=== PATIENT | female | born 1940 | race Hispanic/Latino ===

== ENCOUNTER → 2018-03-20 13:47 | Outpatient (CLI) | payer MEDICARE, OTHER, SELFPAY ==
--- NOTE | 2018-03-20 | DI.ECHO.S_ITS ---
[place] [facility]---------+ [facility] +---------+ : : [address] : : : [place], [place] : : : : [id number] : : : : Phone: [phone] Echocardiogram Report + + :Name: JAMIL HERRERA Study Date: 03/20/2018 Height: 62 in : :[facility] Exam Location: [facility] Weight: 170 lb : : Gender: Female BSA: 1.8 m2 : :: 1940 Age: 77 yrs BP: 140/60 mmHg: :Reason For Study: DYSPNEA : : Performed By: Avinash Murphy : :Referring: MARQUITA GOMEZ : + + Interpretation Summary 1. Normal left ventricular size, wall thickness and systolic function with an estimated EF of 60-65% 2. Normal right ventricular size and systolic function. The estimated right atrial pressure is low. 3. No evidence for significant valvular pathology There is no old study available for comparison Procedure: A two-dimensional transthoracic echocardiogram with color flow and Doppler was performed. The study quality was technically adequate. There is no prior echocardiogram noted for this patient. The patient was in normal sinus rhythm during the exam. Left Ventricle: The left ventricle is normal in size. There is normal left ventricular wall thickness. The ejection fraction is estimated to be 60-65%. No obvious focal wall motion abnormalities. Right Ventricle: The right ventricle is normal in size and function. Atria: The left atrium is mildly dilated. Right atrial size is normal. No color doppler evidence for an ASD. Mitral Valve: The mitral valve is normal in structure and function. There is mild mitral annular calcification. There is trace mitral regurgitation. Aortic Valve: The aortic valve is trileaflet. The aortic valve opens well. No aortic regurgitation is present. Tricuspid Valve: The tricuspid valve leaflets are thin and pliable. No tricuspid regurgitation. Pulmonary artery pressures cannot be estimated because of the lack of a measurable TR jet velocity. Pulmonic Valve: The pulmonic valve is not well seen, but is grossly normal. There is trace pulmonic regurgitation. Great Vessels: The aortic root is normal size. The dimensions of the ascending aorta are normal. The IVC is of normal diameter and collapses greater than 50% with a sniff. This suggests a low right atrial pressure of 3 mm Hg. Pericardium/ Pleura There is no pericardial effusion. There is no pleural effusion. MMode/2D Measurements & Calculations LVIDd: 5.0 cm Ao root diam: 2.9 cm LVIDs: 3.0 cm Aortic Jxn: 2.3 cm FS: 39.4 % asc Aorta Diam: 3.0 cm EPSS: 0.43 cm IVSd: 0.77 cm LVPWd: 0.69 cm LV cantu. diameter/BSA (cm/m^2): 2.8 LV sys. diameter/BSA (cm/m^2): 1.7 LA dimension: 3.5 cm RA long axis: 4.0 cm LA A2 area: 22.2 cm2 RA area: 11.8 cm2 LA A4 area: 16.8 cm2 RA vol: 29.4 ml LA length (vol): 5.0 cm RA : 16.5 ml/m2 LA vol: 63.9 ml IVC diam: 1.8 cm LA vol index: 35.8 ml/m2 Doppler Measurements & Calculations Ao V2 max: 153.3 cm/sec MV E max ty: 72.8 cm/sec Ao V2 mean: 112.4 cm/sec MV A max ty: 89.7 cm/sec Ao max P.4 mmHg MV E/A: 0.81 Ao mean P.5 mmHg Med Peak E' Ty: 5.8 cm/sec Ao V2 VTI: 31.8 cm E/E' med: 12.6 Lat Peak E' Ty: 5.8 cm/sec E/E' lat: 12.6 E/e' average: 12.6 MV dec time: 0.35 sec PA V2 max: 106.4 cm/sec Pulm A Revs Ty: 40.6 cm/sec PA V2 mean: 78.7 cm/sec PA mean P.7 mmHg PA pr(Accel): 51.6 mmHg PA Accel Time: 0.06 sec Reading Physician:PM
== END ==
PROVIDERS: Family Provider Family Medicine; PCP Family Medicine; Visit Provider Internal Medicine
DX: R06.00 Dyspnea, unspecified (principal)
CPT/HCPCS: 93306

== ENCOUNTER → 2018-04-17 09:07 | Outpatient (CLI) | payer MEDICARE, OTHER, SELFPAY ==
--- NOTE | 2018-04-17 10:18 | DI.CT.S_ITS ---
PROCEDURE: CT CHEST ABD PEL WO CON INDICATIONS: General hyperhidrosis TECHNIQUE: After the administration of oral contrast, 5 mm thick sections acquired from the lung apices to the symphysis pubis. 5 mm thick coronal and sagittal reformats acquired, with additional 7 mm coronal MIP reformats through the lungs. For radiation dose reduction, the following was used: automated exposure control, adjustment of mA and/or kV according to patient size. COMPARISON: None. FINDINGS: Image quality: Excellent. CHEST: Lungs and pleura: No acute pulmonary opacities. No pleural effusions or pneumothorax. Central and peripheral airways are patent are normal in caliber. Mediastinum: Heart size is normal. No pericardial effusion. No mediastinal adenopathy by CT size criteria. Thoracic aorta and central pulmonary arteries are normal in size. Esophagus is normal in caliber. No hiatal hernia. Chest wall: No axillary or supraclavicular adenopathy by size criteria. Thyroid gland appears normal where well visualized. ABDOMEN: Solid organs: Liver is normal in size. Gallbladder has been previously resected. Pancreas is normal in contours. Spleen is normal in size. No adrenal nodules. Both kidneys are normal in size, without hydronephrosis or nephrolithiasis. Peritoneum and bowel: Small and large bowel loops are normal in caliber and wall thickness. No free fluid or air. Nodes and vessels: No retroperitoneal or mesenteric adenopathy by size criteria. Aorta and inferior vena cava are normal in size. Miscellaneous: No ventral hernias. PELVIS: Genitourinary: Bladder wall thickness is normal. Miscellaneous: No inguinal hernias or adenopathy. Bones: No suspicious bony lesions. No vertebral body compression fractures. IMPRESSION: No inflammation or adenopathy is seen. Prior cholecystectomy. No underlying infection or neoplasm is found. Dictated by: Hung Mccormick M.D. on 04/17/2018 at 11:10 Approved by: Hung Mccormick M.D. on 04/17/2018 at 11:12
== END ==
PROVIDERS: Family Provider Family Medicine; PCP Family Medicine; Visit Provider Internal Medicine
DX: R61 Generalized hyperhidrosis (principal)
CPT/HCPCS: 71250; 74176

== ENCOUNTER → 2018-05-22 11:24 | Outpatient (CLI) | payer MEDICARE, BC, SELFPAY ==
[2018-05-22 14:13] LABS: Hemoglobin A1C% w Est Avg Glu 8.5 % (4.0-6.0)
== END ==
PROVIDERS: Family Provider Family Medicine; PCP Family Medicine; Visit Provider Internal Medicine
DX: E11.9 Type 2 diabetes mellitus without complications (principal)
CPT/HCPCS: 36415; 83036

== ENCOUNTER 2018-05-23 08:10 | Day surgery (SDC) | payer MEDICARE, BC, SELFPAY ==
--- NOTE | 2018-05-17 17:15 | P.PCN_ITS ---
Procedures Date/Time Date of procedure: 05/23/18 Time of procedure: 08:46 General Procedure description: Date of service: May 23, 2018 Preoperative diagnoses: 1. Cortical nuclear sclerotic cataract complex type with need for capsular dye status post cataract surgery with posterior chamber intraocular lens implant. 2. Diabetes without retinopathy. 3. Fibromyalgia. 4. Tachycardia Postoperative diagnoses: 1. Cataract removal complex. Procedure: Complex Phacoemulsification with posterior chamber intraocular lens implant Surgeon: Neha Smith MD Complications: None Specimen: None Implant:ZCBOO+22.5 Blood loss: None Anesthesia: Retrobulbar with monitored standby Anesthesiologist: Red Sanchez M.D. Description of procedure: Patient is a 77 year old female with decreased vision due to cataract which is affecting activities of daily living. She wants surgery to improve vision. She has taken to the operating room and given IV sedation. A retrobulbar block insert consisting of 6 cc of 2% xylocaine without epinephrine mixed half and half with 0.5% Marcaine with 1 cc of hyaluronidase added is placed between the medial and lateral 1/3 of the inferior orbital rim. Lid akinesia is obtain with 1% xylocaine with epinephrine infiltrated along the lid margin. The eye is manually massaged for 30 sec, prepped using Betadine solution, and draped in the usual sterile fashion. Temporal approach was made, a 1 mm side-port incision was made at the 12 o' clock meridian. Phenylephrine 1.5% mixed with 1% xylocaine 0.2 cc was placed into the anterior chamber. An air bubble was placed followed by vision Elsy dye for better visibility. This was due to cortical cataract through the visual axis. Viscoat followed by Healigor was then placed. A 2.6 mm clear incision with a 2.6 mm blade was placed at the 3 oclock meridian. A 360 degree capsulorrhexis style capsulotomy was then performed with a cystitome needle on a Healon. Hydrodelineation and hydrodissection were performed. The phacoemulsification unit is introduced, and sculpting notice used to groove the central lens. It is then removed in chopping mode. Epi nucleus is removed with epinuclear mode and irrigation aspiration was used to remove the peripheral cortex. The posterior capsule is polished. The intraocular lens is selected, inspected, power confirmed, and placed in the posterior chamber. The pupil was constricted. The wound was stromally hydrated and tested for leaks, there was none and was left sutureless. Vigamox 0.1 cc was placed into the anterior chamber. Kenalog 0.2 cc was placed in the superior subconjunctival space. A drop of antibiotic and was placed and the eye was patched and shielded. The patient was stable and returned to the recovery room in excellent condition. Dictated by: Neha Smith MD Copy to: [facility]
--- NOTE | 2018-05-17 17:15 | PM.PREOP ---
Pre-operative Note Interval Note Pre-op Check: History & Physical Reviewed by Physician
--- NOTE | 2018-05-17 17:21 | PM.PREOP ---
Pre-operative Note Interval Note H&P completed within 30 days and has changed as indicated here:: Patch tested for topical Betadine in the office. no reaction. Okay to use as prep.
[2018-05-23] MEDS: CATARACT EYE COMPOUND (10 DROPS/SYRINGE) 3 DROPS EYE-OP (08:29)
[2018-05-23] MEDS: PROPARACAINE 0.5% OPHTH SOL 2 DROPS EYE-OP (08:29)
[2018-05-23 08:36] VITALS: BP 134/65; PULSE 81; RESP 16; TEMP 36.1; O2SAT 95; BMI 33.1
[2018-05-23] MEDS: PHENYLEPHRINE/LIDOCAINE 3ML VIAL (OR) EYE-OP (09:23)
[2018-05-23] MEDS: TRIAMCINOLONE 50 MG/5 ML VIAL INJ (09:24)
[2018-05-23] MEDS: MOXIFLOXACIN OPHTH DROPS 3 ML BOTTLE 2 DROPS INJ (09:24)
[2018-05-23] MEDS: CHONDROIDTIN/SOD HYALURONATE 1.05 ML SYRINGE INTRAOCULA (09:25)
[2018-05-23] MEDS: BALANCED SALT IRRIG SOLN NO.2 15 ML IRRIG.SOLN IRR (09:26)
[2018-05-23] MEDS: HYALURONATE SODIUM 10 MG/ML SYRINGE INJ (09:26)
[2018-05-23] MEDS: LIDOCAINE 1% W/EPI INJ 20 ML INJ (09:27)
[2018-05-23] MEDS: LIDOCAINE 2% 4 ML, BUPIVACAINE 0.5% (PF) 4 ML, HYALURONIDASE 150 UNIT INJ (09:29)
[2018-05-23] MEDS: TRYPAN BLUE 0.5 ML SYRINGE INJ (09:30)
[2018-05-23] MEDS: CARBACHOL 1.5 ML VIAL INJ (09:40)
[2018-05-23 09:43] VITALS: BP 113/62; PULSE 72; RESP 17; TEMP 36.1; O2SAT 96
--- NOTE | 2018-05-23 10:44 | SUR.PREOP ---
pt. medicated with the preop eye drops as ordered, first set of drops @ 0829, then second set @ 0835, and last set @ 0840
== END 2018-05-23 10:00 | disposition home or self-care (01) ==
LOC: OR 08:12
PROVIDERS: PCP Family Medicine; Visit Provider Ophthalmology
DX: H25.12 Age-related nuclear cataract, left eye (principal); E11.9 Type 2 diabetes mellitus without complications; Z79.4 Long term (current) use of insulin; M79.7 Fibromyalgia; R00.0 Tachycardia, unspecified; J45.909 Unspecified asthma, uncomplicated
CPT/HCPCS: J2250; J2704; J3010; J3301; J3470

== ENCOUNTER 2018-06-06 08:11 | Day surgery (SDC) | payer MEDICARE, OTHER, SELFPAY ==
--- NOTE | 2018-06-02 14:50 | P.OP_ITS ---
Operative Date/Time/Diagnoses Date of procedure: 06/06/18 Time of procedure: 09:44 Procedure & Clinicians Procedure: Date of service: June 06, 2018 Preoperative diagnoses: 1. Right advanced nuclear sclerotic cataract with need for capsular dye. Complex. 2. Diabetes without retinopathy 3. Fibromyalgia 4. Tachycardia. 5. Hypothyroidism. Postoperative diagnoses: 1. Cataract status post complex removal with use of capsular dye and posterior chamber intraocular lens. Procedure: Phacoemulsification with posterior chamber intraocular lens implant. Surgeon: Neha Smith MD Complications: None Specimen: None Implant: +22.5 ZCBOO Blood loss: None Anesthesia: Retrobulbar with monitored standby Anesthesiologist: Javier Dennis M.D. Description of procedure: Patient is a female year old with decreased vision due to cataract which is affecting activities of daily living. She wants surgery to improve vision. Glucose a stable prior to surgery. She was taken to the operating room and given IV sedation. A retrobulbar block insert consisting of 6 cc of 2% xylocaine without epinephrine mixed half and half with 0.5% Marcaine with 1 cc of hyaluronidase added is placed between the medial and lateral 1/3 of the inferior orbital rim. Lid akinesia is obtain with 1% xylocaine with epinephrine infiltrated along the lid margin. The eye is manually massaged for 30 sec, prepped using Betadine solution, and draped in the usual sterile fashion. Temporal approach was made, a 1 mm side-port incision was made at the 7:30 position. Phenylephrine 1.5% mixed with 1% xylocaine 0.2 cc was placed into the anterior chamber. An air bubble was placed followed by the Visudyne dye for better visibility. Viscoat followed by Healon was then placed. A 2.6 mm clear incision with a 2.6 mm blade was placed at the 170 degree meridian. A 360 degree capsulorrhexis style capsulotomy was then performed with a cystitome needle on a Healon. Hydrodelineation and hydrodissection were performed. The phacoemulsification unit is introduced, and sculpting notice used to groove the central lens. It is then removed in chopping mode. Epi nucleus is removed with epinuclear mode and irrigation aspiration was used to remove the peripheral cortex. The posterior capsule is polished. The intraocular lens is selected, inspected, power confirmed, and placed in the posterior chamber. The pupil was constricted. The wound was stromally hydrated and tested for leaks, there was none and was left sutureless. Vigamox 0.1 cc was placed into the anterior chamber. Kenalog 0.2 cc was placed in the superior subconjunctival space. A drop of antibiotic and was placed and the eye was patched and shielded. The patient was stable and returned to the recovery room in excellent condition. Dictated by: Neha Smith MD Copy to: [facility] Same procedure as scheduled: Yes
--- NOTE | 2018-06-02 14:50 | PM.PREOP ---
Pre-operative Note Interval Note Pre-op Check: Yes History & Physical Reviewed by Physician Changes: No
--- NOTE | 2018-06-06 08:44 | PM.PREOP ---
Pre-operative Note Interval Note Pre-op Check: Yes History & Physical Reviewed by Physician Changes: No
[2018-06-06 08:59] VITALS: BP 129/61; PULSE 84; RESP 15; TEMP 36.3; O2SAT 92; BMI 31.0
[2018-06-06] MEDS: PROPARACAINE 0.5% OPHTH SOL 2 DROPS EYE-OP (09:05)
[2018-06-06] MEDS: CATARACT EYE COMPOUND (10 DROPS/SYRINGE) 3 DROPS EYE-OP (09:06)
--- NOTE | 2018-06-06 10:08 | SUR.OPER ---
Supine on eye stretcher, head on extension cradle secured with tape. Arms tucked at sides with blanket. Pillow under knees.
[2018-06-06] MEDS: BALANCED SALT IRRIG SOLN NO.2 15 ML IRRIG.SOLN IRR (10:20)
[2018-06-06] MEDS: CARBACHOL 1.5 ML VIAL INJ (10:20)
[2018-06-06] MEDS: MOXIFLOXACIN OPHTH DROPS 3 ML BOTTLE 2 DROPS INJ (10:21)
[2018-06-06] MEDS: CHONDROIDTIN/SOD HYALURONATE 1.05 ML SYRINGE INTRAOCULA (10:21)
[2018-06-06] MEDS: HYALURONATE SODIUM 10 MG/ML SYRINGE INJ (10:21)
[2018-06-06] MEDS: LIDOCAINE 1% W/EPI INJ 20 ML INJ (10:21)
[2018-06-06] MEDS: TRIAMCINOLONE 50 MG/5 ML VIAL INJ (10:22)
[2018-06-06] MEDS: OFLOXACIN 0.3% OPHTH 5 ML 2 DROPS EYE-RIGHT (10:22)
[2018-06-06] MEDS: PHENYLEPHRINE/LIDOCAINE 3ML VIAL (OR) EYE-OP (10:22)
[2018-06-06] MEDS: TRYPAN BLUE 0.5 ML SYRINGE INJ (10:23)
[2018-06-06] MEDS: BALANCED SALT IRRIG SOLN NO.2 500 ML, EPINEPHrine 1 MG IRR (10:23)
[2018-06-06] MEDS: NEOMYCIN/POLY/DEX OPHTH OINT 1 APPLIC EYE-RIGHT (10:24)
[2018-06-06] MEDS: LIDOCAINE 2% 4 ML, BUPIVACAINE 0.5% (PF) 4 ML, HYALURONIDASE 150 UNIT INJ (10:24)
[2018-06-06 10:47] VITALS: BP 129/62; PULSE 72; RESP 17; TEMP 36.2; O2SAT 95
== END 2018-06-06 11:01 | disposition home or self-care (01) ==
PROVIDERS: PCP Family Medicine; Visit Provider Ophthalmology
DX: H25.12 Age-related nuclear cataract, left eye (principal); E11.9 Type 2 diabetes mellitus without complications; M79.7 Fibromyalgia; R00.0 Tachycardia, unspecified; E03.9 Hypothyroidism, unspecified
CPT/HCPCS: J0171; J2704; J3301; J3470

== ENCOUNTER → 2018-07-17 11:38 | Outpatient (CLI) | payer MEDICARE, OTHER, SELFPAY ==
--- NOTE | 2018-07-17 11:41 | DI.RAD.S_ITS ---
PROCEDURE: XR LUMBAR SPINE MIN 4V INDICATIONS: osteoarthritis TECHNIQUE: 5 views of the lumbar spine were acquired. COMPARISON: [facility], CR, SPINE LUMB MIN 4VW, 01/20/2015, 14:24. [facility], MR, L-SPINE WITHOUT CONTRAST, 01/27/2015, 13:41. FINDINGS: Bones: 5 ibj-gel-swkkssz vertebrae are present. There is grade one anterolisthesis of L3 over L4. No vertebral body compression fractures. No suspicious bony lesions. There is degenerative disease, severe at T12-L1, moderate at L3-L4 and mild at L1-L2, L2-L3 and L4-L5 and L5. Severe facet arthropathy at L3-L4, L4-L5 and L5-S1. Soft tissues: Overlying bowel gas pattern is normal. No suspicious soft tissue calcifications. Oblique images: No pars defects. IMPRESSION: Moderate degenerative disc and facet disease as described. Dictated by: Ari Thomas M.D. on 07/17/2018 at 16:58 Approved by: Ari Thomas M.D. on 07/17/2018 at 17:01
== END ==
PROVIDERS: PCP Family Medicine; Visit Provider Physical Medicine & Rehabilitation
DX: M51.36 Other intervertebral disc degeneration, lumbar region (principal); M51.35 Other intervertebral disc degeneration, thoracolumbar region; M47.27 Other spondylosis with radiculopathy, lumbosacral region; M47.26 Other spondylosis with radiculopathy, lumbar region; M48.061 Spinal stenosis, lumbar region without neurogenic claudication
CPT/HCPCS: 72110

== ENCOUNTER → 2018-07-19 16:25 | Outpatient (CLI) | payer MEDICARE, OTHER, SELFPAY ==
--- NOTE | 2018-07-19 16:26 | DI.MRI.S_ITS ---
PROCEDURE: MR LUMBAR SPINE WO CON INDICATIONS: LOW BACK PAIN. NUMBNESS AND TINGLING IN BOTH LEGS TECHNIQUE: Noncontrast sagittal T1 spin echo and T2 fast echo, sagittal STIR, axial T1 and T2 fast spin echo through the lumbar spine. In cases with scoliosis, additional coronal T2 fast spin echo may be performed. COMPARISON: [facility], MR, L-SPINE WITHOUT CONTRAST, 01/27/2015, 13:41. FINDINGS: Image quality: Excellent. Alignment and Curvature: There is trace retrolisthesis of T12 on L1, L1 on L2, trace anterolisthesis of L3 on L4. Bone Marrow: Marrow is of normal overall signal. Increased T1 and T2 signals present at L5 consistent with hemangioma and unchanged. No acute vertebral body compression fractures. Spinal Cord: Conus medullaris terminates at the L1 level. Visualized cord demonstrates normal signal. 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 Paraspinous Soft Tissues: No paravertebral masses. Discs: Moderate desiccation is present throughout the lumbar spine less severe at L5-S1. T12-L1: Mild disc bulge with mild spinal stenosis. Minimal left foraminal narrowing with facet and ligamentum flavum hypertrophy. L1-L2: Mild disc bulge with moderate spinal stenosis, slightly progressive. Minimal bilateral foraminal narrowing is present. Mild bilateral foraminal narrowing, slightly progressive on the right compared to prior exam. Facet and ligamentum flavum hypertrophy are present. L2-L3: Mild disc bulge with severe spinal stenosis, progressive compared to prior exam. Mild epidural lipomatosis is present. Moderate to severe bilateral foraminal narrowing, slowly progressive on the right is present. Facet and ligamentum flavum hypertrophy are present. L3-L4: Mild disc bulge with severe spinal stenosis, minimally progressive. There is moderate bilateral foraminal narrowing, left greater than right, stable. Prominent facet and ligamentum flavum hypertrophy are present. L4-L5: Mild disc bulge including a right lateral/foraminal component. There is moderate spinal stenosis with minimal epidural lipomatosis. Severe right and [id number]-ecfrdh left foraminal narrowing appearing stable. Facet and ligamentum flavum hypertrophy. L5-S1: Mild disc bulge without spinal stenosis. There is mild bilateral foraminal narrowing, slightly progressive on the left compared to prior exam. Facet hypertrophy is present. IMPRESSION: 1. Multilevel degenerative changes demonstrate areas of interval progression as noted above. 2. Multilevel spinal stenosis with severe narrowing identified at L2-3, L3-4 secondary to disc bulges and facet/ligamentum flavum arthropathy. There is also contributing effect of mild congenital underlying stenosis. 3. Multilevel foraminal narrowing severe at L4-5 secondary to facet arthropathy. Dictated by: Parul Rodriguez M.D. on 07/19/2018 at 17:37 Approved by: Parul Rodriguez M.D. on 07/19/2018 at 17:44
== END ==
PROVIDERS: PCP Family Medicine; Visit Provider Physical Medicine & Rehabilitation
DX: M48.061 Spinal stenosis, lumbar region without neurogenic claudication (principal); M47.26 Other spondylosis with radiculopathy, lumbar region; M51.36 Other intervertebral disc degeneration, lumbar region; M47.27 Other spondylosis with radiculopathy, lumbosacral region; M54.5 Low back pain; R20.2 Paresthesia of skin
CPT/HCPCS: 72148

== ENCOUNTER 2018-08-08 10:19 | Outpatient (CLI) | payer MEDICARE, OTHER, SELFPAY ==
[2018-08-08] VITALS (11 sets, daily range): BP systolic 117–150; BP diastolic 51–86; PULSE 74–82; RESP 16–20; TEMP 36.4; O2SAT 95–98
--- NOTE | 2018-08-08 10:21 | DI.RAD.S_ITS ---
PROCEDURE: PAIN L INTERLAMINAR/CAUDAL INJ INDICATIONS: SPINAL STENOSIS FINDINGS: Fluoroscopic spot filming was performed to verify placement of spinal needles at the left paramedian L3-4 interlaminar space , as labeled on the films. Appropriate location(s) of the needle tip(s) was confirmed by injection of iodinated contrast. IMPRESSION: Successful needle tip localization of the left paramedian interlaminar space for dorsal epidural steroid injection. Dictated by: Hung Mccormick M.D. on 08/08/2018 at 15:40 Approved by: Hung Mccormick M.D. on 08/08/2018 at 15:40
[2018-08-08] MEDS: MIDAZOLAM 5 MG/5 ML VIAL IV (11:11)
[2018-08-08] MEDS: IOPAMIDOL 15 ML VIAL 3 ML INJ (11:21)
[2018-08-08] MEDS: BUPIVACAINE 0.25% (PF) VIAL 2 ML INJ (11:22)
[2018-08-08] MEDS: methylPREDNISolone acetate 80 MG/ML VIAL INJ (11:22)
[2018-08-08] MEDS: DEXAMETHASONE 10 MG/ML VIAL 20 MG INJ (11:22)
--- NOTE | 2018-08-08 11:30 | P.PCN_ITS ---
Procedures Date/Time Date of procedure: 08/08/18 Time of procedure: 11:28 General Procedure description: POST OP DIAGNOSIS 1. HNP WITH RADICULAR FEATURES, 2. MULTILEVEL CENTRAL STENOSIS, PROCEDURES 1. FLUORSCOPICALLY GUIDED CONTRAST CONTROLLED INTERLAMINAR EPIDURAL STEROID INJECTION - L3/4 PHYSICIAN: Cosmo Harris DO INDICATIONS Berenice is referred by Dr. Haas for treatment of Bilateral Foraminal Stenosis L> R LE symptoms. FINDINGS Multilevel Central Spinal Stenosis with Nerve Root Compression DESCRIPTION OF PROCEDURE Fluoroscopically guided, contrast-controlled L3/4 translaminar epidural steroid injection. Following denial of allergy and review of potential side effects and complications, including, but not necessarily limited to, infection, allergic reaction, local tissue breakdown, temporary as well as permanent nerve injury, paralysis, stroke and possible , the patient indicated that the patient understood and agreed to proceed. An informed consent document was signed by the patient, witnessed by a nurse, and placed in the patient's chart. Additionally, other treatment options including modalities, medications, and physical therapy were reviewed with the patient. After review of previous anaesthesic history and IV conscious sedation the patient was deemed safe to proceed with todays procedure with IV conscious sedation as ASA class II designation. Safety time-out was performed to confirm patient ID, procedure to be performed and site of procedure. IV sedation was accomplished with a combination of 3mg was administered by the RN after DO order , titrated to patient comfort during the course of the procedure while the patient remained responsive to all verbal commands. In the prone position, following sterile prep and drape of the lumbar region, the L3/4 translaminar space was identified fluoroscopically. The skin was anesthetized via a 25-gauge, 1.5-inch needle with 1% lidocaine solution. At this point, a 22-gauge short bevel spinal needle was atraumatically introduced and advanced under fluoroscopic guidance into the region of the L3/4 translaminar space. Depth was confirmed on lateral view. Radiological data, including multiple fluoroscopic views of the lumbar spine, reveal a spinal needle at the L3/4 translaminar space. Lateral views then show placement of the needle in the epidural space. Subsequent views show contrast material flowing superiorly and inferiorly in the epidural space. No vascular or intrathecal uptake is observed. At this point, using loss of resistance technique with saline and air, the epidural space was entered. This was confirmed following negative aspiration with injection of approximately 1.5 cc of Isovue 200, showing excellent epidural flow without vascular or intrathecal uptake. At this point, 1 cc of 1 % lidocaine solution combined with 3 cc or 20 mg of dexamethasone and 80mg Depo medrol was injected without incident. The patient tolerated the procedure well without signs or symptoms of complications prior to transfer to the recovery area continued monitoring without incident. The patient was then transferred to the recovery area where they were observed for an appropriate period of time after the injection. The patient reported a VAS score of 6 prior to the procedure and a post- procedure VAS of 0. Total Fluoroscopy Time: 11.8 seconds Total Conscious Sedation Time: 24min POST OP INSTRUCTIONS The patient was provided a Pain Log to continue to record their response to the target-specific procedure prior to follow-up visit with their referring physician. Additionally, specific post-injection care instructions and a contact number to our office were provided if concerns arise regarding possible complications associated with the procedure are suspected. Cosmo Harris, Complications: none
== END 2018-08-08 12:15 ==
LOC: RAD 10:20
PROVIDERS: PCP Family Medicine; Visit Provider Physical Medicine & Rehabilitation
DX: M51.16 Intervertebral disc disorders with radiculopathy, lumbar region (principal); M48.061 Spinal stenosis, lumbar region without neurogenic claudication
CPT/HCPCS: 62323; 99152; J1040; J1100; J2250

== ENCOUNTER 2018-08-31 10:40 | Emergency (ER) | payer MEDICARE, OTHER, SELFPAY ==
[2018-08-31 10:40] VITALS: BP 144/80; PULSE 180; RESP 30; TEMP 36.7; O2SAT 96
--- NOTE | 2018-08-31 10:49 | DI.RAD.S_ITS ---
PROCEDURE: XR CHEST 1V INDICATIONS: chest pain TECHNIQUE: One view of the chest was acquired. COMPARISON: [facility], , CHEST 2 VIEW, 02/16/2018, 10:36. FINDINGS: Surgical changes and devices: None. Lungs and pleura: No pleural effusions or pneumothorax. Mildly increased bronchovascular markings and bilateral hilar region are seen with mild bronchial wall thickening suggestive of reactive airway disease. No definite focal infiltrate. Mediastinum: Mediastinal contours appear normal. Heart size is enlarged. Bones and chest wall: No suspicious bony lesions. Overlying soft tissues appear unremarkable. IMPRESSION: Suggestion of mild reactive airway disease such as bronchitis or asthma. No definite focal infiltrate. Dictated by: Jose Brenner M.D. on 08/31/2018 at 11:29 Approved by: Jose Brenner M.D. on 08/31/2018 at 11:35
[2018-08-31 10:54] LABS: Add Manual Diff / Slide Review NO; Basophils Percent Auto 0.4 % (0-2); Eosinophils Percent Auto 1.5 % (2-4); Hematocrit 40.6 % (36-46); Hemoglobin 13.3 g/dL (12.0-16.0); Lymphocytes Percent Auto 17.2 % (25-40); Mean Corpuscular HGB Conc 32.7 % (30-36); Mean Corpuscular Hemoglobin 29.8 PG (26-34); Mean Corpuscular Volume 91.1 fL (80-100); Monocytes Percent Auto 5.9 % (3-14); Neutrophils Absolute Auto 9100 /uL (3000-5900); Platelet Count 313 X10^3/uL (150-400); Red Blood Cell Count 4.46 X10^6/uL (4.0-5.2); Red Cell Distribution Width 14.1 % (11.6-14.8); White Blood Cell Count 12.1 X10^3/uL (4.5-11.0)
--- NOTE | 2018-08-31 10:58 | ED_ITS ---
HPI - Arrhythmia/Palpitations General Chief Complaint: Arrhythmia/Palpitations Stated Complaint: tachycardia issues Time Seen by Provider: 08/31/18 10:48 Source: patient Mode of arrival: ambulatory Limitations: no limitations History of Present Illness HPI narrative: This a 78-year-old female comes in with complaint of fast heartbeat. Patient states that she has had this before. She has a history of a arrhythmia when asked of the supraventricular tachycardia she does not recall. She states she normally gets the medicine through the IV and they have to give a 2nd dose and then it resolved. She has had this happen several times. 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 She does not take any medications for her heart rate or rhythm. She denies any syncope, any lightheadedness. She can feel that her heart rate is fast. She denies any shortness of breath, no nausea or vomiting or GI or urinary symptoms she denies any swelling in her lower extremities. Related Data Home Medications Medication Instructions Recorded Confirmed estradiol 1 mg tablet 1 mg PO DAILY 06/22/18 08/31/18 [CMP KETOPROFEN] 20 % TOPICAL BID PRN 08/31/18 08/31/18 cyclosporine [Restasis] 1 drp OPHTHALMIC (EYE) BID 08/31/18 08/31/18 fluticasone-salmeterol [Advair 1 puff INHALATION BID 08/31/18 08/31/18 Diskus] furosemide 40 mg PO QDAY PRN 08/31/18 08/31/18 insulin glargine [Lantus Solostar 40 units SUBCUT DAILY 08/31/18 08/31/18 U-100 Insulin] loteprednol etabonate [Lotemax] 1 drp OPHTHALMIC (EYE) BID 08/31/18 08/31/18 verapamil 2 tab PO DAILY 08/31/18 08/31/18 Previous Rx's Medication Instructions Recorded albuterol sulfate [Proventil HFA] 2 puff INH QIDP #1 inh 12/14/17 citalopram 20 mg tablet 20 mg PO DAILY #90 tab 06/18/18 levothyroxine 75 mcg tablet 75 mcg PO QAM #90 tab 07/06/18 glipizide ER 10 mg tablet, 10 mg PO DAILY #90 tab 08/13/18 extended release 24 hr hydrocodone 7.5 mg-acetaminophen 1 tab PO Q8H PRN #90 tab 08/24/18 325 mg tablet Allergies Allergy/AdvReac Type Severity Reaction Status Date / Time amoxicillin [AMOXICILLIN] Allergy Unknown Verified 08/08/18 10:33 clavulanic acid Allergy Unknown Verified 08/08/18 10:33 [CLAVULANIC ACID] latex [LATEX] Allergy Unknown Rash Verified 08/08/18 10:33 metformin [METFORMIN] Allergy Unknown Diarrhea Verified 08/08/18 10:33 Penicillins [PENICILLINS] Allergy Unknown Flushing Verified 08/08/18 10:33 zolpidem [ZOLPIDEM] Allergy Unknown Verified 08/08/18 10:33 Bccmnhx-Lpu-Wze Reductase Allergy Verified 08/08/18 10:33 Inhibitor TOPICAL IODINE Allergy Unknown Rash Uncoded 07/30/18 10:35 Review of Systems Review of Systems All systems reviewed & are unremarkable except as noted in HPI and below Constitutional Denies fever(s) and Denies headache(s) ENT Ears, Nose, Mouth, and Throat: Denies dizziness and Denies headache(s) Cardiovascular Denies chest pain, Denies diaphoresis, Denies syncope, Reports rapid heart rate , Denies pedal edema, Denies irregular heart rhythm, Denies lightheadedness, Denies palpitations, Denies dyspnea and Denies orthopnea Respiratory Denies chest congestion, Denies cough and Denies dyspnea Gastrointestinal Gastrointestinal: Denies abdominal pain, Denies melena, Denies hematochezia, Denies change in bowel habits, Denies diarrhea, Denies nausea and Denies vomiting Genitourinary Denies urinary frequency and Denies urinary urgency Neurologic Denies dizziness, Denies syncope and Denies headache(s) Endocrine Denies palpitations [facility]LY [facility] Medical History 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) Diabetes mellitus (Chronic) Diverticular disease (Chronic) Fibromyalgia (Chronic) Hernia, diaphragmatic (Chronic) Hyperlipidemia (Chronic) Hypothyroidism (Chronic) CTS (carpal tunnel syndrome) (Resolved) Surgical History History of carpal tunnel repair (Resolved) History of cystoscopy (Resolved) Status post appendectomy (Resolved) Status post breast reduction (Resolved) Status post cholecystectomy (Resolved) Status post hysterectomy with oophorectomy (Resolved) Social History household members: none Smoking Status: Never smoker Exam Narrative Exam Narrative: GENERAL: Alert and oriented x three, obese, well-appearing female in mild distress. HEENT: Head normocephalic, atraumatic, EOMI, pupils reactive, face symmetric, moist mucous membranes NECK: Supple, full range of motion CARDIOVASCULAR: Tachycardic and quite rapid Regular rate and rhythm without murmurs, rubs or gallops. No JVD noted. 2+ pulses bilateral lower extremities. RESPIRATORY: Breath sounds equal bilaterally, no wheezes rales or rhonchi. ABDOMEN: Soft, nontender. Normoactive bowel sounds all 4 quadrants. No guarding or rebound, rigidity, no mass EXTREMITIES: Normal range of motion, no clubbing or edema. Neurovascularly intact NEUROLOGICAL: Cranial nerves II through XII grossly intact. Moving all extremities SKIN: Warm, dry, no petechiae, no rashes or lesions. Initial Vital Signs Initial Vital Signs: Vital Signs Temperature 98.1 F 08/31/18 10:40 Pulse Rate 180 H 08/31/18 10:40 Respiratory Rate 30 H 08/31/18 10:40 Blood Pressure 144/80 H 08/31/18 10:40 Pulse Oximetry 96 08/31/18 10:40 Course Orders Ordered: ED Orders 08/31/18 10:49 XR chest 1V Stat Complete Blood Count AUTO DIFF Stat Comprehensive Metabolic Panel Stat Lipase Stat Magnesium Stat Partial Thromboplastin Time Stat Prothrombin Time INR Stat Thyroid Stimulating Hormone Stat Troponin & CK Cardiac Panel Stat 08/31/18 10:52 EKG-12 Lead Stat 08/31/18 10:56 EKG-12 Lead Stat Discontinued Medications Adenosine (Adenocard) 6 mg IV NOW ONE Stop: 08/31/18 10:57 Last Admin: 08/31/18 11:06 Dose: 6 mg Sodium Chloride (Normal Saline 0.9%) 1,000 mls @ 1,000 mls/hr IV BOLUS ONE Stop: 08/31/18 11:55 Last Infusion: 08/31/18 12:26 Dose: 0 mls/hr Admin: 08/31/18 11:06 Dose: 1,000 mls/hr Vital Signs - 8 hr 08/31/18 11:33 08/31/18 12:17 Pulse Rate 108 H 107 H Respiratory Rate 17 21 Blood Pressure [Right Arm] 163/80 H 145/73 H Pulse Oximetry 96 96 MDM - Arrhythmia/Palpitations Lab Data Result diagrams: 08/31/18 10:49 08/31/18 10:49 Lab Results 08/31/18 08/31/18 08/31/18 Range/Units 10:49 10:49 10:49 WBC 12.1 H (4.5-11.0) X10^3/uL RBC 4.46 (4.0-5.2) X10^6/uL Hgb 13.3 (12.0-16.0) g/dL Hct 40.6 (36-46) % MCV 91.1 (80-100) fL MCH 29.8 (26-34) PG MCHC 32.7 (30-36) % RDW 14.1 (11.6-14.8) % Plt Count 313 (150-400) X10^3/uL Neut % (Auto) 75.0 (50-75) % Lymph % (Auto) 17.2 L (25-40) % [place] % (Auto) 5.9 (3-14) % Eos % (Auto) 1.5 L (2-4) % Baso % (Auto) 0.4 (0-2) % Neut # (Auto) 9100 H (8723-8011) /uL PT 11.0 (10.1-12.7) SECONDS INR 1.0 (0.9-1.3) APTT 28 (26.4-36.2) SECONDS Sodium 140 (137-145) mmol/L Potassium 4.3 (3.4-5.1) mmol/L Chloride 101 (98-107) mmol/L Carbon Dioxide 25 (22-32) mmol/L BUN 18 H (7-17) mg/dL Creatinine 0.60 (0.52-1.04) mg/dL Estimated GFR > 60.0 (>60) mL/min BUN/Creatinine Ratio 30.0 H (6-22) Glucose 319 H (80-110) mg/dL Calcium 9.1 (8.4-10.2) mg/dL Magnesium 1.6 (1.6-2.3) mg/dL Total Bilirubin 0.6 (0.2-1.3) mg/dL AST 18 (14-36) IU/L ALT 21 (9-52) IU/L Alkaline Phosphatase 75 (38-126) U/L Total Creatine Kinase 53 (30-135) U/L CK-MB (CK-2) TNP CK-MB (CK-2) Rel Index TNP Troponin I < 0.012 (0.01-0.034) ng/mL Total Protein 7.1 (6.3-8.2) g/dL Albumin 4.4 (3.5-5.0) g/dL Globulin 2.7 (1.7-4.1) g/dL Albumin/Globulin Ratio 1.6 (1.0-2.8) Lipase 92 (23-300) U/L TSH (0.47-4.68) uIU/mL 08/31/18 Range/Units 10:49 WBC (4.5-11.0) X10^3/uL RBC (4.0-5.2) X10^6/uL Hgb (12.0-16.0) g/dL Hct (36-46) % MCV (80-100) fL MCH (26-34) PG MCHC (30-36) % RDW (11.6-14.8) % Plt Count (150-400) X10^3/uL Neut % (Auto) (50-75) % Lymph % (Auto) (25-40) % [place] % (Auto) (3-14) % Eos % (Auto) (2-4) % Baso % (Auto) (0-2) % Neut # (Auto) (6100-9228) /uL PT (10.1-12.7) SECONDS INR (0.9-1.3) APTT (26.4-36.2) SECONDS Sodium (137-145) mmol/L Potassium (3.4-5.1) mmol/L Chloride (98-107) mmol/L Carbon Dioxide (22-32) mmol/L BUN (7-17) mg/dL Creatinine (0.52-1.04) mg/dL Estimated GFR (>60) mL/min BUN/Creatinine Ratio (6-22) Glucose (80-110) mg/dL Calcium (8.4-10.2) mg/dL Magnesium (1.6-2.3) mg/dL Total Bilirubin (0.2-1.3) mg/dL AST (14-36) IU/L ALT (9-52) IU/L Alkaline Phosphatase (38-126) U/L Total Creatine Kinase (30-135) U/L CK-MB (CK-2) CK-MB (CK-2) Rel Index Troponin I (0.01-0.034) ng/mL Total Protein (6.3-8.2) g/dL Albumin (3.5-5.0) g/dL Globulin (1.7-4.1) g/dL Albumin/Globulin Ratio (1.0-2.8) Lipase (23-300) U/L TSH 1.02 (0.47-4.68) uIU/mL Imaging Data Chest x-ray: Radiologist's impression: [address] [address] XRay Report Signed Patient: Berenice Goodwin R#: [id number] : 2Acct:[id number] Age/Sex: 78 / FDate of Service: 08/31/18 Loc: ED Accession Number: [id number] Procedure: XR chest 1V Ordering Provider: Mile Randolph D.O. PROCEDURE: XR CHEST 1V INDICATIONS: chest pain TECHNIQUE: One view of the chest was acquired. COMPARISON: [facility], CHEST 2 VIEW, 02/16/2018, 10:36. FINDINGS: Surgical changes and devices: None. Lungs and pleura: No pleural effusions or pneumothorax. Mildly increased bronchovascular markings and bilateral hilar region are seen with mild bronchial wall thickening suggestive of reactive airway disease. No definite focal infiltrate. Mediastinum: Mediastinal contours appear normal. Heart size is enlarged. Bones and chest wall: No suspicious bony lesions. Overlying soft tissues appear unremarkable. IMPRESSION: Suggestion of mild reactive airway disease such as bronchitis or asthma. No definite focal infiltrate. Dictated by: Jose Brenner M.D. on 08/31/2018 at 11:29 Approved by: Jose Brenner M.D. on 08/31/2018 at 11:35 ECG Data Attestation: I personally reviewed and interpreted this ECG as follows: Interpretation: Supraventricular tachycardia with a rate of 182, QRS of 100 and QTC of 360. Patient has nonspecific ST changes. EKG 2. Shows a sinus tachycardia with a rate of 100, P are of 196, QRS of 114 and QTC of 428. No ST elevation or depression is appreciated. Patient has nonspecific ST changes MDM Narrative Medical decision making narrative: Patient had a 6 and then followed by 12 mg adenosine which then stopped her symptoms. Her legs were also elevated while this was occurring. She came down quickly to about 115 beats per minute and then continued to slow to more normal rate. Patient lab work, chest x-ray and repeat EKG were all reviewed. She is asymptomatic on re-evaluation and would like to return home. She has had symptoms on off for decades so medications are not changed today although we discussed if she has more frequent occurrences she probably does need to be on medication she has not been eating or drinking and has not been sleeping much which may have contributed to her symptoms. We did also discuss possible vagal maneuvers that she may try at home and the 1st few minutes of symptoms. Discharge Plan Departure Patient Disposition: Home Clinical Impression: Supraventricular arrhythmia Discharge Date/Time: 08/31/18 13:03 Interventions: ED Discharge Assessment Last Done: 08/31/18 13:03 Instructions: Paroxysmal Supraventricular Tachycardia Activity Restrictions/Additional Instructions: The follow up with your physician in the next 2-3 days for recheck. Call this afternoon for an appointment. Continue your home medications as prescribed General Return Instructions : Return to the Emergency Department for any new or worsening symptoms. Return to the Emergency Department for fevers greater than 100.4, fast heart beat, severe abdominal pain, chest pain, shortness of breath, passing out, chest pain , persistent vomiting, worrisome rash, or any other new or worsening symptoms. Prescriptions: No Action albuterol sulfate [Proventil HFA] 90 MCG/PUFF HFA aerosol inhaler 2 puff INH QIDP Qty: 1 RF: 3 citalopram 20 mg tablet 20 mg PO DAILY Qty: 90 RF: 0 levothyroxine [Synthroid] 75 mcg tablet 75 mcg PO QAM Qty: 90 RF: 1 glipizide 10 mg tablet extended release 24hr 10 mg PO DAILY Qty: 90 RF: 3 hydrocodone-acetaminophen [[place]] 7.5-325 mg tablet 1 tab PO Q8H PRN (Reason: pain) Qty: 90 RF: 0 estradiol [Estrace] 1 mg tablet 1 mg PO DAILY RF: 0 fluticasone-salmeterol [Advair Diskus] 250-50 mcg/dose blister with device 1 puff Inhalation BID RF: 0 verapamil 180 mg tablet extended release 2 tab PO DAILY RF: 0 loteprednol etabonate [Lotemax] 0.5 % drops,suspension 1 drp ophthalmic (eye) BID RF: 0 cyclosporine [Restasis] 0.05 % dropperette 1 drp ophthalmic (eye) BID RF: 0 insulin glargine [Lantus Solostar U-100 Insulin] 100 unit/mL (3 mL) insulin pen 40 units subcut DAILY RF: 0 [CMP KETOPROFEN] 20 % Topical BID PRN (Reason: unknown) RF: 0 furosemide 40 MG tablet 40 mg PO QDAY PRN (Reason: Edema) RF: 0 Referrals: Mulugeta Haas MD [Primary Care Provider] -
[2018-08-31 11:03] LABS: PTT Partial Thromboplastin Tim 28 SECONDS (26.4-36.2)
[2018-08-31 11:06] LABS: Alanine Aminotransferase 21 IU/L (9-52); Albumin 4.4 g/dL (3.5-5.0); Albumin Globulin Ratio 1.6 (1.0-2.8); Alkaline Phosphatase 75 U/L (38-126); Aspartate Aminotransferase 18 IU/L (14-36); Bilirubin Total 0.6 mg/dL (0.2-1.3); Blood Urea Nitrogen 18 mg/dL (7-17); Calcium 9.1 mg/dL (8.4-10.2); Carbon Dioxide 25 mmol/L (22-32); Chloride 101 mmol/L (98-107); Creatine Kinase 53 U/L (30-135); Estimated Glomerular Filt Rate > 60.0 mL/min (>60); Globulin 2.7 g/dL (1.7-4.1); Glucose 319 mg/dL (80-110); HEMOLYSIS 22 (0-50); Lipase 92 U/L (23-300); Potassium 4.3 mmol/L (3.4-5.1); Sodium 140 mmol/L (137-145); Total Protein 7.1 g/dL (6.3-8.2)
[2018-08-31] MEDS: ADENOSINE 6 MG/2 ML VIAL IV (11:06)
[2018-08-31] MEDS: SODIUM CHLORIDE 0.9% 1,000 ML 1000 ML IV (11:06)
[2018-08-31 11:12] LABS: Magnesium 1.6 mg/dL (1.6-2.3)
[2018-08-31 11:18] LABS: Troponin I < 0.012 ng/mL (0.01-0.034)
[2018-08-31 11:33] VITALS: BP 163/80; PULSE 108; RESP 17; O2SAT 96
[2018-08-31 11:53] LABS: Thyroid Stimulating Hormone 1.02 uIU/mL (0.47-4.68)
[2018-08-31 12:17] VITALS: BP 145/73; PULSE 107; RESP 21; O2SAT 96
== END 2018-08-31 13:03 | disposition home or self-care (01) ==
PROVIDERS: Emergency Provider Emergency Medicine; PCP Family Medicine
DX: I49.9 Cardiac arrhythmia, unspecified (principal)
CPT/HCPCS: 36591; 71045; 80053; 82550; 83690; 83735; 84443; 84484; 85025; 85610; 85730; 93005; 93010; 96361; 96374; 99283; 99285; J0153

== ENCOUNTER 2018-10-02 10:18 | Outpatient (CLI) | payer MEDICARE, OTHER, SELFPAY ==
--- NOTE | 2018-10-02 10:19 | DI.RAD.S_ITS ---
PROCEDURE: PAIN L/SI FACET INJ/BLK 1STL INDICATIONS: SPONDYLOSIS FINDINGS: Fluoroscopic spot filming was performed to verify placement of spinal needles at the L4-L5 and L5-S1 level(s), as labeled on the films. Appropriate location(s) of the needle tip(s) was confirmed by injection of iodinated contrast. Dictated by: Matthew Griffin M.D. on 10/02/2018 at 15:50 Approved by: Matthew Griffin M.D. on 10/02/2018 at 15:52
[2018-10-02 10:43] VITALS: BP 139/76; PULSE 82; RESP 18; TEMP 36.6; O2SAT 97
[2018-10-02] MEDS: MIDAZOLAM 5 MG/5 ML VIAL IV (11:00)
[2018-10-02 11:02] VITALS: BP 116/59; PULSE 76; RESP 18; O2SAT 98
[2018-10-02 11:08] VITALS: BP 132/50; PULSE 74; RESP 16; O2SAT 97
[2018-10-02] MEDS: IOPAMIDOL 15 ML VIAL 3 ML INJ (11:10)
[2018-10-02] MEDS: BETAMETHASONE 30 MG/5 ML MDV 12 MG INJ (11:11)
--- NOTE | 2018-10-02 11:12 | PM.PROC.1 ---
Procedures Date/Time Date of procedure: 10/02/18 Time of procedure: 11:12 General Procedure description: PREOP DIAGNOSIS 1. FACET ARTHROPATHY, 2. AXIAL LBP, 3. MULTILEVEL DDD, POST OP DIAGNOSIS 1. FACET ARTHROPATHY, 2. AXIAL LBP, 3. MULTILEVEL DDD, PROCEDURES 1. FLUORSCOPICALLY GUIDED CONTRAST CONTROLLED FACET JOINT INJECTIONS RIGHT L4/5, L5/S1 SURGEON: Cosmo Harris, INDICATIONS [place] is referred by Dr. Haas for treatment of Axial LBP FINDINGS Multilevel Facet Arthropathy with Clinically significant axial LBP DESCRIPTION OF PROCEDURE Fluoroscopically guided, contrast-controlled right L4/5, L5/S1 facet joint injections. Following denial of allergy and review of potential side effects and complications, including, but not necessarily limited to, infection, allergic reaction, local tissue breakdown, stroke, temporary or permanent nerve injury, paralysis, and possible , the patient indicated that the patient understood and agreed to proceed. An informed consent document was signed by the patient, witnessed by a nurse, and placed in the patient's chart. Additionally, other treatment options including medications, modalities, and physical therapy were reviewed with the patient. After review of previous anaesthesic history and IV conscious sedation the patient was deemed safe to proceed with todays procedure with IV conscious sedation as ASA class II designation. Safety time-out was performed to confirm patient ID, procedure to be performed and site of procedure. IV sedation was accomplished with a combination of 2mg was administered by the RN after DO order, titrated to patient comfort during the course of the procedure while the patient remained responsive to all verbal commands. In the prone position, following sterile prep and drape of the lumbar region, the posterior aspect of the right L4/5, L5/S1 facet joints were identified fluoroscopically. The skin was anesthetized via a 25-gauge 1.5-inch needle with 1% lidocaine solution into the corresponding facet joints. At this point, a 22-gauge 3.5-inch spinal needle was atraumatically introduced and advanced under fluoroscopic guidance into the corresponding facet joints. Following negative aspiration, injections of approximately 0.2-cc of Isovue 200 confirmed interarticular placement without vascular uptake. Radiological data, including multiple fluoroscopic views of the lumbosacral spine, reveal a spinal needle at the right L4/5, L5/S1 facet joints. Subsequent views show flow of contrast material both superiorly and inferiorly within the joint space without vascular or intrathecal uptake. At this point, a total of 0.5 cc including a mixture of 0.25cc Marcaine and 0.25cc betamethasone was injected without complication into each of the corresponding facet joints. The procedure tolerated the procedure well without signs or symptoms of complications prior to transfer to the recovery area continued monitoring without incident. The patient was then transferred to the recovery area where they were observed for an appropriate period of time after the injection. The patient reported a VAS score of 7 prior to the procedure and a post-procedure VAS of 0. Total Fluoroscopy Time: 12.7 seconds Total Conscious Sedation Time: 24min POST OP INSTRUCTIONS The patient was provided a Pain Log to continue to record their response to the target-specific procedure prior to follow-up visit with their referring physician. Additionally, specific post-injection care instructions and a contact number to our office were provided if concerns arise regarding possible complications associated with the procedure are suspected. Cosmo Harris, Complications: none
[2018-10-02 11:22] VITALS: BP 130/58; PULSE 74; RESP 18; O2SAT 95
[2018-10-02 11:28] VITALS: BP 135/55; PULSE 76; RESP 73; O2SAT 96
--- NOTE | 2018-10-02 11:30 | PC.NURSE ---
finished procedure 11:11, pt tolerated well. pt able to get off table and onto gurney with minimal assist, w/c to pre procedure room and handed off to Jenny GOMEZ for continued monitoring.
[2018-10-02] MEDS: BUPIVACAINE 0.5% (PF) VIAL 30 ML INJ (11:31)
--- NOTE | 2018-10-03 12:03 | PC.NURSE ---
FOLLOW UP CALL MADE, MESSAGE LEFT WITH CLINIC NUMBER FOR ANY QUESTIONS/CONCERNS.
== END 2018-10-02 12:23 | disposition home or self-care (01) ==
LOC: RAD 10:19
PROVIDERS: PCP Family Medicine; Visit Provider Physical Medicine & Rehabilitation
DX: M47.27 Other spondylosis with radiculopathy, lumbosacral region (principal); M54.5 Low back pain; M51.36 Other intervertebral disc degeneration, lumbar region; M51.37 Other intervertebral disc degeneration, lumbosacral region; M48.062 Spinal stenosis, lumbar region with neurogenic claudication
CPT/HCPCS: 64493; 64494; 99152; J0702; J2250

== ENCOUNTER 2018-11-20 12:33 | Outpatient (CLI) | payer MEDICARE, OTHER, SELFPAY ==
[2018-11-20] VITALS (8 sets, daily range): BP systolic 129–188; BP diastolic 67–102; PULSE 81–100; RESP 16–20; TEMP 36.7; O2SAT 94–96
--- NOTE | 2018-11-20 12:34 | DI.RAD.S_ITS ---
PROCEDURE: PAIN L INTERLAMINAR/CAUDAL INJ INDICATIONS: SPINAL STENOSIS FINDINGS: Fluoroscopic spot filming was performed to verify placement of spinal needles at the L4-L5 level(s), as labeled on the films. Appropriate location(s) of the needle tip(s) was confirmed by injection of iodinated contrast. IMPRESSION: Successful interlaminar notch localization of the posterior epidural space at L4-5-4 spinal steroid epidural injection. Dictated by: Hung Mccormick M.D. on 11/20/2018 at 15:11 Approved by: Hung Mccormick M.D. on 11/20/2018 at 15:12
--- NOTE | 2018-11-20 12:57 | PM.PROC.1 ---
Procedures Date/Time Date of procedure: 11/20/18 Time of procedure: 13:35 General Procedure description: PROVIDER: Cosmo Harris DO Operative Note PREOP DIAGNOSIS 1. HNP WITH RADICULAR FEATURES, 2. MULTILEVEL CENTRAL STENOSIS, POST OP DIAGNOSIS 1. HNP WITH RADICULAR FEATURES, 2. MULTILEVEL CENTRAL STENOSIS PROCEDURES 1. FLUORSCOPICALLY GUIDED CONTRAST CONTROLLED INTERLAMINAR EPIDURAL STEROID INJECTION -L4/5 PHYSICIAN: Cosmo Harris DO INDICATIONs: Berenice is referred by Dr. Haas for treatment of Bilateral Foraminal Stenosis R>L LE symptoms. FINDINGS Multilevel Central Spinal Stenosis with Nerve Root Compression DESCRIPTION OF PROCEDURE Fluoroscopically guided, contrast-controlled L4/5 translaminar epidural steroid injection. Following denial of allergy and review of potential side effects and complications, including, but not necessarily limited to, infection, allergic reaction, local tissue breakdown, temporary as well as permanent nerve injury, paralysis, stroke and possible , the patient indicated that the patient understood and agreed to proceed. An informed consent document was signed by the patient, witnessed by a nurse, and placed in the patient's chart. Additionally, other treatment options including modalities, medications, and physical therapy were reviewed with the patient. After review of previous anaesthesic history and IV conscious sedation the patient was deemed safe to proceed with todays procedure with IV conscious sedation as ASA class II designation. Safety time-out was performed to confirm patient ID, procedure to be performed and site of procedure. IV sedation was accomplished with a combination of 3mg was administered by the RN after DO order, titrated to patient comfort during the course of the procedure while the patient remained responsive to all verbal commands In the prone position, following sterile prep and drape of the lumbar region, the L4/5 translaminar space was identified fluoroscopically. The skin was anesthetized via a 25-gauge, 1.5-inch needle with 1% lidocaine solution. At this point, a 22-gauge short bevel spinal needle was atraumatically introduced and advanced under fluoroscopic guidance into the region of the L4/5 translaminar space. Depth was confirmed on lateral view. Radiological data, including multiple fluoroscopic views of the lumbar spine, reveal a spinal needle at the L4/5 translaminar space. Lateral views then show placement of the needle in the epidural space. Subsequent views show contrast material flowing superiorly and inferiorly in the epidural space. No vascular or intrathecal uptake is observed. At this point, using loss of resistance technique with saline and air, the epidural space was entered. This was confirmed following negative aspiration with injection of approximately 1.5 cc of Isovue 200, showing excellent epidural flow without vascular or intrathecal uptake. At this point, 1 cc of 1% lidocaine solution combined with 3 cc or 20 mg of dexamethasone and 80mg Depo medrol was injected without incident. The patient tolerated the procedure well without signs or symptoms of complications prior to transfer to the recovery area continued monitoring without incident. The patient was then transferred to the recovery area where they were observed for an appropriate period of time after the injection. The patient reported a VAS score of 6 prior to the procedure and a post-procedure VAS of 0. Total Fluoroscopy Time: 11.8 seconds, 8.99 mGy Total Conscious Sedation Time: 24min POST OP INSTRUCTIONS The patient was provided a Pain Log to continue to record their response to the target-specific procedure prior to follow-up visit with their referring physician. Additionally, specific post-injection care instructions and a contact number to our office were provided if concerns arise regarding possible complications associated with the procedure are suspected. Cosmo Harris, Complications: none
[2018-11-20] MEDS: MIDAZOLAM 5 MG/5 ML VIAL IV (13:22)
[2018-11-20] MEDS: IOPAMIDOL 15 ML VIAL 3 ML INJ (13:27)
[2018-11-20] MEDS: BUPIVACAINE 0.25% (PF) VIAL 2 ML INJ (13:27)
[2018-11-20] MEDS: methylPREDNISolone acetate 80 MG/ML VIAL INJ (13:27)
[2018-11-20] MEDS: DEXAMETHASONE 10 MG/ML VIAL 20 MG INJ (13:27)
--- NOTE | 2018-11-20 13:36 | P.PCN_ITS ---
Procedures Date/Time Date of procedure: 11/20/18 Time of procedure: 13:35 General Procedure description: PROVIDER: Cosmo Harris DO Operative Note PREOP DIAGNOSIS 1. HNP WITH RADICULAR FEATURES, 2. MULTILEVEL CENTRAL STENOSIS, POST OP DIAGNOSIS 1. HNP WITH RADICULAR FEATURES, 2. MULTILEVEL CENTRAL STENOSIS PROCEDURES 1. FLUORSCOPICALLY GUIDED CONTRAST CONTROLLED INTERLAMINAR EPIDURAL STEROID INJECTION -L4/5 PHYSICIAN: Cosmo Harris DO INDICATIONs: Berenice is referred by Dr. Haas for treatment of Bilateral Foraminal Stenosis R> L LE symptoms. FINDINGS Multilevel Central Spinal Stenosis with Nerve Root Compression DESCRIPTION OF PROCEDURE Fluoroscopically guided, contrast-controlled L4/5 translaminar epidural steroid injection. Following denial of allergy and review of potential side effects and complications, including, but not necessarily limited to, infection, allergic reaction, local tissue breakdown, temporary as well as permanent nerve injury, paralysis, stroke and possible , the patient indicated that the patient understood and agreed to proceed. An informed consent document was signed by the patient, witnessed by a nurse, and placed in the patient's chart. Additionally, other treatment options including modalities, medications, and physical therapy were reviewed with the patient. After review of previous anaesthesic history and IV conscious sedation the patient was deemed safe to proceed with todays procedure with IV conscious sedation as ASA class II designation. Safety time-out was performed to confirm patient ID, procedure to be performed and site of procedure. IV sedation was accomplished with a combination of 3mg was administered by the RN after DO order , titrated to patient comfort during the course of the procedure while the patient remained responsive to all verbal commands In the prone position, following sterile prep and drape of the lumbar region, the L4/5 translaminar space was identified fluoroscopically. The skin was anesthetized via a 25-gauge, 1.5-inch needle with 1% lidocaine solution. At this point, a 22-gauge short bevel spinal needle was atraumatically introduced and advanced under fluoroscopic guidance into the region of the L4/5 translaminar space. Depth was confirmed on lateral view. Radiological data, including multiple fluoroscopic views of the lumbar spine, reveal a spinal needle at the L4/5 translaminar space. Lateral views then show placement of the needle in the epidural space. Subsequent views show contrast material flowing superiorly and inferiorly in the epidural space. No vascular or intrathecal uptake is observed. At this point, using loss of resistance technique with saline and air, the epidural space was entered. This was confirmed following negative aspiration with injection of approximately 1.5 cc of Isovue 200, showing excellent epidural flow without vascular or intrathecal uptake. At this point, 1 cc of 1 % lidocaine solution combined with 3 cc or 20 mg of dexamethasone and 80mg Depo medrol was injected without incident. The patient tolerated the procedure well without signs or symptoms of complications prior to transfer to the recovery area continued monitoring without incident. The patient was then transferred to the recovery area where they were observed for an appropriate period of time after the injection. The patient reported a VAS score of 6 prior to the procedure and a post- procedure VAS of 0. Total Fluoroscopy Time: 11.8 seconds, 8.99 mGy Total Conscious Sedation Time: 24min POST OP INSTRUCTIONS The patient was provided a Pain Log to continue to record their response to the target-specific procedure prior to follow-up visit with their referring physician. Additionally, specific post-injection care instructions and a contact number to our office were provided if concerns arise regarding possible complications associated with the procedure are suspected. Cosmo Harris, Complications: none
--- NOTE | 2018-11-21 12:58 | PC.NURSE ---
Called for follow up yesterday's injection and left message as no one answered the phone.
== END 2018-11-20 14:22 | disposition home or self-care (01) ==
LOC: RAD 12:34
PROVIDERS: PCP Family Medicine; Visit Provider Physical Medicine & Rehabilitation
DX: M48.061 Spinal stenosis, lumbar region without neurogenic claudication (principal); M51.16 Intervertebral disc disorders with radiculopathy, lumbar region; M47.27 Other spondylosis with radiculopathy, lumbosacral region
CPT/HCPCS: 62323; 99152; J1040; J1100; J2250

== ENCOUNTER 2018-12-13 14:29 | Emergency (ER) | payer MEDICARE, OTHER, SELFPAY ==
[2018-12-13 14:35] VITALS: BP 128/68; PULSE 197; RESP 20
[2018-12-13] MEDS: ADENOSINE 6 MG/2 ML VIAL IV (14:41)
[2018-12-13] MEDS: ADENOSINE 12 MG/4 ML SYRINGE IV (14:44)
--- NOTE | 2018-12-13 14:46 | PC.NURSE ---
Dr. Yang at bedside. PATRICIA Grijalva administered medications.
--- NOTE | 2018-12-13 14:50 | ED.CHESTPAIN ---
HPI - Chest Pain General Chief Complaint: Chest Pain Stated Complaint: BREATHING ISSUES Time Seen by Provider: 12/13/18 14:32 Source: patient Mode of arrival: ambulatory Limitations: no limitations History of Present Illness HPI narrative: Patient is a 78-year-old insulin-dependent diabetic female here for evaluation what she thought was an asthma attack. She states that approximately an hour prior to arrival she noticed that her heart was beating fast and she was having problems breathing. She was recently started on Lasix to lower extremity edema. She has multiple other medical problems. She has had SVT in the past treated here in the emergency department and converted with adenosine. Patient states that prior to approximately 1 hr ago she was symptom free. Related Data Home Medications Medication Instructions Recorded Confirmed cyclosporine [Restasis] 1 drp OPHTHALMIC (EYE) BID 08/31/18 12/13/18 insulin glargine [Lantus Solostar 44 units SUBCUT QPM 08/31/18 12/13/18 U-100 Insulin] verapamil 2 tab PO DAILY 08/31/18 12/13/18 albuterol sulfate [ProAir HFA] 2 - 3 puff INHALATION DAILY 12/13/18 12/13/18 fluticasone-salmeterol 1 inhalation INHALATION TID 12/13/18 12/13/18 Previous Rx's Medication Instructions Recorded levothyroxine 75 mcg tablet 75 mcg PO QAM #90 tab 07/06/18 glipizide ER 10 mg tablet, 10 mg PO DAILY #90 tab 08/13/18 extended release 24 hr citalopram 20 mg tablet 20 mg PO DAILY #90 tab 09/13/18 [CMP KETOPROFEN] 20% See Rx Instructions TOP BID #120 11/09/18 gram hydrocodone 7.5 mg-acetaminophen 1 tab PO Q8H PRN #90 tab 11/22/18 325 mg tablet furosemide 40 mg tablet 40 mg PO DAILY PRN #30 tab 12/10/18 potassium chloride ER 20 mEq 20 meq PO DAILY #30 tab 12/10/18 tablet,extended release(part/cryst) metoprolol tartrate 25 mg PO BID #60 tab 12/13/18 Allergies Allergy/AdvReac Type Severity Reaction Status Date / Time amoxicillin [AMOXICILLIN] Allergy Unknown Verified 12/10/18 08:35 clavulanic acid Allergy Unknown Verified 12/10/18 08:35 [CLAVULANIC ACID] latex [LATEX] Allergy Unknown Rash Verified 12/10/18 08:35 metformin [METFORMIN] Allergy Unknown Diarrhea Verified 12/10/18 08:35 Penicillins [PENICILLINS] Allergy Unknown Flushing Verified 12/10/18 08:35 zolpidem [ZOLPIDEM] Allergy Unknown Verified 12/10/18 08:35 [id number]-Vtv Reductase Allergy Verified 12/10/18 08:35 Inhibitor TOPICAL IODINE Allergy Unknown Rash Uncoded 12/10/18 08:35 Review of Systems Constitutional Denies fever(s) and Denies headache(s) ENT Ears, Nose, Mouth, and Throat: Denies headache(s) Cardiovascular Reports dyspnea Comments: Some chest discomfort with palpitations Respiratory Reports dyspnea Gastrointestinal Gastrointestinal: Denies abdominal pain, Denies nausea and Denies vomiting Genitourinary Denies dysuria Musculoskeletal Denies myalgias and Denies arthralgias Integumentary/Breasts Denies lesions and Denies rash Neurologic Denies behavioral changes and Denies headache(s) Psychiatric Denies behavioral changes Hematologic/Lymphatic Comments: Not on anticoagulation Allergic/Immunologic Denies urticaria PFSH Social History marital status: household members: none Smoking Status: Never smoker alcohol intake: current (1-2 A DAY ) substance use type: does not use Exam Initial Vital Signs Initial Vital Signs: Vital Signs Pulse Rate 197 H 12/13/18 14:35 Respiratory Rate 20 12/13/18 14:35 Blood Pressure 128/68 12/13/18 14:35 Const General: cooperative, comfortable, well developed, well groomed and No acute distress Orientation: alert, awake and oriented x3 HENMT Head: normal to inspection and normocephalic Nose: external nose normal Chest Chest: normal inspection of the chest Resp Effort & Inspection: normal respiratory effort Auscultation: clear to auscultation bilaterally Cardio Rate: tachycardic Rhythm: regular rhythm Pulses: radial pulses present GI Inspection: non-distended Palpation: soft and No firm Skin Lesions: no lesions Rashes: no rashes Neuro General: alert, awake and oriented x3 Cognition: normal cognition Speech: speech normal Gait: normal gait Motor: muscle tone normal throughout Sensory Exam: no sensory deficits noted Extrem General: normal to inspection and capillary refill normal Psych Appearance: grossly normal and well kempt Course Orders Ordered: ED Orders 12/13/18 14:40 Thyroid Stimulating Hormone Stat 12/13/18 14:45 B Type Natriuretic Peptide Stat Complete Blood Count AUTO DIFF Stat Comprehensive Metabolic Panel Stat Partial Thromboplastin Time Stat Prothrombin Time INR Stat Troponin I Stat 12/13/18 14:49 EKG-12 Lead Stat EKG-12 Lead Stat EKG-12 Lead Stat Discontinued Medications Adenosine (Adenocard) 6 mg IV NOW ONE Stop: 12/13/18 14:48 Last Admin: 12/13/18 14:41 Dose: 6 mg Adenosine (Adenocard) 12 mg IV NOW ONE Stop: 12/13/18 14:48 Last Admin: 12/13/18 14:44 Dose: 12 mg Sodium Chloride (Normal Saline 0.9%) 1,000 mls @ 1,000 mls/hr IV BOLUS ONE Stop: 12/13/18 15:47 Last Infusion: 12/13/18 16:13 Dose: 0 mls/hr Admin: 12/13/18 14:56 Dose: 1,000 mls/hr Metoprolol Tartrate (Lopressor) 25 mg PO NOW ONE Stop: 12/13/18 15:48 Last Admin: 12/13/18 15:53 Dose: 25 mg Vital Signs - 8 hr 12/13/18 14:35 12/13/18 14:56 12/13/18 15:10 Temperature 97.8 F Pulse Rate 197 H 104 H 107 H Respiratory Rate 20 23 15 Blood Pressure 128/68 Blood Pressure [Right Arm] 128/68 140/78 Pulse Oximetry 95 93 MDM - Chest Pain Lab Data Attestation: I reviewed the patient's lab results. Result diagrams: 12/13/18 14:45 12/13/18 14:45 Lab Results 12/13/18 12/13/18 12/13/18 Range/Units 14:40 14:45 14:45 WBC 11.3 H (4.5-11.0) X10^3/uL RBC 4.46 (4.0-5.2) X10^6/uL Hgb 13.3 (12.0-16.0) g/dL Hct 39.8 (36-46) % MCV 89.2 (80-100) fL MCH 29.7 (26-34) PG MCHC 33.3 (30-36) % RDW 14.1 (11.6-14.8) % Plt Count 311 (150-400) X10^3/uL Neut % (Auto) 69.4 (50-75) % Lymph % (Auto) 22.2 L (25-40) % [place] % (Auto) 5.8 (3-14) % Eos % (Auto) 1.7 L (2-4) % Baso % (Auto) 0.9 (0-2) % Neut # (Auto) 7800 H (2884-9690) /uL Lymph # (Auto) 2500 (5339-5046) /uL [place] # (Auto) 700 (0-900) /uL Eos # (Auto) 200 (0-450) /uL Baso # (Auto) 100 (0-100) /uL PT (10.1-12.7) SECONDS INR (0.9-1.3) APTT (26.4-36.2) SECONDS Sodium Cancelled Potassium Cancelled Chloride Cancelled Carbon Dioxide Cancelled BUN Cancelled Creatinine Cancelled Estimated GFR Cancelled BUN/Creatinine Ratio Cancelled Glucose Cancelled Calcium Cancelled Total Bilirubin Cancelled AST Cancelled ALT Cancelled Alkaline Phosphatase Cancelled Troponin I (0.01-0.034) ng/mL B-Natriuretic Peptide < 100 (<100) Total Protein Cancelled Albumin Cancelled Globulin Cancelled Albumin/Globulin Ratio Cancelled TSH 2.39 (0.47-4.68) uIU/mL 12/13/18 12/13/18 Range/Units 14:45 14:45 WBC (4.5-11.0) X10^3/uL RBC (4.0-5.2) X10^6/uL Hgb (12.0-16.0) g/dL Hct (36-46) % MCV (80-100) fL MCH (26-34) PG MCHC (30-36) % RDW (11.6-14.8) % Plt Count (150-400) X10^3/uL Neut % (Auto) (50-75) % Lymph % (Auto) (25-40) % [place] % (Auto) (3-14) % Eos % (Auto) (2-4) % Baso % (Auto) (0-2) % Neut # (Auto) (2073-8980) /uL Lymph # (Auto) (9935-6927) /uL [place] # (Auto) (0-900) /uL Eos # (Auto) (0-450) /uL Baso # (Auto) (0-100) /uL PT 10.6 (10.1-12.7) SECONDS INR 0.9 (0.9-1.3) APTT 29 (26.4-36.2) SECONDS Sodium 133 L Potassium 4.5 Chloride 99 Carbon Dioxide 22 BUN 16 Creatinine 0.50 L Estimated GFR > 60.0 BUN/Creatinine Ratio 32.0 H Glucose 297 H Calcium 8.9 Total Bilirubin 0.3 AST 26 ALT 32 Alkaline Phosphatase 80 Troponin I < 0.012 (0.01-0.034) ng/mL B-Natriuretic Peptide (<100) Total Protein 6.9 Albumin 4.1 Globulin 2.8 Albumin/Globulin Ratio 1.5 TSH (0.47-4.68) uIU/mL ECG Data Attestation: I personally reviewed and interpreted this ECG as follows: Prior ECG tracings: not available for review Interpretation: EKG time 1436 hr Supraventricular tachycardia Ventricular rate of 196 Left axis deviation Normal QRS Regular Nonspecific ST T wave changes EKG timed 243 p.m. Transitional EKG from sinus tachycardia to sinus rhythm EKG time 1445 hr Sinus tachycardia next ventricular rate 105 Left anterior fascicular block Left axis deviation next normal QRS Normal QTC LVH MDM Narrative Medical decision making narrative: Patient converted to sinus rhythm with 12 mg of adenosine. Heart rate improved into the 110s and then gradually improved from there. She reported an improvement of her presenting symptoms when her heart rate decreased. I discussed the case with with Cardiology who stated that she should be started on metoprolol 25 mg b.i.d. with instructions to take an extra dose for breakthrough tachycardia if needed. She will also be given follow-up instructions with Cardiology so that she could have an EP study for further evaluation. She did have a echocardiogram at the middle of last year which was unremarkable. Upon discharge patient had heart rate in the 80s and a normal blood pressure. She was given metoprolol here in the emergency department prior to discharge. She is given return precautions. She expressed understanding and agreement with plan. Discharge Plan Departure Patient Disposition: Home Clinical Impression: Supraventricular tachycardia Instructions: Paroxysmal Supraventricular Tachycardia, DI for Pulmonary Embolism, DI for Angina, DI for Atypical Chest Pain, DI for Chest Pain, DI for Palpitations, DI for Chest Pain -- Child Activity Restrictions/Additional Instructions: I recommend that tomorrow you contact your primary care doctor and also the [facility]iology group at [phone]. I recommend you continue all of your medications as directed. The medication you were given todayis to be taken 2 times a day. You can take it 1 extra time during the day if your heart rate accelerates. Return to the emergency department for any new or worsening symptoms Prescriptions: New metoprolol tartrate 25 mg tablet 25 mg PO BID Qty: 60 RF: 0 No Action levothyroxine [Synthroid] 75 mcg tablet 75 mcg PO QAM Qty: 90 RF: 1 glipizide 10 mg tablet extended release 24hr 10 mg PO DAILY Qty: 90 RF: 3 citalopram 20 mg tablet 20 mg PO DAILY Qty: 90 RF: 3 [CMP KETOPROFEN] 20% cream See Rx Instructions TOP BID Qty: 120 RF: 5 hydrocodone-acetaminophen [[place]] 7.5-325 mg tablet 1 tab PO Q8H PRN (Reason: pain) Qty: 90 RF: 0 furosemide [Lasix] 40 mg tablet 40 mg PO DAILY PRN (Reason: edema) Qty: 30 RF: 0 potassium chloride [Klor-Con M20] 20 mEq tablet,ER particles/crystals 20 meq PO DAILY Qty: 30 RF: 0 verapamil 180 mg tablet extended release 2 tab PO DAILY RF: 0 Restasis 0.05 % dropperette 1 drp ophthalmic (eye) BID RF: 0 Lantus Solostar U-100 Insulin 100 unit/mL (3 mL) insulin pen 44 units subcut QPM RF: 0 ProAir HFA 90 mcg/actuation HFA aerosol inhaler 2 - 3 puff Inhalation DAILY RF: 0 fluticasone-salmeterol 250-50 mcg/dose blister with device 1 inhalation INHALATION TID RF: 0 Referrals: Mulugeta Haas MD [Primary Care Provider] -
--- NOTE | 2018-12-13 14:51 | CM.MNRNOTE ---
1441- After first dose of Adenosine no change to EKG or monitoring coordinator. 1444- Second dose of Adenosine (12 mg) HR decrease to 70 BPM. 1450 HR steady at 105.
[2018-12-13 14:55] LABS: Add Manual Diff / Slide Review NO; Basophils Absolute Auto 100 /uL (0-100); Basophils Percent Auto 0.9 % (0-2); Eosinophils Absolute Auto 200 /uL (0-450); Eosinophils Percent Auto 1.7 % (2-4); Hematocrit 39.8 % (36-46); Hemoglobin 13.3 g/dL (12.0-16.0); Lymphocytes Absolute Auto 2500 /uL (1100-4500); Lymphocytes Percent Auto 22.2 % (25-40); Mean Corpuscular HGB Conc 33.3 % (30-36); Mean Corpuscular Hemoglobin 29.7 PG (26-34); Mean Corpuscular Volume 89.2 fL (80-100); Monocytes Absolute Auto 700 /uL (0-900); Monocytes Percent Auto 5.8 % (3-14); Neutrophils Absolute Auto 7800 /uL (1500-7000); Neutrophils Percent Auto 69.4 % (50-75); Platelet Count 311 X10^3/uL (150-400); Red Blood Cell Count 4.46 X10^6/uL (4.0-5.2); Red Cell Distribution Width 14.1 % (11.6-14.8); White Blood Cell Count 11.3 X10^3/uL (4.5-11.0)
[2018-12-13 14:56] VITALS: BP 128/68; PULSE 104; RESP 23; TEMP 36.6; O2SAT 95
[2018-12-13] MEDS: SODIUM CHLORIDE 0.9% 1,000 ML 1000 ML IV (14:56)
[2018-12-13 15:00] LABS: INR 0.9 (0.9-1.3); Prothrombin Time 10.6 SECONDS (10.1-12.7)
[2018-12-13 15:02] LABS: PTT Partial Thromboplastin Tim 29 SECONDS (26.4-36.2)
[2018-12-13 15:08] LABS: Alanine Aminotransferase 32 IU/L (9-52); Albumin 4.1 g/dL (3.5-5.0); Albumin Globulin Ratio 1.5 (1.0-2.8); Alkaline Phosphatase 80 U/L (38-126); Aspartate Aminotransferase 26 IU/L (14-36); Bilirubin Total 0.3 mg/dL (0.2-1.3); Blood Urea Nitrogen 16 mg/dL (7-17); Calcium 8.9 mg/dL (8.4-10.2); Carbon Dioxide 22 mmol/L (22-32); Chloride 99 mmol/L (98-107); Estimated Glomerular Filt Rate > 60.0 mL/min (>60); Globulin 2.8 g/dL (1.7-4.1); Glucose 297 mg/dL (80-110); HEMOLYSIS < 15 (0-50); Potassium 4.5 mmol/L (3.4-5.1); Sodium 133 mmol/L (137-145); Total Protein 6.9 g/dL (6.3-8.2)
[2018-12-13 15:10] VITALS: BP 140/78; PULSE 107; RESP 15; O2SAT 93
[2018-12-13 15:10] LABS: B Type Natriuretic Peptide < 100 (<100)
[2018-12-13 15:24] LABS: Troponin I < 0.012 ng/mL (0.01-0.034)
[2018-12-13 15:39] LABS: Thyroid Stimulating Hormone 2.39 uIU/mL (0.47-4.68)
[2018-12-13] MEDS: METOPROLOL 12.5 MG TABLET 25 MG PO (15:53)
--- NOTE | 2018-12-13 16:20 | PC.NURSE ---
Patient walked back from rest room and is feeling wheezy Pt asks to use inhaler. Dr. Trey dunlap.
[2018-12-13 16:47] VITALS: BP 140/73; PULSE 84; RESP 22; O2SAT 93
[2018-12-13 16:55] VITALS: BP 140/73; PULSE 103; RESP 21; TEMP 36.6; O2SAT 93
== END 2018-12-13 16:57 | disposition home or self-care (01) ==
PROVIDERS: Emergency Provider Emergency Medicine; Family Provider Family Medicine; PCP Family Medicine
DX: I47.1 Supraventricular tachycardia (principal)
CPT/HCPCS: 36415; 36591; 80053; 83880; 84443; 84484; 85025; 85610; 85730; 93005; 96361; 96374; 99283; 99284; J0153

== ENCOUNTER 2019-01-07 11:17 | Emergency (ER) | payer MEDICARE, OTHER, SELFPAY ==
--- NOTE | 2019-01-07 11:38 | ED_ITS ---
HPI - Chest Pain General Chief Complaint: Arrhythmia/Palpitations Stated Complaint: TACHYCARDIA Time Seen by Provider: 01/07/19 11:31 Source: patient Mode of arrival: ambulatory Limitations: no limitations History of Present Illness HPI narrative: The patient has a prior event of PSVT. She has no history of CAD, or prior history of arrhythmia. She was previously compared with Adenocard. She was discharged on Lopressor. Her PCM is increase Lopressor dose. She is scheduled to see a executive recruiter later this week. About 90 minutes prior to arrival, she developed palpitations and tachycardia at home. She has slight discomfort in the left shoulder. She has mild dyspnea. She has not been sick prior to the event today. The event today started while she is at home at rest. She feels the same sensation as her 1st case of PSVT. Related Data Home Medications Medication Instructions Recorded Confirmed cyclosporine [Restasis] 1 drp OPHTHALMIC (EYE) BID 08/31/18 01/07/19 insulin glargine [Lantus Solostar 44 units SUBCUT QPM 08/31/18 01/07/19 U-100 Insulin] albuterol sulfate [ProAir HFA] 2 - 3 puff INHALATION DAILY 12/13/18 01/07/19 fluticasone-salmeterol 1 inhalation INHALATION BID 12/13/18 01/07/19 [CMP KETOPROFEN] 20% See Rx Instructions TOP BID PRN 01/07/19 01/07/19 citalopram 20 mg PO DAILY 01/07/19 01/07/19 metoprolol tartrate 50 mg PO BID 01/07/19 01/07/19 trazodone 50 mg PO DAILY 01/07/19 01/07/19 Previous Rx's Medication Instructions Recorded glipizide ER 10 mg tablet, 10 mg PO DAILY #90 tab 08/13/18 extended release 24 hr furosemide 40 mg tablet 40 mg PO DAILY PRN #30 tab 12/10/18 potassium chloride ER 20 mEq 20 meq PO DAILY #30 tab 12/10/18 tablet,extended release(part/cryst) hydrocodone 7.5 mg-acetaminophen 1 tab PO Q8H PRN #90 tab 12/24/18 325 mg tablet sertraline 50 mg tablet 50 mg PO DAILY #30 tab 12/27/18 levothyroxine 75 mcg tablet 75 mcg PO QAM #90 tab 12/31/18 Allergies Allergy/AdvReac Type Severity Reaction Status Date / Time amoxicillin [AMOXICILLIN] Allergy Unknown Verified 01/07/19 12:03 clavulanic acid Allergy Unknown Verified 01/07/19 12:03 [CLAVULANIC ACID] latex [LATEX] Allergy Unknown Rash Verified 01/07/19 12:03 metformin [METFORMIN] Allergy Unknown Diarrhea Verified 01/07/19 12:03 Penicillins [PENICILLINS] Allergy Unknown Flushing Verified 01/07/19 12:03 zolpidem [ZOLPIDEM] Allergy Unknown Verified 01/07/19 12:03 Iblyzgr-Zik-Fwr Reductase Allergy Verified 01/07/19 12:03 Inhibitor TOPICAL IODINE Allergy Unknown Rash Uncoded 01/02/19 15:48 Review of Systems Review of Systems ROS Unobtainable: All systems reviewed & are unremarkable except as noted in HPI and below Constitutional Denies chills, Denies fever(s), Denies lethargy and Denies weakness ENT Ears, Nose, Mouth, and Throat: Denies change in voice, Denies vertigo, Denies dizziness, Denies neck pain and Denies sore throat Cardiovascular Denies chest pain, Denies irregular heart rhythm, Reports lightheadedness, Reports palpitations, Reports dyspnea and Denies orthopnea Respiratory Denies cough, Reports dyspnea and Denies wheezing Gastrointestinal Gastrointestinal: Denies abdominal pain, Denies change in bowel habits, Denies diarrhea, Denies nausea and Denies vomiting Musculoskeletal Denies back pain and Denies neck pain Integumentary/Breasts Denies pruritus, Denies erythema, Denies rash and Denies wounds Neurologic Denies confusion, Denies vertigo, Denies dizziness and Denies weakness Psychiatric Denies confusion Endocrine Reports palpitations Allergic/Immunologic Denies wheezing PFSH Medical History PSVT (paroxysmal supraventricular tachycardia) (Acute) 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) Diabetes mellitus (Chronic) Diverticular disease (Chronic) Fibromyalgia (Chronic) Hernia, diaphragmatic (Chronic) Hyperlipidemia (Chronic) Hypothyroidism (Chronic) CTS (carpal tunnel syndrome) (Resolved) Surgical History History of carpal tunnel repair (Resolved) History of cystoscopy (Resolved) Status post appendectomy (Resolved) Status post breast reduction (Resolved) Status post cholecystectomy (Resolved) Status post hysterectomy with oophorectomy (Resolved) Family History Father Dementia MVA (motor vehicle accident) Mother Dementia Colon cancer Social History marital status: household members: none Smoking Status: Never smoker alcohol intake: current (1-2 A DAY ) substance use type: does not use Family History Father Dementia MVA (motor vehicle accident) Mother Dementia Colon cancer Social History marital status: household members: none Smoking Status: Never smoker alcohol intake: current (1-2 A DAY ) substance use type: does not use Exam Initial Vital Signs Initial Vital Signs: Vital Signs Temperature 97.9 F 01/07/19 11:53 Pulse Rate 170 H 01/07/19 11:53 Respiratory Rate 28 H 01/07/19 11:53 Blood Pressure 122/88 01/07/19 11:53 Pulse Oximetry 94 01/07/19 11:53 Const General: cooperative, well developed, acute distress and diaphoretic Nutritional Appearance: well nourished Orientation: alert, awake, oriented x3 and not confused [facility] Head: normocephalic and atraumatic Face and sinus: face symmetric Mouth: oral mucosae normal and moist mucous membranes Throat: tonsils normal and uvula midline Neck Neck: supple and No JVD Chest Chest: normal inspection of the chest Resp Effort & Inspection: normal respiratory effort, able to speak in complete sentences, no respiratory distress and no use of accessory muscles Auscultation: clear to auscultation bilaterally, no rales, no rhonchi and no wheezes Cardio Rate: tachycardic Rhythm: regular rhythm Heart Sounds: no click, no gallops, no murmurs and no rubs Pulses: normal peripheral pulses GI Inspection: non-distended Palpation: soft, no hepatosplenomegaly, No guarding, No pulsatile mass and No tender Auscultation: normal bowel sounds Skin General: no rashes or lesions noted Neuro General: alert, oriented x3, gait normal and no focal motor deficits Speech: speech normal Extrem General: No calf tenderness and No edema Course Course Narrative: The patient was recognized to be in PSVT. EKG and monitor both confirmed. An IV was established by her nurse, Adenocard 6 milligrams with pushed without change. The Adenocard was repeated at 12 milligram dose, she converted to normal sinus rhythm. Symptoms of shoulder pain and dyspnea resolved. A repeat EKG shows normal sinus rhythm without ectopy or ST changes. She will be discharged on current medications, she has cardiology follow-up in 3 days. Orders Ordered: ED Orders 01/07/19 11:22 EKG-12 Lead Stat 01/07/19 11:50 Complete Blood Count AUTO DIFF Stat Comprehensive Metabolic Panel Stat Troponin & CK Cardiac Panel Stat 01/07/19 12:32 Urine Culture Stat Urine Microscopic Stat Sodium Chloride (Normal Saline 0.9%) 1,000 mls @ 250 mls/hr IV CONT CHRISTOPHER Last Infusion: 01/07/19 13:30 Dose: 0 mls/hr Infusion: 01/07/19 12:00 Dose: 1,000 mls/hr Admin: 01/07/19 11:58 Dose: 250 mls/hr Discontinued Medications Adenosine (Adenocard) 6 mg IV NOW ONE Stop: 01/07/19 11:39 Last Admin: 01/07/19 11:45 Dose: 6 mg Adenosine (Adenocard) 12 mg IV NOW ONE Stop: 01/07/19 12:00 Last Admin: 01/07/19 11:50 Dose: 12 mg Aspirin (Aspirin Chew) 324 mg PO NOW ONE Stop: 01/07/19 11:39 Last Admin: 01/07/19 11:59 Dose: 324 mg Vital Signs - 8 hr 01/07/19 11:53 01/07/19 12:01 01/07/19 12:33 Temperature 97.9 F Pulse Rate 170 H 89 93 H Respiratory Rate 28 H 24 19 Blood Pressure 122/88 Blood Pressure [Right Arm] 137/60 134/87 Pulse Oximetry 94 98 96 MDM - Chest Pain Lab Data Result diagrams: 01/07/19 11:50 01/07/19 11:50 Lab Results 01/07/19 01/07/19 01/07/19 Range/Units 11:50 11:50 12:32 WBC 11.6 H (4.5-11.0) X10^3/uL RBC 4.69 (4.0-5.2) X10^6/uL Hgb 13.7 (12.0-16.0) g/dL Hct 42.5 (36-46) % MCV 90.5 (80-100) fL MCH 29.2 (26-34) PG MCHC 32.3 (30-36) % RDW 14.3 (11.6-14.8) % Plt Count 285 (150-400) X10^3/uL Neut % (Auto) 71.5 (50-75) % Lymph % (Auto) 19.6 L (25-40) % [place] % (Auto) 6.4 (3-14) % Eos % (Auto) 1.8 L (2-4) % Baso % (Auto) 0.7 (0-2) % Neut # (Auto) 8300 H (0991-1865) /uL Lymph # (Auto) 2300 (3482-2621) /uL [place] # (Auto) 700 (0-900) /uL Eos # (Auto) 200 (0-450) /uL Baso # (Auto) 100 (0-100) /uL Sodium 137 (137-145) mmol/L Potassium 4.5 (3.4-5.1) mmol/L Chloride 103 (98-107) mmol/L Carbon Dioxide 23 (22-32) mmol/L BUN 14 (7-17) mg/dL Creatinine 0.70 (0.52-1.04) mg/dL Estimated GFR > 60.0 (>60) mL/min BUN/Creatinine Ratio 20.0 (6-22) Glucose 348 H (80-110) mg/dL Calcium 9.3 (8.4-10.2) mg/dL Total Bilirubin 0.3 (0.2-1.3) mg/dL AST 46 H (14-36) IU/L ALT 42 (9-52) IU/L Alkaline Phosphatase 77 (38-126) U/L Total Creatine Kinase 87 (30-135) U/L CK-MB (CK-2) TNP CK-MB (CK-2) Rel Index TNP Troponin I < 0.012 (0.01-0.034) ng/mL Total Protein 7.0 (6.3-8.2) g/dL Albumin 4.2 (3.5-5.0) g/dL Globulin 2.8 (1.7-4.1) g/dL Albumin/Globulin Ratio 1.5 (1.0-2.8) Urine RBC 0-1/hpf (0-5/HPF) Urine WBC 0-1/hpf (0-5/HPF) Ur Squamous Epith Cells 1-5 /hpf Ur Transition Epith Cell 0-1/hpf (0-5/HPF) Ur Renal Epithelial Cell 0-1/hpf Calcium Oxalate Crystal (None) Urine Bacteria Few (2-10) H (None) Ur Culture Indicated? Cult not indicated Urine Dip Bedside Urine Glucose 250 mg/dl Bedside Urine Bilirubin - Negative Bedside Urine Ketone - Negative Urine Specific [place] 1.015 Bedside Urine Occult Blood - Negative Bedside Urine pH 8.5 Bedside Urine Protein +++ 300 Bedside Urine Urobilinogen - Negative Bedside Urine Nitrite - Negative Bedside Urine Leukocytes - Negative Esterase ECG Data Attestation: I personally reviewed and interpreted this ECG as follows: (EKG #1; SVT rate 170. L[address] depression. EKG #2: Normal sinus rhythm rate 88 bpm. LAFB. Voltage criteria for LVH. No acute ST or T-wave changes. No ectopy.) Discharge Plan Departure Patient Disposition: Home Clinical Impression: Paroxysmal supraventricular tachycardia Instructions: DI for Paroxysmal Supraventricular Tachycardia Activity Restrictions/Additional Instructions: Continue with her current medications. You have no activity or dietary restrictions. Follow-up with cardiology as scheduled. Return to the ER as needed. Prescriptions: No Action glipizide 10 mg tablet extended release 24hr 10 mg PO DAILY Qty: 90 RF: 3 hydrocodone-acetaminophen [[place]] 7.5-325 mg tablet 1 tab PO Q8H PRN (Reason: pain) Qty: 90 RF: 0 levothyroxine [Synthroid] 75 mcg tablet 75 mcg PO QAM Qty: 90 RF: 3 furosemide [Lasix] 40 mg tablet 40 mg PO DAILY PRN (Reason: edema) Qty: 30 RF: 0 potassium chloride [Klor-Con M20] 20 mEq tablet,ER particles/crystals 20 meq PO DAILY Qty: 30 RF: 0 Restasis 0.05 % dropperette 1 drp ophthalmic (eye) BID RF: 0 Lantus Solostar U-100 Insulin 100 unit/mL (3 mL) insulin pen 44 units subcut QPM RF: 0 ProAir HFA 90 mcg/actuation HFA aerosol inhaler 2 - 3 puff Inhalation DAILY RF: 0 fluticasone-salmeterol 250-50 mcg/dose blister with device 1 inhalation INHALATION BID RF: 0 trazodone 50 mg tablet 50 mg PO DAILY RF: 0 citalopram 20 mg tablet 20 mg PO DAILY RF: 0 metoprolol tartrate 50 mg tablet 50 mg PO BID RF: 0 [CMP KETOPROFEN] 20% cream See Rx Instructions TOP BID PRN (Reason: fibromyalgia) RF: 0 sertraline 50 mg tablet 50 mg PO DAILY Qty: 30 RF: 2 Referrals: Mulugeta Haas MD [Primary Care Provider] -
[2019-01-07] MEDS: ADENOSINE 6 MG/2 ML VIAL IV (11:45)
[2019-01-07] MEDS: ADENOSINE 12 MG/4 ML SYRINGE IV (11:50)
[2019-01-07 11:53] VITALS: BP 122/88; PULSE 170; RESP 28; TEMP 36.6; O2SAT 94; BMI 32.9
[2019-01-07 11:57] LABS: Add Manual Diff / Slide Review NO; Basophils Absolute Auto 100 /uL (0-100); Basophils Percent Auto 0.7 % (0-2); Eosinophils Absolute Auto 200 /uL (0-450); Eosinophils Percent Auto 1.8 % (2-4); Hematocrit 42.5 % (36-46); Hemoglobin 13.7 g/dL (12.0-16.0); Lymphocytes Absolute Auto 2300 /uL (1100-4500); Lymphocytes Percent Auto 19.6 % (25-40); Mean Corpuscular HGB Conc 32.3 % (30-36); Mean Corpuscular Hemoglobin 29.2 PG (26-34); Mean Corpuscular Volume 90.5 fL (80-100); Monocytes Absolute Auto 700 /uL (0-900); Monocytes Percent Auto 6.4 % (3-14); Neutrophils Absolute Auto 8300 /uL (1500-7000); Neutrophils Percent Auto 71.5 % (50-75); Platelet Count 285 X10^3/uL (150-400); Red Blood Cell Count 4.69 X10^6/uL (4.0-5.2); Red Cell Distribution Width 14.3 % (11.6-14.8); White Blood Cell Count 11.6 X10^3/uL (4.5-11.0)
[2019-01-07] MEDS: SODIUM CHLORIDE 0.9% 1,000 ML 250 ML IV (11:58)
[2019-01-07] MEDS: ASPIRIN 81 MG TAB 324 MG PO (11:59)
[2019-01-07 12:01] VITALS: BP 137/60; PULSE 89; RESP 24; O2SAT 98
[2019-01-07 12:21] LABS: Alanine Aminotransferase 42 IU/L (9-52); Albumin 4.2 g/dL (3.5-5.0); Albumin Globulin Ratio 1.5 (1.0-2.8); Alkaline Phosphatase 77 U/L (38-126); Aspartate Aminotransferase 46 IU/L (14-36); Bilirubin Total 0.3 mg/dL (0.2-1.3); Blood Urea Nitrogen 14 mg/dL (7-17); Calcium 9.3 mg/dL (8.4-10.2); Carbon Dioxide 23 mmol/L (22-32); Chloride 103 mmol/L (98-107); Creatine Kinase 87 U/L (30-135); Estimated Glomerular Filt Rate > 60.0 mL/min (>60); Globulin 2.8 g/dL (1.7-4.1); Glucose 348 mg/dL (80-110); HEMOLYSIS < 15 (0-50); Potassium 4.5 mmol/L (3.4-5.1); Sodium 137 mmol/L (137-145)
[2019-01-07 12:32] LABS: Troponin I < 0.012 ng/mL (0.01-0.034)
[2019-01-07 12:33] VITALS: BP 134/87; PULSE 93; RESP 19; O2SAT 96
[2019-01-07 12:45] LABS: RBC Urine 0-1/HPF (0-5/HPF)
[2019-01-07 12:46] LABS: Renal Epithelial Cells Urine 0-1/HPF; Transitional Epi Cells Urine 0-1/HPF (0-5/HPF)
[2019-01-07 12:51] LABS: Culture Indicated Urine Cult Not Indicated
[2019-01-07 12:52] LABS: Bacteria Urine Few (2-10)
[2019-01-07 12:54] LABS: Squamous Epithelial Cell Urine 1-5 /HPF; WBC Urine 0-1/HPF (0-5/HPF)
[2019-01-07 13:30] VITALS: BP 131/74; PULSE 91; RESP 21; O2SAT 96
== END 2019-01-07 13:47 | disposition home or self-care (01) ==
PROVIDERS: Emergency Provider Emergency Medicine; Family Provider Family Medicine; PCP Family Medicine
DX: I47.1 Supraventricular tachycardia (principal)
CPT/HCPCS: 36415; 36591; 80053; 81003; 81015; 82550; 84484; 85025; 93005; 93010; 96361; 96374; 99283; 99291; J0153

== ENCOUNTER 2019-01-11 17:53 | Emergency (ER) | payer MEDICARE, OTHER, SELFPAY ==
[2019-01-11 18:00] VITALS: BP 102/63; PULSE 174; PULSE 176; RESP 22; RESP 28; TEMP 36.9; O2SAT 96; O2SAT 97; BMI 32.9
--- NOTE | 2019-01-11 18:15 | ED.ARRPALP ---
HPI - Arrhythmia/Palpitations General Chief Complaint: Arrhythmia/Palpitations Stated Complaint: AFIB Time Seen by Provider: 01/11/19 18:15 Source: patient Mode of arrival: ambulatory Limitations: no limitations History of Present Illness HPI narrative: Patient is a 78-year-old female who has been seen in this emergency department in the past for SVT. Every time she has been seen here she has been converted with adenosine. She states that she felt like her symptoms started 2 hr prior to arrival. She is not having any chest pain. Some shortness of breath. Is feeling palpitations. She states she is taking her medications. Related Data Home Medications Medication Instructions Recorded Confirmed cyclosporine [Restasis] 1 drp OPHTHALMIC (EYE) BID 08/31/18 01/07/19 insulin glargine [Lantus Solostar 44 units SUBCUT QPM 08/31/18 01/07/19 U-100 Insulin] albuterol sulfate [ProAir HFA] 2 - 3 puff INHALATION DAILY 12/13/18 01/07/19 fluticasone-salmeterol 1 inhalation INHALATION BID 12/13/18 01/07/19 [CMP KETOPROFEN] 20% See Rx Instructions TOP BID PRN 01/07/19 01/07/19 citalopram 20 mg PO DAILY 01/07/19 01/07/19 metoprolol tartrate 50 mg PO BID 01/07/19 01/07/19 trazodone 50 mg PO DAILY 01/07/19 01/07/19 Previous Rx's Medication Instructions Recorded glipizide ER 10 mg tablet, 10 mg PO DAILY #90 tab 08/13/18 extended release 24 hr furosemide 40 mg tablet 40 mg PO DAILY PRN #30 tab 12/10/18 potassium chloride ER 20 mEq 20 meq PO DAILY #30 tab 12/10/18 tablet,extended release(part/cryst) hydrocodone 7.5 mg-acetaminophen 1 tab PO Q8H PRN #90 tab 12/24/18 325 mg tablet sertraline 50 mg tablet 50 mg PO DAILY #30 tab 12/27/18 levothyroxine 75 mcg tablet 75 mcg PO QAM #90 tab 12/31/18 metoprolol tartrate 100 mg PO DAILY #60 tab 01/11/19 Allergies Allergy/AdvReac Type Severity Reaction Status Date / Time amoxicillin [AMOXICILLIN] Allergy Unknown Verified 01/07/19 12:03 clavulanic acid Allergy Unknown Verified 01/07/19 12:03 [CLAVULANIC ACID] latex [LATEX] Allergy Unknown Rash Verified 01/07/19 12:03 metformin [METFORMIN] Allergy Unknown Diarrhea Verified 01/07/19 12:03 Penicillins [PENICILLINS] Allergy Unknown Flushing Verified 01/07/19 12:03 zolpidem [ZOLPIDEM] Allergy Unknown Verified 01/07/19 12:03 Xsyzguz-Foy-Esk Reductase Allergy Verified 01/07/19 12:03 Inhibitor TOPICAL IODINE Allergy Unknown Rash Uncoded 01/02/19 15:48 Review of Systems Constitutional Denies fever(s) and Denies headache(s) ENT Ears, Nose, Mouth, and Throat: Denies vertigo and Denies headache(s) Cardiovascular Denies chest pain, Reports rapid heart rate, Reports palpitations and Reports dyspnea Respiratory Reports dyspnea Gastrointestinal Gastrointestinal: Denies abdominal pain, Denies nausea and Denies vomiting Musculoskeletal Denies myalgias and Denies arthralgias Integumentary/Breasts Denies rash Neurologic Denies vertigo and Denies headache(s) Endocrine Reports palpitations Hematologic/Lymphatic Denies easy bleeding and Denies easy bruising PFSH Medical History PSVT (paroxysmal supraventricular tachycardia) (Acute) 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) Diabetes mellitus (Chronic) Diverticular disease (Chronic) Fibromyalgia (Chronic) Hernia, diaphragmatic (Chronic) Hyperlipidemia (Chronic) Hypothyroidism (Chronic) CTS (carpal tunnel syndrome) (Resolved) Social History marital status: household members: none Smoking Status: Never smoker alcohol intake: current (1-2 A DAY ) substance use type: does not use Exam Initial Vital Signs Initial Vital Signs: Vital Signs Temperature 98.5 F 01/11/19 18:00 Pulse Rate 176 H 01/11/19 18:00 Respiratory Rate 22 01/11/19 18:00 Blood Pressure 102/63 01/11/19 18:00 Pulse Oximetry 97 01/11/19 18:00 Const General: cooperative, healthy appearing, comfortable, well developed, well groomed and No acute distress Orientation: alert, awake and oriented x3 HENMT Head: normal to inspection and normocephalic Resp Effort & Inspection: normal respiratory effort Auscultation: clear to auscultation bilaterally Cardio Rate: tachycardic Rhythm: regular rhythm Pulses: radial pulses present Skin Lesions: no lesions Rashes: no rashes Neuro General: alert, awake and oriented x3 Speech: speech normal Extrem General: normal to inspection and capillary refill normal Psych Appearance: grossly normal and well kempt Procedures Cardioversion Indication: SVT Cardiac rhythm prior to cardioversion: SVT Stability: Stable Preparation: cardiac specialist applied and pulse oximeter Patient tolerated procedure sedation: Well and No complications Complications sedation: none Additional Comments: Patient was not sedated. Cardioversion performed with 6 mg adenosine. Course Orders Ordered: Discontinued Medications Adenosine (Adenocard) 6 mg IV NOW ONE Stop: 01/11/19 18:31 Last Admin: 01/11/19 18:30 Dose: 6 mg Sodium Chloride (Normal Saline 0.9%) 1,000 mls @ 1,000 mls/hr IV BOLUS ONE Stop: 01/11/19 19:29 Last Infusion: 01/11/19 19:37 Dose: 0 mls/hr Admin: 01/11/19 18:30 Dose: 1,000 mls/hr MDM - Arrhythmia/Palpitations ECG Data Attestation: I personally reviewed and interpreted this ECG as follows: Prior ECG tracings: not available for review Interpretation: Time 1802 hr Supraventricular tachycardia Ventricular rate is 71 Left axis deviation Normal QRS Normal QTC Moderate ST depression EKG time 1834 hr Sinus rhythm Ventricular rate 83 Left axis deviation Left anterior fascicular block Normal QRS Normal QTC No ST depressions MDM Narrative Medical decision making narrative: Patient was stable upon arrival however tachycardic. She converted with 6 mg of adenosine. Patient was observed in the emergency department for period of time afterwards. No return of the SVT. Discussed the case with with Cardiology who stated that if the patient has been converted with adenosine she would be a strong candidate for ablation. Patient states she has talked with her director of learning about inflation. Will increase her metoprolol to 100 mg in the morning and 50 mg at night. She was given return precautions. She expressed understanding and agreement with plan. Discharge Plan Departure Patient Disposition: Home Clinical Impression: Supraventricular tachycardia Discharge Date/Time: 01/11/19 19:45 Interventions: ED Discharge Assessment Last Done: 01/11/19 19:53 Instructions: DI for Paroxysmal Supraventricular Tachycardia Activity Restrictions/Additional Instructions: Start taking 100 mg of metoprolol in the morning and 50 mg at night. I recommend on Monday you contact the [facility] cardiology group at [phone] return to the emergency department for any new or worsening symptoms Prescriptions: New metoprolol tartrate 100 mg tablet 100 mg PO DAILY Qty: 60 RF: 0 No Action glipizide 10 mg tablet extended release 24hr 10 mg PO DAILY Qty: 90 RF: 3 hydrocodone-acetaminophen [[place]] 7.5-325 mg tablet 1 tab PO Q8H PRN (Reason: pain) Qty: 90 RF: 0 levothyroxine [Synthroid] 75 mcg tablet 75 mcg PO QAM Qty: 90 RF: 3 furosemide [Lasix] 40 mg tablet 40 mg PO DAILY PRN (Reason: edema) Qty: 30 RF: 0 potassium chloride [Klor-Con M20] 20 mEq tablet,ER particles/crystals 20 meq PO DAILY Qty: 30 RF: 0 Restasis 0.05 % dropperette 1 drp ophthalmic (eye) BID RF: 0 Lantus Solostar U-100 Insulin 100 unit/mL (3 mL) insulin pen 44 units subcut QPM RF: 0 ProAir HFA 90 mcg/actuation HFA aerosol inhaler 2 - 3 puff Inhalation DAILY RF: 0 fluticasone-salmeterol 250-50 mcg/dose blister with device 1 inhalation INHALATION BID RF: 0 trazodone 50 mg tablet 50 mg PO DAILY RF: 0 citalopram 20 mg tablet 20 mg PO DAILY RF: 0 metoprolol tartrate 50 mg tablet 50 mg PO BID RF: 0 [CMP KETOPROFEN] 20% cream See Rx Instructions TOP BID PRN (Reason: fibromyalgia) RF: 0 sertraline 50 mg tablet 50 mg PO DAILY Qty: 30 RF: 2 Referrals: Mulugeta Haas MD [Primary Care Provider] -
[2019-01-11] MEDS: SODIUM CHLORIDE 0.9% 1,000 ML 1000 ML IV (18:30)
[2019-01-11] MEDS: ADENOSINE 6 MG/2 ML VIAL IV (18:30)
[2019-01-11 18:38] VITALS: BP 149/72; PULSE 84; RESP 26; O2SAT 92
[2019-01-11 18:56] VITALS: BP 121/59; PULSE 87; RESP 20; O2SAT 95
[2019-01-11 19:00] VITALS: BP 124/57; PULSE 87; RESP 17; O2SAT 96
[2019-01-11 19:06] VITALS: BP 124/57; PULSE 85; RESP 22; O2SAT 95
[2019-01-11 19:53] VITALS: BP 133/77; PULSE 81; RESP 18; O2SAT 97
== END 2019-01-11 19:45 | disposition home or self-care (01) ==
PROVIDERS: Emergency Provider Emergency Medicine; Family Provider Family Medicine; PCP Family Medicine
DX: I47.1 Supraventricular tachycardia (principal)
CPT/HCPCS: 36591; 93005; 93010; 96361; 96374; 99283; 99284; J0153

== ENCOUNTER 2019-01-16 16:52 | Emergency (ER) | payer MEDICARE, OTHER, SELFPAY ==
[2019-01-16] VITALS (11 sets, daily range): BP systolic 110–163; BP diastolic 59–112; PULSE 63–172; RESP 13–96; TEMP 36.5; O2SAT 94–97
--- NOTE | 2019-01-16 17:03 | DI.RAD.S_ITS ---
PROCEDURE: XR CHEST 1V INDICATIONS: chest pain TECHNIQUE: One view of the chest was acquired. COMPARISON: [facility], CR, XR CHEST 1V, 08/31/2018, 11:04. FINDINGS: Surgical changes and devices: None. Lungs and pleura: Hazy perihilar bilateral ground glass and ill-defined opacities. No definite focal consolidation. Central airway thickening is present.. No pleural effusions or pneumothorax. Mediastinum: Mediastinal contours appear normal. Heart size is normal. Bones and chest wall: No suspicious bony lesions. Overlying soft tissues appear unremarkable. IMPRESSION: Increased bilateral perihilar hazy and ill-defined opacities, with airway thickening. Findings raise possibility of pulmonary edema although atypical/viral pneumonia in the differential. If there is persistent clinical diagnostic uncertainty, continued surveillance with short interval chest radiographs after treatment is recommended. Dictated by: Matthew Griffin M.D. on 01/16/2019 at 17:27 Approved by: Matthew Griffin M.D. on 01/16/2019 at 17:30
--- NOTE | 2019-01-16 17:13 | ED.CHESTPAIN ---
HPI - Chest Pain General Chief Complaint: Chest Pain Stated Complaint: RAPID HEARTRATE Time Seen by Provider: 01/16/19 17:12 Source: patient and old records reviewed History of Present Illness HPI narrative: This is a pleasant 78-year-old female comes to the emergency department with complaint of elevated heart rate and shortness of breath. Patient states she has known SVT. She has been cardioverted twice before this week and 5 times total in the last couple months. Patient states that she did have her metoprolol adjusted on Monday and increased but has continued to have issues. Patient states that she started having symptoms about 3 hr prior to arrival. The patient states no chest pain or pressure but does feel little short of breath. She does not really feel lightheaded. No nausea no vomiting no other GI or urinary symptoms. She has not had any other medication changes. No swelling in her lower extremities. She sees Dr. Benitez there has been discussion about an ablation but she has not seen him yet. She states that she has always responded to adenosine, she usually requires 12 mg but last time only required 6 mg. Related Data Home Medications Medication Instructions Recorded Confirmed cyclosporine [Restasis] 1 drp OPHTHALMIC (EYE) BID 08/31/18 01/16/19 insulin glargine [Lantus Solostar 44 units SUBCUT QPM 08/31/18 01/16/19 U-100 Insulin] albuterol sulfate [ProAir HFA] 2 - 3 puff INHALATION DAILY 12/13/18 01/16/19 fluticasone-salmeterol 1 inhalation INHALATION BID 12/13/18 01/16/19 [CMP KETOPROFEN] 20% See Rx Instructions TOP BID PRN 01/07/19 01/16/19 citalopram 20 mg PO DAILY 01/07/19 01/16/19 trazodone 50 mg PO DAILY 01/07/19 01/16/19 Previous Rx's Medication Instructions Recorded glipizide ER 10 mg tablet, 10 mg PO DAILY #90 tab 08/13/18 extended release 24 hr furosemide 40 mg tablet 40 mg PO DAILY PRN #30 tab 12/10/18 potassium chloride ER 20 mEq 20 meq PO DAILY #30 tab 12/10/18 tablet,extended release(part/cryst) hydrocodone 7.5 mg-acetaminophen 1 tab PO Q8H PRN #90 tab 12/24/18 325 mg tablet sertraline 50 mg tablet 50 mg PO DAILY #30 tab 12/27/18 levothyroxine 75 mcg tablet 75 mcg PO QAM #90 tab 12/31/18 metoprolol tartrate 100 mg tablet 100 mg PO BID #60 tab 01/15/19 Allergies Allergy/AdvReac Type Severity Reaction Status Date / Time amoxicillin [AMOXICILLIN] Allergy Unknown Verified 01/15/19 10:25 clavulanic acid Allergy Unknown Verified 01/15/19 10:25 [CLAVULANIC ACID] latex [LATEX] Allergy Unknown Rash Verified 01/15/19 10:25 metformin [METFORMIN] Allergy Unknown Diarrhea Verified 01/15/19 10:25 Penicillins [PENICILLINS] Allergy Unknown Flushing Verified 01/15/19 10:25 zolpidem [ZOLPIDEM] Allergy Unknown Verified 01/15/19 10:25 Cyyyvij-Swj-Ltf Reductase Allergy Verified 01/15/19 10:25 Inhibitor TOPICAL IODINE Allergy Unknown Rash Uncoded 01/15/19 10:25 Review of Systems Review of Systems ROS Unobtainable: All systems reviewed & are unremarkable except as noted in HPI and below Cardiovascular Denies chest pain, Denies chest pain at rest, Denies chest pain with activity, Denies diaphoresis, Denies syncope, Reports rapid heart rate, Denies pedal edema, Denies irregular heart rhythm, Denies lightheadedness, Denies radiating jaw, neck or arm pain, Denies palpitations, Reports dyspnea and Denies orthopnea Respiratory Denies change in phlegm color, Denies chest congestion, Denies cough, Denies hemoptysis, Denies excessive phlegm production, Denies pain on inspiration, Reports dyspnea, Denies stridor and Denies wheezing Gastrointestinal Gastrointestinal: Denies abdominal pain, Denies change in bowel habits, Denies diarrhea, Denies nausea and Denies vomiting Genitourinary Denies hematuria, Denies dysuria, Denies flank pain and Denies urinary urgency Musculoskeletal Denies muscle cramps and Denies other ( swelling in extremities) Integumentary/Breasts Denies erythema and Denies rash Neurologic Denies syncope Endocrine Denies palpitations Allergic/Immunologic Denies wheezing PFSH Medical History PSVT (paroxysmal supraventricular tachycardia) (Acute) 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) Diabetes mellitus (Chronic) Diverticular disease (Chronic) Fibromyalgia (Chronic) Hernia, diaphragmatic (Chronic) Hyperlipidemia (Chronic) Hypothyroidism (Chronic) CTS (carpal tunnel syndrome) (Resolved) Surgical History History of carpal tunnel repair (Resolved) History of cystoscopy (Resolved) Status post appendectomy (Resolved) Status post breast reduction (Resolved) Status post cholecystectomy (Resolved) Status post hysterectomy with oophorectomy (Resolved) Family History Father Dementia MVA (motor vehicle accident) Mother Dementia Colon cancer Social History marital status: household members: none Smoking Status: Never smoker alcohol intake: current (1-2 A DAY ) substance use type: does not use Social History marital status: household members: none Smoking Status: Never smoker alcohol intake: current (1-2 A DAY ) substance use type: does not use Exam Narrative Exam Narrative: GENERAL: Alert and oriented x three, well-nourished, well-appearing female in mild distress. HEENT: Head normocephalic, atraumatic, EOMI, pupils reactive, face symmetric, moist mucous membranes NECK: Supple, full range of motion CARDIOVASCULAR: Tachycardic but begular rate and rhythm without murmurs, rubs or gallops. RESPIRATORY: Breath sounds equal bilaterally, no wheezes rales or rhonchi. no tachypnea, no accessory muscle use. ABDOMEN: Soft, nontender. Normoactive bowel sounds all 4 quadrants. No guarding or rebound, rigidity, no mass : No CVA tenderness EXTREMITIES: Normal range of motion, no clubbing or edema. Neurovascularly intact NEUROLOGICAL: Cranial nerves II through XII grossly intact. Moving all extremities SKIN: Warm, dry, no petechiae, no rashes or lesions. Initial Vital Signs Initial Vital Signs: Vital Signs Temperature 97.7 F 01/16/19 16:56 Pulse Rate 172 H 01/16/19 16:56 Respiratory Rate 96 H 01/16/19 16:56 Blood Pressure 121/78 01/16/19 16:56 Pulse Oximetry 96 01/16/19 16:56 Course Orders Ordered: ED Orders 01/16/19 17:03 XR chest 1V Stat EKG-12 Lead Stat 01/16/19 17:30 Complete Blood Count AUTO DIFF Stat Comprehensive Metabolic Panel Stat Lipase Stat Magnesium Stat Troponin & CK Cardiac Panel Stat 01/16/19 17:33 EKG-12 Lead Routine 01/16/19 20:00 B Type Natriuretic Peptide Stat Thyroid Stimulating Hormone Stat 01/16/19 20:30 Troponin & CK Cardiac Panel Stat Sodium Chloride (Normal Saline 0.9%) 1,000 mls @ 150 mls/hr IV CONT CHRISTOPHER Last Admin: 01/16/19 18:10 Dose: Not Given Magnesium Sulfate (Magnesium Sulfate) 2 gm in 50 mls @ 25 mls/hr IV NOW ONE Stop: 01/16/19 20:17 Last Admin: 01/16/19 18:23 Dose: 25 mls/hr Discontinued Medications Adenosine (Adenocard) 6 mg IV NOW ONE Stop: 01/16/19 17:14 Last Admin: 01/16/19 17:15 Dose: 6 mg Adenosine (Adenocard) 12 mg IV NOW ONE Stop: 01/16/19 17:35 Last Admin: 01/16/19 17:36 Dose: Not Given Adenosine (Adenocard) 12 mg IV NOW ONE Stop: 01/16/19 17:36 Last Admin: 01/16/19 17:30 Dose: 12 mg Aspirin (Aspirin Chew) 324 mg PO NOW ONE Stop: 01/16/19 17:04 Last Admin: 01/16/19 18:10 Dose: 324 mg Sodium Chloride (Normal Saline 0.9%) 1,000 mls @ 1,000 mls/hr IV BOLUS ONE Stop: 01/16/19 18:21 Last Admin: 01/16/19 18:10 Dose: 1,000 mls/hr Vital Signs - 8 hr 01/16/19 16:56 01/16/19 17:02 01/16/19 18:30 Temperature 97.7 F Pulse Rate 172 H 170 H 80 Respiratory Rate 96 H 37 H 16 Blood Pressure 121/78 Blood Pressure [Left Arm] 110/72 137/59 L Pulse Oximetry 96 97 96 01/16/19 19:00 01/16/19 19:56 Temperature Pulse Rate 76 69 Respiratory Rate 17 14 Blood Pressure Blood Pressure [Left Arm] 151/59 H 155/67 H Pulse Oximetry 96 96 MDM - Chest Pain Lab Data Attestation: I reviewed the patient's lab results. Result diagrams: 01/16/19 17:30 01/16/19 17:30 Lab Results 01/16/19 01/16/19 01/16/19 Range/Units 17:30 17:30 17:30 WBC 12.8 H (4.5-11.0) X10^3/uL RBC 4.68 (4.0-5.2) X10^6/uL Hgb 13.6 (12.0-16.0) g/dL Hct 41.9 (36-46) % MCV 89.7 (80-100) fL MCH 29.1 (26-34) PG MCHC 32.4 (30-36) % RDW 14.1 (11.6-14.8) % Plt Count 328 (150-400) X10^3/uL Neut % (Auto) 68.0 (50-75) % Lymph % (Auto) 23.9 L (25-40) % [place] % (Auto) 6.0 (3-14) % Eos % (Auto) 1.3 L (2-4) % Baso % (Auto) 0.8 (0-2) % Neut # (Auto) 8700 H (8704-0979) /uL Lymph # (Auto) 3100 (1442-4946) /uL [place] # (Auto) 800 (0-900) /uL Eos # (Auto) 200 (0-450) /uL Baso # (Auto) 100 (0-100) /uL Sodium 136 L (137-145) mmol/L Potassium 4.5 (3.4-5.1) mmol/L Chloride 97 L (98-107) mmol/L Carbon Dioxide 24 (22-32) mmol/L BUN 19 H (7-17) mg/dL Creatinine 0.60 (0.52-1.04) mg/dL Estimated GFR > 60.0 (>60) mL/min BUN/Creatinine Ratio 31.7 H (6-22) Glucose 318 H (80-110) mg/dL Calcium 9.4 (8.4-10.2) mg/dL Magnesium 1.5 L (1.6-2.3) mg/dL Total Bilirubin 0.3 (0.2-1.3) mg/dL AST 35 (14-36) IU/L ALT 44 (9-52) IU/L Alkaline Phosphatase 102 (38-126) U/L Total Creatine Kinase 80 (30-135) U/L CK-MB (CK-2) TNP CK-MB (CK-2) Rel Index TNP Troponin I 0.060 H (0.01-0.034) ng/mL Total Protein 7.2 (6.3-8.2) g/dL Albumin 4.4 (3.5-5.0) g/dL Globulin 2.8 (1.7-4.1) g/dL Albumin/Globulin Ratio 1.6 (1.0-2.8) Lipase 111 (23-300) U/L Imaging Data Chest x-ray: Radiologist's impression: [address] [address] XRay Report Signed Patient: Berenice Goodwin R#: [id number] : 2Acct:[id number] Age/Sex: 78 / FDate of Service: 01/16/19 Loc: ED Accession Number: [id number] Procedure: XR chest 1V Ordering Provider: Mile Randolph D.O. PROCEDURE: XR CHEST 1V INDICATIONS: chest pain TECHNIQUE: One view of the chest was acquired. COMPARISON: [facility], , XR CHEST 1V, 08/31/2018, 11:04. FINDINGS: Surgical changes and devices: None. Lungs and pleura: Hazy perihilar bilateral ground glass and ill-defined opacities. No definite focal consolidation. Central airway thickening is present.. No pleural effusions or pneumothorax. Mediastinum: Mediastinal contours appear normal. Heart size is normal. Bones and chest wall: No suspicious bony lesions. Overlying soft tissues appear unremarkable. IMPRESSION: Increased bilateral perihilar hazy and ill-defined opacities, with airway thickening. Findings raise possibility of pulmonary edema although atypical/viral pneumonia in the differential. If there is persistent clinical diagnostic uncertainty, continued surveillance with short interval chest radiographs after treatment is recommended. Dictated by: Matthew Griffin M.D. on 01/16/2019 at 17:27 Approved by: Matthew Griffin M.D. on 01/16/2019 at 17:30 ECG Data Attestation: I personally reviewed and interpreted this ECG as follows: Prior ECG tracings: available for review Interpretation: EKG 1. Shows a supraventricular tachycardia with a rate of 169, QRS of 94 and QTC of 376. No ST elevation appreciated. EKG 2. Shows sinus pattern with rate of 86, MO interval 181, QRS of 97 and QTC of 443. No ST elevation or depression appreciated left anterior fascicular block noted. EKG from 01/11 19 appears similar MDM Narrative Medical decision making narrative: patient's lab work does show hypomagnesemia. Patient was given 2 g IV here in the department. Troponin is elevated at 0.060 which is not her normal baseline she is normally 0.012 even after cardioversion. Rest of patient's lab work does not show acute changes. Chest x-ray shows possible viral pattern versus CHF. BNP was added on to lab work. I spoke with Dr. ankit vargas and Dr. jeffries for RA who both recommend repeat troponin at the 3-4 hour pinky if trending down words or same patient could be DC to home with follow-up with Dr. Benitez if elevating needs recontact with Cardiology. Suspect that some of patient's recurrences are related to her low magnesium state. Her medications were recently changed so would not reach just at this time unless further directed by Cardiology. Patient was signed out to Dr. Villanueva while awaiting repeat troponin and BNP. Patient has been asymptomatic here in the department after her cardioversion she no longer feels short of breath and is no longer having any cough for similar symptoms. Discharge Plan Departure Clinical Impression: Paroxysmal supraventricular tachycardia Instructions: Paroxysmal Supraventricular Tachycardia Prescriptions: No Action glipizide 10 mg tablet extended release 24hr 10 mg PO DAILY Qty: 90 RF: 3 hydrocodone-acetaminophen [Dorena] 7.5-325 mg tablet 1 tab PO Q8H PRN (Reason: pain) Qty: 90 RF: 0 levothyroxine [Synthroid] 75 mcg tablet 75 mcg PO QAM Qty: 90 RF: 3 furosemide [Lasix] 40 mg tablet 40 mg PO DAILY PRN (Reason: edema) Qty: 30 RF: 0 potassium chloride [Klor-Con M20] 20 mEq tablet,ER particles/crystals 20 meq PO DAILY Qty: 30 RF: 0 metoprolol tartrate 100 mg tablet 100 mg PO BID Qty: 60 RF: 3 Restasis 0.05 % dropperette 1 drp ophthalmic (eye) BID RF: 0 Lantus Solostar U-100 Insulin 100 unit/mL (3 mL) insulin pen 44 units subcut QPM RF: 0 albuterol sulfate [ProAir HFA] 90 mcg/actuation HFA aerosol inhaler 2 - 3 puff Inhalation DAILY RF: 0 fluticasone-salmeterol 250-50 mcg/dose blister with device 1 inhalation INHALATION BID RF: 0 trazodone 50 mg tablet 50 mg PO DAILY RF: 0 citalopram 20 mg tablet 20 mg PO DAILY RF: 0 [CMP KETOPROFEN] 20% cream See Rx Instructions TOP BID PRN (Reason: fibromyalgia) RF: 0 sertraline 50 mg tablet 50 mg PO DAILY Qty: 30 RF: 2 Referrals: Mulugeta Haas MD [Primary Care Provider] -
[2019-01-16] MEDS: ADENOSINE 6 MG/2 ML VIAL IV (17:15)
[2019-01-16] MEDS: ADENOSINE 6 MG/2 ML VIAL 12 MG IV (17:30)
[2019-01-16 17:38] LABS: Add Manual Diff / Slide Review NO; Basophils Absolute Auto 100 /uL (0-100); Basophils Percent Auto 0.8 % (0-2); Eosinophils Absolute Auto 200 /uL (0-450); Eosinophils Percent Auto 1.3 % (2-4); Hematocrit 41.9 % (36-46); Hemoglobin 13.6 g/dL (12.0-16.0); Lymphocytes Absolute Auto 3100 /uL (1100-4500); Lymphocytes Percent Auto 23.9 % (25-40); Mean Corpuscular HGB Conc 32.4 % (30-36); Mean Corpuscular Hemoglobin 29.1 PG (26-34); Mean Corpuscular Volume 89.7 fL (80-100); Monocytes Absolute Auto 800 /uL (0-900); Neutrophils Absolute Auto 8700 /uL (1500-7000); Platelet Count 328 X10^3/uL (150-400); Red Blood Cell Count 4.68 X10^6/uL (4.0-5.2); Red Cell Distribution Width 14.1 % (11.6-14.8); White Blood Cell Count 12.8 X10^3/uL (4.5-11.0)
[2019-01-16 17:55] LABS: Alanine Aminotransferase 44 IU/L (9-52); Albumin 4.4 g/dL (3.5-5.0); Albumin Globulin Ratio 1.6 (1.0-2.8); Alkaline Phosphatase 102 U/L (38-126); Aspartate Aminotransferase 35 IU/L (14-36); BUN Creatinine Ratio 31.7 (6-22); Bilirubin Total 0.3 mg/dL (0.2-1.3); Blood Urea Nitrogen 19 mg/dL (7-17); Calcium 9.4 mg/dL (8.4-10.2); Carbon Dioxide 24 mmol/L (22-32); Chloride 97 mmol/L (98-107); Creatine Kinase 80 U/L (30-135); Estimated Glomerular Filt Rate > 60.0 mL/min (>60); Globulin 2.8 g/dL (1.7-4.1); Glucose 318 mg/dL (80-110); HEMOLYSIS 24 (0-50); Lipase 111 U/L (23-300); Potassium 4.5 mmol/L (3.4-5.1); Sodium 136 mmol/L (137-145); Total Protein 7.2 g/dL (6.3-8.2)
[2019-01-16 17:56] LABS: Magnesium 1.5 mg/dL (1.6-2.3)
[2019-01-16] MEDS: SODIUM CHLORIDE 0.9% 1,000 ML 1000 ML IV (18:10)
[2019-01-16] MEDS: ASPIRIN 81 MG TAB 324 MG PO (18:10)
[2019-01-16] MEDS: MAGNESIUM SULFATE 2 GM/50 ML PIGGYBACK IV (18:23)
--- NOTE | 2019-01-16 19:01 | ED_ITS ---
HPI - Chest Pain General Chief Complaint: Chest Pain Stated Complaint: RAPID HEARTRATE Time Seen by Provider: 01/16/19 17:12 Source: patient and old records reviewed History of Present Illness HPI narrative: This is a pleasant 78-year-old female comes to the emergency department with complaint of elevated heart rate and shortness of breath. Patient states she has known SVT. She has been cardioverted twice before this week and 5 times total in the last couple months. Patient states that she did have her metoprolol adjusted on Monday and increased but has continued to have issues. Patient states that she started having symptoms about 3 hr prior to arrival. The patient states no chest pain or pressure but does feel little short of breath. She does not really feel lightheaded. No nausea no vomiting no other GI or urinary symptoms. She has not had any other medication changes. No swelling in her lower extremities. She sees Dr. Benitez there has been discussion about an ablation but she has not seen him yet. She states that she has always responded to adenosine, she usually requires 12 mg but last time only required 6 mg. Related Data Home Medications Medication Instructions Recorded Confirmed cyclosporine [Restasis] 1 drp OPHTHALMIC (EYE) BID 08/31/18 01/16/19 insulin glargine [Lantus Solostar 44 units SUBCUT QPM 08/31/18 01/16/19 U-100 Insulin] albuterol sulfate [ProAir HFA] 2 - 3 puff INHALATION DAILY 12/13/18 01/16/19 fluticasone-salmeterol 1 inhalation INHALATION BID 12/13/18 01/16/19 [CMP KETOPROFEN] 20% See Rx Instructions TOP BID PRN 01/07/19 01/16/19 citalopram 20 mg PO DAILY 01/07/19 01/16/19 trazodone 50 mg PO DAILY 01/07/19 01/16/19 Previous Rx's Medication Instructions Recorded glipizide ER 10 mg tablet, 10 mg PO DAILY #90 tab 08/13/18 extended release 24 hr furosemide 40 mg tablet 40 mg PO DAILY PRN #30 tab 12/10/18 potassium chloride ER 20 mEq 20 meq PO DAILY #30 tab 12/10/18 tablet,extended release(part/cryst) hydrocodone 7.5 mg-acetaminophen 1 tab PO Q8H PRN #90 tab 12/24/18 325 mg tablet sertraline 50 mg tablet 50 mg PO DAILY #30 tab 12/27/18 levothyroxine 75 mcg tablet 75 mcg PO QAM #90 tab 12/31/18 metoprolol tartrate 100 mg tablet 100 mg PO BID #60 tab 01/15/19 Allergies Allergy/AdvReac Type Severity Reaction Status Date / Time amoxicillin [AMOXICILLIN] Allergy Unknown Verified 01/15/19 10:25 clavulanic acid Allergy Unknown Verified 01/15/19 10:25 [CLAVULANIC ACID] latex [LATEX] Allergy Unknown Rash Verified 01/15/19 10:25 metformin [METFORMIN] Allergy Unknown Diarrhea Verified 01/15/19 10:25 Penicillins [PENICILLINS] Allergy Unknown Flushing Verified 01/15/19 10:25 zolpidem [ZOLPIDEM] Allergy Unknown Verified 01/15/19 10:25 Kgysoqp-Kzj-Rro Reductase Allergy Verified 01/15/19 10:25 Inhibitor TOPICAL IODINE Allergy Unknown Rash Uncoded 01/15/19 10:25 Review of Systems Review of Systems ROS Unobtainable: All systems reviewed & are unremarkable except as noted in HPI and below Cardiovascular Denies chest pain, Denies chest pain at rest, Denies chest pain with activity, Denies diaphoresis, Denies syncope, Reports rapid heart rate, Denies pedal edema, Denies irregular heart rhythm, Denies lightheadedness, Denies radiating jaw, neck or arm pain, Denies palpitations, Reports dyspnea and Denies orthopnea Respiratory Denies change in phlegm color, Denies chest congestion, Denies cough, Denies hemoptysis, Denies excessive phlegm production, Denies pain on inspiration, Reports dyspnea, Denies stridor and Denies wheezing Gastrointestinal Gastrointestinal: Denies abdominal pain, Denies change in bowel habits, Denies diarrhea, Denies nausea and Denies vomiting Genitourinary Denies hematuria, Denies dysuria, Denies flank pain and Denies urinary urgency Musculoskeletal Denies muscle cramps and Denies other ( swelling in extremities) Integumentary/Breasts Denies erythema and Denies rash Neurologic Denies syncope Endocrine Denies palpitations Allergic/Immunologic Denies wheezing PFSH Medical History PSVT (paroxysmal supraventricular tachycardia) (Acute) 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) Diabetes mellitus (Chronic) Diverticular disease (Chronic) Fibromyalgia (Chronic) Hernia, diaphragmatic (Chronic) Hyperlipidemia (Chronic) Hypothyroidism (Chronic) CTS (carpal tunnel syndrome) (Resolved) Surgical History History of carpal tunnel repair (Resolved) History of cystoscopy (Resolved) Status post appendectomy (Resolved) Status post breast reduction (Resolved) Status post cholecystectomy (Resolved) Status post hysterectomy with oophorectomy (Resolved) Family History Father Dementia MVA (motor vehicle accident) Mother Dementia Colon cancer Social History marital status: household members: none Smoking Status: Never smoker alcohol intake: current (1-2 A DAY ) substance use type: does not use Social History marital status: household members: none Smoking Status: Never smoker alcohol intake: current (1-2 A DAY ) substance use type: does not use Exam Narrative Exam Narrative: GENERAL: Alert and oriented x three, well-nourished, well- appearing female in mild distress. HEENT: Head normocephalic, atraumatic, EOMI, pupils reactive, face symmetric, moist mucous membranes NECK: Supple, full range of motion CARDIOVASCULAR: Tachycardic but begular rate and rhythm without murmurs, rubs or gallops. RESPIRATORY: Breath sounds equal bilaterally, no wheezes rales or rhonchi. no tachypnea, no accessory muscle use. ABDOMEN: Soft, nontender. Normoactive bowel sounds all 4 quadrants. No guarding or rebound, rigidity, no mass : No CVA tenderness EXTREMITIES: Normal range of motion, no clubbing or edema. Neurovascularly intact NEUROLOGICAL: Cranial nerves II through XII grossly intact. Moving all extremities SKIN: Warm, dry, no petechiae, no rashes or lesions. Initial Vital Signs Initial Vital Signs: Vital Signs Temperature 97.7 F 01/16/19 16:56 Pulse Rate 172 H 01/16/19 16:56 Respiratory Rate 96 H 01/16/19 16:56 Blood Pressure 121/78 01/16/19 16:56 Pulse Oximetry 96 01/16/19 16:56 Course Orders Ordered: ED Orders 01/16/19 17:03 XR chest 1V Stat EKG-12 Lead Stat 01/16/19 17:30 Complete Blood Count AUTO DIFF Stat Comprehensive Metabolic Panel Stat Lipase Stat Magnesium Stat Troponin & CK Cardiac Panel Stat 01/16/19 17:33 EKG-12 Lead Routine 01/16/19 20:00 B Type Natriuretic Peptide Stat Thyroid Stimulating Hormone Stat 01/16/19 20:30 Troponin & CK Cardiac Panel Stat Sodium Chloride (Normal Saline 0.9%) 1,000 mls @ 150 mls/hr IV CONT CHRISTOPHER Last Admin: 01/16/19 18:10 Dose: Not Given Magnesium Sulfate (Magnesium Sulfate) 2 gm in 50 mls @ 25 mls/hr IV NOW ONE Stop: 01/16/19 20:17 Last Admin: 01/16/19 18:23 Dose: 25 mls/hr Discontinued Medications Adenosine (Adenocard) 6 mg IV NOW ONE Stop: 01/16/19 17:14 Last Admin: 01/16/19 17:15 Dose: 6 mg Adenosine (Adenocard) 12 mg IV NOW ONE Stop: 01/16/19 17:35 Last Admin: 01/16/19 17:36 Dose: Not Given Adenosine (Adenocard) 12 mg IV NOW ONE Stop: 01/16/19 17:36 Last Admin: 01/16/19 17:30 Dose: 12 mg Aspirin (Aspirin Chew) 324 mg PO NOW ONE Stop: 01/16/19 17:04 Last Admin: 01/16/19 18:10 Dose: 324 mg Sodium Chloride (Normal Saline 0.9%) 1,000 mls @ 1,000 mls/hr IV BOLUS ONE Stop: 01/16/19 18:21 Last Admin: 01/16/19 18:10 Dose: 1,000 mls/hr Vital Signs - 8 hr 01/16/19 16:56 01/16/19 17:02 01/16/19 18:30 Temperature 97.7 F Pulse Rate 172 H 170 H 80 Respiratory Rate 96 H 37 H 16 Blood Pressure 121/78 Blood Pressure [Left Arm] 110/72 137/59 L Pulse Oximetry 96 97 96 01/16/19 19:00 01/16/19 19:56 Temperature Pulse Rate 76 69 Respiratory Rate 17 14 Blood Pressure Blood Pressure [Left Arm] 151/59 H 155/67 H Pulse Oximetry 96 96 MDM - Chest Pain Lab Data Attestation: I reviewed the patient's lab results. Result diagrams: 01/16/19 17:30 01/16/19 17:30 Lab Results 01/16/19 01/16/19 01/16/19 Range/Units 17:30 17:30 17:30 WBC 12.8 H (4.5-11.0) X10^3/uL RBC 4.68 (4.0-5.2) X10^6/uL Hgb 13.6 (12.0-16.0) g/dL Hct 41.9 (36-46) % MCV 89.7 (80-100) fL MCH 29.1 (26-34) PG MCHC 32.4 (30-36) % RDW 14.1 (11.6-14.8) % Plt Count 328 (150-400) X10^3/uL Neut % (Auto) 68.0 (50-75) % Lymph % (Auto) 23.9 L (25-40) % [place] % (Auto) 6.0 (3-14) % Eos % (Auto) 1.3 L (2-4) % Baso % (Auto) 0.8 (0-2) % Neut # (Auto) 8700 H (7010-6083) /uL Lymph # (Auto) 3100 (5514-5170) /uL [place] # (Auto) 800 (0-900) /uL Eos # (Auto) 200 (0-450) /uL Baso # (Auto) 100 (0-100) /uL Sodium 136 L (137-145) mmol/L Potassium 4.5 (3.4-5.1) mmol/L Chloride 97 L (98-107) mmol/L Carbon Dioxide 24 (22-32) mmol/L BUN 19 H (7-17) mg/dL Creatinine 0.60 (0.52-1.04) mg/dL Estimated GFR > 60.0 (>60) mL/min BUN/Creatinine Ratio 31.7 H (6-22) Glucose 318 H (80-110) mg/dL Calcium 9.4 (8.4-10.2) mg/dL Magnesium 1.5 L (1.6-2.3) mg/dL Total Bilirubin 0.3 (0.2-1.3) mg/dL AST 35 (14-36) IU/L ALT 44 (9-52) IU/L Alkaline Phosphatase 102 (38-126) U/L Total Creatine Kinase 80 (30-135) U/L CK-MB (CK-2) TNP CK-MB (CK-2) Rel Index TNP Troponin I 0.060 H (0.01-0.034) ng/mL Total Protein 7.2 (6.3-8.2) g/dL Albumin 4.4 (3.5-5.0) g/dL Globulin 2.8 (1.7-4.1) g/dL Albumin/Globulin Ratio 1.6 (1.0-2.8) Lipase 111 (23-300) U/L Imaging Data Chest x-ray: Radiologist's impression: [address] [id number] XRay Report Signed Patient: Berenice Goodwin R#: [id number] : 2Acct:[id number] Age/Sex: 78 / FDate of Service: 01/16/19 Loc: ED Accession Number: [id number] Procedure: XR chest 1V Ordering Provider: Mile Randolph D.O. PROCEDURE: XR CHEST 1V INDICATIONS: chest pain TECHNIQUE: One view of the chest was acquired. COMPARISON: [facility], , XR CHEST 1V, 08/31/2018, 11:04. FINDINGS: Surgical changes and devices: None. Lungs and pleura: Hazy perihilar bilateral ground glass and ill-defined opacities. No definite focal consolidation. Central airway thickening is present.. No pleural effusions or pneumothorax. Mediastinum: Mediastinal contours appear normal. Heart size is normal. Bones and chest wall: No suspicious bony lesions. Overlying soft tissues appear unremarkable. IMPRESSION: Increased bilateral perihilar hazy and ill-defined opacities, with airway thickening. Findings raise possibility of pulmonary edema although atypical/viral pneumonia in the differential. If there is persistent clinical diagnostic uncertainty, continued surveillance with short interval chest radiographs after treatment is recommended. Dictated by: Matthew Griffin M.D. on 01/16/2019 at 17:27 Approved by: Matthew Griffin M.D. on 01/16/2019 at 17:30 ECG Data Attestation: I personally reviewed and interpreted this ECG as follows: Prior ECG tracings: available for review Interpretation: EKG 1. Shows a supraventricular tachycardia with a rate of 169, QRS of 94 and QTC of 376. No ST elevation appreciated. EKG 2. Shows sinus pattern with rate of 86, [place] interval 181, QRS of 97 and QTC of 443. No ST elevation or depression appreciated left anterior fascicular block noted. EKG from 01/11 19 appears similar MDM Narrative Medical decision making narrative: patient's lab work does show hypomagnesemia. Patient was given 2 g IV here in the department. Troponin is elevated at 0.060 which is not her normal baseline she is normally 0.012 even after cardioversion. Rest of patient's lab work does not show acute changes. Chest x-ray shows possible viral pattern versus CHF. BNP was added on to lab work. I spoke with Dr. ankit vargas and Dr. jeffries for RA who both recommend repeat troponin at the 3- 4 hour pinky if trending down words or same patient could be DC to home with follow-up with Dr. Benitez if elevating needs recontact with Cardiology. Suspect that some of patient's recurrences are related to her low magnesium state. Her medications were recently changed so would not reach just at this time unless further directed by Cardiology. Patient was signed out to Dr. Villanueva while awaiting repeat troponin and BNP. Patient has been asymptomatic here in the department after her cardioversion she no longer feels short of breath and is no longer having any cough for similar symptoms. Discharge Plan Departure Clinical Impression: Paroxysmal supraventricular tachycardia Instructions: Paroxysmal Supraventricular Tachycardia Prescriptions: No Action glipizide 10 mg tablet extended release 24hr 10 mg PO DAILY Qty: 90 RF: 3 hydrocodone-acetaminophen [Sturdivant] 7.5-325 mg tablet 1 tab PO Q8H PRN (Reason: pain) Qty: 90 RF: 0 levothyroxine [Synthroid] 75 mcg tablet 75 mcg PO QAM Qty: 90 RF: 3 furosemide [Lasix] 40 mg tablet 40 mg PO DAILY PRN (Reason: edema) Qty: 30 RF: 0 potassium chloride [Klor-Con M20] 20 mEq tablet,ER particles/crystals 20 meq PO DAILY Qty: 30 RF: 0 metoprolol tartrate 100 mg tablet 100 mg PO BID Qty: 60 RF: 3 Restasis 0.05 % dropperette 1 drp ophthalmic (eye) BID RF: 0 Lantus Solostar U-100 Insulin 100 unit/mL (3 mL) insulin pen 44 units subcut QPM RF: 0 albuterol sulfate [ProAir HFA] 90 mcg/actuation HFA aerosol inhaler 2 - 3 puff Inhalation DAILY RF: 0 fluticasone-salmeterol 250-50 mcg/dose blister with device 1 inhalation INHALATION BID RF: 0 trazodone 50 mg tablet 50 mg PO DAILY RF: 0 citalopram 20 mg tablet 20 mg PO DAILY RF: 0 [CMP KETOPROFEN] 20% cream See Rx Instructions TOP BID PRN (Reason: fibromyalgia) RF: 0 sertraline 50 mg tablet 50 mg PO DAILY Qty: 30 RF: 2 Referrals: Mulugeta Haas MD [Primary Care Provider] -
[2019-01-16 20:29] LABS: B Type Natriuretic Peptide < 100 (<100)
[2019-01-16 20:36] LABS: Creatine Kinase 74 U/L (30-135)
[2019-01-16 20:48] LABS: Thyroid Stimulating Hormone 2.38 uIU/mL (0.47-4.68)
[2019-01-16 20:49] LABS: Troponin I 0.102 ng/mL (0.01-0.034)
== END 2019-01-16 23:11 | disposition home or self-care (01) ==
PROVIDERS: Emergency Medicine; Emergency Provider Emergency Medicine; Family Provider Family Medicine; PCP Family Medicine
DX: I47.1 Supraventricular tachycardia (principal)
CPT/HCPCS: 36591; 71045; 80053; 82550; 83690; 83735; 83880; 84443; 84484; 85025; 93005; 96361; 96374; 96376; 99285; J0153

== ENCOUNTER 2019-01-27 12:01 | Emergency (ER) | payer MEDICARE, OTHER, SELFPAY ==
[2019-01-27 12:10] VITALS: BP 119/68; PULSE 160; RESP 18; TEMP 37.1; O2SAT 99; BMI 32.9
[2019-01-27] MEDS: ADENOSINE 6 MG/2 ML VIAL IV (12:23)
[2019-01-27] MEDS: SODIUM CHLORIDE 0.9% 1,000 ML 1000 ML IV (12:28)
[2019-01-27 12:30] VITALS: BP 139/54; PULSE 86; RESP 15; O2SAT 95
[2019-01-27 12:39] LABS: Add Manual Diff / Slide Review NO; Basophils Absolute Auto 100 /uL (0-100); Basophils Percent Auto 0.6 % (0-2); Eosinophils Absolute Auto 200 /uL (0-450); Eosinophils Percent Auto 1.4 % (2-4); Hematocrit 41.5 % (36-46); Hemoglobin 13.4 g/dL (12.0-16.0); Lymphocytes Absolute Auto 2800 /uL (1100-4500); Lymphocytes Percent Auto 25.1 % (25-40); Mean Corpuscular HGB Conc 32.2 % (30-36); Mean Corpuscular Hemoglobin 29.1 PG (26-34); Mean Corpuscular Volume 90.3 fL (80-100); Monocytes Absolute Auto 700 /uL (0-900); Monocytes Percent Auto 6.5 % (3-14); Neutrophils Absolute Auto 7400 /uL (1500-7000); Neutrophils Percent Auto 66.4 % (50-75); Platelet Count 312 X10^3/uL (150-400); Red Blood Cell Count 4.59 X10^6/uL (4.0-5.2); Red Cell Distribution Width 14.1 % (11.6-14.8); White Blood Cell Count 11.2 X10^3/uL (4.5-11.0)
[2019-01-27 12:44] LABS: BUN Creatinine Ratio 26.7 (6-22); Blood Urea Nitrogen 16 mg/dL (7-17); Carbon Dioxide 21 mmol/L (22-32); Chloride 101 mmol/L (98-107); Estimated Glomerular Filt Rate > 60.0 mL/min (>60); Glucose 371 mg/dL (80-110); HEMOLYSIS 27 (0-50); Potassium 4.6 mmol/L (3.4-5.1); Sodium 135 mmol/L (137-145)
[2019-01-27 13:26] VITALS: BP 153/82; PULSE 89; RESP 16; O2SAT 95
--- NOTE | 2019-01-27 18:39 | ED_ITS ---
HPI - Arrhythmia/Palpitations General Chief Complaint: Arrhythmia/Palpitations Stated Complaint: TACHYCARDIA Time Seen by Provider: 01/27/19 12:11 Source: patient Mode of arrival: ambulatory Limitations: no limitations History of Present Illness HPI narrative: Patient is a 78-year-old female who presents with heart palpitations history of SVT in SVT. This is her 6th time in 6 weeks she is actually scheduled for an ablation in 5 days she just has to make it. She said this started suddenly. She typically gets adenosine to help she has tried all valsalva maneuvers at home without any relief. MD complaint: rapid heart beat and heart racing Related Data Home Medications Medication Instructions Recorded Confirmed cyclosporine [Restasis] 1 drp OPHTHALMIC (EYE) BID 08/31/18 01/16/19 insulin glargine [Lantus Solostar 44 units SUBCUT QPM 08/31/18 01/16/19 U-100 Insulin] albuterol sulfate [ProAir HFA] 2 - 3 puff INHALATION DAILY 12/13/18 01/16/19 fluticasone propion-salmeterol 1 inhalation INHALATION BID 12/13/18 01/16/19 [CMP KETOPROFEN] 20% See Rx Instructions TOP BID PRN 01/07/19 01/16/19 citalopram 20 mg PO DAILY 01/07/19 01/16/19 trazodone 50 mg PO DAILY 01/07/19 01/16/19 Previous Rx's Medication Instructions Recorded glipizide ER 10 mg tablet, 10 mg PO DAILY #90 tab 08/13/18 extended release 24 hr furosemide 40 mg tablet 40 mg PO DAILY PRN #30 tab 12/10/18 potassium chloride ER 20 mEq 20 meq PO DAILY #30 tab 12/10/18 tablet,extended release(part/cryst) sertraline 50 mg tablet 50 mg PO DAILY #30 tab 12/27/18 levothyroxine 75 mcg tablet 75 mcg PO QAM #90 tab 12/31/18 metoprolol tartrate 100 mg tablet 100 mg PO BID #60 tab 01/15/19 hydrocodone 7.5 mg-acetaminophen 1 tab PO Q8H PRN #90 tab 01/21/19 325 mg tablet Allergies Allergy/AdvReac Type Severity Reaction Status Date / Time amoxicillin [AMOXICILLIN] Allergy Unknown Verified 01/15/19 10:25 clavulanic acid Allergy Unknown Verified 01/15/19 10:25 [CLAVULANIC ACID] latex [LATEX] Allergy Unknown Rash Verified 01/15/19 10:25 metformin [METFORMIN] Allergy Unknown Diarrhea Verified 01/15/19 10:25 Penicillins [PENICILLINS] Allergy Unknown Flushing Verified 01/15/19 10:25 zolpidem [ZOLPIDEM] Allergy Unknown Verified 01/15/19 10:25 Nkdgzdo-Yki-Lmg Reductase Allergy Verified 01/15/19 10:25 Inhibitor TOPICAL IODINE Allergy Unknown Rash Uncoded 01/15/19 10:25 Review of Systems Review of Systems ROS Unobtainable: All systems reviewed & are unremarkable except as noted in HPI and below Constitutional Denies chills, Denies fever(s), Denies lethargy and Denies weakness Cardiovascular Reports chest pain, Reports rapid heart rate, Reports irregular heart rhythm, Denies dyspnea and Denies dyspnea on exertion Respiratory Denies cough, Denies dyspnea, Denies dyspnea on exertion and Denies wheezing Gastrointestinal Gastrointestinal: Denies abdominal pain, Denies change in bowel habits, Denies diarrhea, Denies nausea and Denies vomiting Genitourinary Denies hematuria, Denies flank pain, Denies urinary incontinence and Denies urinary urgency Musculoskeletal Denies back pain, Denies muscle weakness, Denies numbness and Denies tingling Integumentary/Breasts Denies pruritus, Denies erythema, Denies rash and Denies wounds Neurologic Denies confusion, Denies numbness, Denies tingling and Denies weakness Psychiatric Denies anxiety, Denies confusion, Denies depression, Denies homicidal ideation and Denies suicidal ideation Allergic/Immunologic Denies wheezing FOR[facility]LY [facility], [facility] Medical History PSVT (paroxysmal supraventricular tachycardia) (Acute) 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) Diabetes mellitus (Chronic) Diverticular disease (Chronic) Fibromyalgia (Chronic) Hernia, diaphragmatic (Chronic) Hyperlipidemia (Chronic) Hypothyroidism (Chronic) CTS (carpal tunnel syndrome) (Resolved) Surgical History History of carpal tunnel repair (Resolved) History of cystoscopy (Resolved) Status post appendectomy (Resolved) Status post breast reduction (Resolved) Status post cholecystectomy (Resolved) Status post hysterectomy with oophorectomy (Resolved) Family History Father Dementia MVA (motor vehicle accident) Mother Dementia Colon cancer Social History marital status: household members: none Smoking Status: Never smoker alcohol intake: current (1-2 A DAY ) substance use type: does not use Family History Father Dementia MVA (motor vehicle accident) Mother Dementia Colon cancer Social History marital status: household members: none Smoking Status: Never smoker alcohol intake: current (1-2 A DAY ) substance use type: does not use Exam Initial Vital Signs Initial Vital Signs: Vital Signs Temperature 98.7 F 01/27/19 12:10 Pulse Rate 160 H 01/27/19 12:10 Respiratory Rate 18 01/27/19 12:10 Blood Pressure 119/68 01/27/19 12:10 Pulse Oximetry 99 01/27/19 12:10 GENERAL: Well-appearing alert female no acute distress HEENT: Head atraumatic,EOMI, pupils reactive, CARDIOVASCULAR: Regular tachycardic no murmurs RESPIRATORY: Breath sounds equal bilaterally, no wheezes rales or rhonchi. ABDOMEN: Soft, nontender. Normoactive bowel sounds all 4 quadrants. No guarding or rebound. EXTREMITIES: Normal range of motion, no clubbing or edema. Neurovascularly intact NEUROLOGICAL: Alert and oriented x4.Normal gait and speech. Cranial nerves II through XII grossly intact. SKIN: Warm, dry, no laceration, no petechiae, no rashes or lesions. Course Orders Ordered: ED Orders 01/27/19 12:20 Basic Metabolic Panel Stat Complete Blood Count AUTO DIFF Stat Discontinued Medications Adenosine (Adenocard) 6 mg IV NOW ONE Stop: 01/27/19 12:26 Last Admin: 01/27/19 12:23 Dose: 6 mg Sodium Chloride (Normal Saline 0.9%) 1,000 mls @ 1,000 mls/hr IV BOLUS ONE Stop: 01/27/19 13:24 Last Infusion: 01/27/19 13:25 Dose: 0 mls/hr Admin: 01/27/19 12:28 Dose: 1,000 mls/hr Vital Signs - 8 hr 01/27/19 12:10 01/27/19 12:30 01/27/19 13:26 Temperature 98.7 F Pulse Rate 160 H 86 89 Respiratory Rate 18 15 16 Blood Pressure 119/68 153/82 H Blood Pressure [Right Arm] 139/54 L Pulse Oximetry 99 95 95 MDM - Arrhythmia/Palpitations Lab Data Attestation: I reviewed the patient's lab results. Result diagrams: 01/27/19 12:20 01/27/19 12:20 Lab Results 01/27/19 01/27/19 Range/Units 12:20 12:20 WBC 11.2 H (4.5-11.0) X10^3/uL RBC 4.59 (4.0-5.2) X10^6/uL Hgb 13.4 (12.0-16.0) g/dL Hct 41.5 (36-46) % MCV 90.3 (80-100) fL MCH 29.1 (26-34) PG MCHC 32.2 (30-36) % RDW 14.1 (11.6-14.8) % Plt Count 312 (150-400) X10^3/uL Neut % (Auto) 66.4 (50-75) % Lymph % (Auto) 25.1 (25-40) % [place] % (Auto) 6.5 (3-14) % Eos % (Auto) 1.4 L (2-4) % Baso % (Auto) 0.6 (0-2) % Neut # (Auto) 7400 H (0016-8305) /uL Lymph # (Auto) 2800 (9031-0763) /uL [place] # (Auto) 700 (0-900) /uL Eos # (Auto) 200 (0-450) /uL Baso # (Auto) 100 (0-100) /uL Sodium 135 L (137-145) mmol/L Potassium 4.6 (3.4-5.1) mmol/L Chloride 101 (98-107) mmol/L Carbon Dioxide 21 L (22-32) mmol/L BUN 16 (7-17) mg/dL Creatinine 0.60 (0.52-1.04) mg/dL Estimated GFR > 60.0 (>60) mL/min BUN/Creatinine Ratio 26.7 H (6-22) Glucose 371 H (80-110) mg/dL Calcium 9.0 (8.4-10.2) mg/dL ECG Data Attestation: I personally reviewed and interpreted this ECG as follows: Prior ECG tracings: available for review Interpretation: SVT rate 157 similar to previous EKGs MDM Narrative Medical decision making narrative: Patient has had chest x-ray troponins all done in the past however at this time I do not feel it is necessary. She has history of SVT this is the same she converted with 6 mg of adenosine. She has appointment for an ablation in about 5 days. She is already on metoprolol maxed out. Discharge Plan Departure Patient Disposition: Home Clinical Impression: SVT (supraventricular tachycardia) Discharge Date/Time: 01/27/19 13:28 Interventions: ED Discharge Assessment Last Done: 01/27/19 13:26 Instructions: DI for Paroxysmal Supraventricular Tachycardia Activity Restrictions/Additional Instructions: *You have been diagnosed with SVT *What to do: You need an ablation. *Continue to take medications as directed *Follow up with your primary care provider in 2-3 days follow-up with Cardiology on Monday as previously scheduled for your ablation *Return to ER if you should have her palpitations shortness of breath any new, worsening or concerning symptoms Prescriptions: No Action glipizide 10 mg tablet extended release 24hr 10 mg PO DAILY Qty: 90 RF: 3 levothyroxine [Synthroid] 75 mcg tablet 75 mcg PO QAM Qty: 90 RF: 3 hydrocodone-acetaminophen [[place]] 7.5-325 mg tablet 1 tab PO Q8H PRN (Reason: pain) Qty: 90 RF: 0 furosemide [Lasix] 40 mg tablet 40 mg PO DAILY PRN (Reason: edema) Qty: 30 RF: 0 potassium chloride [Klor-Con M20] 20 mEq tablet,ER particles/crystals 20 meq PO DAILY Qty: 30 RF: 0 metoprolol tartrate 100 mg tablet 100 mg PO BID Qty: 60 RF: 3 Restasis 0.05 % dropperette 1 drp ophthalmic (eye) BID RF: 0 Lantus Solostar U-100 Insulin 100 unit/mL (3 mL) insulin pen 44 units subcut QPM RF: 0 albuterol sulfate [ProAir HFA] 90 mcg/actuation HFA aerosol inhaler 2 - 3 puff Inhalation DAILY RF: 0 fluticasone propion-salmeterol 250-50 mcg/dose blister with device 1 inhalation INHALATION BID RF: 0 trazodone 50 mg tablet 50 mg PO DAILY RF: 0 citalopram 20 mg tablet 20 mg PO DAILY RF: 0 [CMP KETOPROFEN] 20% cream See Rx Instructions TOP BID PRN (Reason: fibromyalgia) RF: 0 sertraline 50 mg tablet 50 mg PO DAILY Qty: 30 RF: 2 Referrals: Mulugeta Haas MD [Primary Care Provider] -
== END 2019-01-27 13:28 | disposition home or self-care (01) ==
PROVIDERS: Emergency Provider Emergency Medicine; Family Provider Family Medicine; PCP Family Medicine
DX: I47.1 Supraventricular tachycardia (principal)
CPT/HCPCS: 36591; 80048; 85025; 93005; 96361; 96374; 99283; 99284; J0153

== ENCOUNTER → 2019-03-20 12:28 | Outpatient (CLI) | payer MEDICARE, OTHER, SELFPAY ==
--- NOTE | 2019-03-20 | DI.MG.S_ITS ---
BILATERAL DIGITAL SCREENING MAMMOGRAM 3D/2D WITH CAD: 03/20/2019 CLINICAL: Routine screening. Comparison is made to exams dated: 02/13/2018 mammogram, 12/31/2015 mammogram, and 10/01/2013 mammogram - [facility]. There are scattered fibroglandular elements in both breasts. Current study was also evaluated with a Computer Aided Detection (CAD) system. There is a benign biopsy clip in the left breast. No significant masses, calcifications, or other findings are seen in either breast. There has been no significant interval change. IMPRESSION: NEGATIVE There is no mammographic evidence of malignancy. A 1 year screening mammogram is recommended. This exam was interpreted at Station ID: [id number]. NOTE: For mammograms, a report in lay terms will be sent to the patient. Approximately 15% of breast malignancies will not be visualized mammographically. In the management of a palpable breast mass, a negative mammogram must not discourage biopsy of a clinically suspicious lesion. Electronically Signed By: Dena rosario/estee:03/20/2019 18:10:21 letter sent: Normal Exam ACR BI-RADS Category 1: Negative [id number]
== END ==
PROVIDERS: Family Provider Family Medicine; PCP Family Medicine; Visit Provider Family Medicine
DX: Z12.31 Encounter for screening mammogram for malignant neoplasm of breast (principal)
CPT/HCPCS: 77063; 77067

== ENCOUNTER → 2019-04-03 10:47 | Outpatient (CLI) | payer MEDICARE, OTHER, SELFPAY ==
[2019-04-03 12:09] LABS: Hemoglobin A1C% w Est Avg Glu 9.2 % (4.0-6.0)
[2019-04-03 12:22] LABS: Hematocrit 38.6 % (36-46); Hemoglobin 12.7 g/dL (12.0-16.0); Mean Corpuscular HGB Conc 32.9 % (30-36); Mean Corpuscular Hemoglobin 29.5 PG (26-34); Mean Corpuscular Volume 89.6 fL (80-100); Platelet Count 283 X10^3/uL (150-400); White Blood Cell Count 8.9 X10^3/uL (4.5-11.0)
[2019-04-03 12:25] LABS: Blood Urea Nitrogen 17 mg/dL (7-17); Calcium 9.1 mg/dL (8.4-10.2); Carbon Dioxide 30 mmol/L (22-32); Chloride 98 mmol/L (98-107); Estimated Glomerular Filt Rate > 60.0 mL/min (>60); Glucose 329 mg/dL (80-110); HEMOLYSIS < 15 (0-50); Potassium 4.2 mmol/L (3.4-5.1); Sodium 137 mmol/L (137-145)
[2019-04-03 12:27] LABS: Creatinine Urine Random 39.9 mg/dL
[2019-04-03 12:30] LABS: Microalbumi Creatinin Ratio Ur 67.6 ug/mg CR (<30); Microalbumin Urine Random 2.7 mg/dL (0-1.6)
[2019-04-03 12:46] LABS: Neutrophils Absolute Manual 6497 /uL (3000-5900); Total Cells Counted 100
[2019-04-03 12:48] LABS: RBC Morphology Normal Morphology
[2019-04-03 12:54] LABS: TSH w/ Reflex to FT4 1.03 uIU/mL (0.47-4.68)
== END ==
PROVIDERS: Family Provider Family Medicine; PCP Family Medicine; Visit Provider Family Medicine
DX: R61 Generalized hyperhidrosis (principal)
CPT/HCPCS: 36415; 80048; 82043; 82570; 83036; 84443; 85025

== ENCOUNTER 2019-04-04 09:45 | Outpatient (CLI) | payer MEDICARE, OTHER, SELFPAY ==
--- NOTE | 2019-04-04 09:46 | DI.RAD.S_ITS ---
PROCEDURE: PAIN L INTERLAMINAR/CAUDAL INJ INDICATIONS: SPINAL STENOSIS FINDINGS: Fluoroscopic spot filming was performed to verify placement of spinal needles at the L3-4 paramedian level(s), as labeled on the films. Appropriate location(s) of the needle tip(s) was confirmed by injection of iodinated contrast. IMPRESSION: Successful needle tip localization at the paramedian L3-4 level for epidural steroid injection. Dictated by: Hung Mccormick M.D. on 04/04/2019 at 12:02 Approved by: Hung Mccormick M.D. on 04/04/2019 at 12:02
[2019-04-04 09:59] VITALS: BP 175/84; PULSE 88; RESP 16; TEMP 36.2; O2SAT 96
[2019-04-04] MEDS: BETAMETHASONE 30 MG/5 ML MDV 6 MG INJ (10:30)
[2019-04-04] MEDS: IOPAMIDOL 15 ML VIAL 3 ML INJ (10:30)
[2019-04-04] MEDS: DEXAMETHASONE 10 MG/ML VIAL 20 MG INJ (10:30)
[2019-04-04] MEDS: BUPIVACAINE 0.25% (PF) VIAL 2 ML INJ (10:30)
[2019-04-04 10:34] VITALS: BP 151/61; PULSE 88; RESP 16; O2SAT 97
[2019-04-04] MEDS: MIDAZOLAM 5 MG/5 ML VIAL IV (10:35)
[2019-04-04] MEDS: fentaNYL 100 MCG/2 ML INJ 50 MCG IV (10:35)
[2019-04-04 10:40] VITALS: BP 126/72; PULSE 86; RESP 16; O2SAT 97
[2019-04-04 10:45] VITALS: BP 118/36; PULSE 87; RESP 16; O2SAT 96
--- NOTE | 2019-04-04 10:57 | P.PCN_ITS ---
Procedures Date/Time Date of procedure: 04/04/19 Time of procedure: 10:56 General Procedure description: POST OP DIAGNOSIS 1. HNP WITH RADICULAR FEATURES, 2. MULTILEVEL CENTRAL STENOSIS, PROCEDURES 1. FLUORSCOPICALLY GUIDED CONTRAST CONTROLLED INTERLAMINAR EPIDURAL STEROID INJECTION - L3/4 PHYSICIAN: Cosmo Harris, INDICATIONS Berenice is referred by for treatment of Bilateral Foraminal Stenosis L>R LE symptoms. FINDINGS Multilevel Central Spinal Stenosis with Nerve Root Compression DESCRIPTION OF PROCEDURE Fluoroscopically guided, contrast-controlled L3/4 translaminar epidural steroid injection. Following denial of allergy and review of potential side effects and complications, including, but not necessarily limited to, infection, allergic reaction, local tissue breakdown, temporary as well as permanent nerve injury, paralysis, stroke and possible , the patient indicated that the patient understood and agreed to proceed. An informed consent document was signed by the patient, witnessed by a nurse, and placed in the patient's chart. Additionally, other treatment options including modalities, medications, and physical therapy were reviewed with the patient. After review of previous anaesthesic history and IV conscious sedation the patient was deemed safe to proceed with todays procedure with IV conscious sedation as ASA class II designation. Safety time-out was performed to confirm patient ID, procedure to be performed and site of procedure. IV sedation was accomplished with a combination of 4mg of Versed and 50mcg of Fentanyl was administered by the RN after DO order, titrated to patient comfort during the course of the procedure while the patient remained responsive to all verbal commands. In the prone position, following sterile prep and drape of the lumbar region, the L3/4 translaminar space was identified fluoroscopically. The skin was anesthetized via a 25-gauge, 1.5-inch needle with 1% lidocaine solution. At this point, a 22-gauge short bevel spinal needle was atraumatically introduced and advanced under fluoroscopic guidance into the region of the L3/4 translaminar space. Depth was confirmed on lateral view. Radiological data, including multiple fluoroscopic views of the lumbar spine, reveal a spinal needle at the L3/4 translaminar space. Lateral views then show placement of the needle in the epidural space. Subsequent views show contrast material flowing superiorly and inferiorly in the epidural space. No vascular or intrathecal uptake is observed. At this point, using loss of resistance technique with saline and air, the epidural space was entered. This was confirmed following negative aspiration with injection of approximately 1.5 cc of Isovue 200, showing excellent epidural flow without vascular or intrathecal uptake. At this point, 1 cc of 1% lidocaine solution combined with 3cc or 20mg of dexamethasone and 6mg betamethasone was injected without incident. The patient tolerated the procedure well without signs or symptoms of com plications prior to transfer to the recovery area continued monitoring without incident. The patient was then transferred to the recovery area where they were observed for an appropriate period of time after the injection. The patient reported a VAS score of 6 prior to the procedure and a post- procedure VAS of 0. Total Fluoroscopy Time: 11.8 seconds Total Conscious Sedation Time: 24min POST OP INSTRUCTIONS The patient was provided a Pain Log to continue to record their response to the target-specific procedure prior to follow-up visit with their referring physician. Additionally, specific post-injection care instructions and a contact number to our office were provided if concerns arise regarding possible complications associated with the procedure are suspected. Cosmo Harris DO Complications: none
[2019-04-04 11:05] VITALS: BP 143/82; PULSE 82; RESP 16; O2SAT 94
--- NOTE | 2019-04-04 11:06 | PC.NURSE ---
ACCEPTED CARE OF PT IN POST PROC AREA IN STABLE CONDITION
[2019-04-04 11:10] VITALS: BP 145/89; PULSE 82; RESP 16; O2SAT 95
--- NOTE | 2019-04-04 11:40 | PC.NURSE ---
Finished procedure at 1047. Pt tolerated procedure but needed more sedation related to discomfort from injection, as a result pt felt too dizzy and lightheaded to get off table safely. we had her move onto the stretcher and transported her to pre procedure room via the stretcher. Pt is awake and alert. Continued monitoring with Jenny GOMEZ.
== END 2019-04-04 12:02 | disposition home or self-care (01) ==
PROVIDERS: Family Provider Family Medicine; PCP Family Medicine; Visit Provider Physical Medicine & Rehabilitation
DX: M51.16 Intervertebral disc disorders with radiculopathy, lumbar region (principal); M48.061 Spinal stenosis, lumbar region without neurogenic claudication
CPT/HCPCS: 62323; 99152; J0702; J1100; J2250; J3010

== ENCOUNTER → 2019-09-09 09:44 | Outpatient (CLI) | payer MEDICARE, OTHER, SELFPAY | PROVIDERS: Family Provider Family Medicine; PCP Family Medicine; Visit Provider Podiatrist Primary Podiatric Medicine | DX: E11.621 Type 2 diabetes mellitus with foot ulcer (principal); L97.421 Non-pressure chronic ulcer of left heel and midfoot limited to breakdown of skin; Z79.4 Long term (current) use of insulin | CPT/HCPCS: 87070; 87205; 97597; 99203; 99214 ==

== ENCOUNTER → 2019-09-17 10:28 | Outpatient (CLI) | payer MEDICARE, OTHER, SELFPAY | PROVIDERS: Family Provider Family Medicine; PCP Family Medicine; Visit Provider Family Medicine | DX: E11.628 Type 2 diabetes mellitus with other skin complications (principal); S91.302A Unspecified open wound, left foot, initial encounter | CPT/HCPCS: 97597; 99213 ==

== ENCOUNTER → 2019-09-23 14:33 | Outpatient (CLI) | payer MEDICARE, OTHER, SELFPAY | PROVIDERS: Family Provider Family Medicine; PCP Family Medicine; Visit Provider Family Medicine | DX: E11.628 Type 2 diabetes mellitus with other skin complications (principal); S91.302A Unspecified open wound, left foot, initial encounter | CPT/HCPCS: 11042 ==

== ENCOUNTER → 2019-09-30 09:17 | Outpatient (CLI) | payer MEDICARE, OTHER, SELFPAY | PROVIDERS: Family Provider Family Medicine; PCP Family Medicine; Visit Provider Family Medicine | DX: E11.621 Type 2 diabetes mellitus with foot ulcer (principal); S91.302A Unspecified open wound, left foot, initial encounter; R60.0 Localized edema | CPT/HCPCS: 97597 ==

== ENCOUNTER → 2019-10-07 10:38 | Outpatient (CLI) | payer MEDICARE, OTHER, SELFPAY | PROVIDERS: Family Provider Family Medicine; PCP Family Medicine; Visit Provider Family Medicine | DX: E11.628 Type 2 diabetes mellitus with other skin complications (principal); S91.302A Unspecified open wound, left foot, initial encounter | CPT/HCPCS: 11042 ==

== ENCOUNTER → 2019-10-14 08:50 | Outpatient (CLI) | payer MEDICARE, OTHER, SELFPAY | PROVIDERS: Family Provider Family Medicine; PCP Family Medicine; Visit Provider Family Medicine | DX: E11.628 Type 2 diabetes mellitus with other skin complications (principal); S91.302A Unspecified open wound, left foot, initial encounter; R60.0 Localized edema | CPT/HCPCS: 97597 ==

== ENCOUNTER → 2019-10-21 13:09 | Outpatient (CLI) | payer MEDICARE, OTHER, SELFPAY | PROVIDERS: Family Provider Family Medicine; PCP Family Medicine; Visit Provider Family Medicine | DX: S91.302D Unspecified open wound, left foot, subsequent encounter (principal) | CPT/HCPCS: 99212 ==

== ENCOUNTER → 2019-11-04 09:21 | Outpatient (CLI) | payer MEDICARE, OTHER, SELFPAY | PROVIDERS: Family Provider Family Medicine; PCP Family Medicine; Visit Provider Family Medicine | DX: E11.628 Type 2 diabetes mellitus with other skin complications (principal); S91.302A Unspecified open wound, left foot, initial encounter; R60.0 Localized edema | CPT/HCPCS: 97597; 99213 ==

== ENCOUNTER → 2019-11-11 13:29 | Outpatient (CLI) | payer MEDICARE, OTHER, SELFPAY | PROVIDERS: Family Provider Family Medicine; PCP Family Medicine; Visit Provider Family Medicine | DX: E11.628 Type 2 diabetes mellitus with other skin complications (principal); S91.302D Unspecified open wound, left foot, subsequent encounter | CPT/HCPCS: 99212; 99213 ==

== ENCOUNTER → 2020-05-30 12:22 | Outpatient (CLI) | payer MEDICARE, OTHER, SELFPAY ==
--- NOTE | 2020-05-30 | DI.MRI.S_ITS ---
PROCEDURE: MR LUMBAR SPINE WO CON INDICATIONS: Radiculopathy, lumbar region TECHNIQUE: Noncontrast sagittal T1 spin echo and T2 fast echo, sagittal STIR, axial T1 and T2 fast spin echo through the lumbar spine. In cases with scoliosis, additional coronal T2 fast spin echo may be performed. COMPARISON: [facility], MR, L-SPINE WITHOUT CONTRAST, 01/27/2015, 13:41. [facility], MR, MR LUMBAR SPINE WO CON, 07/19/2018, 16:59. [facility], CR, XR LUMBAR SPINE 2 OR 3 VIEWS, 06/26/2019, 13:17. FINDINGS: Image quality: Excellent. Alignment and Curvature: There is mild L3-L4 anterolisthesis. There is trace L4-L5 anterolisthesis. There is trace L1-L2 and L2-L3 retrolisthesis. Bone Marrow: Marrow is of normal overall signal. No acute vertebral body compression fractures. Spinal Cord: Conus medullaris terminates at the L1 level. Visualized cord demonstrates normal signal and size. Paraspinous Soft Tissues: No paravertebral masses. L1-L2: Loss of disc signal and height. Severe, diffuse disc bulge. Moderate facet and mild ligamentum flavum hypertrophy. Moderate to severe narrowing of the central canal with crowding of the nerve roots of the cauda equina. Severe bilateral neural foraminal narrowing with compression of the exiting L1 nerve roots. L2-L3: Loss of disc signal and height. Moderate, diffuse disc bulge. Moderate bilateral facet hypertrophy and moderate ligamentum flavum hypertrophy. Severe narrowing of the central canal with compression of the nerve roots of the cauda equina. Moderate bilateral neural foraminal narrowing. L3-L4: Loss of disc signal and height. Moderate, diffuse disc bulge. Severe bilateral facet hypertrophy. Severe ligamentum flavum hypertrophy. Severe narrowing of the central canal with compression of the nerve roots of the cauda equina. Moderate bilateral neural foraminal narrowing. L4-L5: Loss of disc signal and height. Mild to moderate diffuse disc bulge. Moderate to severe bilateral facet hypertrophy. Severe narrowing of the central canal with compression of the nerve roots of the cauda equina. Severe bilateral neural foraminal narrowing with compression of the exiting L4 nerve roots. L5-S1: Loss of disc signal. Mild, diffuse disc bulge. Severe bilateral facet hypertrophy. Mild narrowing of the central canal. Mild bilateral neural foraminal narrowing. No neural compression. IMPRESSION: 1. Multilevel degenerate disc disease. 2. Multilevel facet arthropathy. 3. Severe L2-L3, L3-L4 and L4-L5 central canal narrowing. Moderate to severe L1-L2 central canal narrowing. 4. Severe bilateral L1-L2 and L4-L5 neural foraminal narrowing. Dictated by: Rita Delgado MD, PhD on 06/01/2020 at 11:08 Approved by: Rita Delgado MD, PhD on 06/01/2020 at 12:08
== END ==
PROVIDERS: Family Provider Family Medicine; PCP Family Medicine; Referring Provider Anesthesiology Pain Medicine; Visit Provider Anesthesiology Pain Medicine
DX: M51.16 Intervertebral disc disorders with radiculopathy, lumbar region (principal); M51.17 Intervertebral disc disorders with radiculopathy, lumbosacral region; M47.26 Other spondylosis with radiculopathy, lumbar region; M47.27 Other spondylosis with radiculopathy, lumbosacral region; M48.061 Spinal stenosis, lumbar region without neurogenic claudication; M48.07 Spinal stenosis, lumbosacral region
CPT/HCPCS: 72148

== ENCOUNTER → 2020-06-01 09:11 | Outpatient (CLI) | payer MEDICARE, OTHER, SELFPAY ==
[2020-06-01 09:35] LABS: Bacteria Urine None Seen; RBC Urine None Seen (0-5/HPF)
[2020-06-01 09:45] LABS: Add Manual Diff / Slide Review NO; Basophils Absolute Auto 100 /uL (0-100); Basophils Percent Auto 0.9 % (0-2); Eosinophils Absolute Auto 200 /uL (0-450); Eosinophils Percent Auto 2.7 % (2-4); Hematocrit 38.7 % (36-46); Lymphocytes Absolute Auto 2700 /uL (1100-4500); Lymphocytes Percent Auto 37.1 % (25-40); Mean Corpuscular HGB Conc 33.7 % (30-36); Mean Corpuscular Hemoglobin 30.6 PG (26-34); Mean Corpuscular Volume 90.7 fL (80-100); Monocytes Absolute Auto 600 /uL (0-900); Monocytes Percent Auto 8.6 % (3-14); Neutrophils Absolute Auto 3700 /uL (1500-7000); Neutrophils Percent Auto 50.7 % (50-75); Platelet Count 252 X10^3/uL (150-400); Red Blood Cell Count 4.26 X10^6/uL (4.0-5.2); Red Cell Distribution Width 13.6 % (11.6-14.8); White Blood Cell Count 7.2 X10^3/uL (4.5-11.0)
[2020-06-01 09:52] LABS: Appearance Urine UA CLEAR; Bilirubin Urine UA NEGATIVE (NEGATIVE); Color Urine UA YELLOW; Glucose Urine UA TRACE g/dL (Negative); Ketones Urine UA NEGATIVE (NEGATIVE); Leukocyte Esterase Urine UA 1+ (NEGATIVE); Nitrite Urine UA NEGATIVE (Negative); Occult Blood Urine UA NEGATIVE (Negative); Protein Urine UA NEGATIVE (Negative); Urobilinogen Urine UA 0.2 E.U./dL (0.2)
[2020-06-01 09:54] LABS: pH Urine UA 6.5 (4.5-8.0)
[2020-06-01 10:04] LABS: Alanine Aminotransferase 24 IU/L (<35); Albumin 4.2 g/dL (3.5-5.0); Albumin Globulin Ratio 1.6 (1.0-2.8); Alkaline Phosphatase 78 U/L (38-126); Aspartate Aminotransferase 25 IU/L (14-36); BUN Creatinine Ratio 38.6 (6-22); Bilirubin Total 0.4 mg/dL (0.2-1.3); Blood Urea Nitrogen 22 mg/dL (7-17); Calcium 9.4 mg/dL (8.4-10.2); Carbon Dioxide 29 mmol/L (22-32); Chloride 104 mmol/L (98-107); Cholesterol 188 mg/dL (140-199); Estimated Glomerular Filt Rate > 60.0 mL/min (>60); Globulin 2.7 g/dL (1.7-4.1); Glucose 111 mg/dL (80-110); HDL Cholesterol 53 mg/dL (40-60); HEMOLYSIS < 15 (0-50); LDL Cholesterol Calculated 103 mg/dL (<100); Potassium 4.3 mmol/L (3.4-5.1); Sodium 138 mmol/L (137-145); Total Protein 6.9 g/dL (6.3-8.2); Triglycerides 158 mg/dL (35-150)
[2020-06-01 10:05] LABS: Culture Indicated Urine Cult Not Indicated; Squamous Epithelial Cell Urine 5-10 /HPF (0-5/HPF); WBC Urine 5-10/HPF (0-5/HPF)
[2020-06-01 11:12] LABS: TSH w/ Reflex to FT4 1.84 uIU/mL (0.47-4.68)
== END ==
PROVIDERS: Family Provider Family Medicine; PCP Family Medicine; Referring Provider Family Medicine; Visit Provider Family Medicine
DX: E11.9 Type 2 diabetes mellitus without complications (principal); I10 Essential (primary) hypertension; R61 Generalized hyperhidrosis
CPT/HCPCS: 36415; 80053; 80061; 81001; 83036; 84443; 85025

== ENCOUNTER → 2020-06-26 15:43 | Outpatient (CLI) | payer MEDICARE, OTHER, SELFPAY ==
--- NOTE | 2020-06-26 15:46 | DI.RAD.S_ITS ---
PROCEDURE: XR SHOULDER LT MIN 2V INDICATIONS: limited ROM, injury TECHNIQUE: 3 views of the shoulder were acquired. COMPARISON: [facility] with [facility], SHOULDER MINIMUM 2VIEW RIGHT, 07/02/2007, 11:01. Merged with [facility], SHOULDER MINIMUM 2 VIEW LEFT, 07/02/2007, 10:59. FINDINGS: Bones: No fractures or dislocations. No suspicious bony lesions. Visualized ribs appear intact. Soft tissues: No suspicious soft tissue calcifications. IMPRESSION: No trauma found. Mild osteoarthritis at the AC joint. Dictated by: Hung Mccormick M.D. on 06/26/2020 at 16:30 Approved by: Hung Mccormick M.D. on 06/26/2020 at 16:30
== END ==
PROVIDERS: Family Provider Family Medicine; PCP Family Medicine; Referring Provider Nurse Practitioner Family; Visit Provider Nurse Practitioner Family
DX: M25.512 Pain in left shoulder (principal); M19.012 Primary osteoarthritis, left shoulder; S49.92XA Unspecified injury of left shoulder and upper arm, initial encounter; X58.XXXA Exposure to other specified factors, initial encounter
CPT/HCPCS: 73030

== ENCOUNTER 2020-07-23 00:07 | Emergency (ER) | payer MEDICARE, OTHER, SELFPAY ==
[2020-07-23 00:15] VITALS: BP 137/70; PULSE 93; RESP 24; TEMP 36.8; O2SAT 96
--- NOTE | 2020-07-23 00:29 | DI.RAD.S_ITS ---
PROCEDURE: XR SHOULDER LT MIN 2V INDICATIONS: ground level fall, left shoulder pain/tenderness TECHNIQUE: 3 views of the shoulder were acquired. COMPARISON: [facility], MARTHA, XR SHOULDER LT MIN 2V, 06/26/2020, 15:41. [facility], MARTHA, SHOULDER MINIMUM 2VIEW RIGHT, 07/02/2007, 11:01. FINDINGS: Bones: No fractures or dislocations. No suspicious bony lesions. Visualized ribs appear intact. Soft tissues: No suspicious soft tissue calcifications except for evidence of calcific tendonitis at the lateral border of the acromion, previously present in June without change manager time. 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 There is focal calcific tendonitis at the lateral border the a chromium. Dictated by: Hung Mccormick M.D. on 07/23/2020 at 8:17 Approved by: Hung Mccormick M.D. on 07/23/2020 at 8:19
--- NOTE | 2020-07-23 00:44 | ED.FALL ---
HPI - Fall General Chief Complaint: Fall Stated Complaint: hit forehead - swollen - hands tingling Time Seen by Provider: 07/23/20 00:43 Source: patient Mode of arrival: Ambulatory Limitations: no limitations History of Present Illness HPI Narrative: 79-year-old female not on anticoagulation here for evaluation of injuries that she sustained when she stated that she tripped over this and was that she was wearing and fell forward hitting her face on a handrail and then falling on her left side. Initially was complaining that her hands were tingling. She denies any weakness in her upper extremities. Denies any lower extremity tenderness. Does have left shoulder tenderness. Initially stated that her neck was hurting but felt that was more on the right side. She stated that she does have chronic neck pain secondary to fibromyalgia during my initial evaluation she thought that her neck pain was related to her fibromyalgia. No change in vision although she is having some problems seeing out of her left eye secondary swelling above the eye. No loose teeth or missing teeth. No ear pain. Related Data Home Medications Medication Instructions Recorded Confirmed aspirin 325 mg tablet 325 mg PO DAILY 07/19/19 05/13/20 cyclosporine 0.05 % eye drops in a 1 drop EYE-BOTH BID each 07/19/19 05/13/20 dropperette carvedilol 6.25 mg tablet 12.5 mg PO BID tab 01/10/20 05/13/20 Previous Rx's Medication Instructions Recorded insulin glargine 100 unit/mL (3 55 unit SUBCUT QPM #15 ml 05/01/19 mL) subcutaneous pen gabapentin 300 mg capsule 300 mg PO TID #90 cap 05/29/19 cyclobenzaprine 10 mg tablet 10 mg PO TID #30 tab 07/19/19 canagliflozin 100 mg tablet 100 mg PO DAILY #30 tab 11/11/19 CMP KETOPROFEN 20% See Rx Instructions TOP BID PRN 11/18/19 #120 gram albuterol sulfate 90 mcg/actuation 2 puff INHALATION Q8H PRN #6.7 gram 11/18/19 aerosol inhaler lisinopril 10 mg tablet 10 mg PO DAILY #90 tab 01/10/20 venlafaxine 150 mg 150 mg PO DAILY #90 cap 03/02/20 capsule,extended release 24 hr levothyroxine 75 mcg tablet 75 mcg PO QAM #90 tab 07/06/20 hydrocodone 7.5 mg-acetaminophen 1 tab PO Q8H PRN #90 tab 07/08/20 325 mg tablet Allergies Allergy/AdvReac Type Severity Reaction Status Date / Time amoxicillin [AMOXICILLIN] Allergy Unknown Verified 06/26/20 15:17 clavulanic acid Allergy Unknown Verified 06/26/20 15:17 [CLAVULANIC ACID] latex [LATEX] Allergy Unknown Rash Verified 06/26/20 15:17 metformin [METFORMIN] Allergy Unknown Diarrhea Verified 06/26/20 15:17 Penicillins [PENICILLINS] Allergy Unknown Flushing Verified 06/26/20 15:17 zolpidem [ZOLPIDEM] Allergy Unknown Verified 06/26/20 15:17 Rewtkcl-Mqd-Sop Reductase Allergy Verified 06/26/20 15:17 Inhibitor TOPICAL IODINE Allergy Unknown Rash Uncoded 06/26/20 15:17 Review of Systems Constitutional Constitutional: Denies chills, Denies fever(s) and Reports headache(s) Eyes Eyes: Denies blurry vision and Denies change in vision Comments: Swelling above the left eye ENT Ears, Nose, Mouth, and Throat: Denies vertigo, Denies dizziness, Denies otalgia and Reports headache(s) Cardiovascular Cardiovascular: Denies chest pain and Denies dyspnea Respiratory Respiratory: Denies dyspnea Gastrointestinal Gastrointestinal: Denies abdominal pain, Denies nausea and Denies vomiting Musculoskeletal Musculoskeletal: Reports tingling (Bilateral hands) Comments: Left shoulder pain Integumentary/Breasts Comments: Bruising of left eye Neurologic Neurologic: Denies vertigo, Denies dizziness, Reports headache(s) and Reports tingling (Bilateral hands) Hematologic/Lymphatic Hematologic/Lymphatic: Denies easy bleeding and Denies easy bruising Allergic/Immunologic Allergic/Immunologic: Denies urticaria Patient History Medical History 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) CTS (carpal tunnel syndrome) (Resolved) Diabetes mellitus (Chronic) Diverticular disease (Chronic) Essential hypertension (Acute) Fibromyalgia (Chronic) Hernia, diaphragmatic (Chronic) Hyperlipidemia (Chronic) Hypothyroidism (Chronic) Left shoulder pain (Acute) PSVT (paroxysmal supraventricular tachycardia) (Acute) Surgical History History of carpal tunnel repair (Resolved) History of cystoscopy (Resolved) Status post appendectomy (Resolved) Status post breast reduction (Resolved) Status post cholecystectomy (Resolved) Status post hysterectomy with oophorectomy (Resolved) Family History Father Dementia MVA (motor vehicle accident) Mother Dementia Colon cancer Social History marital status: household members: none Smoking Status: Never smoker alcohol intake: current (1-2 A DAY ) substance use type: does not use Smoking Status: Never smoker alcohol intake frequency: 0-2 drinks per day Substance Use Type: does not use Exam Initial Vital Signs Initial Vital Signs: Vital Signs Temperature 98.2 F 07/23/20 00:15 Pulse Rate 93 H 07/23/20 00:15 Respiratory Rate 24 07/23/20 00:15 Blood Pressure 137/70 07/23/20 00:15 Pulse Oximetry 96 07/23/20 00:15 Const General: cooperative and comfortable Limitations: mental status not altered HENIL Head: contusion Nose: external nose normal Face and sinus: other (Contusion above left eye) Mouth: oral mucosae normal Teeth and gingiva: dentition normal Eyes Sclera: sclerae normal Pupils: PERRL EOM: EOM intact bilaterally Resp Effort & Inspection: normal respiratory effort Auscultation: clear to auscultation bilaterally Cardio Rate: regular rate Rhythm: regular rhythm GI Inspection: non-distended Palpation: soft and No firm Neuro General: patient alert, patient awake and patient oriented x3 Cognition: normal cognition Speech: speech normal Gait: normal gait Motor: muscle tone normal throughout Sensory Exam: upper extremity (Tingling bilateral hands) Extrem General: normal to inspection and capillary refill normal Other: Tenderness to palpation throughout the left shoulder however does have range of motion. Psych Appearance: grossly normal and well kempt Scores GCS [place] coma scale eye opening: Spontaneous Francesca coma scale verbal response: Orientated Francesca coma scale motor response: Obey commands Francesca coma scale total score: 15 Course Orders Ordered: ED Orders 07/23/20 00:29 XR shoulder LT min 2V Stat 07/23/20 00:45 CT facial bones wo con Stat 07/23/20 00:46 CT head/brain wo con Stat 07/23/20 01:39 CT cervical spine wo con Stat Discontinued Medications Acetaminophen (Tylenol) 650 mg PO NOW ONE Stop: 07/23/20 01:40 Last Admin: 07/23/20 02:02 Dose: 650 mg Documented by: MACIE Vital Signs Vital signs: Vital Signs - 8 hr 07/23/20 00:15 07/23/20 01:30 Temperature 98.2 F Pulse Rate 93 H 88 Respiratory Rate 24 20 Blood Pressure 137/70 160/70 H Pulse Oximetry 96 97 MDM - Fall Imaging Data Extremity x-ray #1: Attestation: I personally reviewed and interpreted this imaging study as follows: My Impression: No fracture, no dislocation CT scan - head: Radiologist's Impression: No acute changes CT - cervical spine: Radiologist's Impression: No acute changes CT face: Radiologist's Impression: No fractures MDM Narrative Medical decision making narrative: Initially my exam patient was not complaining of any midline neck tenderness and was complaining of paraspinal with right greater than left cervical spine tenderness. Upon reexamination after she had the CT head and face patient was complaining of midline neck tenderness. She was placed in a cervical collar in the CT of the neck was obtained which showed no acute pathology. Does have a fairly significant contusion above the left eye. There is minor skin abrasions over the area however no intervention required here in the emergency department. Her left eye globe itself appears to be intact without any injury. Her left shoulder x-ray showed no acute pathology. She has no other orthopedic complaints from the exam. She does have bilateral hand tingling. There appears to be no motor issues involved with this. She describes the tingling in just her fingers bilaterally. This is subjective findings. Considered other etiologies such as spinal cord injury to include cord syndromes given the fact that she fell however seeing as this is strictly a tingling sensation and no motor sensations and no other neurologic complaints and is located just her finger tips the feel we can hold on further neurologic studies to include MRI. Patient was given strict return precautions with regard to this informed to return if she had further symptoms. She expressed understanding and agreement. We did discuss care instructions with regard to the contusion lower left eye. Discharge Plan Departure Patient Disposition: Home Clinical Impression: Contusion of face Qualifiers: Encounter type: initial encounter Qualified Code(s): S00.83XA - Contusion of other part of head, initial encounter Fall Qualifiers: Encounter type: initial encounter Qualified Code(s): W19.XXXA - Unspecified fall, initial encounter Discharge Date/Time: 07/23/20 02:45 Instructions: DI for Eye Contusion, How to Prevent Falls Activity Restrictions/Additional Instructions: Recommend that you put ice over the contusion above your left eye. I do expect that he will have some difficulty opening your eye for the next couple days secondary to the swelling. This should get better with time. Contact your primary provider for follow-up. Return to the emergency department for any new or worsening symptoms Prescriptions: No Action carvedilol 6.25 mg tablet 12.5 mg PO BID RF: 0 cyclobenzaprine 10 mg tablet 10 mg PO TID Qty: 30 RF: 1 aspirin 325 mg tablet 325 mg PO DAILY RF: 0 Restasis 0.05 % dropperette 1 drop EYE-BOTH BID RF: 0 CMP KETOPROFEN 20% cream See Rx Instructions TOP BID PRN (Reason: fibromyalgia) Qty: 120 RF: 3 albuterol sulfate 90 mcg/actuation HFA aerosol inhaler 2 puff Inhalation Q8H PRN (Reason: shortness of breath) Qty: 6.7 RF: 0 lisinopril 10 mg tablet 10 mg PO DAILY Qty: 90 RF: 3 insulin glargine 100 unit/mL (3 mL) insulin pen 55 unit subcut QPM Qty: 15 RF: 1 canagliflozin 100 mg tablet 100 mg PO DAILY Qty: 30 RF: 11 Hold Instructions: could not afford venlafaxine 150 mg capsule,extended release 24hr 150 mg PO DAILY Qty: 90 RF: 3 levothyroxine [Synthroid] 75 mcg tablet 75 mcg PO QAM Qty: 90 RF: 3 hydrocodone-acetaminophen [[place]] 7.5-325 mg tablet 1 tab PO Q8H PRN (Reason: pain) Qty: 90 RF: 0 gabapentin 300 mg capsule 300 mg PO TID Qty: 90 RF: 2 Referrals: Mulugeta Haas MD [Primary Care Provider] -
--- NOTE | 2020-07-23 00:45 | DI.CT.S_ITS ---
PROCEDURE: CT FACIAL BONES WO CON INDICATIONS: fall , Left side face injury TECHNIQUE: Noncontrast 2.5 mm thick axial images acquired from the mandible through the frontal sinuses, with coronal and sagittal reformatting. For radiation dose reduction, the following was used: automated exposure control, adjustment of mA and/or kV according to patient size. COMPARISON: None. FINDINGS: Image quality: Excellent. Bones and teeth: Orbital keene are intact. Sinus keene show no fracture or deformity. Nasal bones and septum are intact. Visualized portions of the mandible demonstrate no fractures or subluxation. Zygomatic arches are intact. Pterygoid plates are intact. Visualized portions of the skull base and auditory canals are intact. Sinuses: Paranasal sinuses are aerated, without fluid levels, mucosal thickening, or mucoceles. Mastoid air cells are aerated. Soft tissues: No edema, masses, or fluid collections on the right but there is a scalp and superior orbital rim left-sided hematoma without underlying fracture. No enlarged lymph nodes. No soft tissue lacerations or debris. Vascular: Visualized vascular structures appear normal in the absence of contrast. Bony vascular foramina and canals are intact. IMPRESSION: Scalp hematoma/superior orbital rim contiguous hematoma without fracture. Dictated by: Hung Mccormick M.D. on 07/23/2020 at 8:10 Approved by: Hung Mccormick M.D. on 07/23/2020 at 8:11
--- NOTE | 2020-07-23 00:46 | DI.CT.S_ITS ---
PROCEDURE: CT HEAD/BRAIN WO CON INDICATIONS: fall, Left side face injury TECHNIQUE: Noncontrast 4.5 mm thick angled axial sections acquired from the foramen magnum to the vertex, with coronal and sagittal reformats. For radiation dose reduction, the following was used: automated exposure control, adjustment of mA and/or kV according to patient size. COMPARISON: None. FINDINGS: Image quality: Excellent. CSF spaces: Basal cisterns are patent. No extra-axial fluid collections. The ventricles are symmetric in size and shape. Brain: No intracranial bleeds or masses. There is cerebral volume loss for age, with resultant ventricular and sulcal prominence. There are periventricular and deep white matter chronic small vessel ischemic changes. There is intracranial internal carotid artery atherosclerosis. Skull and face: Calvarium and visualized facial bones appear intact, without suspicious lesions. Left frontal scalp hematoma. Sinuses: Visualized sinuses and mastoids are clear. IMPRESSION: Left frontal scalp hematoma, no intracranial injury found. No skull fracture associated. Dictated by: Hung Mccormick M.D. on 07/23/2020 at 8:09 Approved by: Hung Mccormick M.D. on 07/23/2020 at 8:10
[2020-07-23 01:30] VITALS: BP 160/70; PULSE 88; RESP 20; O2SAT 97
--- NOTE | 2020-07-23 01:39 | DI.CT.S_ITS ---
PROCEDURE: CT CERVICAL SPINE WO CON INDICATIONS: fall midline pain and tingling fingers TECHNIQUE: Noncontrast 3 mm thick sections acquired from the skull base to the T4 level. Sagittal and coronal reformats were then constructed. For radiation dose reduction, the following was used: automated exposure control, adjustment of mA and/or kV according to patient size. COMPARISON: [facility], CT, C-SPINE WITHOUT CONTRAST, 10/13/2015, 19:55. FINDINGS: Image quality: Excellent. Bones: No fractures or dislocations. Visualized superior ribs are intact. There is moderately severe degenerative disc disease from C4-5 through C6-7 but no traumatic subluxation is found. Soft tissues: Prevertebral soft tissues are normal in thickness. No paravertebral hematomas. No apical pneumothoraces. IMPRESSION: Degenerative changes as discussed but no trauma found. Note: These findings are concordant with the preliminary interpretation. Dictated by: Hung Mccormick M.D. on 07/23/2020 at 8:11 Approved by: Hung Mccormick M.D. on 07/23/2020 at 8:17
[2020-07-23] MEDS: ACETAMINOPHEN 325 MG TABLET 650 MG PO (02:02)
== END 2020-07-23 02:45 | disposition home or self-care (01) ==
PROVIDERS: Emergency Provider Emergency Medicine; Family Provider Family Medicine; PCP Family Medicine
DX: S00.83XA Contusion of other part of head, initial encounter (principal); R20.2 Paresthesia of skin; M25.512 Pain in left shoulder; R51 Headache; W19.XXXA Unspecified fall, initial encounter
CPT/HCPCS: 70450; 70486; 72125; 73030; 99284

== ENCOUNTER → 2020-10-09 12:42 | Outpatient (CLI) | payer MEDICARE, OTHER, SELFPAY ==
--- NOTE | 2020-10-09 | DI.MRI.S_ITS ---
PROCEDURE: MR SHOULDER LT WO CON INDICATIONS: Unspecified disorder of synovium and tendon, left TECHNIQUE: Noncontrast oblique coronal T2 fast spin echo with fat saturation, oblique sagittal T1 spin echo and T2 fast spin echo with fat saturation, axial T1 spin echo and T2 fast spin echo with fat saturation through the shoulder. COMPARISON: [facility], CR, XR SHOULDER LT MIN 2V, 07/23/2020, 0:32. FINDINGS: Image quality: Excellent. Rotator cuff: There is full-thickness tearing of the supraspinatus tendon and the anterior half of the infraspinatus tendon with proximal tendon retraction measuring up to 4.3 cm. There is moderate atrophy and grade 2 fatty infiltration of the supraspinatus and infraspinatus muscles. Mild superimposed edema in the supraspinatus and infraspinatus muscles may indicate superimposed muscle strains. The teres minor tendon demonstrates mild tendinosis. The subscapularis tendon also demonstrates mild tendinosis. Bones and bursae: No acute bone marrow contusions or fractures. Chronic traction cystic changes are seen in the posterosuperior humeral head and at the greater tuberosity near the rotator cuff tendon insertions. Partial-thickness cartilage thinning is seen in the central glenoid. There is mild acromioclavicular joint osteoarthrosis. A small glenohumeral joint effusion communicates with the subacromial/subdeltoid bursa. Capsule and soft tissues: In the absence of intra-articular contrast, the labrum and glenohumeral ligaments appear intact. The long head of the biceps tendon demonstrates mild tendinosis of the intra-articular portion. There is partial effacement of the fat in the rotator interval. The inferior glenohumeral ligament is normal in thickness. IMPRESSION: 1. Full-thickness tearing of the supraspinatus tendon and the anterior half of the infraspinatus tendon with proximal tendon retraction measuring up to 4.3 cm. Moderate atrophy and grade 2 fatty infiltration of the supraspinatus and infraspinatus muscles is seen with superimposed low-grade strains. 2. Mild subscapularis and teres minor tendinosis. 3. Mild tendinosis of the biceps long head tendon. 4. Mild glenohumeral and acromioclavicular osteoarthrosis. 5. Small glenohumeral effusion communicates with the subacromial/subdeltoid bursa. Dictated by: Arun Ovalle M.D. on 10/09/2020 at 12:47 Approved by: Arun Ovalle M.D. on 10/09/2020 at 12:55
== END ==
PROVIDERS: Family Provider Family Medicine; PCP Family Medicine; Referring Provider Orthopaedic Surgery; Visit Provider Orthopaedic Surgery
DX: M67.912 Unspecified disorder of synovium and tendon, left shoulder (principal); M75.122 Complete rotator cuff tear or rupture of left shoulder, not specified as traumatic; M19.012 Primary osteoarthritis, left shoulder; M25.412 Effusion, left shoulder
CPT/HCPCS: 73221

== ENCOUNTER → 2021-01-14 16:50 | Outpatient (CLI) | payer MEDICARE, OTHER, SELFPAY ==
[2021-01-14] MEDS: COVID-19 VACC, Ad26(JANSSEN)/PF 0.5 ML IM (16:57)
== END ==
PROVIDERS: Family Provider Family Medicine; PCP Family Medicine; Visit Provider Internal Medicine
DX: Z23 Encounter for immunization (principal)
CPT/HCPCS: 0031A; 91303

== ENCOUNTER → 2021-04-13 13:50 | Outpatient (CLI) | payer MEDICARE, OTHER, SELFPAY ==
--- NOTE | 2021-04-13 13:51 | DI.RAD.S_ITS ---
PROCEDURE: XR CHEST 2V INDICATIONS: cough x 6 weeks TECHNIQUE: 2 views of the chest were acquired. COMPARISON: [facility], CR, XR CHEST 1V, 01/16/2019, 17:14. [facility], CR, XR CHEST 1V, 08/31/2018, 11:04. FINDINGS: Surgical changes and devices: None. Lungs and pleura: Lungs are abnormal, with what appears to be a chronic mild alveolar edema pattern versus interstitial prominence perhaps related to prior smoking history. No mass or definite pneumonia is seen.. No pleural effusions or pneumothorax. Mediastinum: Mediastinal contours are normal. Heart size is normal. Bones and chest wall: No suspicious bony abnormalities. Soft tissues appear unremarkable. IMPRESSION: Chronic interstitial prominence, versus chronic mild pulmonary edema. The heart size however is not enlarged and therefore chronic prior smoking history should be considered Dictated by: Hung Mccormick M.D. on 04/13/2021 at 15:07 Approved by: Hung Mccormick M.D. on 04/13/2021 at 15:08
== END ==
PROVIDERS: Family Provider Family Medicine; PCP Family Medicine; Referring Provider Family Medicine; Visit Provider Family Medicine
DX: R05 Cough (principal)
CPT/HCPCS: 71046

== ENCOUNTER → 2021-04-17 09:17 | Outpatient (CLI) | payer MEDICARE, OTHER, SELFPAY ==
[2021-04-17 11:53] LABS: COVID19 -Nasal RAPID Negative (Negative)
== END ==
PROVIDERS: Family Provider Family Medicine; PCP Family Medicine; Visit Provider Physician Assistant
DX: R05 Cough (principal); Z20.822 Contact with and (suspected) exposure to COVID-19
CPT/HCPCS: 87635

== ENCOUNTER → 2021-06-08 14:05 | Outpatient (CLI) | payer MEDICARE, OTHER, SELFPAY | PROVIDERS: Family Provider Family Medicine; PCP Family Medicine; Referring Provider Urology; Visit Provider Urology | DX: N39.0 Urinary tract infection, site not specified (principal); N36.41 Hypermobility of urethra; R31.29 Other microscopic hematuria; B35.4 Tinea corporis | CPT/HCPCS: 81002; 87086; 99213 ==

== ENCOUNTER → 2021-06-24 08:50 | Outpatient (CLI) | payer MEDICARE, OTHER, SELFPAY ==
[2021-06-24 09:13] LABS: Appearance Urine UA SL CLOUDY; Bilirubin Urine UA NEGATIVE (NEGATIVE); Color Urine UA YELLOW; Glucose Urine UA NEGATIVE (Negative); Ketones Urine UA NEGATIVE (NEGATIVE); Leukocyte Esterase Urine UA 3+ (NEGATIVE); Nitrite Urine UA NEGATIVE (Negative); Occult Blood Urine UA TRACE-LYSED (Negative); Protein Urine UA NEGATIVE (Negative); Urobilinogen Urine UA 0.2 E.U./dL (0.2)
[2021-06-24 09:25] LABS: Amorphous Sediment Urine 2+; Bacteria Urine Moderate (10-30); Culture Indicated Urine Specimen Cultured; RBC Urine 1-5/HPF (0-5/HPF); Squamous Epithelial Cell Urine 1-5 /HPF (0-5/HPF); WBC Urine 30-100/HPF (0-5/HPF)
== END ==
PROVIDERS: Family Provider Family Medicine; PCP Family Medicine; Referring Provider Urology; Visit Provider Urology
DX: R30.0 Dysuria (principal)
CPT/HCPCS: 81001; 87086

== ENCOUNTER → 2021-06-30 10:41 | Outpatient (CLI) | payer MEDICARE, OTHER, SELFPAY | PROVIDERS: Family Provider Family Medicine; PCP Family Medicine; Visit Provider Urology | DX: R31.29 Other microscopic hematuria (principal); N95.2 Postmenopausal atrophic vaginitis; N39.41 Urge incontinence; R82.81 Pyuria; M54.5 Low back pain; G89.29 Other chronic pain; Q62.5 Duplication of ureter; Z87.440 Personal history of urinary (tract) infections | CPT/HCPCS: 52000; 81002; 87086 ==

== ENCOUNTER → 2021-07-19 11:30 | Outpatient (CLI) | payer MEDICARE, OTHER, SELFPAY ==
--- NOTE | 2021-07-19 11:32 | DI.RAD.S_ITS ---
PROCEDURE: XR LUMBAR SPINE 2-3V INDICATIONS: face bruising, low back pain, wrist pain after fall TECHNIQUE: 3 views of the lumbar spine were acquired. COMPARISON: [facility], , XR LUMBAR SPINE MIN 4V, 07/17/2018, 11:23. FINDINGS: Bones: No acute fracture identified. Multilevel degenerative endplate sclerosis and spurring. Diffuse facet arthropathy. Grade 1 retrolisthesis of L1 on L2 and L2 on L3. Grade 1 anterolisthesis of L3 on L4 and L4 on L5. Lumbar dextroscoliosis. Soft tissues: Overlying bowel gas pattern is normal. No suspicious soft tissue calcifications. IMPRESSION: No fracture identified. Lumbar spondylosis and facet arthropathy. Lumbar dextroscoliosis. Multilevel spondylolisthesis as above. Dictated by: Matthew Griffin M.D. on 07/19/2021 at 14:14 Approved by: Matthew Griffin M.D. on 07/19/2021 at 14:16
--- NOTE | 2021-07-19 11:32 | DI.RAD.S_ITS ---
PROCEDURE: XR ORBIT RT INDICATIONS: face bruising, low back pain, wrist pain after fall TECHNIQUE: 3 views of the orbits acquired. COMPARISON: None. FINDINGS: Bones: No fractures; orbital rims appear intact throughout. No suspicious bony lesions. Visualized sinuses appear clear. Soft tissues: No suspicious soft tissue calcifications or densities. IMPRESSION: No fracture identified. Dictated by: Mulugeta rPice M.D. on 07/19/2021 at 14:03 Approved by: Mulugeta Price M.D. on 07/19/2021 at 14:05
--- NOTE | 2021-07-19 11:32 | DI.RAD.S_ITS ---
PROCEDURE: XR HAND RT MIN 3V INDICATIONS: face bruising, low back pain, wrist pain after fall TECHNIQUE: Three views of the hand(s) acquired. COMPARISON: None. FINDINGS: Bones: Decreased mineralization. There is a questionable nondisplaced transverse fracture plane across distal scaphoid waist. No other fractures are identified. There is severe osteoarthritic change at the 1st carpometacarpal joint and moderately severe change at the triscaphe articulation, 1st IP joint, and 1st MCP joint. Mild degenerative change at the distal interphalangeal joints two and three. Soft tissues: No suspicious soft tissue calcifications. Atherosclerotic calcification. IMPRESSION: 1. Questionable nondisplaced transverse distal scaphoid fracture. Consider immobilization and reimaging in 7-10 days, or MRI for confirmation. 2. Moderate to severe degenerative changes along the radial side of the wrist and 1st digit. 3. Atherosclerotic calcification. Dictated by: Dena Smart M.D. on 07/19/2021 at 15:01 Approved by: Dena Smart M.D. on 07/19/2021 at 15:06
--- NOTE | 2021-07-19 11:32 | DI.RAD.S_ITS ---
PROCEDURE: XR WRIST RT MIN 3V INDICATIONS: face bruising, low back pain, wrist pain after fall TECHNIQUE: 4 views of the wrist were acquired. COMPARISON: None. FINDINGS: Bones: No fractures or dislocations. No suspicious bony lesions. Severe osteoarthritis of the triscaphe joint and 1st carpometacarpal joint. Scaphoid view: Scaphoid intact Soft tissues: No suspicious soft tissue calcifications. Dystrophic calcifications ventral to the proximal carpal row on the lateral view. 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 No evidence acute bony abnormality of the right wrist. If clinical suspicion and/or symptoms persist, further assessment with repeat plain films, or advanced imaging (e.g., CT, MRI, or bone scan) may be helpful for further assessment. Dictated by: Severiano Senior M.D. on 07/19/2021 at 15:43 Approved by: Severiano Senior M.D. on 07/19/2021 at 15:48
== END ==
PROVIDERS: Family Provider Family Medicine; PCP Family Medicine; Referring Provider Family Medicine; Visit Provider Family Medicine
DX: S00.83XA Contusion of other part of head, initial encounter (principal); M51.36 Other intervertebral disc degeneration, lumbar region; M47.816 Spondylosis without myelopathy or radiculopathy, lumbar region; M43.16 Spondylolisthesis, lumbar region; M41.86 Other forms of scoliosis, lumbar region; M54.9 Dorsalgia, unspecified; M25.531 Pain in right wrist; M19.031 Primary osteoarthritis, right wrist; M18.11 Unilateral primary osteoarthritis of first carpometacarpal joint, right hand; W19.XXXA Unspecified fall, initial encounter
CPT/HCPCS: 70200; 72100; 73110; 73130

== ENCOUNTER → 2021-08-02 11:58 | Outpatient (CLI) | payer MEDICARE, OTHER, SELFPAY ==
--- NOTE | 2021-08-02 12:02 | DI.RAD.S_ITS ---
PROCEDURE: XR WRIST RT MIN 3V INDICATIONS: unspecified wrist fracture TECHNIQUE: 4 views of the wrist were acquired. COMPARISON: [facility], CR, XR WRIST RT MIN 3V, 07/19/2021, 11:38. FINDINGS: Bones: No acute fracture although exam sensitivity limited by severe arthritic changes. There is severe triscaphe and 1st CMC joint degeneration. Scaphoid view: Chronic appearing dystrophic calcifications the lateral view projecting in the volar and dorsal soft tissues, at least 1 of which appears unchanged Soft tissues: No suspicious soft tissue calcifications. IMPRESSION: No fracture. No evidence of occult fracture. If the patient's pain or other symptoms persist, consider further evaluation with MRI Dictated by: Matthew Griffin M.D. on 08/02/2021 at 13:41 Approved by: Matthew Griffin M.D. on 08/02/2021 at 13:43
== END ==
PROVIDERS: Family Provider Family Medicine; PCP Family Medicine; Referring Provider Family Medicine; Visit Provider Family Medicine
DX: S62.101A Fracture of unspecified carpal bone, right wrist, initial encounter for closed fracture (principal); M18.11 Unilateral primary osteoarthritis of first carpometacarpal joint, right hand; M19.031 Primary osteoarthritis, right wrist
CPT/HCPCS: 73110

== ENCOUNTER → 2021-08-31 08:49 | Outpatient (CLI) | payer MEDICARE, OTHER, SELFPAY ==
--- NOTE | 2021-08-31 08:52 | DI.MRI.S_ITS ---
PROCEDURE: MR LUMBAR SPINE WO CON INDICATIONS: LBP with radiculopathy TECHNIQUE: Noncontrast sagittal T1 spin echo and T2 fast echo, sagittal STIR, axial T1 and T2 fast spin echo through the lumbar spine. In cases with scoliosis, additional coronal T2 fast spin echo may be performed. COMPARISON: [facility], , MR LUMBAR SPINE WO CON, 05/30/2020, 12:46. FINDINGS: Image quality: This examination is limited by involuntary motion artifact. Alignment and Curvature: Mild dextroconvex scoliotic curvature is seen. There is mild retrolisthesis seen at T12-L1 and L1-L2. Minimal retrolisthesis is seen at L2-L3. Mild grade 1 anterolisthesis is seen at L3-L4 and L4-L5. Bone Marrow: Marrow is of normal overall signal. No acute vertebral body compression fractures. Spinal Cord: Conus medullaris terminates at the L1 level. Visualized cord demonstrates normal signal and size. Paraspinous Soft Tissues: No paravertebral masses. Age-appropriate lower thoracic spine degenerative changes are seen. T12-L1: There is moderate to severe loss of disc height and disc signal. Bridging endplate osteophytes are seen. Reactive marrow endplate changes are seen, which are hyperintense on T1-weighted and T2-weighted imaging and most consistent with fatty metaplasia (Modic type II changes). At least moderate disc bulge is seen. Moderate facet joint hypertrophy is seen. Moderate bilateral neural foraminal narrowing can be seen, left worse than right. Moderate central canal narrowing is seen. No significant change from the prior. L1-L2: At least moderate loss of disc height and disc signal can be seen. Bridging endplate osteophytes are seen. There is a superimposed central disc extrusion, with inferior migration of the disc material. Moderate to prominent facet hypertrophy is seen. There is moderate to severe bilateral neural foraminal narrowing seen. There is a degree of compression seen upon the exiting nerve roots. Severe central canal narrowing seen, as on series 5, image 9, which is exacerbated by prominent epidural fat posteriorly. When comparison is made with the prior images, these findings are similar. L2-L3: Moderate loss of disc height is seen. Loss of disc signal is seen. Moderate generalized disc bulge is seen. There is a superimposed central disc protrusion. Moderate to prominent facet hypertrophy can be seen. There is moderate to severe left-sided and at least moderate right-sided neural foraminal narrowing seen. There is a degree of compression seen upon the exiting nerve roots. There is severe central canal narrowing, as series 5, image 13. When comparison is made with the prior images, these findings are similar. L3-L4: Moderate loss of disc height is seen. Loss of disc signal is seen. Moderate disc bulge is seen, which is eccentric to the left. There is a superimposed central disc protrusion. Prominent facet hypertrophy is seen. Associated hypertrophy of the ligamentum flavum can be seen. There is moderate to severe bilateral neural foraminal narrowing seen, which is more prominent on the right than on the left. There is a degree of compression seen upon the exiting nerve roots. There is severe central canal narrowing seen. No significant change from the prior. L4-L5: Moderate loss of disc height is seen. Loss of disc signal is seen. At least moderate disc bulge is seen. There is a superimposed central disc protrusion. Prominent facet hypertrophy is seen. There is moderate to severe bilateral neural narrowing seen, right worse than left. There is a degree of compression seen upon the exiting nerve roots. Moderate to severe central canal narrowing is seen. When compared to the prior MRI, these imaging findings are similar. L5-S1: Mild loss of disc height is seen. Loss of disc signal is seen. Mild to moderate disc bulge is seen, which is eccentric to the right. There is prominent right-sided and moderate to prominent left-sided facet hypertrophy seen. There is at least moderate bilateral neural foraminal narrowing seen. There is a degree of compression seen upon the exiting nerve roots. Moderate central canal narrowing is seen. When comparison is made with the prior images, these findings are similar. IMPRESSION: Multiple levels of lumbar spine degenerative change are seen, which are similar to the prior examination. There is severe central canal narrowing seen at L1-L2, L2-L3, and L3-L4, with moderate to severe central canal narrowing seen at L4-L5. Several sites of significant neural foraminal narrowing can be seen, with associated exiting nerve root compression. Dictated by: Preston Silvestre M.D. on 08/31/2021 at 10:55 Approved by: Preston Silvestre M.D. on 08/31/2021 at 11:02
[2021-08-31 10:04] LABS: Add Manual Diff / Slide Review NO; Basophils Absolute Auto 100 /uL (0-100); Basophils Percent Auto 0.9 % (0-2); Eosinophils Absolute Auto 300 /uL (0-450); Eosinophils Percent Auto 3.2 % (2-4); Hematocrit 35.4 % (36-46); Hemoglobin 11.7 g/dL (12.0-16.0); Lymphocytes Absolute Auto 2200 /uL (1100-4500); Lymphocytes Percent Auto 25.5 % (25-40); Mean Corpuscular HGB Conc 33.1 % (30-36); Mean Corpuscular Hemoglobin 29.8 PG (26-34); Mean Corpuscular Volume 90.2 fL (80-100); Monocytes Absolute Auto 700 /uL (0-900); Monocytes Percent Auto 7.5 % (3-14); Neutrophils Absolute Auto 5500 /uL (1500-7000); Neutrophils Percent Auto 62.9 % (50-75); Platelet Count 290 X10^3/uL (150-400); Red Blood Cell Count 3.93 X10^6/uL (4.0-5.2); Red Cell Distribution Width 13.6 % (11.6-14.8); White Blood Cell Count 8.7 X10^3/uL (4.5-11.0)
[2021-08-31 10:12] LABS: Alanine Aminotransferase 18 IU/L (<35); Albumin 4.2 g/dL (3.5-5.0); Albumin Globulin Ratio 1.7 (1.0-2.8); Alkaline Phosphatase 76 U/L (38-126); Aspartate Aminotransferase 22 IU/L (14-36); BUN Creatinine Ratio 35.3 (6-22); Bilirubin Total 0.2 mg/dL (0.2-1.3); Blood Urea Nitrogen 18 mg/dL (7-17); Calcium 9.2 mg/dL (8.4-10.2); Carbon Dioxide 31 mmol/L (22-32); Chloride 100 mmol/L (98-107); Cholesterol 171 mg/dL (140-199); Estimated Glomerular Filt Rate > 60.0 mL/min (>60); Globulin 2.5 g/dL (1.7-4.1); Glucose 100 mg/dL (80-110); HDL Cholesterol 46 mg/dL (40-60); HEMOLYSIS < 15 (0-50); LDL Cholesterol Calculated 91 mg/dL (<100); Potassium 4.9 mmol/L (3.4-5.1); Sodium 139 mmol/L (137-145); Total Protein 6.7 g/dL (6.3-8.2); Triglycerides 172 mg/dL (35-150)
[2021-08-31 10:24] LABS: Free T3, Triiodothyronine Free 4.33 pg/mL (2.77-5.27)
[2021-08-31 10:38] LABS: Thyroid Stimulating Hormone 2.93 uIU/mL (0.47-4.68)
== END ==
PROVIDERS: Family Provider Family Medicine; PCP Family Medicine; Referring Provider Family Medicine; Visit Provider Family Medicine
DX: M54.50 Low back pain, unspecified (principal); M79.604 Pain in right leg; M79.605 Pain in left leg; M47.26 Other spondylosis with radiculopathy, lumbar region; M47.27 Other spondylosis with radiculopathy, lumbosacral region; M48.061 Spinal stenosis, lumbar region without neurogenic claudication; M48.07 Spinal stenosis, lumbosacral region; M99.03 Segmental and somatic dysfunction of lumbar region; M99.04 Segmental and somatic dysfunction of sacral region; E03.9 Hypothyroidism, unspecified; E11.9 Type 2 diabetes mellitus without complications; I10 Essential (primary) hypertension
CPT/HCPCS: 36415; 72148; 80053; 80061; 83036; 84439; 84443; 84481; 85025

== ENCOUNTER → 2021-09-18 15:09 | Outpatient (CLI) | payer MEDICARE, OTHER, SELFPAY ==
--- NOTE | 2021-09-18 15:12 | DI.MG.S_ITS ---
BILATERAL DIGITAL SCREENING MAMMOGRAM 3D/2D WITH CAD: 09/18/2021 CLINICAL: Routine screening. Comparison is made to exams dated: 03/20/2019 mammogram, 02/13/2018 mammogram, and 12/31/2015 mammogram - [facility]. There are scattered fibroglandular elements in both breasts. Current study was also evaluated with a Computer Aided Detection (CAD) system. There are new grouped fine heterogeneous calcifications in the left breast at 4 o'clock middle depth. No other significant masses, calcifications, or other findings are seen in either breast. IMPRESSION: INCOMPLETE: NEEDS ADDITIONAL IMAGING EVALUATION The new grouped fine heterogeneous calcifications in the left breast are indeterminate. Additional views with possible ultrasound are recommended. This exam was interpreted at Station ID: [id number]. NOTE: For mammograms, a report in lay terms will be sent to the patient. Approximately 15% of breast malignancies will not be visualized mammographically. In the management of a palpable breast mass, a negative mammogram must not discourage biopsy of a clinically suspicious lesion. Electronically Signed By: Dena rosario/estee:09/20/2021 11:15:26 letter sent: Additional Imaging Needed ACR BI-RADS Category 0: Incomplete [id number]
== END ==
PROVIDERS: Family Provider Family Medicine; PCP Family Medicine; Referring Provider Family Medicine; Visit Provider Family Medicine
DX: Z12.31 Encounter for screening mammogram for malignant neoplasm of breast (principal)
CPT/HCPCS: 77063; 77067

== ENCOUNTER → 2021-11-08 13:26 | Outpatient (CLI) | payer MEDICARE, OTHER, SELFPAY ==
[2021-11-08 17:47] LABS: COVID-19 CEPHEID PCR (VTM/NP) Negative (Negative)
== END ==
PROVIDERS: Family Provider Family Medicine; PCP Family Medicine; Referring Provider Physician Assistant; Visit Provider Physician Assistant
DX: Z20.822 Contact with and (suspected) exposure to COVID-19 (principal)
CPT/HCPCS: C9803; U0003

== ENCOUNTER → 2021-11-25 09:08 | Outpatient (CLI) | payer MEDICARE, OTHER, SELFPAY ==
[2021-11-25 10:14] LABS: Rheumatoid Factor < 8.6 IU/mL (<12.0)
[2021-11-27 22:38] LABS: CCP Antibodies IgG/IgA 7 units (0-19)
== END ==
PROVIDERS: Family Provider Family Medicine; PCP Family Medicine; Referring Provider Family Medicine; Visit Provider Family Medicine
DX: M25.541 Pain in joints of right hand (principal); M25.542 Pain in joints of left hand
CPT/HCPCS: 36415; 86200; 86430

== ENCOUNTER → 2021-12-24 12:07 | Outpatient (CLI) | payer MEDICARE, OTHER, SELFPAY ==
--- NOTE | 2021-12-24 | DI.MG.S_ITS ---
UNILATERAL LEFT DIGITAL DIAGNOSTIC MAMMOGRAM 3D/2D WITH ADDITIONAL VIEWS: 12/24/2021 CLINICAL: Additional evaluation requested from prior study. Comparison is made to exams dated: 09/18/2021 mammogram, 03/20/2019 mammogram, and 02/13/2018 mammogram - [facility]. There are scattered fibroglandular elements in left breast. There are new grouped fine heterogeneous calcifications in the left breast at 4 o'clock middle depth. No other significant masses or calcifications are seen in the breast. IMPRESSION: PROBABLY BENIGN The new grouped fine heterogeneous calcifications in the left breast are probably benign. A follow-up mammogram in 6 months is recommended. A follow-up mammogram in 6 months is recommended to demonstrate stability. This exam was interpreted at Station ID: [id number]. NOTE: For mammograms, a report in lay terms will be sent to the patient. Approximately 15% of breast malignancies will not be visualized mammographically. In the management of a palpable breast mass, a negative mammogram must not discourage biopsy of a clinically suspicious lesion. Electronically Signed By: Mulugeta Price M.D., jr/estee:12/24/2021 14:10:29 letter sent: Followup Recommended ACR BI-RADS Category 3: Probably benign [id number]
== END ==
PROVIDERS: Family Provider Family Medicine; PCP Family Medicine; Referring Provider Family Medicine; Visit Provider Family Medicine
DX: R92.8 Other abnormal and inconclusive findings on diagnostic imaging of breast (principal); R92.1 Mammographic calcification found on diagnostic imaging of breast
CPT/HCPCS: 77065; G0279

== ENCOUNTER → 2022-02-01 16:07 | Outpatient (ROUT) | payer SELFPAY ==
[2022-02-01 16:16] LABS: Appearance Urine UA CLEAR; Bilirubin Urine UA NEGATIVE (NEGATIVE); Color Urine UA YELLOW; Glucose Urine UA NEGATIVE (Negative); Ketones Urine UA NEGATIVE (NEGATIVE); Leukocyte Esterase Urine UA TRACE (NEGATIVE); Nitrite Urine UA NEGATIVE (Negative); Occult Blood Urine UA NEGATIVE (Negative); Protein Urine UA NEGATIVE (Negative); Urobilinogen Urine UA 0.2 E.U./dL (0.2)
[2022-02-01 16:43] LABS: Bacteria Urine None Seen; Culture Indicated Urine Cult Not Indicated; RBC Urine None Seen (0-5/HPF); WBC Urine None Seen (0-5/HPF); pH Urine UA 5.5 (4.5-8.0)
== END ==
PROVIDERS: Family Provider Family Medicine; PCP Family Medicine; Visit Provider Physician Assistant
DX: Z13.9 Encounter for screening, unspecified (principal)
CPT/HCPCS: 81001

== ENCOUNTER → 2022-02-26 13:09 | Outpatient (CLI) | payer MEDICARE, OTHER, SELFPAY ==
--- NOTE | 2022-02-26 13:10 | DI.MRI.S_ITS ---
PROCEDURE: MR LUMBAR SPINE WO CON INDICATIONS: Radiculopathy, lumbar region TECHNIQUE: Noncontrast sagittal T1 spin echo and T2 fast echo, sagittal STIR, and T2 fast spin echo through the lumbar spine. In cases with scoliosis, additional coronal T2 fast spin echo may be performed. COMPARISON: [facility], MR, MR LUMBAR SPINE WO CON, 08/31/2021, 9:32. FINDINGS: Image quality: Excellent. Alignment and Curvature: Minimal grade 1 retrolisthesis at L1-2 with anterior listhesis at L3-4 and L4-5. Bone Marrow: Edematous Modic type 1 degenerative endplate changes noted L1-2. Degenerative chronic endplate changes at T12-L1. Large decompressive central laminotomies noted at L2-3, L3-4 and L4-5 without instrumentation, new from the prior Spinal Cord: Conus medullaris terminates at the L1 level. Visualized cord demonstrates normal signal and size. Paraspinous Soft Tissues: No paravertebral masses. T12-L1: Disc space narrowing with degenerative left lateral fusion did and degenerative endplate changes present. Mild posterior disc bulge results in mild central stenosis. There is moderate left and right foraminal stenosis present. L1-L2: Disc space narrowing, circumferential disc bulge flavum hypertrophy combines with dorsal epidural fat to result in severe central stenosis. There is severe bilateral foraminal stenosis present as well. L2-L3: Disc space narrowing with circumferential disc bulge and hypertrophic facet joints present. There has been a central laminotomy in the interval. Residual moderate severe central stenosis present, slightly improved in from the prior. Severe bilateral foraminal stenosis present. L3-L4: Disc space narrowing with circumferential disc bulge present. There has been a decompressive central laminotomy. Mild residual central stenosis present, improved from prior. Hypertrophic facet joints result in moderate bilateral foraminal stenosis. L4-L5: Disc space narrowing with circumferential disc bulge and hypertrophic facet joints present. There is a focal paracentral left disc protrusion with extrusion and superior migration to the mid L4 level, filling the left lateral recess. Mild central stenosis is present, improved from the prior. Severe right and moderate left foraminal stenosis. L5-S1: Disc height is preserved. Hypertrophic facet joints noted. No central stenosis. Mild bilateral foraminal stenosis IMPRESSION: 1. Interval central L2-3, L3-4 and L4-5 laminotomies without instrumentation associated with improved central stenosis. 2. Multilevel degenerative disc disease and arthropathy results in varying degrees of central and foraminal stenosis including severe central stenosis at L1-2, moderate to severe central stenosis at L2-3, and multilevel severe foraminal stenosis as above. 3. Left paracentral protrusion/extrusion with superior migration of disc fragment in the left lateral recess at L4-5 Approved by: Glenn Grider M.D. on 02/27/2022 at 6:54
== END ==
PROVIDERS: Family Provider Family Medicine; PCP Family Medicine; Referring Provider Neurological Surgery; Visit Provider Neurological Surgery
DX: M51.16 Intervertebral disc disorders with radiculopathy, lumbar region (principal); M47.26 Other spondylosis with radiculopathy, lumbar region; M48.061 Spinal stenosis, lumbar region without neurogenic claudication
CPT/HCPCS: 72148

== ENCOUNTER 2022-04-30 13:54 | Emergency (ER) | payer MEDICARE, OTHER, SELFPAY ==
[2022-04-30] VITALS (11 sets, daily range): BP systolic 142–171; BP diastolic 64–73; PULSE 74–86; RESP 14–23; TEMP 36.1; O2SAT 93–97; BMI 30.3
--- NOTE | 2022-04-30 14:06 | DI.CT.S_ITS ---
PROCEDURE: CT FACIAL BONES WO CON INDICATIONS: Trauma, fall TECHNIQUE: Noncontrast 2.5 mm thick axial images acquired from the mandible through the frontal sinuses, with coronal and sagittal reformatting. For radiation dose reduction, the following was used: automated exposure control, adjustment of mA and/or kV according to patient size. COMPARISON: None. FINDINGS: Image quality: Excellent. Bones and teeth: Orbital keene are intact. Sinus keene show no fracture or deformity. Nasal bones and septum are intact. Visualized portions of the mandible demonstrate no fractures or subluxation. Zygomatic arches are intact. Pterygoid plates are intact. Visualized portions of the skull base and auditory canals are intact. Sinuses: Paranasal sinuses are aerated, without fluid levels, mucosal thickening, or mucoceles. Mastoid air cells are aerated. Soft tissues: No edema, masses, or fluid collections. No enlarged lymph nodes. No soft tissue lacerations or debris. Vascular: Visualized vascular structures appear normal in the absence of contrast. Bony vascular foramina and canals are intact. IMPRESSION: No acute facial fracture. Dictated by: Mulugeta Price M.D. on 04/30/2022 at 15:07 Approved by: Mulugeta Price M.D. on 04/30/2022 at 15:10
--- NOTE | 2022-04-30 14:06 | DI.CT.S_ITS ---
PROCEDURE: CT CERVICAL SPINE WO CON INDICATIONS: fall TECHNIQUE: Noncontrast 3 mm thick sections acquired from the skull base to the T4 level. Sagittal and coronal reformats were then constructed. For radiation dose reduction, the following was used: automated exposure control, adjustment of mA and/or kV according to patient size. COMPARISON: None. FINDINGS: Image quality: Excellent. Bones: No fractures or dislocations. Visualized superior ribs are intact. Soft tissues: Prevertebral soft tissues are normal in thickness. No paravertebral hematomas. No apical pneumothoraces. IMPRESSION: No CT evidence of acute traumatic cervical spine injury. Dictated by: Mulugeta Price M.D. on 04/30/2022 at 15:10 Approved by: Mulugeta Price M.D. on 04/30/2022 at 15:15
--- NOTE | 2022-04-30 14:06 | DI.CT.S_ITS ---
PROCEDURE: CT HEAD/BRAIN WO CON INDICATIONS: fall with head injury TECHNIQUE: Noncontrast 4.5 mm thick angled axial sections acquired from the foramen magnum to the vertex, with coronal and sagittal reformats. For radiation dose reduction, the following was used: automated exposure control, adjustment of mA and/or kV according to patient size. COMPARISON: [facility], CT, CT HEAD/BRAIN WO CON, 07/23/2020, 0:49. FINDINGS: Image quality: Excellent. CSF spaces: Basal cisterns are patent. No extra-axial fluid collections. The ventricles are symmetric in size and shape. Brain: No intracranial bleeds or masses. There is cerebral volume loss for age, with resultant ventricular and sulcal prominence. There are periventricular and deep white matter chronic small vessel ischemic changes. There is intracranial internal carotid artery atherosclerosis. Skull and face: Right frontal scalp contusion and hematoma. Sinuses: Visualized sinuses and mastoids are clear. IMPRESSION: No acute intracranial finding. Right frontal scalp contusion and hematoma. Dictated by: Mulugeta Price M.D. on 04/30/2022 at 15:06 Approved by: Mulugeta Price M.D. on 04/30/2022 at 15:07
--- NOTE | 2022-04-30 14:36 | ED.FALL ---
HPI - Fall General Chief Complaint: Fall Stated Complaint: GLF w/LOC Time Seen by Provider: 04/30/22 14:06 Source: patient Mode of arrival: EMS Limitations: no limitations History of Present Illness HPI Narrative: Patient is a 81-year-old female. Not on anticoagulation. Is here for evaluation of injuries that she sustained when she was pulled over by her dog while she was out walking him. Did fall forward and hit her head on the ground. She has an abrasion to her right forehead and some swelling in this area. Also complaining of some paraspinal neck discomfort. The same thing happened yesterday when her dog pulled her over and she landed on her right arm. She did not hit her head at that point. She has been having some balance issues recently. She does have chronic low back pain. Is on hydrocodone at home. Her primary doctor started her on gabapentin yesterday. She took 1 dose yesterday and 2 doses today. The lightheadedness seemed to start when this medication was started. She does use a walker at home but a cane when she is out walking. She reports no other injuries from the event today. Related Data Home Medications Medication Instructions Recorded Confirmed aspirin 325 mg tablet 325 mg PO DAILY 07/19/19 11/25/21 cyclosporine 0.05 % eye drops in a 1 drop EYE-BOTH BID 07/19/19 11/25/21 dropperette (Restasis) carvedilol 6.25 mg tablet 12.5 mg PO BID 01/10/20 11/25/21 cyclosporine 0.05 % eye drops in a drp ophthalmic (eye) BID 05/18/21 11/25/21 dropperette (Restasis) Previous Rx's Medication Instructions Recorded Disabled parking permit #1 ea 02/19/21 CMP KETOPROFEN 20% See Rx Instructions topical BID 06/24/21 PRN fibromyalgia #120 grams conjugated estrogens 0.625 mg/gram 0.625 mg vaginal 2XW Atrophic 06/30/21 vaginal cream vaginitis #30 grams levothyroxine 75 mcg tablet 75 mcg PO QAM #90 tabs 08/12/21 (Synthroid) trospium 20 mg tablet See Rx Instructions .Route 09/21/21 .COMPLEX #180 tabs albuterol sulfate 90 mcg/actuation 2 puff inhalation Q8H PRN 09/23/21 aerosol inhaler shortness of breath #6.7 grams fluticasone 55 mcg-salmeterol 14 See Rx Instructions .Route 09/23/21 mcg/actuation breath activated .COMPLEX #3 ea powder nystatin 100,000 unit/gram topical 1 applic topical TID Tinea 11/08/21 powder corporis #30 grams insulin glargine 100 unit/mL (3 See Rx Instructions .Route 12/21/21 mL) subcutaneous pen (Lantus .COMPLEX #15 mL Solostar U-100 Insulin) venlafaxine 150 mg See Rx Instructions .Route 02/14/22 capsule,extended release 24 hr .COMPLEX #90 caps cyclobenzaprine 5 mg tablet See Rx Instructions .Route 03/28/22 .COMPLEX #60 tabs lisinopril 20 mg tablet 20 mg PO DAILY #90 tabs 04/18/22 hydrocodone 10 mg-acetaminophen 1 tab PO Q4-6H PRN pain #180 tabs 04/22/22 325 mg tablet gabapentin 300 mg capsule 900 mg PO TID #240 caps 04/27/22 Allergies Allergy/AdvReac Type Severity Reaction Status Date / Time amoxicillin [AMOXICILLIN] Allergy Unknown Verified 11/25/21 08:34 clavulanic acid Allergy Unknown Verified 11/25/21 08:34 [CLAVULANIC ACID] latex [LATEX] Allergy Unknown Rash Verified 11/25/21 08:34 metformin [METFORMIN] Allergy Unknown Diarrhea Verified 11/25/21 08:34 Penicillins [PENICILLINS] Allergy Unknown Flushing Verified 11/25/21 08:34 zolpidem [ZOLPIDEM] Allergy Unknown Verified 11/25/21 08:34 Thsgjhr-IRB-RkG Reductase Allergy Verified 11/25/21 08:34 Inhibitor [Lvsdurm-Hec-Gwz Reductase Inhibitor] TOPICAL IODINE Allergy Unknown Rash Uncoded 11/25/21 08:34 Review of Systems Constitutional Constitutional: Denies fever(s), Denies frequent falls and Reports headache(s) Eyes Eyes: Denies blurry vision and Denies change in vision ENT Ears, Nose, Mouth, and Throat: Reports headache(s) Cardiovascular Cardiovascular: Denies chest pain, Denies rapid heart rate, Denies lightheadedness and Denies dyspnea Respiratory Respiratory: Denies cough and Denies dyspnea Gastrointestinal Gastrointestinal: Denies abdominal pain, Denies nausea and Denies vomiting Genitourinary Genitourinary: Reports system reviewed and no additional complaints, except as documented Musculoskeletal Comments: Right elbow discomfort Integumentary/Breasts Comments: Abrasion to the right forehead Neurologic Neurologic: Denies frequent falls and Reports headache(s) Hematologic/Lymphatic On Anticoagulants: No Patient History Medical History Acute low back pain Asthma Cervical somatic dysfunction Chronic low back pain Chronic thoracic back pain Congenital duplication of renal collecting system Cough in adult patient CTS (carpal tunnel syndrome) Diabetes mellitus Diverticular disease Essential hypertension Fall from ground level Fibromyalgia Greater trochanteric bursitis of both hips Greater trochanteric bursitis of left hip Hematuria Hernia, diaphragmatic Hyperlipidemia Hypothyroidism Iliotibial band syndrome of both sides Iliotibial band syndrome, left leg Iliotibial band syndrome, right leg Joint pain in both hands Left shoulder pain Leg pain, bilateral Lumbar back pain with radiculopathy affecting lower extremity Lumbar region somatic dysfunction Nocturia more than twice per night Nondisplaced fracture of right scaphoid bone Pelvic somatic dysfunction Postmenopausal atrophic vaginitis Postoperative pain after spinal surgery PSVT (paroxysmal supraventricular tachycardia) Pyuria Sacral region somatic dysfunction Segmental and somatic dysfunction of abdomen and other regions Somatic dysfunction of lower extremity Thoracic region somatic dysfunction Tinea corporis Urge incontinence Surgical History History of carpal tunnel repair History of cystoscopy Status post appendectomy Status post breast reduction Status post cholecystectomy Status post hysterectomy with oophorectomy Family History Father Dementia MVA (motor vehicle accident) Mother Dementia Colon cancer Social History marital status: household members: none Smoking Status: Never smoker alcohol intake: current substance use type: does not use Smoking Status: Never smoker alcohol intake frequency: 0-2 drinks per day Substance Use Type: does not use Exam Initial Vital Signs Initial Vital Signs: Vital Signs Pulse Rate 86 04/30/22 13:57 Blood Pressure 149/67 H 04/30/22 13:57 Pulse Oximetry 96 04/30/22 13:57 Const General: cooperative and comfortable HENMT Head: abrasion (Right forehead), No contusion, hematoma (Right forehead), No palpable skull fracture and No raccoon eyes Nose: external nose normal Mouth: oral mucosae normal Teeth and gingiva: dentition normal Eyes Pupils: PERRL EOM: EOM intact bilaterally Chest Chest: No tenderness Resp Effort & Inspection: normal respiratory effort Auscultation: clear to auscultation bilaterally Cardio Rate: regular rate Rhythm: regular rhythm GI Palpation: No tender Skin Other: Abrasion to right forehead Neuro General: patient alert, patient awake, patient oriented x3 and moves all extremities Extrem Other: Bilateral lower extremities are unremarkable. She does have full range of motion of the right elbow on the right shoulder. Psych Appearance: grossly normal and well kempt Course Orders Ordered: ED Orders 04/30/22 14:06 CT cervical spine wo con Stat CT facial bones wo con Stat CT head/brain wo con Stat Discontinued Medications Acetaminophen (Acetaminophen 325 Mg Tablet) 650 mg PO NOW ONE Stop: 04/30/22 16:27 Last Admin: 04/30/22 16:32 Dose: 650 mg Documented By: CHLOE Vital Signs Vital signs: Vital Signs - 8 hr 04/30/22 14:04 04/30/22 13:57 04/30/22 13:57 Temperature 96.9 F L Pulse Rate 84 86 Respiratory Rate 20 Blood Pressure 142/65 H 149/67 H Pulse Oximetry 95 96 Oxygen Delivery Method Room Air 04/30/22 14:00 04/30/22 14:00 04/30/22 14:30 Temperature Pulse Rate 84 Respiratory Rate 22 Blood Pressure 142/65 H 143/64 H Pulse Oximetry 95 Oxygen Delivery Method 04/30/22 14:30 04/30/22 15:00 04/30/22 15:30 Temperature Pulse Rate 81 83 79 Respiratory Rate 15 23 14 Blood Pressure Pulse Oximetry 93 97 93 Oxygen Delivery Method 04/30/22 15:52 04/30/22 15:52 04/30/22 16:00 Temperature Pulse Rate 80 79 Respiratory Rate 23 22 Blood Pressure 171/73 H Pulse Oximetry 95 95 Oxygen Delivery Method MDM - Fall Lab Data Attestation: I reviewed the patient's lab results. Labs: Urine Dip Bedside Urine Glucose Negative Bedside Urine Bilirubin - Negative Bedside Urine Ketone - Negative Urine Specific [place] 1.015 Bedside Urine Occult Blood - Negative Bedside Urine pH 6 Bedside Urine Protein - Negative Bedside Urine Urobilinogen - Negative Bedside Urine Nitrite - Negative Bedside Urine Leukocytes - Negative Esterase Imaging Data Extremity x-ray #1: Radiologist's Impression: [address] [address] [address] Scan Report Signed Patient: Berenice Goodwin MR#: [id number] : 1940 Acct:[id number] Age/Sex: 81 / F Date of Service: 04/30/22 Loc: ED Accession Number: [id number] ?? Procedure: CT head/brain wo con Ordering Provider: Alfonso Yang D.O. PROCEDURE:? CT HEAD/BRAIN WO CON ? INDICATIONS:? fall with head injury ? TECHNIQUE:? Noncontrast 4.5 mm thick angled axial sections acquired from the foramen magnum to the vertex, with coronal and sagittal reformats.? For radiation dose reduction, the following was used:? automated exposure control, adjustment of mA and/or kV according to patient size.? ? COMPARISON:? [facility], CT, CT HEAD/BRAIN WO CON, 07/23/2020, 0:49. ? FINDINGS:? Image quality:? Excellent.? ? CSF spaces:? Basal cisterns are patent.? No extra-axial fluid collections.? The ventricles are symmetric in size and shape.? ? Brain:? No intracranial bleeds or masses.? There is cerebral volume loss for age, with resultant ventricular and sulcal prominence.? There are periventricular and deep white matter chronic small vessel ischemic changes.? There is intracranial internal carotid artery atherosclerosis.? ? Skull and face:? Right frontal scalp contusion and hematoma. ? Sinuses:? Visualized sinuses and mastoids are clear.? ? IMPRESSION:? No acute intracranial finding.? Right frontal scalp contusion and hematoma. ? ? Dictated by: Mulugeta Price M.D. on 04/30/2022 at 15:06 ? ? Approved by: Mulugeta Price M.D. on 04/30/2022 at 15:07?? CT - cervical spine: Radiologist's Impression: [address] [address] [address] Scan Report Signed Patient: Berenice Goodwin MR#: [id number] : 1940 Acct:[id number] Age/Sex: 81 / F Date of Service: 04/30/22 Loc: ED Accession Number: [id number] ?? Procedure: CT cervical spine wo con Ordering Provider: Alfonso Yang D.O. PROCEDURE:? CT CERVICAL SPINE WO CON ? INDICATIONS:? fall ? TECHNIQUE:? Noncontrast 3 mm thick sections acquired from the skull base to the T4 level.? Sagittal and coronal reformats were then constructed.? For radiation dose reduction, the following was used:? automated exposure control, adjustment of mA and/or kV according to patient size.? ? COMPARISON:? None. ? FINDINGS:? Image quality:? Excellent.? ? Bones:? No fractures or dislocations.? Visualized superior ribs are intact.? ? Soft tissues:? Prevertebral soft tissues are normal in thickness.? No paravertebral hematomas.? No apical pneumothoraces.? ? ? IMPRESSION:? No CT evidence of acute traumatic cervical spine injury. ? ? ? Dictated by: Mulugeta Price M.D. on 04/30/2022 at 15:10 ? ? Approved by: Mulugeta Price M.D. on 04/30/2022 at 15:15?? ct face: Radiologist's Impression: [place] [address] CT Scan Report Signed Patient: Berenice Goodwin MR#: [id number] : 1940 Acct:[id number] Age/Sex: 81 / F Date of Service: 04/30/22 Loc: ED Accession Number: [id number] ?? Procedure: CT facial bones wo con Ordering Provider: Alfonso Yang D.O. PROCEDURE:? CT FACIAL BONES WO CON ? INDICATIONS:? Trauma, fall ? TECHNIQUE:? Noncontrast 2.5 mm thick axial images acquired from the mandible through the frontal sinuses, with coronal and sagittal reformatting.? For radiation dose reduction, the following was used:? automated exposure control, adjustment of mA and/or kV according to patient size.? ? COMPARISON:? None. ? FINDINGS:? Image quality:? Excellent.? ? Bones and teeth:? Orbital keene are intact.? Sinus keene show no fracture or deformity.? Nasal bones and septum are intact.? Visualized portions of the mandible demonstrate no fractures or subluxation.? Zygomatic arches are intact.? Pterygoid plates are intact.? Visualized portions of the skull base and auditory canals are intact.? ? Sinuses:? Paranasal sinuses are aerated, without fluid levels, mucosal thickening, or mucoceles.? Mastoid air cells are aerated.? ? Soft tissues:? No edema, masses, or fluid collections.? No enlarged lymph nodes.? No soft tissue lacerations or debris.? ? Vascular:? Visualized vascular structures appear normal in the absence of contrast.? Bony vascular foramina and canals are intact.? ? IMPRESSION:? No acute facial fracture.? ? ? Dictated by: Mulugeta Price M.D. on 04/30/2022 at 15:07 ? ? Approved by: Mulugeta Price M.D. on 04/30/2022 at 15:10? MDM Narrative Medical decision making narrative: She does have a contusion to her right forehead however the CT scans of her head face and cervical spine are unremarkable. She does have full range of motion of her right elbow so I feel can hold off for a now. With her cane she was very unsteady on her feet however she was able to ambulate very well with a walker. She has had some lightheadedness with a past couple days. Does seem to correspond when she started the gabapentin. She has no other focal neurologic deficits. Low suspicion for CVA. She has not had any arrhythmias here in the ER. Patient is not hypoxic. Plan to be is to have her stop the gabapentin as it does seem to correspond to her lightheadedness. She will contact her primary doctor for follow-up. She expressed understanding and agreement. Discharge Plan Departure Patient Disposition: Home Clinical Impression: Forehead contusion, Fall, General unsteadiness Instructions: How to Prevent Falls Activity Restrictions/Additional Instructions: I do recommend that you stop taking the gabapentin as it seems to be associated with the increasing your unsteadiness. Contact your primary doctor for a follow-up. Return to the emergency department for any new or worsening symptoms. Prescriptions: No Action carvedilol 6.25 mg tablet 12.5 mg PO BID aspirin 325 mg tablet 325 mg PO DAILY Restasis 0.05 % dropperette 1 drop EYE-BOTH BID (DME) Disabled parking permit See Rx Instructions .Route .MEDSUPPLY Qty: 1 0RF Rx Instructions: As directed CMP KETOPROFEN 20% cream See Rx Instructions TOP BID PRN (Reason: fibromyalgia) Qty: 120 3RF Rx Instructions: APPLY TO SWELLING JOINTS TWO TIMES A DAY NEEDED FOR PAIN (WASH HANDS AFTER APPLYING) trospium 20 mg tablet See Rx Instructions .ROUTE .COMPLEX Qty: 180 3RF Dose Instruction: TAKE 1 TABLET BY MOUTH TWICE DAILY ON AN EMPTY STOMACH Rx Instructions: TAKE 1 TABLET BY MOUTH TWICE DAILY ON AN EMPTY STOMACH fluticasone propion-salmeterol 55-14 mcg/actuation aerosol powdr breath activated See Rx Instructions .ROUTE .COMPLEX Qty: 3 0RF Dose Instruction: INHALE 1 PUFF BY MOUTH TWICE DAILY Rx Instructions: INHALE 1 PUFF BY MOUTH TWICE DAILY nystatin 100,000 unit/gram powder 1 applic topical TID Qty: 30 3RF Lantus Solostar U-100 Insulin 100 unit/mL (3 mL) insulin pen See Rx Instructions .ROUTE .COMPLEX Qty: 15 11RF Dose Instruction: INJECT 45 UNITS SUBCUTANEOUSLY EVERY EVENING Rx Instructions: INJECT 45 UNITS SUBCUTANEOUSLY EVERY EVENING venlafaxine 150 mg capsule,extended release 24hr See Rx Instructions .ROUTE .COMPLEX Qty: 90 0RF Dose Instruction: TAKE 1 CAPSULE BY MOUTH DAILY Rx Instructions: TAKE 1 CAPSULE BY MOUTH DAILY cyclobenzaprine 5 mg tablet See Rx Instructions .ROUTE .COMPLEX Qty: 60 0RF Dose Instruction: TAKE 1 TABLET BY MOUTH THREE TIMES DAILY NEEDED FOR MUSCLE SPASM Rx Instructions: TAKE 1 TABLET BY MOUTH THREE TIMES DAILY NEEDED FOR MUSCLE SPASM lisinopril 20 mg tablet 20 mg PO DAILY Qty: 90 1RF hydrocodone-acetaminophen 10-325 mg tablet 1 tab PO Q4-6H PRN (Reason: pain) Qty: 180 0RF levothyroxine [Synthroid] 75 mcg tablet 75 mcg PO QAM Qty: 90 3RF albuterol sulfate 90 mcg/actuation HFA aerosol inhaler 2 puff Inhalation Q8H PRN (Reason: shortness of breath) Qty: 6.7 5RF gabapentin 300 mg capsule 900 mg PO TID Qty: 240 5RF Rx Instructions: start with 1 cap daily for 3 days, add another every 3 days, up to the max of 900mg TID. Restasis 0.05 % dropperette ophthalmic (eye) BID conjugated estrogens 0.625 mg/gram cream 0.625 mg vaginal 2XW Qty: 30 12RF Rx Instructions: Apply 1 g daily to vagina for 5 days then to 2 times per week Referrals: Ga Aly DO [Primary Care Provider] -
--- NOTE | 2022-04-30 14:42 | PC.NURSE ---
Pt reports haziness in right eye.
--- NOTE | 2022-04-30 14:56 | PC.NURSE ---
Pt reports having to go to bathroom. This RN at her side. While walking with her cane she begins to lean to the left and becomes off balance. This RN stayed with her and PAWAN Griffin grabbed wheelchair. Pt reports, I felt wobbly yesterday too. Reports new medication of gabapentin starting yesterday. Pt assisted to bathroom with PAWAN Griffin. Dr. Yang aware.
[2022-04-30] MEDS: ACETAMINOPHEN 325 MG TABLET 650 MG PO (16:32)
== END 2022-04-30 17:22 | disposition home or self-care (01) ==
PROVIDERS: Emergency Provider Emergency Medicine; Family Provider Family Medicine; PCP Family Medicine
DX: S00.83XA Contusion of other part of head, initial encounter (principal); W19.XXXA Unspecified fall, initial encounter; R26.81 Unsteadiness on feet
CPT/HCPCS: 70450; 70486; 72125; 81003; 99284

== ENCOUNTER 2022-05-08 13:13 | Emergency (ER) | payer MEDICARE, OTHER, SELFPAY ==
[2022-05-08 13:27] VITALS: BP 160/73; PULSE 85; RESP 16; TEMP 36.4; O2SAT 99; BMI 30.2
--- NOTE | 2022-05-08 13:49 | ED.RECABL ---
HPI - Recheck/Abnormal Lab/Rx General Chief Complaint: Recheck/Abnormal Lab/Rx Stated Complaint: Fall- lump on head draining Time Seen by Provider: 05/08/22 13:45 Source: patient Mode of arrival: Ambulatory Limitations: no limitations History of Present Illness HPI narrative: 81-year-old female who was seen here in the emergency department a little over 1 week ago where she sustained a fall and had bruising on the right side of her face. CT scans of her head face and cervical spine were obtained and showed no acute fractures. There was a hematoma on her right forehead. Since that time patient states that the bruising has spread throughout her face and has improved somewhat however she feels that the large lump on the right forehead has actually worsened. It is not ?draining? per the stated complaint. She wanted to come in and get it checked. Related Data Home Medications Medication Instructions Recorded Confirmed aspirin 325 mg tablet 325 mg PO DAILY 07/19/19 05/08/22 cyclosporine 0.05 % eye drops in a 1 drop EYE-BOTH BID 07/19/19 05/08/22 dropperette (Restasis) carvedilol 6.25 mg tablet 12.5 mg PO BID 01/10/20 05/08/22 cyclosporine 0.05 % eye drops in a drp ophthalmic (eye) BID 05/18/21 05/08/22 dropperette (Restasis) Previous Rx's Medication Instructions Recorded Disabled parking permit #1 ea 02/19/21 CMP KETOPROFEN 20% See Rx Instructions topical BID 06/24/21 PRN fibromyalgia #120 grams conjugated estrogens 0.625 mg/gram 0.625 mg vaginal 2XW Atrophic 06/30/21 vaginal cream vaginitis #30 grams levothyroxine 75 mcg tablet 75 mcg PO QAM #90 tabs 08/12/21 (Synthroid) trospium 20 mg tablet See Rx Instructions .Route 09/21/21 .COMPLEX #180 tabs albuterol sulfate 90 mcg/actuation 2 puff inhalation Q8H PRN 09/23/21 aerosol inhaler shortness of breath #6.7 grams fluticasone 55 mcg-salmeterol 14 See Rx Instructions .Route 09/23/21 mcg/actuation breath activated .COMPLEX #3 ea powder nystatin 100,000 unit/gram topical 1 applic topical TID Tinea 11/08/21 powder corporis #30 grams insulin glargine 100 unit/mL (3 See Rx Instructions .Route 12/21/21 mL) subcutaneous pen (Lantus .COMPLEX #15 mL Solostar U-100 Insulin) venlafaxine 150 mg See Rx Instructions .Route 02/14/22 capsule,extended release 24 hr .COMPLEX #90 caps lisinopril 20 mg tablet 20 mg PO DAILY #90 tabs 04/18/22 hydrocodone 10 mg-acetaminophen 1 tab PO Q4-6H PRN pain #180 tabs 04/22/22 325 mg tablet gabapentin 300 mg capsule 900 mg PO TID #240 caps 04/27/22 cyclobenzaprine 5 mg tablet See Rx Instructions .Route 05/04/22 .COMPLEX #60 tabs Allergies Allergy/AdvReac Type Severity Reaction Status Date / Time amoxicillin [AMOXICILLIN] Allergy Unknown Verified 05/08/22 12:07 clavulanic acid Allergy Unknown Verified 05/08/22 12:07 [CLAVULANIC ACID] latex [LATEX] Allergy Unknown Rash Verified 05/08/22 12:07 metformin [METFORMIN] Allergy Unknown Diarrhea Verified 05/08/22 12:07 Penicillins [PENICILLINS] Allergy Unknown Flushing Verified 05/08/22 12:07 zolpidem [ZOLPIDEM] Allergy Unknown Verified 05/08/22 12:07 Unemwwg-EBR-XrI Reductase Allergy Verified 05/08/22 12:07 Inhibitor [Cxhvljv-Isl-Ndk Reductase Inhibitor] TOPICAL IODINE Allergy Unknown Rash Uncoded 05/08/22 12:07 Review of Systems Constitutional Constitutional: Reports system reviewed and no additional complaints, except as documented Eyes Eyes: Reports system reviewed and no additional complaints, except as documented Musculoskeletal Musculoskeletal: Reports system reviewed and no additional complaints, except as documented Integumentary/Breasts Skin/Breast: Reports system reviewed and no additional complaints, except as documented Hematologic/Lymphatic On Anticoagulants: No Patient History Medical History Acute low back pain Asthma Cervical somatic dysfunction Chronic low back pain Chronic thoracic back pain Congenital duplication of renal collecting system Cough in adult patient CTS (carpal tunnel syndrome) Diabetes mellitus Diverticular disease Essential hypertension Fall from ground level Fibromyalgia Greater trochanteric bursitis of both hips Greater trochanteric bursitis of left hip Hematuria Hernia, diaphragmatic Hyperlipidemia Hypothyroidism Iliotibial band syndrome of both sides Iliotibial band syndrome, left leg Iliotibial band syndrome, right leg Joint pain in both hands Left shoulder pain Leg pain, bilateral Lumbar back pain with radiculopathy affecting lower extremity Lumbar region somatic dysfunction Nocturia more than twice per night Nondisplaced fracture of right scaphoid bone Pelvic somatic dysfunction Postmenopausal atrophic vaginitis Postoperative pain after spinal surgery PSVT (paroxysmal supraventricular tachycardia) Pyuria Sacral region somatic dysfunction Segmental and somatic dysfunction of abdomen and other regions Somatic dysfunction of lower extremity Thoracic region somatic dysfunction Tinea corporis Urge incontinence Surgical History History of carpal tunnel repair History of cystoscopy Status post appendectomy Status post breast reduction Status post cholecystectomy Status post hysterectomy with oophorectomy Family History Father Dementia MVA (motor vehicle accident) Mother Dementia Colon cancer Social History marital status: household members: none Smoking Status: Never smoker alcohol intake: current substance use type: does not use Smoking Status: Never smoker alcohol intake frequency: 0-2 drinks per day Substance Use Type: does not use Exam Initial Vital Signs Initial Vital Signs: Vital Signs Temperature 97.6 F 05/08/22 13:27 Pulse Rate 85 05/08/22 13:27 Respiratory Rate 16 05/08/22 13:27 Blood Pressure 160/73 H 05/08/22 13:27 Pulse Oximetry 99 05/08/22 13:27 Oxygen Delivery Method 05/08/22 13:27 [facility] Head: normal to inspection and normocephalic Eyes EOM: EOM intact bilaterally Skin Other: Patient with a 3 cm x 3 cm raised hematoma on her right forehead. There are areas of ecchymosis on the right side of her face and under bilateral eyes that do appear to be healing. There is no surrounding erythema. Neuro General: patient alert, patient awake and moves all extremities Course Vital Signs Vital signs: Vital Signs - 8 hr 05/08/22 13:27 Temperature 97.6 F Pulse Rate 85 Respiratory Rate 16 Blood Pressure 160/73 H Pulse Oximetry 99 Oxygen Delivery Method Room Air MDM - Recheck/Abnormal Lab/Rx MDM Narrative Medical decision making narrative: Patient does have a hematoma on her right forehead on the right side of her face and under both of her eyes that do appear to be healing. There is no signs of infection. She has not fallen again. Reassured her that everything appears to be appropriate given her stage of healing from her prior injuries. No further workup needed in the emergency department. She was given return precautions. She expressed understanding and agreement. Discharge Plan Departure Patient Disposition: Home Clinical Impression: Contusion of forehead Activity Restrictions/Additional Instructions: The bruising on the right side of your head and the large contusion your right forehead do appear appropriate for your stage of healing from the injury several days ago. There is no signs of any infection. You can continue to put ice over the area. Contact your primary doctor for follow-up. Return to the emergency department for any new or worsening symptoms. Prescriptions: No Action carvedilol 6.25 mg tablet 12.5 mg PO BID aspirin 325 mg tablet 325 mg PO DAILY Restasis 0.05 % dropperette 1 drop EYE-BOTH BID (DME) Disabled parking permit See Rx Instructions .Route .MEDSUPPLY Qty: 1 0RF Rx Instructions: As directed CMP KETOPROFEN 20% cream See Rx Instructions TOP BID PRN (Reason: fibromyalgia) Qty: 120 3RF Rx Instructions: APPLY TO SWELLING JOINTS TWO TIMES A DAY NEEDED FOR PAIN (WASH HANDS AFTER APPLYING) trospium 20 mg tablet See Rx Instructions .ROUTE .COMPLEX Qty: 180 3RF Dose Instruction: TAKE 1 TABLET BY MOUTH TWICE DAILY ON AN EMPTY STOMACH Rx Instructions: TAKE 1 TABLET BY MOUTH TWICE DAILY ON AN EMPTY STOMACH fluticasone propion-salmeterol 55-14 mcg/actuation aerosol powdr breath activated See Rx Instructions .ROUTE .COMPLEX Qty: 3 0RF Dose Instruction: INHALE 1 PUFF BY MOUTH TWICE DAILY Rx Instructions: INHALE 1 PUFF BY MOUTH TWICE DAILY nystatin 100,000 unit/gram powder 1 applic topical TID Qty: 30 3RF Lantus Solostar U-100 Insulin 100 unit/mL (3 mL) insulin pen See Rx Instructions .ROUTE .COMPLEX Qty: 15 11RF Dose Instruction: INJECT 45 UNITS SUBCUTANEOUSLY EVERY EVENING Rx Instructions: INJECT 45 UNITS SUBCUTANEOUSLY EVERY EVENING venlafaxine 150 mg capsule,extended release 24hr See Rx Instructions .ROUTE .COMPLEX Qty: 90 0RF Dose Instruction: TAKE 1 CAPSULE BY MOUTH DAILY Rx Instructions: TAKE 1 CAPSULE BY MOUTH DAILY lisinopril 20 mg tablet 20 mg PO DAILY Qty: 90 1RF hydrocodone-acetaminophen 10-325 mg tablet 1 tab PO Q4-6H PRN (Reason: pain) Qty: 180 0RF cyclobenzaprine 5 mg tablet See Rx Instructions .ROUTE .COMPLEX Qty: 60 0RF Dose Instruction: TAKE 1 TABLET BY MOUTH THREE TIMES DAILY NEEDED FOR MUSCLE SPASM Rx Instructions: TAKE 1 TABLET BY MOUTH THREE TIMES DAILY NEEDED FOR MUSCLE SPASM levothyroxine [Synthroid] 75 mcg tablet 75 mcg PO QAM Qty: 90 3RF albuterol sulfate 90 mcg/actuation HFA aerosol inhaler 2 puff Inhalation Q8H PRN (Reason: shortness of breath) Qty: 6.7 5RF gabapentin 300 mg capsule 900 mg PO TID Qty: 240 5RF Rx Instructions: start with 1 cap daily for 3 days, add another every 3 days, up to the max of 900mg TID. Restasis 0.05 % dropperette ophthalmic (eye) BID conjugated estrogens 0.625 mg/gram cream 0.625 mg vaginal 2XW Qty: 30 12RF Rx Instructions: Apply 1 g daily to vagina for 5 days then to 2 times per week Referrals: Ga Aly DO [Primary Care Provider] -
== END 2022-05-08 14:04 | disposition home or self-care (01) ==
PROVIDERS: Emergency Provider Emergency Medicine; Family Provider Family Medicine; PCP Family Medicine
DX: S00.93XA Contusion of unspecified part of head, initial encounter (principal); W19.XXXA Unspecified fall, initial encounter
CPT/HCPCS: 99281

== ENCOUNTER → 2022-06-20 13:34 | Outpatient (CLI) | payer MEDICARE, OTHER, SELFPAY ==
[2022-06-20 14:22] LABS: COVID19 -Nasal RAPID Negative (Negative)
== END ==
PROVIDERS: Family Provider Family Medicine; PCP Family Medicine; Visit Provider Physical Medicine & Rehabilitation
DX: Z20.822 Contact with and (suspected) exposure to COVID-19 (principal)
CPT/HCPCS: 87635; C9803

== ENCOUNTER 2022-06-21 14:54 | Outpatient (CLI) | payer MEDICARE, OTHER, SELFPAY ==
[2022-06-21] VITALS (11 sets, daily range): BP systolic 129–196; BP diastolic 58–87; PULSE 77–86; RESP 12–20; TEMP 36.1; O2SAT 93–100
--- NOTE | 2022-06-21 14:56 | DI.RAD.S_ITS ---
PROCEDURE: PAIN L/S TRANSFORAMINAL INJECT INDICATIONS: SPONDYLOSIS COMPARISON: [facility], MR, MR LUMBAR SPINE WO CON, 02/26/2022, 13:34. FINDINGS: Fluoroscopic spot filming was performed to verify placement of a spinal needle at the L4-L5 level, as labeled on the films. Appropriate location of the needle tip was confirmed by injection of iodinated contrast. IMPRESSION: Intraprocedural examination within normal limits. Dictated by: Preston Silvestre M.D. on 06/21/2022 at 15:51 Approved by: Preston Silvestre M.D. on 06/21/2022 at 15:51
[2022-06-21] MEDS: MIDAZOLAM 2 MG/2 ML VIAL IV (15:45)
[2022-06-21] MEDS: BUPIVACAINE 0.25% (PF) VIAL 2 ML INJ (15:47)
[2022-06-21] MEDS: BETAMETHASONE 30 MG/5 ML MDV 6 MG INJ (15:48)
[2022-06-21] MEDS: DEXAMETHASONE 10 MG/ML VIAL 20 MG INJ (15:48)
[2022-06-21] MEDS: IOPAMIDOL 15 ML VIAL 3 ML INJ (15:48)
--- NOTE | 2022-06-21 16:03 | P.PCN_ITS ---
Date/Time/Diagnoses Date of procedure: 06/21/22 Time of procedure: 16:04 Pre-procedure diagnosis: 1. FORAMINAL STENOSIS WITH LE SYMPTOMS Post-procedure diagnosis: same Procedure Notes Procedure: 1. FLUOROSCOPICALLY GUIDED CONTRAST CONTROLLED TRANSFORAMINAL EPIDURAL STEROID INJECTION - LEFT L4/5 Indications: Berenice is referred by Dr. Aly for treatment of Foraminal Stenosis with Left LE Symptoms Physician: Cosmo Harris Total Fluoroscopy time (seconds): 11 Total sedation minutes: 13 Complications: none Procedure in detail & Post-procedure care: FINDINGS Foraminal Nerve Root Compression secondary to disc disease and facet hypertrophy DESCRIPTION OF PROCEDURE Following review of allergy and review of potential side effects and complications, including, but not necessarily limited to, infection, allergic reaction, local tissue breakdown, stroke, temporary or permanent nerve injury, paralysis, and possible , the patient indicated that the patient understood and agreed to proceed. An informed consent document was signed by the patient, witnessed by a nurse, and placed in the patient's chart. Additionally, other treatment options including medications, modalities, and physical therapy were reviewed with the patient. After review of previous anaesthesic history and IV conscious sedation the patient was deemed safe to proceed with today?s procedure with IV conscious sedation as ASA class II designation. Safety time-out was performed to confirm patient ID, procedure to be performed and site of procedure. IV sedation was accomplished with a combination of 2mg of Versed administered by the RN after DO order, titrated to patient comfort during the course of the procedure while the patient remained responsive to all verbal commands In the prone position following sterile prep and drape of the lumbar region, the left L4/5 posterior neuroforamen was identified fluoroscopically. The skin was anesthetized via a 25-gauge 1.5-inch needle with 1% lidocaine solution. At this point, a 25-gauge 3.5-inch spinal needle was atraumatically introduced and advanced under fluoroscopic guidance through the posterior left L4/5 neuroforamen to approximately the anterior aspect of the canal. Depth was confirmed on lateral view. Following negative aspiration, injection of approximately 1.5 cc of Isovue 200 under live fluoroscopy in the AP view confirmed excellent flow along the nerve root, into the epidural space without vascular or intrathecal uptake observed Radiological data, including multiple fluoroscopic views of the lumbosacral spine, reveal a spinal needle at the left L4/5 posterior neuroforamen. Subsequent views show flow of contrast material flowing superiorly and inferiorly along the nerve root confirming epidural flow. Subsequently, a test dose of 1.5 cc of 1% lidocaine solution was administered and patient was observed for two minutes for signs or symptoms of complications, including abdominal pain, shortness of breath, bilateral upper or lower extremity weakness, nausea and vomiting, prior to steroid injection. At this point, a total of 3cc or 20mg of dexamethasone and 6mg of betamethasone was injected without incident. The procedure tolerated the procedure well without signs or symptoms of complications prior to transfer to the recovery area continued monitoring without incident. The patient was then transferred to the recovery area where they were observed for an appropriate time after the injection. The patient reported a VAS score of 7 prior to the procedure and a post- procedure VAS of 0. POST OP INSTRUCTIONS The patient was provided a Pain Log to continue to record their response to the target-specific procedure prior to follow-up visit with their referring physician. Additionally, specific post-injection care instructions and a contact number to our office were provided if concerns arise regarding possible complications associated with the procedure are suspected.
[2022-06-21] MEDS: HYDROCODONE/ACET 5/325 TABLET 2 TAB PO (16:19)
--- NOTE | 2022-06-21 17:13 | PC.NURSE ---
1500- patient stood at chair with FWW, reports it feels better standing up. Took about 10 steps with walker, reports that her left leg feels like its going to buckle a little. Right leg pain has improved continues to rate pain to left leg /. Dr Harris at bedside to assess. Ok to d/c home. Patient reports that she will have help from [facility] to get into the house and all night. She also was educated on post injection instruction and that she received 2 tabs hydrocodone 5/325 at 4:20. This was written and highlighted on her green pain log.Per Dr Harris ok to d/c home.
== END 2022-06-21 17:17 | disposition home or self-care (01) ==
PROVIDERS: Family Provider Family Medicine; PCP Family Medicine; Referring Provider Physical Medicine & Rehabilitation; Visit Provider Physical Medicine & Rehabilitation
DX: M48.061 Spinal stenosis, lumbar region without neurogenic claudication (principal); M51.16 Intervertebral disc disorders with radiculopathy, lumbar region
CPT/HCPCS: 64483; 99152; J2250

== ENCOUNTER 2022-08-09 14:21 | Outpatient (CLI) | payer MEDICARE, OTHER, SELFPAY ==
[2022-08-09] VITALS (7 sets, daily range): BP systolic 144–202; BP diastolic 66–87; PULSE 75–78; RESP 14–20; TEMP 35.9; O2SAT 95–100
--- NOTE | 2022-08-09 14:25 | DI.RAD.S_ITS ---
PROCEDURE: PAIN L INTERLAMINAR/CAUDAL INJ INDICATIONS: SPONDYLOSIS COMPARISON: [facility], XA, PAIN L INTERLAMINAR/CAUDAL INJ, 04/04/2019, 10:44. FINDINGS: Fluoroscopic spot filming was performed to verify placement of a spinal needle at the L4-L5 level, as labeled on the films. Appropriate location of the needle tip was confirmed by injection of iodinated contrast. IMPRESSION: Intraprocedural examination within normal limits. Dictated by: Preston Silvestre M.D. on 08/09/2022 at 16:18 Approved by: Preston Silvestre M.D. on 08/09/2022 at 16:19
[2022-08-09] MEDS: MIDAZOLAM 2 MG/2 ML VIAL IV (15:30)
[2022-08-09] MEDS: IOPAMIDOL 15 ML VIAL 3 ML INJ (15:33)
[2022-08-09] MEDS: DEXAMETHASONE 10 MG/ML VIAL 20 MG INJ (15:34)
[2022-08-09] MEDS: BUPIVACAINE 0.25% (PF) VIAL 2 ML INJ (15:34)
[2022-08-09] MEDS: BETAMETHASONE 30 MG/5 ML MDV 6 MG INJ (15:34)
--- NOTE | 2022-08-09 15:47 | P.PCN_ITS ---
Date/Time/Diagnoses Date of procedure: 08/09/22 Time of procedure: 15:47 Pre-procedure diagnosis: 1. HNP WITH RADICULAR FEATURES, 2. MULTILEVEL CENTRAL STENOSIS, Post-procedure diagnosis: same Procedure Notes Procedure: 1. FLUOROSCOPICALLY GUIDED CONTRAST CONTROLLED INTERLAMINAR EPIDURAL STEROID INJECTION -L4/5 Indications: Berenice is referred by Dr. Aly for treatment of Bilateral Foraminal Stenosis R>L LE symptoms. Physician: Cosmo Harris Total Fluoroscopy time (seconds): 7 Total sedation minutes: 10 Complications: none Procedure in detail & Post-procedure care: FINDINGS Multilevel Central Spinal Stenosis with Nerve Root Compression DESCRIPTION OF PROCEDURE Fluoroscopically guided, contrast-controlled L4/5 translaminar epidural steroid injection. Following review of allergy and review of potential side effects and complications, including, but not necessarily limited to, infection, allergic reaction, local tissue breakdown, temporary as well as permanent nerve injury, paralysis, stroke and possible , the patient indicated that the patient understood and agreed to proceed. An informed consent document was signed by the patient, witnessed by a nurse, and placed in the patient's chart. Additionally, other treatment options including modalities, medications, and physical therapy were reviewed with the patient. After review of previous anaesthesic history and IV conscious sedation the patient was deemed safe to proceed with today?s procedure with IV conscious sedation as ASA class II designation. Safety time-out was performed to confirm patient ID, procedure to be performed and site of procedure. IV sedation was accomplished with a combination of 2mg of Versed was administered by the RN after DO order, titrated to patient comfort during the course of the procedure while the patient remained responsive to all verbal commands In the prone position, following sterile prep and drape of the lumbar region, the L4/5 translaminar space was identified fluoroscopically. The skin was anesthetized via a 25-gauge, 1.5inch needle with 1% lidocaine solution. At this point, a 22-gauge short bevel spinal needle was atraumatically introduced and advanced under fluoroscopic guidance into the region of the L4/5 translaminar space. Depth was confirmed on lateral view. Radiological data, including multiple fluoroscopic views of the lumbar spine, reveal a spinal needle at the L4/5 translaminar space. Lateral views then show placement of the needle in the epidural space. Subsequent views show contrast material flowing superiorly and inferiorly in the epidural space. No vascular or intrathecal uptake is observed. At this point, using loss of resistance technique with saline and air, the epidural space was entered. This was confirmed following negative aspiration with injection of approximately 1.5cc of Isovue 200, showing excellent epidural flow without vascular or intrathecal uptake. At this point, 1cc of 1% lidocaine solution combined with 3cc or 20mg of dexamethasone and 6mg betamethasone was injected without incident. The patient tolerated the procedure well without signs or symptoms of complications prior to transfer to the recovery area continued monitoring without incident. The patient was then transferred to the recovery area where they were observed for an appropriate period of time after the injection. The patient reported a VAS score of 6 prior to the procedure and a post- procedure VAS of 0. POST OP INSTRUCTIONS The patient was provided a Pain Log to continue to record their response to the target-specific procedure prior to follow-up visit with their referring physician. Additionally, specific post-injection care instructions and a contact number to our office were provided if concerns arise regarding possible complications associated with the procedure are suspected.
== END 2022-08-09 16:20 | disposition home or self-care (01) ==
LOC: RAD 14:24
PROVIDERS: Family Provider Family Medicine; PCP Family Medicine; Referring Provider Physical Medicine & Rehabilitation; Visit Provider Physical Medicine & Rehabilitation
DX: M51.16 Intervertebral disc disorders with radiculopathy, lumbar region (principal); M48.061 Spinal stenosis, lumbar region without neurogenic claudication
CPT/HCPCS: 62323; 99152; J0702; J1100; J2250; J3490

== ENCOUNTER → 2022-10-05 12:04 | Outpatient (CLI) | payer MEDICARE, OTHER, SELFPAY ==
--- NOTE | 2022-10-05 12:06 | DI.MG.S_ITS ---
BILATERAL DIGITAL DIAGNOSTIC MAMMOGRAM 3D/2D: 10/05/2022 CLINICAL: Short term follow up of the left breast, due for bilateral imaging. Comparison is made to exams dated: 12/24/2021 mammogram, 09/18/2021 mammogram, 03/20/2019 mammogram, and 02/13/2018 mammogram - [facility]. There are scattered areas of fibroglandular density in both breasts (category b / 25%-50% glandular tissue). There are grouped fine heterogeneous calcifications in the left breast at 4 o'clock middle depth. These are not significantly changed. No other significant masses, calcifications, or other findings are seen in either breast. IMPRESSION: PROBABLY BENIGN The grouped fine heterogeneous calcifications in the left breast are probably benign. A follow-up left mammogram in 6 months is recommended to demonstrate stability. Based on the Tyrer Cuzick model (a risk assessment model) the patient's lifetime risk is 1.9% and her 10 year risk is 0.0%. According to the ACR, ACS, and NCCN guidelines, an annual breast MRI exam along with mammogram is recommended if the patient's lifetime risk is 20% or greater. This exam was interpreted at Station ID: [id number]. NOTE: For mammograms, a report in lay terms will be sent to the patient. Approximately 15% of breast malignancies will not be visualized mammographically. In the management of a palpable breast mass, a negative mammogram must not discourage biopsy of a clinically suspicious lesion. Electronically Signed By: Arun gupta/estee:10/05/2022 12:44:15 letter sent: Followup Recommended ACR BI-RADS Category 3: Probably benign [id number]
== END ==
PROVIDERS: Family Provider Family Medicine; PCP Family Medicine; Referring Provider Family Medicine; Visit Provider Family Medicine
DX: R92.8 Other abnormal and inconclusive findings on diagnostic imaging of breast (principal); R92.1 Mammographic calcification found on diagnostic imaging of breast
CPT/HCPCS: 77066; G0279

== ENCOUNTER 2022-10-27 12:52 | Emergency (ER) | payer MEDICARE, OTHER, SELFPAY ==
[2022-10-27] VITALS (15 sets, daily range): BP systolic 117–180; BP diastolic 63–79; PULSE 66–86; RESP 18; TEMP 36.8; O2SAT 91–99; BMI 29.2
--- NOTE | 2022-10-27 14:34 | ED_ITS ---
HPI - Fall <Alfonso CuevasBLADIMIR - Last Filed: 10/27/22 16:45> General Chief Complaint: Fall Stated Complaint: GLF x2 today,both times fell to knees Time Seen by Provider: 10/27/22 14:08 Source: patient and EMS Mode of arrival: EMS History of Present Illness HPI Narrative: 82-year-old female, never smoker with history of herniated L4-L5, was brought to the emergency department via EMS after falling twice earlier today. Patient states that she uses a walker around the house and does not recall how she fell, but endorses that she was having too much pain in her right leg to stand on her. Patient states that she has had multiple injections for this pain, and is on pain medications, and states that the pain in her right upper leg was too severe for her to stand on. Patient endorses that she is getting ready to move to [place] and wanted to personally speak with her orthopedic surgeon, Dr. Chowdhury, to either get her surgery bumped up or to get a referral to a orthopedic surgeon in [place]. Patient denies any loss of control of bowel or bladder. Related Data Home Medications Medication Instructions Recorded Confirmed cyclosporine 0.05 % eye drops in a drp ophthalmic (eye) BID 05/18/21 10/06/22 dropperette (Restasis) carvedilol 12.5 mg tablet 12.5 mg PO BID 05/23/22 10/06/22 diclofenac sodium 1 % topical gel 2 g topical QID 05/23/22 10/06/22 gabapentin 300 mg capsule 300 mg PO BEDTIME 10/06/22 10/06/22 Previous Rx's Medication Instructions Recorded Disabled parking permit #1 ea 02/19/21 albuterol sulfate 90 mcg/actuation 2 puff inhalation Q8H PRN 09/23/21 aerosol inhaler shortness of breath #6.7 grams insulin glargine 100 unit/mL (3 See Rx Instructions .Route 12/21/21 mL) subcutaneous pen (Lantus .COMPLEX #15 mL Solostar U-100 Insulin) lisinopril 20 mg tablet 20 mg PO DAILY #90 tabs 04/18/22 levothyroxine 75 mcg tablet 75 mcg PO QAM #90 tabs 08/09/22 (Synthroid) venlafaxine 150 mg See Rx Instructions .Route 10/04/22 capsule,extended release 24 hr .COMPLEX #90 caps solifenacin 10 mg tablet 10 mg PO DAILY #90 tabs 09/23/22 hydrocodone 10 mg-acetaminophen See Rx Instructions PO Q4-6H PRN 10/14/22 325 mg tablet pain #240 tabs cyclobenzaprine 5 mg tablet See Rx Instructions .Route 10/17/22 .COMPLEX #60 tabs hydrocodone 5 mg-acetaminophen 325 1 tab PO Q6H PRN pain #10 tabs 10/27/22 mg tablet Allergies Allergy/AdvReac Type Severity Reaction Status Date / Time amoxicillin [AMOXICILLIN] Allergy Unknown Verified 10/27/22 13:00 clavulanic acid Allergy Unknown Verified 10/27/22 13:00 [CLAVULANIC ACID] latex [LATEX] Allergy Unknown Rash Verified 10/27/22 13:00 metformin [METFORMIN] Allergy Unknown Diarrhea Verified 10/27/22 13:00 Penicillins [PENICILLINS] Allergy Unknown Flushing Verified 10/27/22 13:00 zolpidem [ZOLPIDEM] Allergy Unknown Verified 10/27/22 13:00 Jfthayf-WVI-LcE Reductase Allergy Verified 10/27/22 13:00 Inhibitor [Tklsauw-Ush-Oki Reductase Inhibitor] TOPICAL IODINE Allergy Unknown Rash Uncoded 10/27/22 13:00 Review of Systems <BLADIMIR Son - Last Filed: 10/27/22 16:45> Review of Systems Narrative: Narrative: See HPI. GENERAL: Denies chills, fatigue, fever, sweats. HEENT: Denies sinus pain, ear pain, sore throat, difficulty swallowing, dizziness. RESPIRATORY: Denies dyspnea, cough, wheezing, sputum. CARDIOVASCULAR: Denies chest pain, palpitations, edema. GASTROINTESTINAL: Denies nausea, vomiting, abdominal pain, diarrhea, constipation, loss of control bowel or bladder. : Denies dysuria, frequency, incontinence, hematuria, urinary retention, flank pain. MSK: Denies weakness. Endorses right lower back and right leg pain. SKIN: Denies rash, skin lesions, or pruritis. NEUROLOGIC: Denies weakness, dizziness, headache, numbness, confusion. PSYCHIATRIC: No concerning psychosocial issues. Patient History <BLADIMIR Son - Last Filed: 10/27/22 16:45> Medical History Acute low back pain Asthma Cervical somatic dysfunction Chronic low back pain Chronic thoracic back pain Congenital duplication of renal collecting system Cough in adult patient CTS (carpal tunnel syndrome) Diabetes mellitus Diverticular disease Essential hypertension Fall from ground level Fibromyalgia Finger infection Greater trochanteric bursitis of both hips Greater trochanteric bursitis of left hip Hematuria Hernia, diaphragmatic Herniated nucleus pulposus, L4-5 Hyperlipidemia Hypothyroidism Iliotibial band syndrome of both sides Iliotibial band syndrome, left leg Iliotibial band syndrome, right leg Joint pain in both hands Left shoulder pain Leg pain, bilateral Lumbar back pain with radiculopathy affecting lower extremity Lumbar region somatic dysfunction Nocturia more than twice per night Nondisplaced fracture of right scaphoid bone Pelvic somatic dysfunction Postmenopausal atrophic vaginitis Postoperative pain after spinal surgery PSVT (paroxysmal supraventricular tachycardia) Pyuria Sacral region somatic dysfunction Segmental and somatic dysfunction of abdomen and other regions Somatic dysfunction of lower extremity Thoracic region somatic dysfunction Tinea corporis Urge incontinence Surgical History History of carpal tunnel repair History of cystoscopy Status post appendectomy Status post breast reduction Status post cholecystectomy Status post hysterectomy with oophorectomy Family History Father Dementia MVA (motor vehicle accident) Mother Dementia Colon cancer Social History marital status: household members: none Smoking Status: Never smoker alcohol intake: current substance use type: does not use Smoking Status: Never smoker alcohol intake frequency: 0-2 drinks per day Substance Use Type: does not use Exam <BLADIMIR Son - Last Filed: 10/27/22 16:45> Narrative Exam Narrative: Exam Narrative: GENERAL: This is a well-nourished, well-developed patient, in no acute distress. HEAD: Atraumatic. Normocephalic. EYES: Pupils equal round and reactive. Extraocular motions intact. No scleral icterus, injection or drainage. ENT: Nose without bleeding, purulent drainage. Throat without erythema, tonsillar hypertrophy or exudate. Uvula midline. Airway patent. TMs and canals clear. No sinus tenderness. NECK: Trachea midline. No JVD or lymphadenopathy. Nontender. CARDIOVASCULAR: Regular rate and rhythm without murmurs, peripheral pulses intact, cap refill <2 sec. RESPIRATORY: Breath sounds equal and clear bilaterally. No wheezes, rales, or rhonchi. No cough. No increased respiratory effort. No accessory muscle use. GASTROINTESTINAL: Abdomen soft, non-tender, nondistended without guarding or rebound. No suprapubic pain. MSK: Moves all extremities. Normal range of motion, no clubbing or edema. Neurovascularly intact. Right-sided L4-5 pain with palpation. NEURO: A&O x 3. SKIN: Warm, dry, no rashes or lesions noted. BACK stave planer tender but free of any obvious external abnormalities. There is no asymmetry, swelling, bruising or wound. There is no paraspinal tenderness or CVA tenderness. SI joints nontender. No pain over spinous processes. No symptoms of cauda equina such as saddle anesthesia. Sensation is grossly intact. ROM is limited due to pain. Resistive strengths are within normal limits Initial Vital Signs Initial Vital Signs: Vital Signs Temperature 98.3 F 10/27/22 12:55 Pulse Rate 83 10/27/22 12:55 Respiratory Rate 18 10/27/22 12:55 Blood Pressure 142/63 H 10/27/22 12:55 Pulse Oximetry 99 10/27/22 12:55 Oxygen Delivery Method 10/27/22 12:55 Reviewed <Mile Randolph DO - Last Filed: 10/28/22 07:36> Initial Vital Signs Initial Vital Signs: Vital Signs Temperature 98.3 F 10/27/22 12:55 Pulse Rate 83 10/27/22 12:55 Respiratory Rate 18 10/27/22 12:55 Blood Pressure 142/63 H 10/27/22 12:55 Pulse Oximetry 99 10/27/22 12:55 Oxygen Delivery Method 10/27/22 12:55 Course <BLADIMIR Son - Last Filed: 10/27/22 16:45> Orders Ordered: Discontinued Medications Hydrocodone Bitart/Acetaminophen (Hydrocodone/Acet 5/325 Tablet) 1 tab PO NOW ONE Stop: 10/27/22 14:42 Last Admin: 10/27/22 15:38 Dose: 1 tab Documented By: RB Vital Signs Vital signs: Vital Signs - 8 hr 10/27/22 12:55 10/27/22 12:55 10/27/22 12:56 Temperature 98.3 F Pulse Rate 83 86 Respiratory Rate 18 Blood Pressure 142/63 H Pulse Oximetry 99 91 93 Oxygen Delivery Method Room Air 10/27/22 12:56 10/27/22 13:00 10/27/22 13:30 Temperature Pulse Rate 85 85 Respiratory Rate Blood Pressure 142/63 H Pulse Oximetry 96 Oxygen Delivery Method 10/27/22 14:00 10/27/22 14:30 10/27/22 15:36 Temperature Pulse Rate 82 83 83 Respiratory Rate Blood Pressure Pulse Oximetry 92 94 96 Oxygen Delivery Method 10/27/22 15:38 10/27/22 15:38 Temperature Pulse Rate 84 Respiratory Rate Blood Pressure 174/77 H Pulse Oximetry 96 Oxygen Delivery Method <Mile Randolph DO - Last Filed: 10/28/22 07:36> Orders Ordered: Discontinued Medications Hydrocodone Bitart/Acetaminophen (Hydrocodone/Acet 5/325 Tablet) 1 tab PO NOW O NE Stop: 10/27/22 14:42 Last Admin: 10/27/22 15:38 Dose: 1 tab Documented By: RB Vital Signs Vital signs: Vital Signs - 8 hr 10/27/22 12:55 10/27/22 12:55 10/27/22 12:56 Temperature 98.3 F Pulse Rate 83 86 Respiratory Rate 18 Blood Pressure 142/63 H Pulse Oximetry 99 91 93 Oxygen Delivery Method Room Air 10/27/22 12:56 10/27/22 13:00 10/27/22 13:30 Temperature Pulse Rate 85 85 Respiratory Rate Blood Pressure 142/63 H Pulse Oximetry 96 Oxygen Delivery Method 10/27/22 14:00 10/27/22 14:30 10/27/22 15:36 Temperature Pulse Rate 82 83 83 Respiratory Rate Blood Pressure Pulse Oximetry 92 94 96 Oxygen Delivery Method 10/27/22 15:38 10/27/22 15:38 Temperature Pulse Rate 84 Respiratory Rate Blood Pressure 174/77 H Pulse Oximetry 96 Oxygen Delivery Method MDM - Fall <BLADIMIR Son - Last Filed: 10/27/22 16:45> Differential Diagnosis Differential diagnosis: Likely other (Lumbar radiculopathy) Lab Data Labs: Lab Results 10/27/22 Range/Units 15:20 Urine Color Yellow Urine Appearance Clear Urine pH 5.0 (4.5-8.0) Ur Specific [place] 1.010 (1.000-1.035) Urine Protein Negative (Negative) Urine Glucose (UA) Trace H (Negative) g/dL Urine Ketones Negative (NEGATIVE) Urine Occult Blood Negative (Negative) Urine Nitrate Negative (Negative) Urine Bilirubin Negative (NEGATIVE) Urine Urobilinogen 0.2 (0.2) E.U./dL Ur Leukocyte Esterase 2+ H (NEGATIVE) Urine RBC None seen (0-5/HPF) Urine WBC 10-30/hpf H (0-5/HPF) Ur Squamous Epith Cells 5-10 /hpf H (0-5/HPF) Ur Transition Epith Cell 1-5/hpf (0-5/HPF) Ur Renal Epithelial Cell 5-10/hpf H (0-1/HPF) Amorphous Sediment 1+ Urine Bacteria Few (2-10) H (None) Urine Dip Bedside Urine Glucose Negative Bedside Urine Bilirubin - Negative Bedside Urine Ketone - Negative Urine Specific [place] 1.015 Bedside Urine Occult Blood - Negative Bedside Urine pH 5.5 Bedside Urine Protein - Negative Bedside Urine Urobilinogen - Negative Bedside Urine Nitrite - Negative Bedside Urine Leukocytes ++ [address] - Lumbar: Radiologist's Impression: [place] [address] CT Scan Report Signed Patient: Berenice Goodwin MR#: [id number] : 1940 Acct:[id number] Age/Sex: 82 / F Date of Service: 10/27/22 Loc: ED Accession Number: [id number] ?? Procedure: CT lumbar spine wo con Ordering Provider: Alfonso Cuevas PROCEDURE:? CT LUMBAR SPINE WO CON ? INDICATIONS:? ground level fall ? TECHNIQUE:? Noncontrast 3 mm thick sections acquired from the T12 level to the sacrum.? Sagittal and coronal reformats were constructed.? For radiation dose reduction, the following was used:? automated exposure control.? ? COMPARISON:? [facility], MR, MR LUMBAR SPINE WO CON, 02/26/2022, 13:34. ? FINDINGS:? Image quality:? Adequate.? ? Bones:? No acute lumbar spine fracture visualized.? Moderate-severe multilevel degenerative changes redemonstrated.? Complete loss of disc height/ankylosis at T12-L1.? Similar multilevel listhesis likely degenerative. ? Soft tissues:? No retroperitoneal masses or hematomas.? Visualized aorta is normal in caliber.? ? ? IMPRESSION:? No acute lumbar spine fracture visualized. ? ? Dictated by: Arun Celestin M.D. on 10/27/2022 at 15:24 ? ? Approved by: Arun Celestin M.D. on 10/27/2022 at 15:32 ? MDM Narrative Medical decision making narrative: 82-year-old female was brought to the emergency department with right lower back and right leg pain that caused her to fall twice today at her. Assessment was encouraging and patient is not experiencing intolerable pain with palpation or movement of right leg. Will obtain a CT of the lumbar series to check for worsening symptoms. Pain medication provided. Consideration included that injury was non-traumatic, patient is not a IV drug user, no fever, neurovascular intact, no weakness, no signs of epidural abscess or saddle anesthesia. Lumbar CT showed no fractures. Discussed options with patient, and she would prefer to go. Discussed supportive care measures that included hot or cold compresses to the affected site, gentle range of motion stretching exercises and careful ambulation. Will provide a short amount of pain medication. Instructed patient to return to the emergency department for any worsening symptoms, but can follow up with her family doctor as needed. Patient verbalized understanding. <Mile Randolph, DO - Last Filed: 10/28/22 07:36> Lab Data Labs: Lab Results 10/27/22 Range/Units 15:20 Urine Color Yellow Urine Appearance Clear Urine pH 5.0 (4.5-8.0) Ur Specific [place] 1.010 (1.000-1.035) Urine Protein Negative (Negative) Urine Glucose (UA) Trace H (Negative) g/dL Urine Ketones Negative (NEGATIVE) Urine Occult Blood Negative (Negative) Urine Nitrate Negative (Negative) Urine Bilirubin Negative (NEGATIVE) Urine Urobilinogen 0.2 (0.2) E.U./dL Ur Leukocyte Esterase 2+ H (NEGATIVE) Urine RBC None seen (0-5/HPF) Urine WBC 10-30/hpf H (0-5/HPF) Ur Squamous Epith Cells 5-10 /hpf H (0-5/HPF) Ur Transition Epith Cell 1-5/hpf (0-5/HPF) Ur Renal Epithelial Cell 5-10/hpf H (0-1/HPF) Amorphous Sediment 1+ Urine Bacteria Few (2-10) H (None) Urine Dip Bedside Urine Glucose Negative Bedside Urine Bilirubin - Negative Bedside Urine Ketone - Negative Urine Specific [place] 1.015 Bedside Urine Occult Blood - Negative Bedside Urine pH 5.5 Bedside Urine Protein - Negative Bedside Urine Urobilinogen - Negative Bedside Urine Nitrite - Negative Bedside Urine Leukocytes ++ 125 Esterase Discharge Plan Departure Patient Disposition: Home Clinical Impression: Chronic low back pain Instructions: DI for Low Back Pain Activity Restrictions/Additional Instructions: *You have been diagnosed with chronic low back pain. Your lumbar CT was negative and my assessment was encouraging. I recommend you try hot or cold compresses to the affected site 2 to 3 times a day for comfort. We will provide you with a short amount of pain medication. For any worsening symptoms, please return to the emergency department. Otherwise, please follow-up with your family doctor as needed. *What to do: *Please continue to take your regular medications as directed. [ ] New medication prescriptions sent to your pharmacy: [ ] [x ] New medication written as a paper prescription [ ] No new medications given *Please follow up with your primary care provider in 2-3 days, call for an appointment. Let them know you were seen in the Emergency Department and that we ask that you be seen in follow up. We will electronically transmit a record of today's note if your PCP is in our system *If you do not have a primary care provider please contact the [facility] Resource line at [phone]. They will ask some questions about your medical history and help get you set up with a doctor in the community. ? Return to ER if you should have any new, worsening or concerning symptoms, such as worsening pain, severe headache, confusion, chest pain, difficulty breathing, fever greater than 101 F, shaking chills, persistent vomiting to the point that you cannot drink fluids, or other new or worsening symptoms. Prescriptions: New hydrocodone-acetaminophen 5-325 mg tablet 1 tab PO Q6H PRN (Reason: pain) Qty: 10 0RF No Action (DME) Disabled parking permit See Rx Instructions .Route .MEDSUPPLY Qty: 1 0RF Rx Instructions: As directed Lantus Solostar U-100 Insulin 100 unit/mL (3 mL) insulin pen See Rx Instructions .ROUTE .COMPLEX Qty: 15 11RF Dose Instruction: INJECT 45 UNITS SUBCUTANEOUSLY EVERY EVENING Rx Instructions: INJECT 45 UNITS SUBCUTANEOUSLY EVERY EVENING lisinopril 20 mg tablet 20 mg PO DAILY Qty: 90 1RF venlafaxine 150 mg capsule,extended release 24hr See Rx Instructions .ROUTE .COMPLEX Qty: 90 2RF Dose Instruction: TAKE 1 CAPSULE BY MOUTH DAILY Rx Instructions: TAKE 1 CAPSULE BY MOUTH DAILY levothyroxine [Synthroid] 75 mcg tablet 75 mcg PO QAM Qty: 90 0RF hydrocodone-acetaminophen 10-325 mg tablet See Rx Instructions PO Q4-6H PRN (Reason: pain) Qty: 240 0RF Rx Instructions: 1-2 tabs, orally every 4-6 hours PRN; cyclobenzaprine 5 mg tablet See Rx Instructions .ROUTE .COMPLEX Qty: 60 1RF Dose Instruction: TAKE 1 TABLET BY MOUTH THREE TIMES DAILY NEEDED FOR MUSCLE SPASM Rx Instructions: TAKE 1 TABLET BY MOUTH THREE TIMES DAILY NEEDED FOR MUSCLE SPASM albuterol sulfate 90 mcg/actuation HFA aerosol inhaler 2 puff Inhalation Q8H PRN (Reason: shortness of breath) Qty: 6.7 5RF carvedilol 12.5 mg tablet 12.5 mg PO BID Label Comments: TAKE 1 TABLET BY MOUTH TWICE DAILY WITH MEALS FOR HEART diclofenac sodium 1 % gel 2 g topical QID gabapentin 300 mg capsule 300 mg PO BEDTIME Restasis 0.05 % dropperette ophthalmic (eye) BID solifenacin 10 mg tablet 10 mg PO DAILY Qty: 90 3RF Referrals: Jeremy Aly DO [Primary Care Provider] - Visit Report Forms: Patient Portal/API <Mile Randolph DO - Last Filed: 10/28/22 07:36> Cosign ED Attending Elsie Attestation: I was immediately available in the department for consultation. Documentation has been reviewed.
--- NOTE | 2022-10-27 14:46 | DI.CT.S_ITS ---
PROCEDURE: CT LUMBAR SPINE WO CON INDICATIONS: ground level fall TECHNIQUE: Noncontrast 3 mm thick sections acquired from the T12 level to the sacrum. Sagittal and coronal reformats were constructed. For radiation dose reduction, the following was used: automated exposure control. COMPARISON: [facility], MR, MR LUMBAR SPINE WO CON, 02/26/2022, 13:34. FINDINGS: Image quality: Adequate. Bones: No acute lumbar spine fracture visualized. Moderate-severe multilevel degenerative changes redemonstrated. Complete loss of disc height/ankylosis at T12-L1. Similar multilevel listhesis likely degenerative. Soft tissues: No retroperitoneal masses or hematomas. Visualized aorta is normal in caliber. IMPRESSION: No acute lumbar spine fracture visualized. Dictated by: Arun Celestin M.D. on 10/27/2022 at 15:24 Approved by: Arun Celestin M.D. on 10/27/2022 at 15:32
[2022-10-27 15:36] LABS: Appearance Urine UA CLEAR; Bilirubin Urine UA NEGATIVE (NEGATIVE); Color Urine UA YELLOW; Glucose Urine UA TRACE g/dL (Negative); Ketones Urine UA NEGATIVE (NEGATIVE); Leukocyte Esterase Urine UA 2+ (NEGATIVE); Nitrite Urine UA NEGATIVE (Negative); Occult Blood Urine UA NEGATIVE (Negative); Protein Urine UA NEGATIVE (Negative); Urobilinogen Urine UA 0.2 E.U./dL (0.2)
[2022-10-27] MEDS: HYDROCODONE/ACET 5/325 TABLET 1 TAB PO (15:38)
[2022-10-27 15:47] LABS: Amorphous Sediment Urine 1+; RBC Urine None Seen (0-5/HPF); Renal Epithelial Cells Urine 5-10/HPF (0-1/HPF); Squamous Epithelial Cell Urine 5-10 /HPF (0-5/HPF); Transitional Epi Cells Urine 1-5/HPF (0-5/HPF); WBC Urine 10-30/HPF (0-5/HPF)
[2022-10-27 15:48] LABS: Bacteria Urine Few (2-10)
== END 2022-10-27 17:10 | disposition home or self-care (01) ==
PROVIDERS: Emergency Provider Registered Nurse; Family Provider Family Medicine; PCP Family Medicine
DX: M54.50 Low back pain, unspecified (principal); M79.604 Pain in right leg; W18.30XA Fall on same level, unspecified, initial encounter; Z79.899 Other long term (current) drug therapy
CPT/HCPCS: 72131; 81001; 81003; 87086; 99283; 99284

== ENCOUNTER 2022-10-29 23:18 | Emergency (ER) | payer MEDICARE, OTHER, SELFPAY ==
[2022-10-29 23:25] VITALS: BP 182/74; PULSE 79; RESP 18; TEMP 36.8; O2SAT 98; BMI 29.0
--- NOTE | 2022-10-29 23:27 | ED_ITS ---
HPI - Back Pain/Injury General Chief Complaint: Back Pain/Injury Stated Complaint: chronic lower back pain Time Seen by Provider: 10/29/22 23:26 Related Data Home Medications Medication Instructions Recorded Confirmed cyclosporine 0.05 % eye drops in a drp ophthalmic (eye) BID 05/18/21 10/06/22 dropperette (Restasis) carvedilol 12.5 mg tablet 12.5 mg PO BID 05/23/22 10/06/22 diclofenac sodium 1 % topical gel 2 g topical QID 05/23/22 10/06/22 gabapentin 300 mg capsule 300 mg PO BEDTIME 10/06/22 10/06/22 Previous Rx's Medication Instructions Recorded Disabled parking permit #1 ea 02/19/21 albuterol sulfate 90 mcg/actuation 2 puff inhalation Q8H PRN 09/23/21 aerosol inhaler shortness of breath #6.7 grams insulin glargine 100 unit/mL (3 See Rx Instructions .Route 12/21/21 mL) subcutaneous pen (Lantus .COMPLEX #15 mL Solostar U-100 Insulin) levothyroxine 75 mcg tablet 75 mcg PO QAM #90 tabs 08/09/22 (Synthroid) venlafaxine 150 mg See Rx Instructions .Route 08/09/22 capsule,extended release 24 hr .COMPLEX #90 caps solifenacin 10 mg tablet 10 mg PO DAILY #90 tabs 09/23/22 hydrocodone 10 mg-acetaminophen See Rx Instructions PO Q4-6H PRN 10/14/22 325 mg tablet pain #240 tabs cyclobenzaprine 5 mg tablet See Rx Instructions .Route 10/17/22 .COMPLEX #60 tabs hydrocodone 5 mg-acetaminophen 325 1 tab PO Q6H PRN pain #10 tabs 10/27/22 mg tablet lisinopril 20 mg tablet 20 mg PO DAILY #30 tabs 10/28/22 Allergies Allergy/AdvReac Type Severity Reaction Status Date / Time amoxicillin [AMOXICILLIN] Allergy Unknown Verified 10/29/22 23:24 clavulanic acid Allergy Unknown Verified 10/29/22 23:24 [CLAVULANIC ACID] latex [LATEX] Allergy Unknown Rash Verified 10/29/22 23:24 metformin [METFORMIN] Allergy Unknown Diarrhea Verified 10/29/22 23:24 Penicillins [PENICILLINS] Allergy Unknown Flushing Verified 10/29/22 23:24 zolpidem [ZOLPIDEM] Allergy Unknown Verified 10/29/22 23:24 Gywzrfh-VWF-FuG Reductase Allergy Verified 10/29/22 23:24 Inhibitor [Zxkhkxb-Msh-Hcu Reductase Inhibitor] TOPICAL IODINE Allergy Unknown Rash Uncoded 10/29/22 23:24 Patient History Medical History Acute low back pain Asthma Cervical somatic dysfunction Chronic low back pain Chronic thoracic back pain Congenital duplication of renal collecting system Cough in adult patient CTS (carpal tunnel syndrome) Diabetes mellitus Diverticular disease Essential hypertension Fall from ground level Fibromyalgia Finger infection Greater trochanteric bursitis of both hips Greater trochanteric bursitis of left hip Hematuria Hernia, diaphragmatic Herniated nucleus pulposus, L4-5 Hyperlipidemia Hypothyroidism Iliotibial band syndrome of both sides Iliotibial band syndrome, left leg Iliotibial band syndrome, right leg Joint pain in both hands Left shoulder pain Leg pain, bilateral Lumbar back pain with radiculopathy affecting lower extremity Lumbar region somatic dysfunction Nocturia more than twice per night Nondisplaced fracture of right scaphoid bone Pelvic somatic dysfunction Postmenopausal atrophic vaginitis Postoperative pain after spinal surgery PSVT (paroxysmal supraventricular tachycardia) Pyuria Sacral region somatic dysfunction Segmental and somatic dysfunction of abdomen and other regions Somatic dysfunction of lower extremity Thoracic region somatic dysfunction Tinea corporis Urge incontinence Surgical History History of carpal tunnel repair History of cystoscopy Status post appendectomy Status post breast reduction Status post cholecystectomy Status post hysterectomy with oophorectomy Family History Father Dementia MVA (motor vehicle accident) Mother Dementia Colon cancer Social History marital status: household members: none Smoking Status: Never smoker alcohol intake: current substance use type: does not use Smoking Status: Never smoker alcohol intake frequency: 0-2 drinks per day Substance Use Type: does not use Exam Initial Vital Signs Initial Vital Signs: Vital Signs Temperature 98.2 F 10/29/22 23:25 Pulse Rate 79 10/29/22 23:25 Respiratory Rate 18 10/29/22 23:25 Blood Pressure 182/74 H 10/29/22 23:25 Pulse Oximetry 98 10/29/22 23:25 Oxygen Delivery Method 10/29/22 23:25 Course Orders Ordered: ED Orders 10/29/22 23:55 XR t and l spine 2 to 3 views Stat 10/29/22 23:58 Complete Blood Count AUTO DIFF Stat Comprehensive Metabolic Panel Stat Discontinued Medications Dexamethasone (Dexamethasone 10 Mg/Ml Vial) 10 mg IV NOW ONE Stop: 10/29/22 23:56 Last Admin: 10/30/22 00:40 Dose: 10 mg Documented By: ANNE-MARIE Hydromorphone HCl (Hydromorphone 1 Mg Inj) 1 mg IV NOW ONE Stop: 10/29/22 23:56 Last Admin: 10/30/22 00:40 Dose: 1 mg Documented By: ANNE-MARIE Ketorolac Tromethamine (Ketorolac 60 Mg/2 Ml Vial) 15 mg IV NOW ONE Stop: 10/29/22 23:56 Last Admin: 10/30/22 00:47 Dose: Not Given Documented By: MLM Ketorolac Tromethamine (Ketorolac 30 Mg/Ml Vial) 15 mg IV NOW ONE Stop: 10/30/22 00:39 Last Admin: 10/30/22 00:44 Dose: 15 mg Documented By: ANNE-MARIE Vital Signs Vital signs: Vital Signs - 8 hr 10/29/22 23:25 Temperature 98.2 F Pulse Rate 79 Respiratory Rate 18 Blood Pressure 182/74 H Pulse Oximetry 98 Oxygen Delivery Method Room Air MDM - Back Pain/Injury Lab Data Result diagrams: 10/30/22 00:05 10/30/22 00:05 Labs: Lab Results 10/30/22 10/30/22 Range/Units 00:05 00:05 WBC 5.5 (4.5-11.0) X10^3/uL RBC 3.95 L (4.0-5.2) X10^6/uL Hgb 11.7 L (12.0-16.0) g/dL Hct 35.3 L (36-46) % MCV 89.5 (80-100) fL MCH 29.7 (26-34) PG MCHC 33.2 (30-36) % RDW 13.2 (11.6-14.8) % Plt Count 269 (150-400) X10^3/uL Neut % (Auto) 48.0 L (50-75) % Lymph % (Auto) 37.7 (25-40) % [place] % (Auto) 9.5 (3-14) % Eos % (Auto) 4.5 H (2-4) % Baso % (Auto) 0.3 (0-2) % Neut # (Auto) 2600 (7424-3573) /uL Lymph # (Auto) 2100 (4514-8896) /uL [place] # (Auto) 500 (0-900) /uL Eos # (Auto) 200 (0-450) /uL Baso # (Auto) 0 (0-100) /uL Sodium 136 L (137-145) mmol/L Potassium 4.3 (3.4-5.1) mmol/L Chloride 99 (98-107) mmol/L Carbon Dioxide 31 (22-32) mmol/L BUN 21 H (7-17) mg/dL Creatinine 0.53 (0.52-1.04) mg/dL Estimated GFR > 60 (>60) mL/min BUN/Creatinine Ratio 39.6 H (6-22) Glucose 178 H (80-110) mg/dL Calcium 8.6 (8.4-10.2) mg/dL Total Bilirubin 0.4 (0.2-1.3) mg/dL AST 21 (14-36) IU/L ALT 17 (<35) IU/L Alkaline Phosphatase 84 (38-126) U/L Total Protein 6.8 (6.3-8.2) g/dL Albumin 4.0 (3.5-5.0) g/dL Globulin 2.8 (1.7-4.1) g/dL Albumin/Globulin Ratio 1.4 (1.0-2.8) Discharge Plan Departure Prescriptions: No Action (DME) Disabled parking permit See Rx Instructions .Route .MEDSUPPLY Qty: 1 0RF Rx Instructions: As directed Lantus Solostar U-100 Insulin 100 unit/mL (3 mL) insulin pen See Rx Instructions .ROUTE .COMPLEX Qty: 15 11RF Dose Instruction: INJECT 45 UNITS SUBCUTANEOUSLY EVERY EVENING Rx Instructions: INJECT 45 UNITS SUBCUTANEOUSLY EVERY EVENING venlafaxine 150 mg capsule,extended release 24hr See Rx Instructions .ROUTE .COMPLEX Qty: 90 2RF Dose Instruction: TAKE 1 CAPSULE BY MOUTH DAILY Rx Instructions: TAKE 1 CAPSULE BY MOUTH DAILY levothyroxine [Synthroid] 75 mcg tablet 75 mcg PO QAM Qty: 90 0RF hydrocodone-acetaminophen 10-325 mg tablet See Rx Instructions PO Q4-6H PRN (Reason: pain) Qty: 240 0RF Rx Instructions: 1-2 tabs, orally every 4-6 hours PRN; cyclobenzaprine 5 mg tablet See Rx Instructions .ROUTE .COMPLEX Qty: 60 1RF Dose Instruction: TAKE 1 TABLET BY MOUTH THREE TIMES DAILY NEEDED FOR MUSCLE SPASM Rx Instructions: TAKE 1 TABLET BY MOUTH THREE TIMES DAILY NEEDED FOR MUSCLE SPASM lisinopril 20 mg tablet 20 mg PO DAILY Qty: 30 0RF albuterol sulfate 90 mcg/actuation HFA aerosol inhaler 2 puff Inhalation Q8H PRN (Reason: shortness of breath) Qty: 6.7 5RF hydrocodone-acetaminophen 5-325 mg tablet 1 tab PO Q6H PRN (Reason: pain) Qty: 10 0RF carvedilol 12.5 mg tablet 12.5 mg PO BID Label Comments: TAKE 1 TABLET BY MOUTH TWICE DAILY WITH MEALS FOR HEART diclofenac sodium 1 % gel 2 g topical QID gabapentin 300 mg capsule 300 mg PO BEDTIME Restasis 0.05 % dropperette ophthalmic (eye) BID solifenacin 10 mg tablet 10 mg PO DAILY Qty: 90 3RF Referrals: Jeremy Aly DO [Primary Care Provider] -
--- NOTE | 2022-10-29 23:55 | DI.RAD.S_ITS ---
PROCEDURE: XR T AND L SPINE 2 TO 3 VIEWS INDICATIONS: worsening pain and weakness TECHNIQUE: 2 views acquired of the thoracolumbar spine. COMPARISON: None. FINDINGS: Bones: No acute compression fractures. Dextrocurvature of the lumbar spine centered at L1-2. Moderate to severe multilevel thoracolumbar spondylosis with disc space loss, degenerative endplate changes, endplate osteophyte formation, and facet arthropathy. There appears to be minimal retrolisthesis of L1 on L2 and L2 on L3. Visualized inferior ribs appear intact. No suspicious bony lesions. Soft tissues: No suspicious soft tissue calcifications. Surgical clips in the right upper abdomen likely from prior cholecystectomy. IMPRESSION: Thoracolumbar spine without acute osseous abnormalities. Moderate-severe multilevel thoracolumbar spondylosis. Dictated by: Red Larsen M.D. on 10/30/2022 at 1:04 Approved by: Red Larsen M.D. on 10/30/2022 at 1:07
[2022-10-30] VITALS (8 sets, daily range): BP systolic 179; BP diastolic 69; PULSE 77–92; RESP 14; O2SAT 90–98
--- NOTE | 2022-10-30 00:13 | ED_ITS ---
HPI - General Adult General Chief complaint: Back Pain/Injury Stated complaint: chronic lower back pain Time Seen by Provider: 10/29/22 23:26 Source: patient Mode of arrival: Ambulatory History of Present Illness HPI narrative: 82-year-old woman who lives at home independently with history of asthma, diabetes, hypothyroidism, high blood pressure, depression and chronic back pain presents with severe exacerbation of her chronic back pain. She has had multiple spine interventions including laminectomy in December of this year, epidural injections, pain management and currently has 10 mg Vicodin pills to take for pain control. Over the last couple of days she is been having worsening pain. She had a fall on the and was seen at that time with a CT scan of her pelvis and spine done that did not show new fractures. Since that time she has gotten progressively worsened at this point is finding that she is having trouble moving, getting out of her chair getting to the bathroom is noticing increasing weakness in both legs as well as paresthesias now down the anterior portion of both legs when before it had been mostly posterior radicular 6 Tums down the left leg. She is not complaining of fevers, difficulty with urinating or incontinence, has been having regular bowel movements and is not complaining of saddle paresthesia. She is not been having any cough, chest pain, palpitations, abdominal pain, vomiting or diarrhea. This evening she is took 3 extra-strength Vicodin around 10:00 p.m. do the severity of her pain and then another 2 around midnight. Medics have been out to her house 3 times today and family transported her to the hospital this evening. Related Data Home Medications Medication Instructions Recorded Confirmed cyclosporine 0.05 % eye drops in a drp ophthalmic (eye) BID 05/18/21 10/06/22 dropperette (Restasis) carvedilol 12.5 mg tablet 12.5 mg PO BID 05/23/22 10/06/22 diclofenac sodium 1 % topical gel 2 g topical QID 05/23/22 10/06/22 gabapentin 300 mg capsule 300 mg PO BEDTIME 10/06/22 10/06/22 Previous Rx's Medication Instructions Recorded Disabled parking permit #1 ea 02/19/21 albuterol sulfate 90 mcg/actuation 2 puff inhalation Q8H PRN 09/23/21 aerosol inhaler shortness of breath #6.7 grams insulin glargine 100 unit/mL (3 See Rx Instructions .Route 12/21/21 mL) subcutaneous pen (Lantus .COMPLEX #15 mL Solostar U-100 Insulin) levothyroxine 75 mcg tablet 75 mcg PO QAM #90 tabs 08/09/22 (Synthroid) venlafaxine 150 mg See Rx Instructions .Route 08/09/22 capsule,extended release 24 hr .COMPLEX #90 caps solifenacin 10 mg tablet 10 mg PO DAILY #90 tabs 09/23/22 hydrocodone 10 mg-acetaminophen See Rx Instructions PO Q4-6H PRN 10/14/22 325 mg tablet pain #240 tabs cyclobenzaprine 5 mg tablet See Rx Instructions .Route 10/17/22 .COMPLEX #60 tabs hydrocodone 5 mg-acetaminophen 325 1 tab PO Q6H PRN pain #10 tabs 10/27/22 mg tablet lisinopril 20 mg tablet 20 mg PO DAILY #30 tabs 10/28/22 Allergies Allergy/AdvReac Type Severity Reaction Status Date / Time amoxicillin [AMOXICILLIN] Allergy Unknown Verified 10/29/22 23:24 clavulanic acid Allergy Unknown Verified 10/29/22 23:24 [CLAVULANIC ACID] latex [LATEX] Allergy Unknown Rash Verified 10/29/22 23:24 metformin [METFORMIN] Allergy Unknown Diarrhea Verified 10/29/22 23:24 Penicillins [PENICILLINS] Allergy Unknown Flushing Verified 10/29/22 23:24 zolpidem [ZOLPIDEM] Allergy Unknown Verified 10/29/22 23:24 Umtejfb-PDG-SyV Reductase Allergy Verified 10/29/22 23:24 Inhibitor [Nhjgcyq-Afr-Ctk Reductase Inhibitor] TOPICAL IODINE Allergy Unknown Rash Uncoded 10/29/22 23:24 Review of Systems Review of Systems Narrative: Remainder of complete review of systems is otherwise unremarkable except for that included in the HPI. Patient History Medical History Acute low back pain Asthma Cervical somatic dysfunction Chronic low back pain Chronic thoracic back pain Congenital duplication of renal collecting system Cough in adult patient CTS (carpal tunnel syndrome) Diabetes mellitus Diverticular disease Essential hypertension Fall from ground level Fibromyalgia Finger infection Greater trochanteric bursitis of both hips Greater trochanteric bursitis of left hip Hematuria Hernia, diaphragmatic Herniated nucleus pulposus, L4-5 Hyperlipidemia Hypothyroidism Iliotibial band syndrome of both sides Iliotibial band syndrome, left leg Iliotibial band syndrome, right leg Joint pain in both hands Left shoulder pain Leg pain, bilateral Lumbar back pain with radiculopathy affecting lower extremity Lumbar region somatic dysfunction Nocturia more than twice per night Nondisplaced fracture of right scaphoid bone Pelvic somatic dysfunction Postmenopausal atrophic vaginitis Postoperative pain after spinal surgery PSVT (paroxysmal supraventricular tachycardia) Pyuria Sacral region somatic dysfunction Segmental and somatic dysfunction of abdomen and other regions Somatic dysfunction of lower extremity Thoracic region somatic dysfunction Tinea corporis Urge incontinence Surgical History History of carpal tunnel repair History of cystoscopy Status post appendectomy Status post breast reduction Status post cholecystectomy Status post hysterectomy with oophorectomy Family History Father Dementia MVA (motor vehicle accident) Mother Dementia Colon cancer Social History marital status: household members: none Smoking Status: Never smoker alcohol intake: current substance use type: does not use Smoking Status: Never smoker alcohol intake frequency: 0-2 drinks per day Substance Use Type: does not use Exam Initial Vital Signs Initial Vital Signs: Vital Signs Temperature 98.2 F 10/29/22 23:25 Pulse Rate 79 10/29/22 23:25 Respiratory Rate 18 10/29/22 23:25 Blood Pressure 182/74 H 10/29/22 23:25 Pulse Oximetry 98 10/29/22 23:25 Oxygen Delivery Method 10/29/22 23:25 General: Chronically ill-appearing in severe pain with any type of movement of torso or lower extremities. Able to give a complete and coherent history. HEENT: Moist mucous membranes, normal sclera with reactive pupils, Neck: No nuchal rigidity, supple Respiratory: Lungs are clear to auscultation, no wheezing no rales no rhonchi. Full and symmetrical air movement Cardiac: Regular rate and rhythm no murmurs no bruits Abdomen: Soft, nontender, good bowel tones, no flank pain Skin: Warm and dry, no rashes Neurologic: She is able to move lower extremities and does have full sensation. There is no paresthesia over the perineum. She does complain of decreased sensation over anterior thighs bilaterally and overall weakness with difficulty standing even with her walker over the last number of days. Extremities: No trauma, well perfused Psych: Cooperative, slightly sedated Course Orders Ordered: ED Orders 10/29/22 23:55 XR t and l spine 2 to 3 views Stat 10/29/22 23:58 Complete Blood Count AUTO DIFF Stat Comprehensive Metabolic Panel Stat Discontinued Medications Dexamethasone (Dexamethasone 10 Mg/Ml Vial) 10 mg IV NOW ONE Stop: 10/29/22 23:56 Last Admin: 10/30/22 00:40 Dose: 10 mg Documented By: ANNE-MARIE Hydromorphone HCl (Hydromorphone 1 Mg Inj) 1 mg IV NOW ONE Stop: 10/29/22 23:56 Last Admin: 10/30/22 00:40 Dose: 1 mg Documented By: ANNE-MARIE Ketorolac Tromethamine (Ketorolac 60 Mg/2 Ml Vial) 15 mg IV NOW ONE Stop: 10/29/22 23:56 Last Admin: 10/30/22 00:47 Dose: Not Given Documented By: MLJuan Manuel Ketorolac Tromethamine (Ketorolac 30 Mg/Ml Vial) 15 mg IV NOW ONE Stop: 10/30/22 00:39 Last Admin: 10/30/22 00:44 Dose: 15 mg Documented By: ANNE-MARIE Vital Signs Vital signs: Vital Signs - 8 hr 10/29/22 23:25 Temperature 98.2 F Pulse Rate 79 Respiratory Rate 18 Blood Pressure 182/74 H Pulse Oximetry 98 Oxygen Delivery Method Room Air Medical Decision Making Lab Data Result diagrams: 10/30/22 00:05 10/30/22 00:05 Labs: Lab Results 10/30/22 10/30/22 Range/Units 00:05 00:05 WBC 5.5 (4.5-11.0) X10^3/uL RBC 3.95 L (4.0-5.2) X10^6/uL Hgb 11.7 L (12.0-16.0) g/dL Hct 35.3 L (36-46) % MCV 89.5 (80-100) fL MCH 29.7 (26-34) PG MCHC 33.2 (30-36) % RDW 13.2 (11.6-14.8) % Plt Count 269 (150-400) X10^3/uL Neut % (Auto) 48.0 L (50-75) % Lymph % (Auto) 37.7 (25-40) % [place] % (Auto) 9.5 (3-14) % Eos % (Auto) 4.5 H (2-4) % Baso % (Auto) 0.3 (0-2) % Neut # (Auto) 2600 (8835-1419) /uL Lymph # (Auto) 2100 (1943-9567) /uL [place] # (Auto) 500 (0-900) /uL Eos # (Auto) 200 (0-450) /uL Baso # (Auto) 0 (0-100) /uL Sodium 136 L (137-145) mmol/L Potassium 4.3 (3.4-5.1) mmol/L Chloride 99 (98-107) mmol/L Carbon Dioxide 31 (22-32) mmol/L BUN 21 H (7-17) mg/dL Creatinine 0.53 (0.52-1.04) mg/dL Estimated GFR > 60 (>60) mL/min BUN/Creatinine Ratio 39.6 H (6-22) Glucose 178 H (80-110) mg/dL Calcium 8.6 (8.4-10.2) mg/dL Total Bilirubin 0.4 (0.2-1.3) mg/dL AST 21 (14-36) IU/L ALT 17 (<35) IU/L Alkaline Phosphatase 84 (38-126) U/L Total Protein 6.8 (6.3-8.2) g/dL Albumin 4.0 (3.5-5.0) g/dL Globulin 2.8 (1.7-4.1) g/dL Albumin/Globulin Ratio 1.4 (1.0-2.8) MDM Narrative Medical decision making narrative: 82-year-old woman with chronic low back pain and severe exacerbation with multiple contacts with EMS service due to pain control increasing weakness and inability to move about her house or take care of herself due to progressive weakness with dramatic pain to her low back. On the she had a lumbar spine CT that did not show any new fractures. In August and June she had epidural injections. Most recent MRI was February of 2022 after a L 2 3, 3 4 and 4 5 laminectomy. At that time she had multilevel degenerative disease with varying degrees of central and foraminal stenosis including severe central stenosis at L1-2 and moderate to severe central stenosis at L2-3 improved central stenosis throughout the area of laminectomy with a left paracentral protrusion/extrusion of the disc into the left lateral recess at L4-5. For this delightful lady even after 5 extra-strength Vicodin over the last couple of hours she has difficulty with even lowering the bed down or rolling onto her side. She is unable to stand secondary to weakness and compounded by pain. Will obtain x-rays to see if she has any new compression fracture component but likely needs a repeat MRI for further evaluation. I doubt that she has not epidural abscess or diskitis however MRI will also help sort through that. Basic lab work will be obtained. Given the degree of pain and disability in an 82-year-old woman who lives by herself she may need hospitalization with physical therapy evaluation and assistance. MRI is not available today, but should be available on the . May need observation admission until MRI can be obtained with definitive planning following that. 125am patient is re-evaluated. X-ray does not suggest any new findings. Pain is actually better controlled after the 1 mg of IV Dilaudid and 10 mg of IV dexamethasone. We discussed hospitalization with MRI to follow versus discharged home. She states that she has a small puppy and no one to care for the puppy so she would prefer to go home. We negotiated how she would get home and, even recognizing that there might be a charge, she will require BLS han sport as she will not be able to get into a car due to her pain and weakness and has nobody to pick her up. We discussed the importance of follow-up with either her primary care doctor or her neurosurgeon and I stressed that it was very important that she let them know her legs were becoming increasingly weak. Even though the pain is tremendous, the most important concern is the progressive weakness. She has plenty of extra strength hydrocodone available at home and will not need additional pain medications. I will give her additional Decadron to allow for 10 mg orally on the and . At this time she is safe for discharge home Discharge Plan Departure Patient Disposition: Home Clinical Impression: Spinal stenosis of lumbar region at multiple levels, Bilateral leg weakness, Acute exacerbation of chronic low back pain Instructions: DI for Spinal Stenosis Activity Restrictions/Additional Instructions: Thank you for coming in tonight I am sorry that you are suffering so much with this back pain. I am concerned with the progressive weakness that you are experiencing. You need to contact either your primary care doctor or your neurosurgeon to let them know that your legs are giving out on you. You can continue to use the hydrocodone that you have available to at home to help with pain. I have given you dose of dexamethasone in the emergency department to help with inflammation. I want you to take an additional 10 mg (2.5 pills) of dexamethasone the evening of the and the evening of the . I have given you these pills in the green packaging, labeled for you. If you find that you are getting worse or develop any new symptoms, please feel free to return to the emergency department for further evaluation. Prescriptions: No Action (DME) Disabled parking permit See Rx Instructions .Route .MEDSUPPLY Qty: 1 0RF Rx Instructions: As directed Lantus Solostar U-100 Insulin 100 unit/mL (3 mL) insulin pen See Rx Instructions .ROUTE .COMPLEX Qty: 15 11RF Dose Instruction: INJECT 45 UNITS SUBCUTANEOUSLY EVERY EVENING Rx Instructions: INJECT 45 UNITS SUBCUTANEOUSLY EVERY EVENING venlafaxine 150 mg capsule,extended release 24hr See Rx Instructions .ROUTE .COMPLEX Qty: 90 2RF Dose Instruction: TAKE 1 CAPSULE BY MOUTH DAILY Rx Instructions: TAKE 1 CAPSULE BY MOUTH DAILY levothyroxine [Synthroid] 75 mcg tablet 75 mcg PO QAM Qty: 90 0RF hydrocodone-acetaminophen 10-325 mg tablet See Rx Instructions PO Q4-6H PRN (Reason: pain) Qty: 240 0RF Rx Instructions: 1-2 tabs, orally every 4-6 hours PRN; cyclobenzaprine 5 mg tablet See Rx Instructions .ROUTE .COMPLEX Qty: 60 1RF Dose Instruction: TAKE 1 TABLET BY MOUTH THREE TIMES DAILY NEEDED FOR MUSCLE SPASM Rx Instructions: TAKE 1 TABLET BY MOUTH THREE TIMES DAILY NEEDED FOR MUSCLE SPASM lisinopril 20 mg tablet 20 mg PO DAILY Qty: 30 0RF albuterol sulfate 90 mcg/actuation HFA aerosol inhaler 2 puff Inhalation Q8H PRN (Reason: shortness of breath) Qty: 6.7 5RF hydrocodone-acetaminophen 5-325 mg tablet 1 tab PO Q6H PRN (Reason: pain) Qty: 10 0RF carvedilol 12.5 mg tablet 12.5 mg PO BID Label Comments: TAKE 1 TABLET BY MOUTH TWICE DAILY WITH MEALS FOR HEART diclofenac sodium 1 % gel 2 g topical QID gabapentin 300 mg capsule 300 mg PO BEDTIME Restasis 0.05 % dropperette ophthalmic (eye) BID solifenacin 10 mg tablet 10 mg PO DAILY Qty: 90 3RF Referrals: Jeremy Aly DO [Primary Care Provider] -
[2022-10-30 00:22] LABS: Add Manual Diff / Slide Review NO; Basophils Absolute Auto 0 /uL (0-100); Basophils Percent Auto 0.3 % (0-2); Eosinophils Absolute Auto 200 /uL (0-450); Eosinophils Percent Auto 4.5 % (2-4); Hematocrit 35.3 % (36-46); Hemoglobin 11.7 g/dL (12.0-16.0); Lymphocytes Absolute Auto 2100 /uL (1100-4500); Lymphocytes Percent Auto 37.7 % (25-40); Mean Corpuscular HGB Conc 33.2 % (30-36); Mean Corpuscular Hemoglobin 29.7 PG (26-34); Mean Corpuscular Volume 89.5 fL (80-100); Monocytes Absolute Auto 500 /uL (0-900); Monocytes Percent Auto 9.5 % (3-14); Neutrophils Absolute Auto 2600 /uL (1500-7000); Platelet Count 269 X10^3/uL (150-400); Red Blood Cell Count 3.95 X10^6/uL (4.0-5.2); Red Cell Distribution Width 13.2 % (11.6-14.8); White Blood Cell Count 5.5 X10^3/uL (4.5-11.0)
[2022-10-30 00:30] LABS: Alanine Aminotransferase 17 IU/L (<35); Albumin Globulin Ratio 1.4 (1.0-2.8); Alkaline Phosphatase 84 U/L (38-126); Aspartate Aminotransferase 21 IU/L (14-36); BUN Creatinine Ratio 39.6 (6-22); Bilirubin Total 0.4 mg/dL (0.2-1.3); Blood Urea Nitrogen 21 mg/dL (7-17); Calcium 8.6 mg/dL (8.4-10.2); Carbon Dioxide 31 mmol/L (22-32); Chloride 99 mmol/L (98-107); Estimated Glomerular Filt Rate > 60 mL/min (>60); Globulin 2.8 g/dL (1.7-4.1); Glucose 178 mg/dL (80-110); HEMOLYSIS 21 (0-50); Potassium 4.3 mmol/L (3.4-5.1); Sodium 136 mmol/L (137-145); Total Protein 6.8 g/dL (6.3-8.2)
[2022-10-30] MEDS: HYDROMORPHONE 1 MG INJ IV (00:40)
[2022-10-30] MEDS: DEXAMETHASONE 10 MG/ML VIAL IV (00:40)
[2022-10-30] MEDS: KETOROLAC 30 MG/ML VIAL 15 MG IV (00:44)
[2022-10-30] MEDS: dexAMETHasone 4 MG TABLET 20 MG PO (01:45)
== END 2022-10-30 08:50 | disposition home or self-care (01) ==
PROVIDERS: Emergency Provider Emergency Medicine; Family Provider Family Medicine; PCP Family Medicine
DX: M48.061 Spinal stenosis, lumbar region without neurogenic claudication (principal); R53.1 Weakness; M54.50 Low back pain, unspecified; Z79.899 Other long term (current) drug therapy
CPT/HCPCS: 36415; 72082; 80053; 85025; 96374; 96375; 99284; J1100; J1170; J1885

== ENCOUNTER 2022-12-09 16:54 | Emergency (ER) | payer MEDICARE, OTHER, SELFPAY ==
[2022-12-09 16:55] VITALS: BP 190/83; PULSE 92; RESP 18; TEMP 36; O2SAT 95
--- NOTE | 2022-12-09 17:07 | DI.CT.S_ITS ---
PROCEDURE: CT HEAD/BRAIN WO CON INDICATIONS: fall TECHNIQUE: Noncontrast 4.5 mm thick angled axial sections acquired from the foramen magnum to the vertex, with coronal and sagittal reformats. For radiation dose reduction, the following was used: automated exposure control, adjustment of mA and/or kV according to patient size. COMPARISON: [facility], CR, XR KNEE RT 3V, 12/09/2022, 17:20. [facility], CT, CT HEAD/BRAIN WO CON, 04/30/2022, 14:21. [facility], CT, CT HEAD/BRAIN WO CON, 07/23/2020, 0:49. FINDINGS: Image quality: Excellent. CSF spaces: Basal cisterns are patent. No extra-axial fluid collections. The ventricles are symmetric in size and shape. Brain: No intracranial bleeds or masses. There is cerebral volume loss for age, with resultant ventricular and sulcal prominence. There are periventricular and deep white matter chronic small vessel ischemic changes. There is intracranial internal carotid artery atherosclerosis. Skull and face: There is a scalp hematoma seen posteriorly, as on series 2, image 21. No associated calvarial fracture can be seen. Calvarium and visualized facial bones appear intact, without suspicious lesions. Sinuses: Visualized sinuses and mastoids are clear. IMPRESSION: Scalp hematoma posteriorly, without associated calvarial fracture or acute intracranial hemorrhage seen. Dictated by: Preston Silvestre M.D. on 12/09/2022 at 16:58 Approved by: Preston Silvestre M.D. on 12/09/2022 at 17:00
--- NOTE | 2022-12-09 17:08 | DI.RAD.S_ITS ---
PROCEDURE: XR KNEE RT 3V INDICATIONS: fall TECHNIQUE: 3 views of the knee were acquired. COMPARISON: [facility], CT, CT HEAD/BRAIN WO CON, 12/09/2022, 17:28. FINDINGS: Bones: No fractures or dislocations. No suspicious bony lesions. There is moderate medial femorotibial joint space narrowing seen, with associated remodeling changes including subchondral sclerosis and osteophyte formation along the jointline. On the sunrise view, there is moderate lateral patellofemoral joint space narrowing seen. Osteophyte formation can be seen along the margins of the patella. Soft tissues: There is a minimal right knee joint effusion. No suspicious soft tissue calcifications. IMPRESSION: No acute bony abnormality is seen. If there is point tenderness (or other clinical suspicion for a fracture not seen on these images) then a dedicated CT could be considered for further evaluation, if clinically appropriate. Underlying degenerative changes are seen. Dictated by: Preston Silvestre M.D. on 12/09/2022 at 17:06 Approved by: Preston Silvestre M.D. on 12/09/2022 at 17:07
[2022-12-09 17:28] LABS: Bacteria Urine None Seen; Culture Indicated Urine Specimen Cultured; RBC Urine None Seen (0-5/HPF); Squamous Epithelial Cell Urine 1-5 /HPF (0-5/HPF); WBC Urine 5-10/HPF (0-5/HPF)
[2022-12-09 17:44] VITALS: PULSE 92; O2SAT 91
[2022-12-09 17:45] VITALS: BP 191/81; PULSE 89; O2SAT 92
[2022-12-09 18:00] VITALS: PULSE 85; O2SAT 94
--- NOTE | 2022-12-09 18:28 | ED.FALL ---
HPI - Fall <Kylie Maulik Sanchez [facility] - Last Filed: 12/09/22 19:08> General Chief Complaint: Fall Stated Complaint: Fell and hit head, No thinners Time Seen by Provider: 12/09/22 18:12 Source: patient Mode of arrival: Ambulatory History of Present Illness HPI Narrative: This is an 82-year-old female presents emergency department for evaluation her after a mechanical fall while out walking her dog. She states that she landed on her back, complains of a wound to her right finger that keeps bleeding in his irritated that has been there for couple of weeks. Complains of knee pain with an abrasion underneath states that she fell 2 days ago as well. She is not anticoagulated, she complains of a slight headache but denies any weakness or vomiting, denies any neck pain, sensation changes, altered mentation or nausea. She states that she takes hydrocodone for pain and does not have history of GI bleeding. Related Data Home Medications Medication Instructions Recorded Confirmed carvedilol 12.5 mg tablet 12.5 mg PO BID 05/23/22 11/02/22 diclofenac sodium 1 % topical gel 2 g topical QID 05/23/22 11/02/22 Previous Rx's Medication Instructions Recorded Disabled parking permit #1 ea 02/19/21 albuterol sulfate 90 mcg/actuation 2 puff inhalation Q8H PRN 09/23/21 aerosol inhaler shortness of breath #6.7 grams insulin glargine 100 unit/mL (3 See Rx Instructions .Route 12/21/21 mL) subcutaneous pen (Lantus .COMPLEX #15 mL Solostar U-100 Insulin) venlafaxine 150 mg See Rx Instructions .Route 08/09/22 capsule,extended release 24 hr .COMPLEX #90 caps cyclobenzaprine 5 mg tablet See Rx Instructions .Route 10/17/22 .COMPLEX #60 tabs lisinopril 20 mg tablet 20 mg PO DAILY #90 tabs 11/01/22 nortriptyline 10 mg capsule 10 mg PO BEDTIME #90 caps 11/02/22 levothyroxine 75 mcg tablet See Rx Instructions .Route 11/14/22 .COMPLEX #90 tabs CMP KETOPROFEN 20% See Rx Instructions topical BID 11/15/22 PRN fibromyalgia #120 grams solifenacin 10 mg tablet 10 mg PO DAILY #90 tabs 12/01/22 hydrocodone 10 mg-acetaminophen See Rx Instructions PO Q4-6H PRN 12/09/22 325 mg tablet pain #270 tabs mupirocin 2 % topical ointment 1 applic topical DAILY #15 grams 12/09/22 Allergies Allergy/AdvReac Type Severity Reaction Status Date / Time amoxicillin [AMOXICILLIN] Allergy Unknown Verified 11/02/22 13:23 clavulanic acid Allergy Unknown Verified 11/02/22 13:23 [CLAVULANIC ACID] latex [LATEX] Allergy Unknown Rash Verified 11/02/22 13:23 metformin [METFORMIN] Allergy Unknown Diarrhea Verified 11/02/22 13:23 Penicillins [PENICILLINS] Allergy Unknown Flushing Verified 11/02/22 13:23 zolpidem [ZOLPIDEM] Allergy Unknown Verified 11/02/22 13:23 Lxwqisq-VZY-DbG Reductase Allergy Verified 11/02/22 13:23 Inhibitor [Qpwnxxt-Wtf-Trc Reductase Inhibitor] TOPICAL IODINE Allergy Unknown Rash Uncoded 11/02/22 13:23 Review of Systems <BLADIMIR Moran - Last Filed: 12/09/22 19:08> Review of Systems ROS Unobtainable: All systems reviewed & are unremarkable except as noted in HPI and below Patient History <BLADIMIR Moran - Last Filed: 12/09/22 19:08> Medical History Asthma Cervical somatic dysfunction Chronic thoracic back pain Congenital duplication of renal collecting system Cough in adult patient CTS (carpal tunnel syndrome) Diabetes mellitus Diverticular disease Essential hypertension Fall from ground level Fibromyalgia Finger infection Greater trochanteric bursitis of both hips Greater trochanteric bursitis of left hip Hematuria Hernia, diaphragmatic Herniated nucleus pulposus, L4-5 Hyperlipidemia Hypothyroidism Iliotibial band syndrome of both sides Iliotibial band syndrome, left leg Iliotibial band syndrome, right leg Joint pain in both hands Left shoulder pain Leg pain, bilateral Lumbar back pain with radiculopathy affecting lower extremity Lumbar region somatic dysfunction Nocturia more than twice per night Nondisplaced fracture of right scaphoid bone Pelvic somatic dysfunction Postmenopausal atrophic vaginitis Postoperative pain after spinal surgery PSVT (paroxysmal supraventricular tachycardia) Pyuria Sacral region somatic dysfunction Segmental and somatic dysfunction of abdomen and other regions Somatic dysfunction of lower extremity Thoracic region somatic dysfunction Tinea corporis Urge incontinence Surgical History History of carpal tunnel repair History of cystoscopy Status post appendectomy Status post breast reduction Status post cholecystectomy Status post hysterectomy with oophorectomy Family History Father Dementia MVA (motor vehicle accident) Mother Dementia Colon cancer Social History marital status: household members: none Smoking Status: Never smoker alcohol intake: current substance use type: does not use Smoking Status: Never smoker alcohol intake frequency: 0-2 drinks per day Substance Use Type: does not use Exam <BLADIMIR Moran - Last Filed: 12/09/22 19:08> Narrative Exam Narrative: Reviewed vitals signs and nursing notes. General: cooperative, comfortable, in no acute distress, well groomed HEENT: symmetrical facial expressions, moist mucous membranes Cardiovascular: regular rate and rhythm, no peripheral edema, warm extremities Respiratory: normal effort, able to speak in complete sentences, without wheezing, stridor, or abnormal breath sounds. No retractions or tachypnea. GI: abdomen soft, nontender to palpation, nondistended, without masses, rebound tenderness or exquisite tenderness with exam. MSK: moves all extremities, neurovascularly intact, no weakness, normal tone Skin: brisk capillary refill, without pallor or erythema, right 3rd digit with ingrowing lateral fingernail with erythema, without fluctuance, mild discharge is present, will perform fingernail procedure and remove this part of the nail Neuro: normal speech and cognition, A&O x3, ambulatory, clear speech Psych: mental status is grossly normal, congruent mood, normal affect, pleasant and cooperative Initial Vital Signs Initial Vital Signs: Vital Signs Temperature 96.8 F L 12/09/22 16:55 Pulse Rate 92 H 12/09/22 16:55 Respiratory Rate 18 12/09/22 16:55 Blood Pressure 190/83 H 12/09/22 16:55 Pulse Oximetry 95 12/09/22 16:55 Oxygen Delivery Method 12/09/22 16:55 <Alfonso Yang DO - Last Filed: 12/10/22 07:11> Initial Vital Signs Initial Vital Signs: Vital Signs Temperature 96.8 F L 12/09/22 16:55 Pulse Rate 92 H 12/09/22 16:55 Respiratory Rate 18 12/09/22 16:55 Blood Pressure 190/83 H 12/09/22 16:55 Pulse Oximetry 95 12/09/22 16:55 Oxygen Delivery Method 12/09/22 16:55 Course <BLADIMIR Moran - Last Filed: 12/09/22 19:08> Orders Ordered: Discontinued Medications Hydrocodone Bitart/Acetaminophen (Hydrocodone/Acet 5/325 Tablet) 1 tab PO NOW ONE Stop: 12/09/22 18:23 Last Admin: 12/09/22 19:00 Dose: 1 tab Documented By: MARGARITO Ibuprofen (Ibuprofen 400 Mg Tablet) 400 mg PO NOW ONE Stop: 12/09/22 18:23 Last Admin: 12/09/22 19:00 Dose: 400 mg Documented By: MARGARITO Lidocaine HCl (Lidocaine 2% Inj Sdv 5ml) 5 ml INJ INTRA-OP ONE Stop: 12/09/22 18:23 Lidocaine HCl (Lidocaine 2% Inj Mdv 50ml) 1 mg SUBCUT NOW ONE Stop: 12/09/22 18:23 Vital Signs Vital signs: Vital Signs - 8 hr 12/09/22 16:55 12/09/22 17:44 12/09/22 17:45 Temperature 96.8 F L Pulse Rate 92 H 92 H Respiratory Rate 18 Blood Pressure 190/83 H 191/81 H Pulse Oximetry 95 91 Oxygen Delivery Method Room Air 12/09/22 17:45 12/09/22 18:00 Temperature Pulse Rate 89 85 Respiratory Rate Blood Pressure Pulse Oximetry 92 94 Oxygen Delivery Method <Alfonso Yang DO - Last Filed: 12/10/22 07:11> Orders Ordered: Discontinued Medications Hydrocodone Bitart/Acetaminophen (Hydrocodone/Acet 5/325 Tablet) 1 tab PO NOW ONE Stop: 12/09/22 18:23 Last Admin: 12/09/22 19:00 Dose: 1 tab Documented By: MARGARITO Ibuprofen (Ibuprofen 400 Mg Tablet) 400 mg PO NOW ONE Stop: 12/09/22 18:23 Last Admin: 12/09/22 19:00 Dose: 400 mg Documented By: MARGARITO Lidocaine HCl (Lidocaine 2% Inj Sdv 5ml) 5 ml INJ INTRA-OP ONE Stop: 12/09/22 18:23 Lidocaine HCl (Lidocaine 2% Inj Mdv 50ml) 1 mg SUBCUT NOW ONE Stop: 12/09/22 18:23 Vital Signs Vital signs: Vital Signs - 8 hr 12/09/22 16:55 12/09/22 17:44 12/09/22 17:45 Temperature 96.8 F L Pulse Rate 92 H 92 H Respiratory Rate 18 Blood Pressure 190/83 H 191/81 H Pulse Oximetry 95 91 Oxygen Delivery Method Room Air 12/09/22 17:45 12/09/22 18:00 Temperature Pulse Rate 89 85 Respiratory Rate Blood Pressure Pulse Oximetry 92 94 Oxygen Delivery Method MDM - Fall <BILL MroanP - Last Filed: 12/09/22 19:08> Lab Data Labs: Lab Results 12/09/22 Range/Units 16:58 Urine RBC None seen (0-5/HPF) Urine WBC 5-10/hpf H (0-5/HPF) Ur Squamous Epith Cells 1-5 /hpf (0-5/HPF) Urine Bacteria None seen (None) Ur Culture Indicated? Specimen cultured Urine Dip Bedside Urine Glucose Negative Bedside Urine Bilirubin - Negative Bedside Urine Ketone - Negative Urine Specific [place] 1.025 Bedside Urine Occult Blood - Negative Bedside Urine pH 6.0 Bedside Urine Protein +/- 15 Bedside Urine Urobilinogen - Negative Bedside Urine Nitrite - Negative Bedside Urine Leukocytes + 70 Esterase Imaging Data Extremity x-ray #1: Radiologist's Impression: PROCEDURE:? XR KNEE RT 3V ? INDICATIONS:? fall ? TECHNIQUE:? 3 views of the knee were acquired.? ? COMPARISON:? [facility], CT, CT HEAD/BRAIN WO CON, 12/09/2022, 17:28. ? FINDINGS:? ? Bones:? No fractures or dislocations.? No suspicious bony lesions.? ? There is moderate medial femorotibial joint space narrowing seen, with associated remodeling changes including subchondral sclerosis and osteophyte formation along the jointline.? On the sunrise view, there is moderate lateral patellofemoral joint space narrowing seen. Osteophyte formation can be seen along the margins of the patella. ? Soft tissues:? There is a minimal right knee joint effusion.? No suspicious soft tissue calcifications.? IMPRESSION:? No acute bony abnormality is seen. ? If there is point tenderness (or other clinical suspicion for a fracture not seen on these images) then a dedicated CT could be considered for further evaluation, if clinically appropriate. ? Underlying degenerative changes are seen.? ? Dictated by: Perston Silvestre M.D. on 12/09/2022 at 17:06 ? ? Approved by: Preston Silvestre M.D. on 12/09/2022 at 17:07 ? CT scan - head: Radiologist's Impression: PROCEDURE:? CT HEAD/BRAIN WO CON ? INDICATIONS:? fall ? TECHNIQUE:? Noncontrast 4.5 mm thick angled axial sections acquired from the foramen magnum to the vertex, with coronal and sagittal reformats.? For radiation dose reduction, the following was used:? automated exposure control, adjustment of mA and/or kV according to patient size.? ? COMPARISON:? [facility], CR, XR KNEE RT 3V, 12/09/2022, 17:20.? [facility], CT, CT HEAD/BRAIN WO CON, 04/30/2022, 14:21.? [facility], CT, CT HEAD/BRAIN WO CON, 07/23/2020, 0:49. ? FINDINGS:? Image quality:? Excellent.? ? CSF spaces:? Basal cisterns are patent.? No extra-axial fluid collections.? The ventricles are symmetric in size and shape.? ? Brain:? No intracranial bleeds or masses.? There is cerebral volume loss for age, with resultant ventricular and sulcal prominence.? There are periventricular and deep white matter chronic small vessel ischemic changes.? There is intracranial internal carotid artery atherosclerosis.? ? Skull and face:? There is a scalp hematoma seen posteriorly, as on series 2, image 21. No associated calvarial fracture can be seen.? Calvarium and visualized facial bones appear intact, without suspicious lesions.? ? Sinuses:? Visualized sinuses and mastoids are clear.? ? ? IMPRESSION:? Scalp hematoma posteriorly, without associated calvarial fracture or acute intracranial hemorrhage seen. ? ? Dictated by: Preston Silvestre M.D. on 12/09/2022 at 16:58 ? ? Approved by: Preston Silvestre M.D. on 12/09/2022 at 17:00 ? MDM Narrative Medical decision making narrative: Chief Complaint: Fall, head injury Differential diagnoses include but are not limited to: Intracranial hemorrhage, acute cystitis, viral illness, concussion, fracture to right knee, ligamental injury, knee effusion skull fracture, whiplash injury, paronychia, ingrown fingernail, fungal infection I have reviewed the patient's vital signs and nursing notes as well as prior records if available. Lab test results independently reviewed, pertinent findings: UA is negative for bacteria on microscopy, 5-10 wbc's, patient denies urinary symptoms, have not prescribed antibiotics for this. Urine culture is ordered, will follow-up on this. Independently reviewed imaging including: CT head without acute intracranial abnormality, scalp hematoma present without associated calvarial fracture or intracranial hemorrhage. Knee x-ray shows no acute bony abnormality with a mild right knee joint effusion Clinical decision rules or scores evaluated: Nexus C-spine and [place] head CT rule Course of care and re-evaluations: Evaluated the patient, she isn't having any focal neuro deficits, miles scalp hematoma without bleeding or laceration, no palpable skull fracture, no tenderness along C-spine, without weakness or pupil abnormality. Patient is interactive, she shows me her fingernail which has erythema and edema to the lateral aspect concerning for ingrowing fingernail. She wishes to have this treated today, we will perform nail removal. No streaking or erythematous lines up her arm Performed partial name remember to the 3rd lateral nail, patient tolerated well, she did have a jagged edge that was protruding laterally and likely causing her symptom. 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 She was prescribed mupirocin ointment to use topically while his heels and wound was covered with Xeroform and gauze. Patient tolerated well, this was completed using 1% lidocaine and a digital block at the DIP joint of the 3rd digit, good result Independent consultations with: Dr. Yang who also evaluated this finger Patient's symptoms improved over duration of stay with above-stated therapies. Social considerations that may affect disposition: none Questions are addressed and there is agreement with the plan and for follow-up. Patient is appropriate for outpatient management. MIPS: #[id number] - Emergency Medicine: Utilization of CT for Minor Blunt Head Trauma (Adult) Patient is 18 or older, presenting with minor blunt head trauma. Head CT (including cosigned orders) was ordered by an emergency direct care counselor for trauma because the patient: [ ] is vomiting\ severe/dangerous mechanism of injury was identified [ ] is experiencing a severe headache [ ] sustained loss of consciousness [ ] GCS less than 15 [ ] is experiencing amnesia of the event or focal neurologic deficit [ ] sustained injury above the clavicles [ ] is suspected of taking anticoagulant medications [x ] is 65 years or older [ ] is intoxicated <Alfonso Yang, - Last Filed: 12/10/22 07:11> Lab Data Labs: Lab Results 12/09/22 Range/Units 16:58 Urine RBC None seen (0-5/HPF) Urine WBC 5-10/hpf H (0-5/HPF) Ur Squamous Epith Cells 1-5 /hpf (0-5/HPF) Urine Bacteria None seen (None) Ur Culture Indicated? Specimen cultured Urine Dip Bedside Urine Glucose Negative Bedside Urine Bilirubin - Negative Bedside Urine Ketone - Negative Urine Specific [place] 1.025 Bedside Urine Occult Blood - Negative Bedside Urine pH 6.0 Bedside Urine Protein +/- 15 Bedside Urine Urobilinogen - Negative Bedside Urine Nitrite - Negative Bedside Urine Leukocytes + 70 Esterase Discharge Plan Departure Patient Disposition: Home Clinical Impression: Ingrown nail of right middle finger Fall Qualifiers: Encounter type: initial encounter Qualified Code(s): W19.XXXA - Unspecified fall, initial encounter Concussion Qualifiers: Encounter type: initial encounter Loss of consciousness presence/duration: without LOC Qualified Code(s): S06.0X0A - Concussion without loss of consciousness, initial encounter Closed head injury Qualifiers: Encounter type: initial encounter Qualified Code(s): S09.90XA - Unspecified injury of head, initial encounter Injury of knee Qualifiers: Encounter type: initial encounter Laterality: right Qualified Code(s): S89.91XA - Unspecified injury of right lower leg, initial encounter Instructions: Concussion, Ingrown Toenail Removal, Closed Head Injury Activity Restrictions/Additional Instructions: *You have been diagnosed with fall without loss of consciousness, head injury without concussion, you do have a bump on the back of your head but there is no cut or injury to the bone. CT does not show any bleeding or other injury inside her head. Your right knee does not show any acute fracture or major injury. Please use ice for pain, ibuprofen 400 mg with 650 mg of Tylenol every 6 hours as needed for your pain, please use hydrocodone in addition to that as needed, you sore over the next few days, this is common with a whiplash injury like. Please take it easy and we will call you if the urine culture grows bacteria that needs antibiotics. I hope you feel better soon, this is a big injury, please schedule follow-up with your primary care provider to evaluate your finger to make sure it is healing and hand picker your antibiotic ointment if you do not have any at home at your pharmacy. *What to do: *Please continue to take your regular medications as directed. [ x] New medication prescriptions sent to your pharmacy: [ [facility]] [ ] New medication written as a paper prescription [ ] No new medications given *Please follow up with your primary care provider in 2-3 days, call for an appointment. Let them know you were seen in the Emergency Department and that we asked that you be seen for follow-up. We will electronically transmit a record of today's note if your PCP is in our system *If you do not have a primary care provider please contact [phone] to establish care with one of [facility] primary care providers. *Return to Emergency Department if you should have any new, worsening, or concerning symptoms, such as [fever greater than 101F, chills, worsening pain, persistent vomiting or other bothersome symptoms]. Prescriptions: New mupirocin 2 % ointment 1 applic topical DAILY Qty: 15 0RF No Action (DME) Disabled parking permit See Rx Instructions .Route .MEDSUPPLY Qty: 1 0RF Rx Instructions: As directed [place] Solostar U-100 Insulin 100 unit/mL (3 mL) insulin pen See Rx Instructions .ROUTE .COMPLEX Qty: 15 11RF Dose Instruction: INJECT 45 UNITS SUBCUTANEOUSLY EVERY EVENING Rx Instructions: INJECT 45 UNITS SUBCUTANEOUSLY EVERY EVENING venlafaxine 150 mg capsule,extended release 24hr See Rx Instructions .ROUTE .COMPLEX Qty: 90 2RF Dose Instruction: TAKE 1 CAPSULE BY MOUTH DAILY Rx Instructions: TAKE 1 CAPSULE BY MOUTH DAILY cyclobenzaprine 5 mg tablet See Rx Instructions .ROUTE .COMPLEX Qty: 60 1RF Dose Instruction: TAKE 1 TABLET BY MOUTH THREE TIMES DAILY NEEDED FOR MUSCLE SPASM Rx Instructions: TAKE 1 TABLET BY MOUTH THREE TIMES DAILY NEEDED FOR MUSCLE SPASM lisinopril 20 mg tablet 20 mg PO DAILY Qty: 90 3RF levothyroxine 75 mcg tablet See Rx Instructions .ROUTE .COMPLEX Qty: 90 0RF Dose Instruction: TAKE 1 TABLET BY MOUTH EVERY MORNING Rx Instructions: TAKE 1 TABLET BY MOUTH EVERY MORNING CMP KETOPROFEN 20% cream See Rx Instructions TOP BID PRN (Reason: fibromyalgia) Qty: 120 3RF Rx Instructions: APPLY TO SWELLING JOINTS TWO TIMES A DAY NEEDED FOR PAIN (WASH HANDS AFTER APPLYING) solifenacin 10 mg tablet 10 mg PO DAILY Qty: 90 3RF hydrocodone-acetaminophen 10-325 mg tablet See Rx Instructions PO Q4-6H PRN (Reason: pain) Qty: 270 0RF Rx Instructions: 1-2 tabs, orally every 4-6 hours PRN; albuterol sulfate 90 mcg/actuation HFA aerosol inhaler 2 puff Inhalation Q8H PRN (Reason: shortness of breath) Qty: 6.7 5RF nortriptyline 10 mg capsule 10 mg PO BEDTIME Qty: 90 0RF carvedilol 12.5 mg tablet 12.5 mg PO BID Label Comments: TAKE 1 TABLET BY MOUTH TWICE DAILY WITH MEALS FOR HEART diclofenac sodium 1 % gel 2 g topical QID Referrals: Jeremy Aly DO [Primary Care Provider] - Stand Alone Forms: Patient Portal/API <Alfonso Yang DO - Last Filed: 12/10/22 07:11> [facility] Dr Yang Co-Sign Statement: I was available for consultation during this patient's emergency department visit. This chart is signed by myself for administrative purposes only. I did not have direct contact with this patient during this visit. They were seen independently by the APC.
[2022-12-09 18:30] VITALS: BP 191/81; PULSE 86; O2SAT 92
[2022-12-09] MEDS: HYDROCODONE/ACET 5/325 TABLET 1 TAB PO (19:00)
[2022-12-09] MEDS: IBUPROFEN 400 MG TABLET PO (19:00)
--- NOTE | 2022-12-09 19:01 | PC.NURSE ---
pt medicated for pain per JAN. Larissa Crew in room to suture pt's 3rd digit R hand.
--- NOTE | 2022-12-09 19:23 | PC.NURSE ---
Lidocaine ordered. Pulled from pyxsis by provider. Unable to be scanned due to provider throwing vial away.
[2022-12-09 19:24] VITALS: BP 162/78; PULSE 86; RESP 16; O2SAT 94
== END 2022-12-09 19:25 | disposition home or self-care (01) ==
PROVIDERS: Emergency Medicine; Emergency Provider Nurse Practitioner Critical Care Medicine; Family Provider Family Medicine; PCP Family Medicine
DX: S06.0X0A Concussion without loss of consciousness, initial encounter (principal); S89.91XA Unspecified injury of right lower leg, initial encounter; L60.0 Ingrowing nail; W18.30XA Fall on same level, unspecified, initial encounter; Z79.899 Other long term (current) drug therapy
CPT/HCPCS: 70450; 73562; 81003; 81015; 87086; 99284

== ENCOUNTER → 2022-12-13 11:54 | Outpatient (CLI) | payer MEDICARE, OTHER, SELFPAY ==
--- NOTE | 2022-12-13 11:59 | DI.CT.S_ITS ---
PROCEDURE: CT LUMBAR SPINE WO CON INDICATIONS: Spinal stenosis, lumbar region TECHNIQUE: Noncontrast 3 mm thick sections acquired from the T12 level to the sacrum. Sagittal and coronal reformats were constructed. For radiation dose reduction, the following was used: automated exposure control. COMPARISON: [facility], MR, MR LUMBAR SPINE WO CON, 02/26/2022, 13:34. [facility], CT, CT LUMBAR SPINE WO CON, 10/27/2022, 15:05. FINDINGS: Image quality: Excellent. Bones: Retrolisthesis of L1 on L2 measures approximately 6 mm. Trace retrolisthesis of L2 on L3. 4 mm anterolisthesis of L3 on L4. 5 mm anterolisthesis of L4 on L5.1 No acute vertebral body compression fractures. No suspicious lytic or blastic bony lesions. No pars defects. T12-L1: Interbody fusion, possibly auto fusion. Posterior osteophyte. Mild canal stenosis. Mild left and moderate right foraminal stenosis. L1-L2: Severe disc height loss. Posterior disc osteophyte complex. Facet and ligament hypertrophy. Moderate canal stenosis. L2-L3: Diffuse posterior disc bulge. Posterior decompression. Residual moderate canal stenosis. At least moderate bilateral foraminal stenosis. L3-L4: Posterior decompression. Posterior disc bulge. Mild canal stenosis. Moderate bilateral foraminal narrowing. Prominent bilateral facet hypertrophy. L4-L5: Posterior decompression. Posterior disc bulge. Mild canal stenosis. Moderate to severe bilateral foraminal narrowing. Prominent bilateral facet hypertrophy. L5-S1: Exuberant facet hypertrophy. No central canal stenosis. No significant foraminal stenosis. Soft tissues: No retroperitoneal masses or hematomas. Visualized aorta is normal in caliber. IMPRESSION: 1. Extensive degenerative change 2. Multilevel previous decompressions. 3. Residual canal stenosis as described above. 4. Multilevel foraminal narrowing as described above. Dictated by: Severiano Senior M.D. on 12/13/2022 at 14:31 Approved by: Severiano Senior M.D. on 12/13/2022 at 14:46
== END ==
PROVIDERS: Family Provider Family Medicine; PCP Family Medicine; Referring Provider Orthopaedic Surgery Orthopaedic Surgery of the Spine; Visit Provider Orthopaedic Surgery Orthopaedic Surgery of the Spine
DX: M48.062 Spinal stenosis, lumbar region with neurogenic claudication (principal); M47.816 Spondylosis without myelopathy or radiculopathy, lumbar region
CPT/HCPCS: 72131

== ENCOUNTER 2023-01-20 23:19 | Inpatient (IN) | payer MEDICARE, OTHER, SELFPAY ==
--- NOTE | 2023-01-20 23:17 | DI.CT.S_ITS ---
PROCEDURE: CT ANGIO HEAD AND NECK INDICATIONS: stroke, L sided symptoms TECHNIQUE: Pre-contrast 4.5 mm thick sections acquired from the foramen magnum to the vertex. After the administration of intravenous contrast, 1 mm thick sections acquired from the aortic arch through the [place]. Post-contrast 4.5 mm thick sections then re-acquired from the foramen magnum to the vertex. 3-dimensional fqyovek-zxpxllknh-bjeyzlzrck (MIP) and/or volume rendering reformats were acquired of the central intracranial vasculature and neck separately. For radiation dose reduction, the following was used: automated exposure control, adjustment of mA and/or kV according to patient size. COMPARISON: None. FINDINGS: Image quality: Excellent. BRAIN: CSF spaces: Ventricles are normal in size and shape. Basal cisterns are patent. No extra-axial fluid collections. Brain: No midline shift. No intracranial bleeds or masses. Chanel-white matter interface appears intact. Skull and face: Calvarium and facial bones appear intact, without suspicious lesions. Orbits appear normal. Sinuses: Sinuses and mastoids are clear. HEAD CT ANGIOGRAPHY: Anterior circulation: Intracranial internal carotid arteries are normal in size and flow. The flow within the paired anterior cerebral arteries is normal and symmetric. The flow within the middle cerebral arteries is normal and symmetric. The anterior communicating artery is seen. No aneurysms are seen. Posterior circulation: Visualized portions of the vertebral arteries demonstrate normal caliber, and join to form a normal appearing basilar artery. Flow within the posterior cerebral arteries is normal and symmetric. No aneurysms are seen. NECK CT ANGIOGRAPHY: Carotid system: The great vessels demonstrate a conventional anatomy as they arise from the aortic arch. The origins of the common carotid arteries appear patent. The common carotid arteries demonstrate normal caliber and courses. The bifurcation regions are both widely patent. The internal carotid arteries demonstrate normal calibers and courses. Posterior circulation: The origins of the vertebral arteries both appear widely patent. The more superior extracranial portions of both vertebral arteries also demonstrate normal courses and calibers. They join to form a normal appearing basilar artery. Soft tissues: Visualized neck soft tissues demonstrate no suspicious abnormalities. Bones: No suspicious bony lesions. Visualized cervical spine appears normally aligned. IMPRESSION: No evidence for embolic disease, or significant atherosclerotic stenosis involving the arterial vasculature within the neck and extending into the skull base. Source of current symptoms is not identified. Any quantitative measurements of stenosis were performed using NASCET criteria. Dictated by: Hung Mccormick M.D. on 01/21/2023 at 0:06 Approved by: Hung Mccormick M.D. on 01/21/2023 at 0:10
--- NOTE | 2023-01-20 23:17 | DI.CT.S_ITS ---
PROCEDURE: CT STROKE INDICATIONS: stroke, L sided symptoms TECHNIQUE: Noncontrast 4.5 mm thick angled axial sections acquired from the foramen magnum to the vertex, with coronal reformats. For radiation dose reduction, the following was used: automated exposure control, adjustment of mA and/or kV according to patient size. COMPARISON: None. FINDINGS: Image quality: Excellent. CSF spaces: Basal cisterns are patent. No extra-axial fluid collections. Ventricles are normal in size and shape. Brain: No midline shift. No intracranial masses or hemorrhage. Chanel-white matter interface is normal. Skull and face: Calvarium and visualized facial bones are intact, without suspicious lesions. Sinuses: Visualized sinuses and mastoids are clear. IMPRESSION: Normal for age, no intracranial hemorrhage or acute/subacute ischemic injury is found. This study fulfills neurological imaging criteria for inclusion or exclusion of acute stroke therapies based on available published neurological imaging guidelines. Dictated by: Hung Mccormcik M.D. on 01/20/2023 at 23:42 Approved by: Hung Mccormick M.D. on 01/20/2023 at 23:44
[2023-01-20 23:29] LABS: Add Manual Diff / Slide Review NO; Basophils Absolute Auto 100 /uL (0-100); Eosinophils Absolute Auto 200 /uL (0-450); Eosinophils Percent Auto 2.5 % (2-4); Hemoglobin 13.1 g/dL (12.0-16.0); Lymphocytes Absolute Auto 2000 /uL (1100-4500); Lymphocytes Percent Auto 28.9 % (25-40); Mean Corpuscular HGB Conc 33.7 % (30-36); Mean Corpuscular Hemoglobin 30.5 PG (26-34); Mean Corpuscular Volume 90.6 fL (80-100); Monocytes Absolute Auto 500 /uL (0-900); Monocytes Percent Auto 6.6 % (3-14); Neutrophils Absolute Auto 4300 /uL (1500-7000); Platelet Count 253 X10^3/uL (150-400); Red Cell Distribution Width 13.3 % (11.6-14.8)
[2023-01-20 23:41] LABS: PTT Partial Thromboplastin Tim 32 SECONDS (26-36)
[2023-01-20 23:43] LABS: Alanine Aminotransferase 18 IU/L (<35); Albumin 4.5 g/dL (3.5-5.0); Albumin Globulin Ratio 1.5 (1.0-2.8); Alkaline Phosphatase 84 U/L (38-126); Aspartate Aminotransferase 28 IU/L (14-36); BUN Creatinine Ratio 38.6 (6-22); Bilirubin Total 0.8 mg/dL (0.2-1.3); Blood Urea Nitrogen 22 mg/dL (7-17); Calcium 9.2 mg/dL (8.4-10.2); Carbon Dioxide 31 mmol/L (22-32); Chloride 100 mmol/L (98-107); Creatine Kinase 147 U/L (30-135); Estimated Glomerular Filt Rate > 60 mL/min (>60); Globulin 3.1 g/dL (1.7-4.1); Glucose 96 mg/dL (80-110); Potassium 4.1 mmol/L (3.4-5.1); Sodium 138 mmol/L (137-145); Total Protein 7.6 g/dL (6.3-8.2)
[2023-01-20 23:54] LABS: Troponin I < 0.012 ng/mL (0.01-0.034)
[2023-01-20 23:57] VITALS: PULSE 87; RESP 16; O2SAT 96; BMI 27.6
[2023-01-20 23:58] LABS: CKMB % Relative Index 2.6 % (1.5-5.0); Creatine Kinase MB 3.79 ng/mL (<2.37)
[2023-01-21] VITALS (17 sets, daily range): BP systolic 143–181; BP diastolic 47–74; PULSE 66–90; RESP 15–20; TEMP 36.1–36.9; O2SAT 94–97; BMI 28.9
[2023-01-21 00:02] LABS: Ethanol (ETOH) < 10 mg/dL; HEMOLYSIS 47 (0-50)
[2023-01-21 00:42] LABS: COVID19 -Nasal RAPID Negative (Negative)
[2023-01-21 01:49] LABS: Appearance Urine UA CLEAR; Bilirubin Urine UA NEGATIVE (NEGATIVE); Color Urine UA YELLOW; Glucose Urine UA NEGATIVE (Negative); Ketones Urine UA NEGATIVE (NEGATIVE); Leukocyte Esterase Urine UA 1+ (NEGATIVE); Nitrite Urine UA NEGATIVE (Negative); Occult Blood Urine UA NEGATIVE (Negative); Protein Urine UA NEGATIVE (Negative); Urobilinogen Urine UA 0.2 E.U./dL (0.2)
[2023-01-21 01:51] LABS: UR Morphine/Opiate cutoff 300 Positive (Negative); Ur Creatinine Normal (Normal); Ur Specific Gravity Normal (Normal); Urine Amphetamines Negative (Negative); Urine Barbiturates Negative (Negative); Urine Benzodiazepines Negative (Negative); Urine Cocaine Negative (Negative); Urine MDMA Negative (Negative); Urine Methadone Negative (Negative); Urine Methamphetamines Negative (Negative); Urine Oxycodone Negative (Negative); Urine Phencyclidine Negative (Negative); Urine Tetrahydrocannabinol Negative (Negative); Urine Tricyclic Antidepressant Positive (Negative); Urine pH Normal (Normal)
--- NOTE | 2023-01-21 02:21 | DI.CT.S_ITS ---
PROCEDURE: CT CHEST ABD PEL W CON INDICATIONS: fall., trauma, weakness TECHNIQUE: After the administration of intravenous contrast, 5 mm thick sections acquired from the lung apices to the symphysis. 2.5 mm thick coronal and sagittal reformats were acquired. Additional 7 mm thick coronal maximum intensity projection (MIP) reformats acquired through the lungs. Optional 10-minute delayed imaging may be performed from the kidneys to the bladder. For radiation dose reduction, the following was used: automated exposure control, adjustment of mA and/or kV according to patient size. COMPARISON: [facility], CT, CHEST/ABD/PEL WITH CONTRAST, 10/13/2015, 19:55. FINDINGS: Image quality: Excellent. CHEST: Lungs: No pulmonary contusions or lacerations. No acute airspace opacities. No pneumothorax or hemothorax. Central and peripheral airways appear patent and normal in caliber. Mediastinum: No mediastinal hematomas. Heart size is normal. No pericardial effusion. Thoracic aorta and pulmonary arteries demonstrate normal size and enhancement. No mediastinal or hilar adenopathy. Esophagus is normal in caliber. No hiatal hernia. Chest wall: No rib fractures. No subcutaneous emphysema. No axillary or supraclavicular adenopathy. Thyroid gland is normal. ABDOMEN: Solid organs: Liver is normal in size and enhancement, without lacerations. Gallbladder is surgically absent. Biliary system is non-dilated. Pancreas enhances normally, without transection. Spleen is normal in size and enhancement, without lacerations. No adrenal hematomas. Both kidneys enhance normally, without hydronephrosis or lacerations. Peritoneum and bowel: No free fluid or air. Unenhanced bowel loops demonstrate normal wall thickness and caliber. Nodes and vessels: No retroperitoneal or mesenteric adenopathy. Aorta and inferior vena cava are normal in size and enhancement. Miscellaneous: Small fat containing umbilical hernia. Soft tissue hematoma/edema along the superficial left flank. PELVIS: Genitourinary: Bladder wall thickness is normal. Miscellaneous: No inguinal hernias or adenopathy. Bones: Pelvic ring and hip joints appear intact. No vertebral compression fractures. IMPRESSION: No acute traumatic within the chest abdomen or pelvis. Superficial soft tissue hematoma over the left flank. Dictated by: Anival Price M.D. on 01/21/2023 at 8:27 Approved by: Anival Price M.D. on 01/21/2023 at 8:35
[2023-01-21 02:23] LABS: Bacteria Urine Occasional (0-1); RBC Urine None Seen (0-5/HPF); Squamous Epithelial Cell Urine 0-1 /HPF (0-5/HPF); WBC Urine 0-1/HPF (0-5/HPF)
[2023-01-21] MEDS: HYDROCODONE/ACET 5/325 TABLET 2 TAB PO (03:26)
--- NOTE | 2023-01-21 03:29 | ED_ITS ---
HPI - Fall General Chief Complaint: Fall Stated Complaint: Stroke Time Seen by Provider: 01/20/23 23:35 Source: patient and EMS Mode of arrival: EMS History of Present Illness HPI Narrative: 82-year-old female nonsmoker with history of chronic lumbar pain with radiculopathy affecting lower extremities, asthma, hypothyroid presents by EMS with concerns of potential stroke. She lives at home alone and reports to have been in normal state of health until about 1045 when she states her legs gave out from under her and she fell to the ground. She denies any head, neck or back injury. She states that she is unsure why her legs gave out from under her. She states that she thinks her left leg may have become weak and she reports left-sided facial weakness and inability to talk. Those symptoms had resolved prior to her arrival, however she was activated as a code stroke given the report of neurologic symptoms for 45 minutes. She is a very poor historian and continues to have stuttering speech which she states is not her baseline. She denies any change in medications or diet. She apparently lives at home alone with little support Related Data Home Medications Medication Instructions Recorded Confirmed carvedilol 12.5 mg tablet 12.5 mg PO BID 05/23/22 12/14/22 diclofenac sodium 1 % topical gel 2 g topical QID 05/23/22 12/14/22 Previous Rx's Medication Instructions Recorded Disabled parking permit #1 ea 02/19/21 albuterol sulfate 90 mcg/actuation 2 puff inhalation Q8H PRN 09/23/21 aerosol inhaler shortness of breath #6.7 grams venlafaxine 150 mg See Rx Instructions .Route 08/09/22 capsule,extended release 24 hr .COMPLEX #90 caps lisinopril 20 mg tablet 20 mg PO DAILY #90 tabs 11/01/22 nortriptyline 10 mg capsule 10 mg PO BEDTIME #90 caps 11/02/22 levothyroxine 75 mcg tablet See Rx Instructions .Route 11/14/22 .COMPLEX #90 tabs CMP KETOPROFEN 20% See Rx Instructions topical BID 11/15/22 PRN fibromyalgia #120 grams solifenacin 10 mg tablet 10 mg PO DAILY #90 tabs 12/01/22 mupirocin 2 % topical ointment 1 applic topical DAILY #15 grams 12/09/22 carisoprodol 250 mg tablet See Rx Instructions PO TID PRN 12/14/22 muscle pain #90 tabs hydrocodone 10 mg-acetaminophen See Rx Instructions PO Q4-6H PRN 12/27/22 325 mg tablet pain #270 tabs insulin glargine 100 unit/mL (3 See Rx Instructions .Route 12/30/22 mL) subcutaneous pen (Lantus .COMPLEX #15 mL Solostar U-100 Insulin) lidocaine 5 % topical patch 1 patch topical DAILY #30 ea 01/05/23 Allergies Allergy/AdvReac Type Severity Reaction Status Date / Time amoxicillin [AMOXICILLIN] Allergy Unknown Verified 12/14/22 15:51 clavulanic acid Allergy Unknown Verified 12/14/22 15:51 [CLAVULANIC ACID] latex [LATEX] Allergy Unknown Rash Verified 12/14/22 15:51 metformin [METFORMIN] Allergy Unknown Diarrhea Verified 12/14/22 15:51 Penicillins [PENICILLINS] Allergy Unknown Flushing Verified 12/14/22 15:51 zolpidem [ZOLPIDEM] Allergy Unknown Verified 12/14/22 15:51 Xxlwjok-SJY-FjA Reductase Allergy Verified 12/14/22 15:51 Inhibitor [Wavjdgc-Bdw-Pdd Reductase Inhibitor] TOPICAL IODINE Allergy Unknown Rash Uncoded 12/14/22 15:51 Review of Systems Review of Systems Narrative: GENERAL: Denies chills, fatigue, malaise, fever, sweats. HEENT: Denies sinus pain, ear pain, sore throat, difficulty swallowing, dizziness. RESPIRATORY: Denies dyspnea, cough, wheezing, hemoptysis, sputum. CARDIOVASCULAR: Denies chest pain, palpitations, orthopnea, edema, GASTROINTESTINAL: Denies nausea, vomiting, abdominal pain, diarrhea, constipation, melena. : Denies dysuria, frequency, incontinence, hematuria, urinary retention. MUSCULOSKELETAL: denies weakness, joint pain, or bony pain SKIN: Denies rash, skin lesions, or other NEUROLOGIC: See HPI PSYCHIATRIC: No concerning psychosocial issues. 12 point review of systems is negative except for those stated above Patient History Medical History Asthma Cervical somatic dysfunction Chronic thoracic back pain Congenital duplication of renal collecting system Cough in adult patient CTS (carpal tunnel syndrome) Diabetes mellitus Diverticular disease Essential hypertension Fall from ground level Fibromyalgia Finger infection Greater trochanteric bursitis of both hips Greater trochanteric bursitis of left hip Hematuria Hernia, diaphragmatic Herniated nucleus pulposus, L4-5 Hyperlipidemia Hypothyroidism Iliotibial band syndrome of both sides Iliotibial band syndrome, left leg Iliotibial band syndrome, right leg Joint pain in both hands Left shoulder pain Leg pain, bilateral Lumbar back pain with radiculopathy affecting lower extremity Lumbar region somatic dysfunction Nocturia more than twice per night Nondisplaced fracture of right scaphoid bone Pelvic somatic dysfunction Postmenopausal atrophic vaginitis Postoperative pain after spinal surgery PSVT (paroxysmal supraventricular tachycardia) Pyuria Sacral region somatic dysfunction Segmental and somatic dysfunction of abdomen and other regions Somatic dysfunction of lower extremity Stressful life events affecting family and household Thoracic region somatic dysfunction Tinea corporis Urge incontinence Surgical History History of carpal tunnel repair History of cystoscopy Status post appendectomy Status post breast reduction Status post cholecystectomy Status post hysterectomy with oophorectomy Family History Father Dementia MVA (motor vehicle accident) Mother Dementia Colon cancer Social History marital status: household members: none Smoking Status: Never smoker alcohol intake: current substance use type: does not use Smoking Status: Never smoker alcohol intake frequency: 0-2 drinks per day Substance Use Type: does not use Exam Narrative Exam Narrative: GENERAL: [82] year old patient appears stated age. Well-developed patient, in mild distress. GCS 14 (confused) HEAD: Atraumatic. Normocephalic. No contusion or abrasion, no evidence of depressed skull fracture EYES: Pupils equal round and reactive. No hyphema Extraocular motions intact. No scleral icterus. No injection or drainage. ENT: Nose without bleeding, purulent drainage. No nasal septal hematoma Throat without erythema, tonsillar hypertrophy or exudate. Airway patent. NECK: Trachea midline. Non tender CARDIOVASCULAR: Regular rate and rhythm without murmurs, gallops, or rubs. RESPIRATORY: Clear to auscultation. Breath sounds equal bilaterally. No wheezes, rales, or rhonchi. GASTROINTESTINAL: Abdomen soft, non-tender, nondistended. EXTREMITIES: No edema or joint tenderness. Bilateral hips tender to palpate BACK: Nontender without deformity or crepitance. No flank tenderness. NEURO: AOx3. Cranial nerves 2-12 grossly intact SKIN: No rash or erythema of visible areas NIH Stroke Scale 1a. LOC: Patient is alert and keenly responsive (0) 1b. LOC Questions: Patient answers both LOC questions accurately (0) 1c. LOC Commands: Patient performs both tasks correctly (0) 2. Best Gaze: Normal (0) 3. Visual: No visual loss (0) 4. Facial palsy: Normal symmetrical movements (0) 5. Motor arm: No drift (0) 6. Motor leg: No drift (0) 7. Limb ataxia: Absent (0) 8. Sensory: Normal (0) 9. Best language: No aphasia; normal (0) 10. Dysarthria: Normal (0) 11. Extinction and inattention: No abnormality (0) NIHSS: 0 Initial Vital Signs Initial Vital Signs: Vital Signs Pulse Rate 87 01/20/23 23:57 Respiratory Rate 16 01/20/23 23:57 Pulse Oximetry 96 01/20/23 23:57 Oxygen Delivery Method Room Air 01/20/23 23:57 Course Orders Ordered: ED Orders 01/20/23 23:[address] angio head and neck Stat EKG-12 Lead Stat 01/20/23 23:26 Complete Blood Count AUTO DIFF Stat Comprehensive Metabolic Panel Stat Ethanol (ETOH) Stat PTT Partial Thromboplastin Jenaro Stat Prothrombin Time INR Stat Troponin & CK Cardiac Panel Stat 01/21/23 EKG-12 Lead Routine 01/21/23 00:15 COVID19 -Nasal RAPID Stat 01/21/23 01:47 Urinalysis and Microscopic Stat Urine Culture Stat 01/21/23 02:21 CT chest abd pel w con Stat Discontinued Medications Hydrocodone Bitart/Acetaminophen (Hydrocodone/Acet 5/325 Tablet) 2 tab PO NOW ONE Stop: 01/21/23 03:23 Last Admin: 01/21/23 03:26 Dose: 2 tab Documented By: EDMOND Vital Signs Vital signs: Vital Signs - 8 hr 01/20/23 23:57 01/21/23 00:07 01/21/23 00:08 Pulse Rate 87 87 Respiratory Rate 16 Blood Pressure 143/66 H Pulse Oximetry 96 94 Oxygen Delivery Method Room Air 01/21/23 00:08 01/21/23 00:30 01/21/23 01:00 Pulse Rate 87 90 89 Respiratory Rate Blood Pressure Pulse Oximetry 94 94 95 Oxygen Delivery Method MDM - Fall Lab Data 01/20/23 23:26 01/20/23 23:26 Labs: Lab Results 01/20/23 01/20/23 01/20/23 Range/Units 01:45 23:26 23:26 WBC 7.0 (4.5-11.0) X10^3/uL RBC 4.30 (4.0-5.2) X10^6/uL Hgb 13.1 (12.0-16.0) g/dL Hct 39.0 (36-46) % MCV 90.6 (80-100) fL MCH 30.5 (26-34) PG MCHC 33.7 (30-36) % RDW 13.3 (11.6-14.8) % Plt Count 253 (150-400) X10^3/uL Neut % (Auto) 61.0 (50-75) % Lymph % (Auto) 28.9 (25-40) % Bladen % (Auto) 6.6 (3-14) % Eos % (Auto) 2.5 (2-4) % Baso % (Auto) 1.0 (0-2) % Neut # (Auto) 4300 (2040-9899) /uL Lymph # (Auto) 2000 (9407-7361) /uL Bladen # (Auto) 500 (0-900) /uL Eos # (Auto) 200 (0-450) /uL Baso # (Auto) 100 (0-100) /uL PT 12.0 (10.1-12.7) SECONDS INR 1.0 (0.9-1.3) APTT 32 (26-36) SECONDS Sodium (137-145) mmol/L Potassium (3.4-5.1) mmol/L Chloride (98-107) mmol/L Carbon Dioxide (22-32) mmol/L BUN (7-17) mg/dL Creatinine (0.52-1.04) mg/dL Estimated GFR (>60) mL/min BUN/Creatinine Ratio (6-22) Glucose (80-110) mg/dL Calcium (8.4-10.2) mg/dL Total Bilirubin (0.2-1.3) mg/dL AST (14-36) IU/L ALT (<35) IU/L Alkaline Phosphatase (38-126) U/L Total Creatine Kinase (30-135) U/L CK-MB (CK-2) (<2.37) ng/mL CK-MB (CK-2) Rel Index (1.5-5.0) % Troponin I (0.01-0.034) ng/mL Total Protein (6.3-8.2) g/dL Albumin (3.5-5.0) g/dL Globulin (1.7-4.1) g/dL Albumin/Globulin Ratio (1.0-2.8) Urine Color Urine Appearance Urine pH (4.5-8.0) Ur Specific [place] (1.000-1.035) Urine Protein (Negative) Urine Glucose (UA) (Negative) g/dL Urine Ketones (NEGATIVE) Urine Occult Blood (Negative) Urine Nitrate (Negative) Urine Bilirubin (NEGATIVE) Urine Urobilinogen (0.2) E.U./dL Ur Leukocyte Esterase (NEGATIVE) Urine RBC (0-5/HPF) Urine WBC (0-5/HPF) Ur Squamous Epith Cells (0-5/HPF) Urine Bacteria (None) U Opiates 300ng/mL cut Positive H (Negative) Ur Oxycodone Screen Negative (Negative) Urine Methadone Screen Negative (Negative) Ur Barbiturates Screen Negative (Negative) U Tricyclic Antidepress Positive H (Negative) Ur Phencyclidine Scrn Negative (Negative) Ur Amphetamines Screen Negative (Negative) U Methamphetamines Scrn Negative (Negative) Ur MDMA Scrn (Ecstasy) Negative (Negative) U Benzodiazepines Scrn Negative (Negative) Urine Cocaine Screen Negative (Negative) U Marijuana (THC) Screen Negative (Negative) Ethyl Alcohol ( - 10) mg/dL SARS-CoV-2 (PCR) (Negative) 01/20/23 01/21/23 01/21/23 Range/Units 23:26 00:15 01:47 WBC (4.5-11.0) X10^3/uL RBC (4.0-5.2) X10^6/uL Hgb (12.0-16.0) g/dL Hct (36-46) % MCV (80-100) fL MCH (26-34) PG MCHC (30-36) % RDW (11.6-14.8) % Plt Count (150-400) X10^3/uL Neut % (Auto) (50-75) % Lymph % (Auto) (25-40) % Bladen % (Auto) (3-14) % Eos % (Auto) (2-4) % Baso % (Auto) (0-2) % Neut # (Auto) (5457-7630) /uL Lymph # (Auto) (2593-6015) /uL Bladen # (Auto) (0-900) /uL Eos # (Auto) (0-450) /uL Baso # (Auto) (0-100) /uL PT (10.1-12.7) SECONDS INR (0.9-1.3) APTT (26-36) SECONDS Sodium 138 (137-145) mmol/L Potassium 4.1 (3.4-5.1) mmol/L Chloride 100 (98-107) mmol/L Carbon Dioxide 31 (22-32) mmol/L BUN 22 H (7-17) mg/dL Creatinine 0.57 (0.52-1.04) mg/dL Estimated GFR > 60 (>60) mL/min BUN/Creatinine Ratio 38.6 H (6-22) Glucose 96 (80-110) mg/dL Calcium 9.2 (8.4-10.2) mg/dL Total Bilirubin 0.8 (0.2-1.3) mg/dL AST 28 (14-36) IU/L ALT 18 (<35) IU/L Alkaline Phosphatase 84 (38-126) U/L Total Creatine Kinase 147 H (30-135) U/L CK-MB (CK-2) 3.79 H (<2.37) ng/mL CK-MB (CK-2) Rel Index 2.6 (1.5-5.0) % Troponin I < 0.012 (0.01-0.034) ng/mL Total Protein 7.6 (6.3-8.2) g/dL Albumin 4.5 (3.5-5.0) g/dL Globulin 3.1 (1.7-4.1) g/dL Albumin/Globulin Ratio 1.5 (1.0-2.8) Urine Color Yellow Urine Appearance Clear Urine pH 6.0 (4.5-8.0) Ur Specific [place] 1.010 (1.000-1.035) Urine Protein Negative (Negative) Urine Glucose (UA) Negative (Negative) g/dL Urine Ketones Negative (NEGATIVE) Urine Occult Blood Negative (Negative) Urine Nitrate Negative (Negative) Urine Bilirubin Negative (NEGATIVE) Urine Urobilinogen 0.2 (0.2) E.U./dL Ur Leukocyte Esterase 1+ H (NEGATIVE) Urine RBC None seen (0-5/HPF) Urine WBC 0-1/hpf (0-5/HPF) Ur Squamous Epith Cells 0-1 /hpf (0-5/HPF) Urine Bacteria Occasional (0-1) (None) U Opiates 300ng/mL cut (Negative) Ur Oxycodone Screen (Negative) Urine Methadone Screen (Negative) Ur Barbiturates Screen (Negative) U Tricyclic Antidepress (Negative) Ur Phencyclidine Scrn (Negative) Ur Amphetamines Screen (Negative) U Methamphetamines Scrn (Negative) Ur MDMA Scrn (Ecstasy) (Negative) U Benzodiazepines Scrn (Negative) Urine Cocaine Screen (Negative) U Marijuana (THC) Screen (Negative) Ethyl Alcohol < 10 ( - 10) mg/dL SARS-CoV-2 (PCR) Negative (Negative) Point of Care Testing Glucose POC 98 Urine Dip Bedside Urine Glucose Negative Bedside Urine Bilirubin - Negative Bedside Urine Ketone - Negative Urine Specific [place] 1.015 Bedside Urine Occult Blood - Negative Bedside Urine pH 6.0 Bedside Urine Protein - Negative Bedside Urine Urobilinogen - Negative Bedside Urine Nitrite - Negative Bedside Urine Leukocytes + 70 Esterase MDM Narrative Medical decision making narrative: CC: 82F with confusion, report of possible neurologic symptoms, weakness Complicating co-morbidities: age, HTN Data collected from: Patient (very poor historian) Medical records reviewed: Prior notes reviewed in our EMR Differential considered, but not limited to: Stroke, traumatic injury, toxic or metabolic encephalopathy, infectious etiology, thyroid abnormality versus other Exam documented above, pertinent findings include: Pleasantly confused, no obvious traumatic injury other than a small superficial abrasion on left knee, no bruises, contusions or skin breakdown to suggest she had been lying on the ground for an extended period of time. No obvious focal neurologic findings, no pain in lower extremities with axial loading. Lab Test results independently reviewed as above. Pertinent findings: No leukocytosis or left shift, no signs of anemia, no electrolyte abnormality or abnormal renal function, urine dip with leuk esterase, urine micro perhaps less convincing for UTI, U tox positive for opiates and TCA. Imaging studies independently reviewed: CT of the head and CTA of head and neck unremarkable. More broad imaging explored after her story became less clear, no significant abnormal findings on chest, abdomen or pelvis CT Scores Used: NIHSS MIPS Elements: No focal neuro findings, no clear timeline , no indication for TPA Consultations: Hospitalist happy to accept Treatments: Hydrocodone (chronic meds, for chronic pain) Re-evaluations: Patient without evidence of focal neurologic findings. Patient then primary focus was of complaint of bilateral hips with radiation down her legs, she is given her chronic pain meds and attempted to ambulate, she is very weak and confused, unable to ambulate even with the assistance of a nurse, myself and a walker. This is apparently a significant departure from her baseline and she states that she was walking either yesterday or the day before and no longer can. Discharge Plan Departure Patient Disposition: Admitted as Observation Clinical Impression: Acute metabolic encephalopathy, Brain TIA, Acute UTI Admit Date/Time: 01/21/23 04:13 Admit Provider: Brett Rivas
[2023-01-21 04:42] LABS: Acetaminophen < 10 ug/mL (10-30); Salicylate < 1.0 mg/dL (<20)
[2023-01-21 05:14] LABS: TSH w/ Reflex to FT4 0.96 uIU/mL (0.47-4.68)
--- NOTE | 2023-01-21 05:51 | PM.HP.1 ---
History of Present Illness History of Present Illness Date Patient Seen: 01/21/23 Time Patient Seen: 05:00 Chief complaint: Stroke Narrative: Ms. Goodwin is a 82W with PMH chronic back pain, hypothyroidism who presents after a fall. History is difficult to obtain as the patient is confuse. She states that she feels she can't think right. She states she came in because she had a fall, because her legs gave out on me. She is not sure if she tripped, or was lightheaded. She is not sure if she fell a day ago or a few hours ago. She said after the fall she had difficulty getting up due to pain. She says she is planned at some point to have back surgery. She at baseline appears to take nortriptyline, and venlafaxine, over the past few weeks she has prescriptions noted for carisoprodol, cyclobenzaprine, and hydrocodone. She states due to her pain she has taken more of some medications, but she is not sure which, she thinks it's her vicodin but is not sure In the ED workup was done, vitals notable for elevated blood pressure, normal oxygen sat. Labs notable for WBC 7.0, hgb 13.1, plts 253. Creatinine 0.53. Urinalysis showed 1+ leuk esterase, urine wbc 0-1, occasional bacteria 0-1. Salicylates negative. etoh negative. Tylenol negative. Code stroke was called. NIH 0. CT head negative for any acute process. CTA head/neck shows no acute process. CT chest, abdomen, pelvis shows no acute process. She was admitted for further treatment. Patient History Medical History Asthma Cervical somatic dysfunction Chronic thoracic back pain Congenital duplication of renal collecting system Cough in adult patient CTS (carpal tunnel syndrome) Diabetes mellitus Diverticular disease Essential hypertension Fall from ground level Fibromyalgia Finger infection Greater trochanteric bursitis of both hips Greater trochanteric bursitis of left hip Hematuria Hernia, diaphragmatic Herniated nucleus pulposus, L4-5 Hyperlipidemia Hypothyroidism Iliotibial band syndrome of both sides Iliotibial band syndrome, left leg Iliotibial band syndrome, right leg Joint pain in both hands Left shoulder pain Leg pain, bilateral Lumbar back pain with radiculopathy affecting lower extremity Lumbar region somatic dysfunction Nocturia more than twice per night Nondisplaced fracture of right scaphoid bone Pelvic somatic dysfunction Postmenopausal atrophic vaginitis Postoperative pain after spinal surgery PSVT (paroxysmal supraventricular tachycardia) Pyuria Sacral region somatic dysfunction Segmental and somatic dysfunction of abdomen and other regions Somatic dysfunction of lower extremity Stressful life events affecting family and household Thoracic region somatic dysfunction Tinea corporis Urge incontinence Surgical History History of carpal tunnel repair History of cystoscopy Status post appendectomy Status post breast reduction Status post cholecystectomy Status post hysterectomy with oophorectomy Family & Social History Family History Father Dementia MVA (motor vehicle accident) Mother Dementia Colon cancer Social History: household members none Prior Living Arrangements House Safety & Behavioral: Feels Safe in Current Yes Environment Been Physically Hurt or No Threatened By a Person Tobacco & Substance use: Smoking Status Never smoker alcohol intake never alcohol intake frequency 0-2 drinks per day Substance Use Type does not use Meds Home Medications and Allergies Home Medications Medication Instructions Recorded Confirmed Type Disabled parking permit #1 ea 02/19/21 12/14/22 Rx albuterol sulfate 90 mcg/actuation 2 puff inhalation Q8H PRN 09/23/21 01/21/23 Rx aerosol inhaler shortness of breath #6.7 grams carvedilol 12.5 mg tablet 12.5 mg PO BID 05/23/22 01/21/23 History diclofenac sodium 1 % topical gel 2 g topical QID 05/23/22 01/21/23 History venlafaxine 150 mg See Rx Instructions .Route 08/09/22 12/14/22 Rx capsule,extended release 24 hr .COMPLEX #90 caps lisinopril 20 mg tablet 20 mg PO DAILY #90 tabs 11/01/22 12/14/22 Rx nortriptyline 10 mg capsule 10 mg PO BEDTIME #90 caps 11/02/22 12/14/22 Rx levothyroxine 75 mcg tablet See Rx Instructions .Route 11/14/22 12/14/22 Rx .COMPLEX #90 tabs CMP KETOPROFEN 20% See Rx Instructions topical BID 11/15/22 01/21/23 Rx PRN fibromyalgia #120 grams solifenacin 10 mg tablet 10 mg PO DAILY #90 tabs 12/01/22 12/14/22 Rx mupirocin 2 % topical ointment 1 applic topical DAILY #15 grams 12/09/22 12/14/22 Rx hydrocodone 10 mg-acetaminophen See Rx Instructions PO Q4-6H PRN 12/27/22 01/21/23 Rx 325 mg tablet pain #270 tabs insulin glargine 100 unit/mL (3 See Rx Instructions .Route 12/30/22 Rx mL) subcutaneous pen (Lantus .COMPLEX #15 mL Solostar U-100 Insulin) lidocaine 5 % topical patch 1 patch topical DAILY #30 ea 01/05/23 Rx Allergies Allergy/AdvReac Type Severity Reaction Status Date / Time amoxicillin [AMOXICILLIN] Allergy Unknown Verified 12/14/22 15:51 clavulanic acid Allergy Unknown Verified 12/14/22 15:51 [CLAVULANIC ACID] latex [LATEX] Allergy Unknown Rash Verified 12/14/22 15:51 metformin [METFORMIN] Allergy Unknown Diarrhea Verified 12/14/22 15:51 Penicillins [PENICILLINS] Allergy Unknown Flushing Verified 12/14/22 15:51 zolpidem [ZOLPIDEM] Allergy Unknown Verified 12/14/22 15:51 [id number] Reductase Allergy Verified 12/14/22 15:51 Inhibitor [Coiopok-Cri-Ipb Reductase Inhibitor] TOPICAL IODINE Allergy Unknown Rash Uncoded 12/14/22 15:51 Review of Systems Review of Systems Narrative: 14 systems reviewed and negative aside from what is noted in HPI Exam Vital Signs (past 8 hours): - 01/20/23 23:57 01/21/23 00:07 01/21/23 00:08 Temperature Pulse Rate 87 87 Respiratory Rate 16 Blood Pressure 143/66 H Pulse Oximetry 96 94 Oxygen Delivery Method Room Air 01/21/23 00:08 01/21/23 00:30 01/21/23 01:00 Temperature Pulse Rate 87 90 89 Respiratory Rate Blood Pressure Pulse Oximetry 94 94 95 Oxygen Delivery Method 01/21/23 04:14 01/21/23 04:14 01/21/23 04:30 Temperature Pulse Rate 87 87 Respiratory Rate 18 Blood Pressure 159/66 H 159/66 H Pulse Oximetry 94 Oxygen Delivery Method 01/21/23 05:49 01/21/23 05:05 Temperature 97.0 F L Pulse Rate 83 Respiratory Rate 17 Blood Pressure 181/74 H Pulse Oximetry 97 Oxygen Delivery Method Room Air Oxygen Delivery Method Room Air Narrative Exam Narrative: GEN: mild distress from pain HEENT: moist mucous membranes, PERRL NECK: trachea midline, no jvd PULM: clear bilaterally, no wheezes, rhonchi, rales CV: regular rate and rhythm, no murmurs ABD: soft, nontender, nondistneded, no organomegaly EXT: warm and well perfused with no edema NEURO: awake, alert, staccato speech, jittery extremities, confused, upper and lower extremity strength 5/5 Objective Labs 01/20/23 23:26 01/20/23 23:26 Labs: Laboratory Results - last 24 hr 01/20/23 01/20/23 01/20/23 01:45 23:20 23:26 WBC 7.0 RBC 4.30 Hgb 13.1 Hct 39.0 MCV 90.6 MCH 30.5 MCHC 33.7 RDW 13.3 Plt Count 253 Neut % (Auto) 61.0 Lymph % (Auto) 28.9 [place] % (Auto) 6.6 Eos % (Auto) 2.5 Baso % (Auto) 1.0 Neut # (Auto) 4300 Lymph # (Auto) 2000 [place] # (Auto) 500 Eos # (Auto) 200 Baso # (Auto) 100 PT INR APTT Sodium Potassium Chloride Carbon Dioxide BUN Creatinine Estimated GFR BUN/Creatinine Ratio Glucose Calcium Total Bilirubin AST ALT Alkaline Phosphatase Total Creatine Kinase CK-MB (CK-2) CK-MB (CK-2) Rel Index Troponin I Total Protein Albumin Globulin Albumin/Globulin Ratio TSH 0.96 Urine Color Urine Appearance Urine pH Ur Specific [place] Urine Protein Urine Glucose (UA) Urine Ketones Urine Occult Blood Urine Nitrate Urine Bilirubin Urine Urobilinogen Ur Leukocyte Esterase Urine RBC Urine WBC Ur Squamous Epith Cells Urine Bacteria Salicylates U Opiates 300ng/mL cut Positive H Ur Oxycodone Screen Negative Urine Methadone Screen Negative Acetaminophen Ur Barbiturates Screen Negative U Tricyclic Antidepress Positive H Ur Phencyclidine Scrn Negative Ur Amphetamines Screen Negative U Methamphetamines Scrn Negative Ur MDMA Scrn (Ecstasy) Negative U Benzodiazepines Scrn Negative Urine Cocaine Screen Negative U Marijuana (THC) Screen Negative Ethyl Alcohol SARS-CoV-2 (PCR) 01/20/23 01/20/23 01/21/23 23:26 23:26 00:15 WBC RBC Hgb Hct MCV MCH MCHC RDW Plt Count Neut % (Auto) Lymph % (Auto) [place] % (Auto) Eos % (Auto) Baso % (Auto) Neut # (Auto) Lymph # (Auto) [place] # (Auto) Eos # (Auto) Baso # (Auto) PT 12.0 INR 1.0 APTT 32 Sodium 138 Potassium 4.1 Chloride 100 Carbon Dioxide 31 BUN 22 H Creatinine 0.57 Estimated GFR > 60 BUN/Creatinine Ratio 38.6 H Glucose 96 Calcium 9.2 Total Bilirubin 0.8 AST 28 ALT 18 Alkaline Phosphatase 84 Total Creatine Kinase 147 H CK-MB (CK-2) 3.79 H CK-MB (CK-2) Rel Index 2.6 Troponin I < 0.012 Total Protein 7.6 Albumin 4.5 Globulin 3.1 Albumin/Globulin Ratio 1.5 TSH Urine Color Urine Appearance Urine pH Ur Specific [place] Urine Protein Urine Glucose (UA) Urine Ketones Urine Occult Blood Urine Nitrate Urine Bilirubin Urine Urobilinogen Ur Leukocyte Esterase Urine RBC Urine WBC Ur Squamous Epith Cells Urine Bacteria Salicylates U Opiates 300ng/mL cut Ur Oxycodone Screen Urine Methadone Screen Acetaminophen Ur Barbiturates Screen U Tricyclic Antidepress Ur Phencyclidine Scrn Ur Amphetamines Screen U Methamphetamines Scrn Ur MDMA Scrn (Ecstasy) U Benzodiazepines Scrn Urine Cocaine Screen U Marijuana (THC) Screen Ethyl Alcohol < 10 SARS-CoV-2 (PCR) Negative 01/21/23 01/21/23 00:15 01:47 WBC RBC Hgb Hct MCV MCH MCHC RDW Plt Count Neut % (Auto) Lymph % (Auto) [place] % (Auto) Eos % (Auto) Baso % (Auto) Neut # (Auto) Lymph # (Auto) [place] # (Auto) Eos # (Auto) Baso # (Auto) PT INR APTT Sodium Potassium Chloride Carbon Dioxide BUN Creatinine Estimated GFR BUN/Creatinine Ratio Glucose Calcium Total Bilirubin AST ALT Alkaline Phosphatase Total Creatine Kinase CK-MB (CK-2) CK-MB (CK-2) Rel Index Troponin I Total Protein Albumin Globulin Albumin/Globulin Ratio TSH Urine Color Yellow Urine Appearance Clear Urine pH 6.0 Ur Specific [place] 1.010 Urine Protein Negative Urine Glucose (UA) Negative Urine Ketones Negative Urine Occult Blood Negative Urine Nitrate Negative Urine Bilirubin Negative Urine Urobilinogen 0.2 Ur Leukocyte Esterase 1+ H Urine RBC None seen Urine WBC 0-1/hpf Ur Squamous Epith Cells 0-1 /hpf Urine Bacteria Occasional (0-1) Salicylates < 1.0 U Opiates 300ng/mL cut Ur Oxycodone Screen Urine Methadone Screen Acetaminophen < 10 Ur Barbiturates Screen U Tricyclic Antidepress Ur Phencyclidine Scrn Ur Amphetamines Screen U Methamphetamines Scrn Ur MDMA Scrn (Ecstasy) U Benzodiazepines Scrn Urine Cocaine Screen U Marijuana (THC) Screen Ethyl Alcohol SARS-CoV-2 (PCR) Assessment & Plan Assessment & Plan narrative: 1. Acute encephalopathy -suspect this is secondary to med effect, she is on multiple interacting meds including nortriptyline, venlafaxine, and has been prescribed gabapentin, carisoprodol, cyclobenzaprine, and vicodine -it is unclear which of these she is taking as she is somewhat confused -possibly has some anti-cholinergic effects from nortriptyline interacting with other meds -UA shows only leuk esterase 1+, but no bacteria, WBCs -CT head and CTA head/neck showed no acute process, think stroke/tia is unlikely -tsh normal, blood sugar normal -doubt infection, with normal white count, normal temperature, 2. Hypothyroid -tsh normal -synthroid continued 3. Type 2 Diabetes on insulin -once patient less confused, confirm home insulin dose -for now continue sliding scale 4. Hypertension -continue lisinopril I have discussed plan with the patient. I have discussed plan of care with ED physician and bedside nurse. I have reviewed labs and CT imaging CODE: Full Proxy: Yo Mac, sister Time Spent With Patient Critical Care time: I spent a total of [] minutes of critical care time on this patient's care today; this time is exclusive of procedural time. Quality VTE Deep Vein Thrombosis/Pulmonary Embolism Present on Admission: Yes MIPS - Meds 'Current medications' to include all prescriptions, [id number] products, herbals, cannabis/cannabidiol products, and vitamin/mineral/dietary (nutritional) supplements. I have utilized all available resources to obtain, update, or review the patient?s current medications. [If Yes, STOP here]: Yes
[2023-01-21 06:55] LABS: Hemoglobin A1C% w Est Avg Glu 7.2 % (4.0-6.0)
--- NOTE | 2023-01-21 07:08 | PC.NURSE ---
Pt. arrived to the unit at 0500 via stretcher. Pt. able to stand using a gaitbelt and a walker with 2 assist. Pt. is very weak and unsteady with c/o leg pains with walking a few steps. Assisted to BSC for void and transferred to bed again with 2 max assist. Oriented to room, bed control and call light use. Instructed to never get OOB without any assistance due to her weakness making her a high fall risk, pt. understood. Bed alarm activated.
[2023-01-21] MEDS: HYDROCODONE/ACET 5/325 TABLET 1 TAB PO (09:12)
[2023-01-21] MEDS: ENOXAPARIN 40 MG/0.4 ML SYRINGE SUBCUT (09:13)
--- NOTE | 2023-01-21 10:23 | PT-IP ANOTE ---
Physical therapy order received and chart reviewed. Discussed her case with her nurse. Pt has been crying in pain with nursing this morning. Discussed at rounds and her pain medication is being adjusted. Will continue to follow with possible eval this afternoon as her pain improves.
[2023-01-21] MEDS: VENLAFAXINE ER 75 MG CAP 150 MG PO (11:15)
[2023-01-21] MEDS: carvediloL 12.5 MG TABLET PO ×2 (11:15→20:58)
[2023-01-21] MEDS: HYDROCODONE/ACET 10/325 TABLET 1 TAB PO ×2 (12:18→15:49)
[2023-01-21] MEDS: DICLOFENAC 1% GEL 100 GM 1 APPLIC TOP ×2 (13:21→17:27)
--- NOTE | 2023-01-21 13:38 | CM.DANOTE ---
Initial DCP Assessment Note 82W with PMH chronic back pain, hypothyroidism who presents after a fall. Acute encephalopathy- suspected to be medication related- patient is on multiple interacting meds including nortriptyline, venlafaxine, and has been prescribed gabapentin, carisoprodol, cyclobenzaprine, and vicodine Patient awaiting back surgery next month; scheduled 02.13.23/ TLIF by Dr Chowdhury PCP: Jeremy Aly Payer: [facility]/[place] Met w/patient to introduce self and role. Patient lives alone, spouse 7 years ago. patient and spouse had lived in current home for 20+ years Patient planning to move next door to her adult son and DIL in [place] next month after she has healed from her spinal surgery and will put her current house up for sale soon Discussed dispo options and suggested SNF, PT pending however nursing reports max assist and patient complaining of pain throughout the morning (chronic back pain) Patient agrees she may need SNF and hopes she does not have to pay privately. Reviewed observation vs inpatient status (patient currently OBS), reviewed [facility] SNF choice list, patient requests SNF referrals to all available facilities that may consider a COVID waiver Patient may be able to pay privately. Patient has no local family or contacts to stay with her upon discharge so she may require SNF if cannot complete ADLs independently. PASRR completed in anticipation of SNF Patient worried about her dog but has neighbors and friends that are looking after the pup Will plan to send SNF referrals out; waiting on PT note for facilities to consider COVID waiver LORNA Bullard Discharge Planning/Care Management CM Discharge Assessment Start: 01/21/23 13:31 Freq: Status: Active Protocol: Document 01/21/23 13:31 SARMAD (Rec: 01/21/23 13:37 SARMAD [id number]) Discharge Planning Assessment Assigned Mobile Sales Technician LORNA Bruce DPOA/Assigned Designee Name Ministerio Goodwin, son ([place]) Contact Information [phone] Advance Directives? No History Provided By Patient,Medical Record Prior Living Arrangements House Household Members none Type of transporation used prior to Relies on Others admit Comment Patient says she relies on friends and neighbors to help with driving and assist w/ errands Independent with ADL's Yes: w/walker, does not go out much Is patient alert and oriented? Yes: Some confusion noted, able to track well Needs Assistance With Meal Prep,Home Chores / Shopping Comment Patient says she fixes soup and grilled cheese sandwiches mostly Caregiver for Another Yes: Dog Patient/Family Preference Custodial Facility Barriers to Discharge Yes Comment Patient lives alone, no local family and has no one to stay with her upon discharge, currently requiring max assist . 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 Discussed deposit down etc Discharge Plan Custodial Facility Transportation Arrangement Likely w/c Referrals Initiated Custodial Additional Comment Plan to send once therapy notes are in the chart Medicare Choice List Provided Yes Medicare choice list reviewed on patient electronic tablet with SNF/HH Preference Patient says send to all to see if any SNF would consider the COVID waiver. Patient is observation status currently Whiteboard Updated in Patient Room with Yes name and ext. # of Mobile Sales Technician
--- NOTE | 2023-01-21 15:05 | PT.IIE ---
Surgical History (Last Reviewed 01/21/23 @ 05:51 by Brett Rivas MD) History of carpal tunnel repair History of cystoscopy Status post appendectomy Status post breast reduction Status post cholecystectomy Status post hysterectomy with oophorectomy Medical History (Last Reviewed 01/21/23 @ 05:51 by Brett Rivas MD) Asthma Cervical somatic dysfunction Chronic thoracic back pain Congenital duplication of renal collecting system Cough in adult patient CTS (carpal tunnel syndrome) Diabetes mellitus Diverticular disease Essential hypertension Fall from ground level Fibromyalgia Finger infection Greater trochanteric bursitis of both hips Greater trochanteric bursitis of left hip Hematuria Hernia, diaphragmatic Herniated nucleus pulposus, L4-5 Hyperlipidemia Hypothyroidism Iliotibial band syndrome of both sides Iliotibial band syndrome, left leg Iliotibial band syndrome, right leg Joint pain in both hands Left shoulder pain Leg pain, bilateral Lumbar back pain with radiculopathy affecting lower extremity Lumbar region somatic dysfunction Nocturia more than twice per night Nondisplaced fracture of right scaphoid bone Pelvic somatic dysfunction Postmenopausal atrophic vaginitis Postoperative pain after spinal surgery PSVT (paroxysmal supraventricular tachycardia) Pyuria Sacral region somatic dysfunction Segmental and somatic dysfunction of abdomen and other regions Somatic dysfunction of lower extremity Stressful life events affecting family and household Thoracic region somatic dysfunction Tinea corporis Urge incontinence Physical Therapy Inpatient Evaluation/Re-Eval M1 PT/OT-IP Prior Functional Status Start: 01/21/23 15:07 Freq: NEEDED Status: Active Protocol: Document 01/21/23 15:05 [facility] (Rec: 01/21/23 15:31 [facility] [id number]) Medical Review Prior Functional Status Medical History Reviewed Yes Diet/Fluid Consistency Regular Communication WFL, wears reading glasses Mobility and Gait Independent with FWW, she reports a hx of falls Activities of Daily Living and IADL's Independent, sits on seat to take shower Prior Functional Level (Other details) she reports having life alert button at home Social History Household Members none Living Arrangements House Number of Floors (Floors) Two Floors Number of Stairs To Enter/Railing? stay on main level, only has washing machine on lower level , no steps to enter Home Environment Standard Height Toilet,Tub/ Shower Home Equipment Front Wheel Walker,Straight Cane,Raised Toilet Seat w/ Armrests,Shower Seat with Backrest Employment Status Retired Additional Social History Comment she reports she is selling her house and moving to [place] to live next door to her Son. She has a dog. M2 PT-IP Current Condition Start: 01/21/23 15:07 Freq: NEEDED Status: Active Protocol: Document 01/21/23 15:05 [facility] (Rec: 01/21/23 15:31 [facility] [id number]) Physical Therapy Current Condition Current Condition Evaluation Date 01/21/23 Treatment Diagnosis fall, chronic back pain, confusion, impaired gait Onset Date 01/21/23 M3 PT-IP Subjective Start: 01/21/23 15:07 Freq: NEEDED Status: Active Protocol: Document 01/21/23 15:05 [facility] (Rec: 01/21/23 15:31 DL [id number]) Subjective Physical Therapy Visit Type Type Initial Evaluation Visit Start Time 14:30 Visit Stop Time 15:05 Total Visit Minutes 35 Number of FLORIST DESIGNER Visits 0 Physical Therapy Visit Comments Patient Comments She reports a hx of low back pain that radiates into left LE. She can recall falling but does not know why she fell. She reports plans to have back surgery before moving to [place]. Patient Goals Discharge home so she can get moved to [place] Therapy Pain Assessment Pain When Pain Assessed During Mobility Pain Present Pain Present Pain Reported Location Lower Back Intensity 8 Scale Used Numeric (0 - 10) Description Aching,Radiating,With Movement Pain Behaviors Facial Grimacing,Holding Area Pain Management Techniques Apply Cold M4 PT-IP Mobility and Gait Start: 01/21/23 15:07 Freq: NEEDED Status: Active Protocol: Document 01/21/23 15:05 [facility] (Rec: 01/21/23 15:31 DL [id number]) PT-Bed Mobility Assessment Rolling Level of Assist Standby Assistance Supine to Sit Supine to Sit Standby Assistance Scooting Scooting to Edge of Bed Standby Assistance PT-Transfer Assessment Sit to and From Stand Sit to and from Stand Standby Assistance,Contact Guard Assistance,Use of Upper Extremities Equipment Transfer Assistive Device Gait Belt,Front Wheeled Walker Transfers Transfer Destination Chair,Toilet Transfer Technique Stand Step Pivot Transfer Ability Level of Assist Contact Guard Assistance,Use of Upper Extremities Comments Mobility Comments Pt reports being very uncomfortable in bed and willing to try the recliner. Pt used the toilet this visit and had loose stool. Her nurse was notified. Pt left up in the recliner with ice pack on back and left thigh area to manage her pain. She reports using ice packs at home. Gait Assessment Gait Gait Assistance Required: Standby Assistance,Contact Guard Assist Distance (Feet) 20 Assistive Devices Assistive Device Gait Belt,Front Wheeled Walker Gait Deviations General Gait Pattern Flexed Trunk Factors Limiting Gait Function Factors Limiting Gait Function Decreased Activity Tolerance, Pain,Poor Safety Awareness Comments Gait Comments Pt ambulates with FWW with flexed posture and reports left LE gradually increases as she ambulates. PT-Balance Assessment Sitting Balance and Reactions Static Sitting Balance Ability Good Dynamic Sitting Balance Ability Good Standing Balance and Reactions Static Standing Balance Ability Good Dynamic Standing Balance Ability Fair Device Used FWW M5 PT-IP Objective Assessments Start: 01/21/23 15:07 Freq: NEEDED Status: Active Protocol: Document 01/21/23 15:05 [facility] (Rec: 01/21/23 15:31 [facility] [id number]) Orientation Orientation/Cognition Level of Alertness Alert Orientation Name,Birthday,Month,Year,Place ,Situation Language Function Ability No Deficits Noted Safety Awareness Understands Safety Issues Memory Description Short Term Impaired Comments tangential in conversation, mild stuttering intermittently in her speech Gross Range of Motion Upper Extremity ROM Assessment Within Functional Limits Impairments hx of pain in left shoulder with reaching back too far Lower Extremity ROM Assessment Within Functional Limits Impairments reports increased back pain with hip flexion Strength Upper Extremity Strength Assessment Within Functional Limits Lower Extremity Strength Assessment Bilaterally Impaired Hip flex 3-/5 with increased back pain Knee 4/5 Ankle DF 5/5 Comments Strength Comments back pain interferes with functional strength of LE's Coordination Assessment Gross Coordination Gross Coordination Impaired Assessment Coordination Comments mild functional impairment in UE's with functional tasks Sensation Assessment Sensation Gross Sensation WNL Muscle Tone Muscle Tone WNL Yes M6 PT-IP Treatment Start: 01/21/23 15:07 Freq: NEEDED Status: Active Protocol: Document 01/21/23 15:05 [facility] (Rec: 01/21/23 15:31 [facility] [id number]) Physical Therapy Treatment Education Education Provided Safety Other Treatments Other Treatment Performed no family/friends present Pt instructed to have staff assist for all mobility and she agrees to use her call light. Oriented pt to white board to assist with orientation. M7 PT-IP Assessment and Plan Start: 01/21/23 15:07 Freq: NEEDED Status: Active Protocol: Document 01/21/23 15:05 [facility] (Rec: 01/21/23 15:31 DL [id number]) PT Summary Assessment and Plan Potential Rehabilitation Potential Good Status of Condition at Evaluation Evolving Summary Impairments Pain,ROM,Strength,Balance, Coordination,Cognition,Bed Mobility,Transfers,Gait, Activity Tolerance Assessment Summary Berenice is alert and resting in bed. She was admitted after a fall at home. She reports having increased back pain in bed and agreed to get up to the chair this visit. She continues to show mild confusion today. She is aware that she is taking less pain medication at the hospital than she does at home. She was able to ambulate short distances in her room with the FWW. She reports her back and left LE pain gradually increased as she ambulated. Pt left up in the recliner which she reports is more comfortable than the bed. She is not safe to discharge home alone at this time. Will continue to assess her for discharge as her pain improves and she clears cognitively. She continues to have an increased risk for falls at this time. She will need SNF rehab if she does not progress back to independent and safe mobility. Goals Bed Mobility Goal Independent Transfer Goal Independent,Front Wheeled Walker Gait Goal Independent,Front Wheel Walker Gait Distance 150 feet Days to Meet Goals 5 Frequency of Treatment Frequency Of Treatment Once a Day Treatment Plan Physical Therapy Treatment Plan Bed Mobility Training,Transfer Training,Gait Training, Therapeutic Exercise,Balance Retraining,Discharge Planning, Neuromuscular Re-ed Precautions Other Precautions chronic back and neck pain hx of falls at home Recommendations To Nursing Amount of Assist Needed 1 Person Assist Discharge Recommendations PT Discharge Recommendations Home vs SNF Other Discharge Recommendations she is not safe to discharge home at this time but may progress as her pain improves needs to be independent to go home Transportation Needs at Discharge Private Vehicle
[2023-01-21] MEDS: HYDROMORPHONE 1 MG INJ IV ×2 (17:48→20:42)
--- NOTE | 2023-01-21 20:11 | PC.NURSE ---
At 1950pm on 01/21/23 Pt. declined vital signs, Pt. is confused and says that she wants out of hospital
--- NOTE | 2023-01-21 20:13 | PC.NURSE ---
Pt. also wouldn't let me check to see if she needs to changed, she says she was dry.
[2023-01-21] MEDS: HYDROCODONE/ACET 10/325 TABLET 2 TAB PO (20:41)
[2023-01-21] MEDS: MELATONIN 3 MG TABLET 6 MG PO (20:42)
[2023-01-21] MEDS: QUETIAPINE 25 MG TABLET PO (20:42)
--- NOTE | 2023-01-21 21:51 | PC.NURSE ---
Addendum entered by Yessica Stout R.N. 01/22/23 01:22: Pt brief was checked and found to be wet, PAWAN Méndez tried to assist with change the brief and the Pt became very agitated and combative. Dr Rdz was informed of Pt increased agitation and combativeness. Pt refuses to follow any instructions, or medical assistance. Addendum entered by Yessica Stout R.N. 01/22/23 00:28: Pt removed IV, no IV access Provider informed no IV access. Addendum entered by Yessica Stout R.N. 01/21/23 22:39: Dr Rivas informed of Pt increase agitation and 1 to 1 observation. Addendum entered by Yessica Stout R.N. 01/21/23 22:31: Pt refused VS, Assessment and is continues to try to get out of bed. Pt is becoming agitated. corrections cadet notified and Pt is now under one to one observation with PAWAN méndez Original Note: NightShift Pt refused RN to do Head toe examination, Refused BG check and refused insulin orders. Provider informed.
[2023-01-21] MEDS: HALOPERIDOL 5 MG/ML VIAL IM (23:30)
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
[2023-01-22] MEDS: LORazepam 2 MG/ML INJ 1 MG IM (02:04)
--- NOTE | 2023-01-22 03:30 | PC.NURSE ---
Pt. still refuse vitals, Pt. still refused to be change and wet sheet to be changed, Pt. is very agated and trying to get out of bed [id number]
--- NOTE | 2023-01-22 09:46 | PT-IP ANOTE ---
Per RN, pt not appropriate to be seen by PT today due to agitation, waiting on meds. Will check back tomorrow 01/23.
--- NOTE | 2023-01-22 11:29 | PM.PN.1 ---
Subjective Subjective Interval history: Confused overnight, receiving doses of seroquel, haldol. Remains confused today, thinks she is in the kitchen. Denies complaints otherwise and thinks she is fine. She does feel a bit warm, but no overt fever. No nausea, vomiting or abdominal pain. Denies numbness tingling or weakness. Exam Vital Signs (past 8 hours): Oxygen Delivery Method Room Air Oxygen Flow Rate 0 Narrative Exam Narrative: GEN: elderly female, appears confused, lying flat in bed with 1:1 HEENT: moist mucous membranes, PERRL NECK: trachea midline, no jvd PULM: clear bilaterally, no wheezes, rhonchi, rales CV: regular rate and rhythm, no murmurs ABD: soft, nontender, nondistneded, no organomegaly EXT: warm and well perfused with no edema NEURO: awake, alert but confused, oriented to person, month, year but not location and lacks awareness of her current situation. Strength +5/5 in all extremities, sensation intact to light touch. Finger to nose testing accurate though a bit tremulous on the L. Objective Labs 01/20/23 23:26 01/20/23 23:26 Labs: Laboratory Results - last 24 hr 01/22/23 10:46 C. difficile Tox (PCR) Cancelled [facility] Medical History Asthma Cervical somatic dysfunction Chronic thoracic back pain Congenital duplication of renal collecting system Cough in adult patient CTS (carpal tunnel syndrome) Diabetes mellitus Diverticular disease Essential hypertension Fall from ground level Fibromyalgia Finger infection Greater trochanteric bursitis of both hips Greater trochanteric bursitis of left hip Hematuria Hernia, diaphragmatic Herniated nucleus pulposus, L4-5 Hyperlipidemia Hypothyroidism Iliotibial band syndrome of both sides Iliotibial band syndrome, left leg Iliotibial band syndrome, right leg Joint pain in both hands Left shoulder pain Leg pain, bilateral Lumbar back pain with radiculopathy affecting lower extremity Lumbar region somatic dysfunction Nocturia more than twice per night Nondisplaced fracture of right scaphoid bone Pelvic somatic dysfunction Postmenopausal atrophic vaginitis Postoperative pain after spinal surgery PSVT (paroxysmal supraventricular tachycardia) Pyuria Sacral region somatic dysfunction Segmental and somatic dysfunction of abdomen and other regions Somatic dysfunction of lower extremity Stressful life events affecting family and household Thoracic region somatic dysfunction Tinea corporis Urge incontinence Surgical History History of carpal tunnel repair History of cystoscopy Status post appendectomy Status post breast reduction Status post cholecystectomy Status post hysterectomy with oophorectomy Family History Father Dementia MVA (motor vehicle accident) Mother Dementia Colon cancer Social History marital status: household members: none Smoking Status: Never smoker alcohol intake: never substance use type: does not use Assessment & Plan Assessment & Plan narrative: 1. Acute toxic or metabolic encephalopathy, with opiate withdrawal, ongoing, active -suspect this is secondary to med effect, she is on multiple interacting meds including nortriptyline, venlafaxine, and has been prescribed gabapentin, carisoprodol, cyclobenzaprine, and hydrocodone -possibly has some anti-cholinergic effects from nortriptyline interacting with other meds, most of these have been held. Doubt serotonin syndrome. -it is unclear which of these she is taking as she is somewhat confused, though at this time suspect definite opiate withdrawal as she has not been taking her pain medications here over the past 12 hours or so. Yesterday her pain was still limiting on her usual 20 mg of hydrocodone. Will trial fentanyl patch at 25 mcg (90 mg of hydrocodone equates to 12.5 mcg of fentanyl) to see if effective in pain management needs and to see if confusion improves as she has not been taking pills, refusing labs. -UA shows only leuk esterase 1+, but no bacteria, WBCs -CT head and CTA head/neck showed no acute process, think stroke/tia is unlikely though if no improvement with fentanyl patch will obtain MRI to rule out acute infarct. -tsh normal, blood sugar normal, electrolytes are unremarkable as of yesterday, now refusing labs -doubt infection, with normal white count, normal temperature, 2. Hypothyroid -tsh normal -synthroid continued 3. Type 2 Diabetes on insulin -once patient less confused, confirm home insulin dose -for now continue sliding scale as patient allows. 4. Hypertension -continue lisinopril if patient allows 5. Flank Hematoma - noted on CT, follow h/h which is ordered but patient refused lab draws, hopeful to be able to check lab work after opiate withdrawal improves. CODE: Full Proxy: Yo Mac, sister Dispo: unclear, SNF vs home depending on encephalopathy improvement and underlying etiology which is not readily apparent. Probably will need another 2-4 days. Time Spent With Patient Critical Care time: I spent a total of [] minutes of critical care time on this patient's care today; this time is exclusive of procedural time. Quality VTE Deep Vein Thrombosis/Pulmonary Embolism Present on Admission: Yes
--- NOTE | 2023-01-22 12:03 | CM.DPC ---
Addendum entered by LORNA Ahuja 01/22/23 13:31: ADD: SW called pt's listed son Ministerio ([phone]) due to pt's ongoing confusion and explained role and he confirms that he lives in [place] and his brother lives in [place]. Ministerio confirms that the watermelon inspector plan is pt to move to [place] after her upcoming planned back revision. Ministerio states pt does have multiple supportive neighbors, same age and younger than pt but son realized he does not have any phone numbers for the neighbors and family was not aware pt was admitted and Ministerio almost called Police for Welfare Check. Ministerio states he feels pt's fall/confusion is likely due to pain medications as pt has had significant pain management issues over the past few months and states he has noticed her slurring her words sometimes over the phone. Ministerio is unsure if pt's DPOA is himself or his brother or their cousin. He confirms after initial back surgery pt did have a month of SNF rehab but no current services in place that he knows of. Ministerio states he feels pt needs at least HH at discharge if not SNF. Aware that pt's current behaviors and confusion could be a barrier to SNF. Ministerio will update the rest of the family and available by phone for coordination if needed. BF Original Note: DCP Cont: Per MD, pt continues to be encephalopathic today after a difficult night and overnight was given Haldol. Per RN, pt continues to be below baseline and confused but easier to manage today. [place] attempting not to use Haldol but feels may be more pain management/medications and will attempt pain patch to see if pt improves and if not then will attempt MRI tomorrow. PT on hold for today but will try again tomorrow. PT eval yesterday recommending SNF prior to safe return home. DENICE faxed SNF referrals under COVID waiver (as pt currently OBS Status) to following: [facility]. Plan: SW to follow closely in AM on how pt did overnight and if more appropriate for further PT to confirm if SNF needed vs home with neighbor assist, HH, and possible PP CGs. If SNF needed, pt will need to be off Haldol and manageable. SW to confirm with UR RN that pt remains OBS vs Inpt status. Jessy Lew, STUDENT SPECIALIST
[2023-01-22 12:25] VITALS: BP 155/68; PULSE 98; RESP 22; TEMP 36.8; O2SAT 95
[2023-01-22] MEDS: fentaNYL 25 MCG/PATCH TOP (12:25)
[2023-01-22 12:26] VITALS: O2SAT 95
[2023-01-22] MEDS: lisinopriL 20 MG TABLET PO (12:39)
[2023-01-22] MEDS: carvediloL 12.5 MG TABLET PO (12:40)
[2023-01-22] MEDS: HYDROCODONE/ACET 10/325 TABLET 2 TAB PO ×3 (12:40→20:42)
[2023-01-22] MEDS: QUETIAPINE 25 MG TABLET PO ×2 (16:24→20:41)
--- NOTE | 2023-01-22 19:34 | PC.NURSE ---
Addendum entered by Winsome Pagan CNA 01/22/23 20:01: Patient son Ministerio called, patient appeared to have a good time talking to her son, patient told son that she is waiting for her surgery on February 18, patient allowed this CONTENT DEVELOPMENT SPECIALIST to take her vitals, RN aware Original Note: This CONTENT DEVELOPMENT SPECIALIST took over 1:1 observation of patient at 1900, patient is restless and countines to try and get out of bed. Patient had a BM in brief, patient two person assist to change brief, patient calls out to her dog Augusto and believes that he in the room, patient removed clothes, RN aware
[2023-01-22 20:00] VITALS: BP 154/55; PULSE 101; RESP 19; TEMP 36.2; O2SAT 93; O2SAT 95
[2023-01-22] MEDS: MELATONIN 3 MG TABLET 6 MG PO (20:41)
[2023-01-23] VITALS (7 sets, daily range): BP systolic 124–185; BP diastolic 57–74; PULSE 86–92; RESP 15–20; TEMP 35.9–36.6; O2SAT 93–97
--- NOTE | 2023-01-23 05:09 | PC.NURSE ---
Pt tolerated medications in vanilla pudding, would recommend crushing in the future. Early in shift pt very agitated, calling out, impulsive and not redirectable; taking off gown and attempting to get out of bed. Pt removed IV access earlier in day, aware. Around midnight pt was calling out, stating, there are bugs everywhere, get rid of them , shoo them away and why are there all these birds and little animals in here? Call you mother to get them out! Shortly after this she fell asleep and slept comfortably through the remainder of the shift.
[2023-01-23] MEDS: VENLAFAXINE ER 75 MG CAP 150 MG PO (07:33)
[2023-01-23] MEDS: HYDROCODONE/ACET 10/325 TABLET 2 TAB PO ×2 (07:33→12:47)
[2023-01-23] MEDS: lisinopriL 20 MG TABLET PO (07:33)
[2023-01-23] MEDS: carvediloL 12.5 MG TABLET PO ×2 (07:33→20:16)
--- NOTE | 2023-01-23 08:55 | PT.IPTN ---
Physical Therapy Treatment Note M2 PT-IP Current Condition Start: 01/21/23 15:07 Freq: NEEDED Status: Active Protocol: Document 01/21/23 15:05 DLM (Rec: 01/21/23 15:31 DLM [id number]) Physical Therapy Current Condition Current Condition Evaluation Date 01/21/23 Treatment Diagnosis fall, chronic back pain, confusion, impaired gait Onset Date 01/21/23 M3 PT-IP Subjective Start: 01/21/23 15:07 Freq: NEEDED Status: Active Protocol: Document 01/23/23 09:31 TS (Rec: 01/23/23 10:15 TS [id number]) Subjective Physical Therapy Visit Type Type Treatment Note Visit Start Time 08:55 Visit Stop Time 09:25 Total Visit Minutes 30 Number of ORDER MANAGER Visits 1 Physical Therapy Visit Comments Patient Comments Pt reports her LLE/back pain is an 8/10 today, gets worse with movement. She has increased confusion from therapist seeing her the 18th and reports seeing bugs come out of the refrigerator this morning and yesterday. Patient Goals Discharge home so she can get moved to [place] Therapy Pain Assessment Pain When Pain Assessed At Rest Pain Present Pain Present Pain Reported Location Lower Back Intensity 8 Scale Used Numeric (0 - 10) Description Aching,Radiating,With Movement Pain Management Techniques Apply Cold M4 PT-IP Mobility and Gait Start: 01/21/23 15:07 Freq: NEEDED Status: Active Protocol: Document 01/23/23 09:31 TS (Rec: 01/23/23 10:15 TS [id number]) PT-Bed Mobility Assessment Supine to Sit Supine to Sit Maximum Assistance Scooting Scooting to Edge of Bed Standby Assistance PT-Transfer Assessment Sit to and From Stand Sit to and from Stand Moderate Assistance,2 Person Assistance,Use of Upper Extremities Equipment Transfer Assistive Device Gait Belt,Front Wheeled Walker Transfers Transfer Destination Chair Transfer Technique Stand Step Pivot Transfer Ability Level of Assist Contact Guard Assistance, Minimal Assistance,Use of Upper Extremities Comments Mobility Comments Pt found resting in bed, agreeable to PT session, SHEETER WAXER OPERATOR present. She required MaxA x2 for supine to sit, c/o LUE not being strong enough to assist her in sitting. She retroleans initally when sitting requring ModA x1 to maintain erect position, progressed to CGA/SBA with cues for core act and BUE support. She scooted EOB SBA with BUE support on bed. She sat EOB with flexed posture and no UE support SBA. She c/o lightheadedness, BP taken 140 /75. She performed sit to stand ModA x2 requiring cues for weight forward and BUE support pushing into bed/ handrail. In standing pt progressed from Marino to CGA/ SBA, she required cues for upright posture and offloading weight in FWW for pain in leg , became fatigued while SHEETER WAXER OPERATOR changed brief, required to sit back on bed. Stand step pivot transfer to chair, required ModA x2 into standing and Marino to maintain standing during transfer, she c/o of LLE fatiguing with signs of buckling. Pt was left in bed side chair with call light nearby, PAWAN and MD present discussing care. PT-Balance Assessment Sitting Balance and Reactions Static Sitting Balance Ability Fair Dynamic Sitting Balance Ability Poor Standing Balance and Reactions Static Standing Balance Ability Fair Dynamic Standing Balance Ability Poor Device Used FWW Comments Other Balance Tests/Deviations/Treatment Pt required ModA to maintain : sitting balance initially, progressed to CGA/SBA. In standing she required Marino progressing to CGA/SBA, she became fatigued after ~1.5 mins of standing during brief change with SHEETER WAXER OPERATOR, required to sit on EOB. M5 PT-IP Objective Assessments Start: 01/21/23 15:07 Freq: NEEDED Status: Active Protocol: Document 01/21/23 15:05 DL (Rec: 01/21/23 15:31 [facility] [id number]) Orientation Orientation/Cognition Level of Alertness Alert Orientation Name,Birthday,Month,Year,Place ,Situation Language Function Ability No Deficits Noted Safety Awareness Understands Safety Issues Memory Description Short Term Impaired Comments tangential in conversation, mild stuttering intermittenly in her speech Gross Range of Motion Upper Extremity ROM Assessment Within Functional Limits Impairments hx of pain in left shoulder with reaching back too far Lower Extremity ROM Assessment Within Functional Limits Impairments reports increased back pain with hip flexion Strength Upper Extremity Strength Assessment Within Functional Limits Lower Extremity Strength Assessment Bilaterally Impaired Hip flex 3-/5 with increased back pain Knee 4/5 Ankle DF 5/5 Comments Strength Comments back pain interferes with functional strength of LE's Coordination Assessment Gross Coordination Gross Coordination Impaired Assessment Coordination Comments mild functional impairment in UE's with functional tasks Sensation Assessment Sensation Gross Sensation WNL Muscle Tone Muscle Tone WNL Yes M6 PT-IP Treatment Start: 01/21/23 15:07 Freq: NEEDED Status: Active Protocol: Document 01/23/23 09:31 TS (Rec: 01/23/23 10:15 TS [id number]) Physical Therapy Treatment Education Education Provided Safety Other Treatments Other Treatment Performed no family/friends present, has hospital sitter in room currently. M7 PT-IP Assessment and Plan Start: 01/21/23 15:07 Freq: NEEDED Status: Active Protocol: Document 01/23/23 09:31 TS (Rec: 01/23/23 10:15 TS [id number]) PT Summary Assessment and Plan Potential Rehabilitation Potential Fair Status of Condition at Evaluation Evolving Summary Impairments Pain,ROM,Strength,Balance, Coordination,Cognition,Bed Mobility,Transfers,Gait, Activity Tolerance Assessment Summary Berenice's mobility has decreased since initial eval. She required MaxA x2 with HOB raised for supine to sit this session. Initially she could not maintain upright position when sitting due to posterior lean requiring ModA, progressed to CGA/SBA with use of UE's and core activation. She scooted EOB SBA with BUE support on bed and handrail. She was ModA x2 to come into standing x2, required heavy cues and hand over hand assist . She continues to have pain in her low back and LLE, LLE fatigues quickly during standing and transfer to chair with signs of buckling. PT is recommending SNF to improve her strength, bed mobility, transfers and gait. If she can improve to PLOF while in hospital she may be able to return home. Goals Bed Mobility Goal Independent Transfer Goal Independent,Front Wheeled Walker Gait Goal Independent,Front Wheel Walker Gait Distance 150 feet Days to Meet Goals 5 Frequency of Treatment Frequency Of Treatment Once a Day Treatment Plan Physical Therapy Treatment Plan Bed Mobility Training,Transfer Training,Gait Training, Therapeutic Exercise,Balance Retraining,Discharge Planning, Neuromuscular Re-ed Precautions Other Precautions chronic back and neck pain hx of falls at home Recommendations To Nursing Amount of Assist Needed 2 Person Assist Discharge Recommendations PT Discharge Recommendations Home vs SNF Other Discharge Recommendations needs to be independent to go home Transportation Needs at Discharge Private Vehicle
--- NOTE | 2023-01-23 10:11 | PM.PN.1 ---
Subjective Subjective Interval history: Improved confusion this morning, yesterday evening and to a lesser extent this morning had visual hallucinations but now resolved. She denies chest pain, shortness of breath, nausea, vomiting or abdominal pain. Exam Vital Signs (past 8 hours): - 01/23/23 07:26 Temperature 97.8 F Pulse Rate 90 Respiratory Rate 20 Blood Pressure 185/74 H Pulse Oximetry 97 Oxygen Flow Rate 0 Oxygen Delivery Method Room Air Oxygen Flow Rate 0 Narrative Exam Narrative: GEN: elderly female, alert but slight lethargy, sitting upright in chair HEENT: moist mucous membranes, PERRL NECK: trachea midline, no jvd PULM: clear bilaterally, no wheezes, rhonchi, rales CV: regular rate and rhythm, no murmurs ABD: soft, nontender, nondistneded, no organomegaly EXT: warm and well perfused with no edema NEURO: awake, alert but confused. Strength +5/5 in all extremities, sensation intact to light touch. Objective Labs 01/20/23 23:26 01/20/23 23:26 Labs: Laboratory Results - last 24 hr 01/22/23 10:46 C. difficile Tox (PCR) Cancelled [facility] Medical History Asthma Cervical somatic dysfunction Chronic thoracic back pain Congenital duplication of renal collecting system Cough in adult patient CTS (carpal tunnel syndrome) Diabetes mellitus Diverticular disease Essential hypertension Fall from ground level Fibromyalgia Finger infection Greater trochanteric bursitis of both hips Greater trochanteric bursitis of left hip Hematuria Hernia, diaphragmatic Herniated nucleus pulposus, L4-5 Hyperlipidemia Hypothyroidism Iliotibial band syndrome of both sides Iliotibial band syndrome, left leg Iliotibial band syndrome, right leg Joint pain in both hands Left shoulder pain Leg pain, bilateral Lumbar back pain with radiculopathy affecting lower extremity Lumbar region somatic dysfunction Nocturia more than twice per night Nondisplaced fracture of right scaphoid bone Pelvic somatic dysfunction Postmenopausal atrophic vaginitis Postoperative pain after spinal surgery PSVT (paroxysmal supraventricular tachycardia) Pyuria Sacral region somatic dysfunction Segmental and somatic dysfunction of abdomen and other regions Somatic dysfunction of lower extremity Stressful life events affecting family and household Thoracic region somatic dysfunction Tinea corporis Urge incontinence Surgical History History of carpal tunnel repair History of cystoscopy Status post appendectomy Status post breast reduction Status post cholecystectomy Status post hysterectomy with oophorectomy Family History Father Dementia MVA (motor vehicle accident) Mother Dementia Colon cancer Social History marital status: household members: none Smoking Status: Never smoker alcohol intake: never substance use type: does not use Assessment & Plan Assessment & Plan narrative: 1. Acute toxic or metabolic encephalopathy, with opiate withdrawal, ongoing, active -suspect this is secondary to med effect, she is on multiple interacting meds including nortriptyline, venlafaxine, and has been prescribed gabapentin, carisoprodol, cyclobenzaprine, and hydrocodone -possibly has some anti-cholinergic effects from nortriptyline interacting with other meds, most of these have been held. Doubt serotonin syndrome. -improved somewhat today with placement of fentanyl patch, definite opiate withdrawal yesterday. Improved hallucinations. -UA shows only leuk esterase 1+, but no bacteria, WBCs -CT head and CTA head/neck showed no acute process, think stroke/tia is unlikely given improvement today. -tsh normal, blood sugar normal, electrolytes are unremarkable as of yesterday, now refusing labs -doubt infection, with normal white count, normal temperature, 2. Hypothyroid -tsh normal -synthroid continued 3. Type 2 Diabetes on insulin -once patient less confused, confirm home insulin dose -for now continue sliding scale as patient allows. 4. Hypertension -continue lisinopril 5. Flank Hematoma - noted on CT, follow h/h which is ordered but patient refused lab draws, hopeful to be able to check lab work after opiate withdrawal improves. CODE: Full Proxy: Yo Mac, sister Dispo: Probable SNF but continue PT / OT, probably in a couple of days. Time Spent With Patient Critical Care time: I spent a total of [] minutes of critical care time on this patient's care today; this time is exclusive of procedural time. Quality VTE Deep Vein Thrombosis/Pulmonary Embolism Present on Admission: Yes
--- NOTE | 2023-01-23 10:25 | CM.DPC ---
DCP Cont: Per MD, pt seems to be making some slow progress with restarting her home pain medications/new fentanyl patch and likely pt's encephalopathy and behaviors were due to opiate withdrawal from her high home pain management. Pt's PCP had made a referral recently to the [facility] due to pt's chronic leg and back pain which she has upcoming Ortho surgery on 02/13/23. PT/OT to work with pt today. Per MINERVA RN, pt able to be switched to Inpt Status as of today 01/23/23. SW made previous SNF referrals under COVID waiver yesterday: [facility]- currently on hold for new admissions [facility]- reviewing [facility]- faxed and reviewing [facility]- likely no openings until mid week [facility]- faxed and reviewing. SW reached out to [facility] and [facility] and updated pt now switched to Inpt Status as of today and will send updated clinicals to review. DENICE requested [facility] send updated clinicals to above SNFs (minus [facility]) with update that pt now Inpt Status and COVID waiver no longer needed. DENICE also called [facility] admissions and explained situation and Inpt Status today and they are willing to review. Plan: DENICE to follow closely for PT/OT recommendations and SNF review of pt to determine if any can accept at d/c. LORNA Ahuja
--- NOTE | 2023-01-23 10:53 | OT.IP.EVAL ---
Past Medical History (Last Reviewed 01/22/23 @ 11:34 by Talha Lazaro DO) Asthma Cervical somatic dysfunction Chronic thoracic back pain Congenital duplication of renal collecting system Cough in adult patient CTS (carpal tunnel syndrome) Diabetes mellitus Diverticular disease Essential hypertension Fall from ground level Fibromyalgia Finger infection Greater trochanteric bursitis of both hips Greater trochanteric bursitis of left hip Hematuria Hernia, diaphragmatic Herniated nucleus pulposus, L4-5 Hyperlipidemia Hypothyroidism Iliotibial band syndrome of both sides Iliotibial band syndrome, left leg Iliotibial band syndrome, right leg Joint pain in both hands Left shoulder pain Leg pain, bilateral Lumbar back pain with radiculopathy affecting lower extremity Lumbar region somatic dysfunction Nocturia more than twice per night Nondisplaced fracture of right scaphoid bone Pelvic somatic dysfunction Postmenopausal atrophic vaginitis Postoperative pain after spinal surgery PSVT (paroxysmal supraventricular tachycardia) Pyuria Sacral region somatic dysfunction Segmental and somatic dysfunction of abdomen and other regions Somatic dysfunction of lower extremity Stressful life events affecting family and household Thoracic region somatic dysfunction Tinea corporis Urge incontinence Surgical History (Last Reviewed 01/22/23 @ 11:34 by Talha Lazaro DO) History of carpal tunnel repair History of cystoscopy Status post appendectomy Status post breast reduction Status post cholecystectomy Status post hysterectomy with oophorectomy Occupational Therapy Inpatient Evaluation/Re-Eval M1 PT/OT-IP Prior Functional Status Start: 01/21/23 15:07 Freq: NEEDED Status: Active Protocol: Document 01/23/23 10:17 [facility] (Rec: 01/23/23 11:23 [facility] [id number]) Medical Review Prior Functional Status Medical History Reviewed Yes Diet/Fluid Consistency Regular Communication WFL, wears reading glasses Mobility and Gait Independent with FWW, she reports a hx of falls. Last fall two month ago while outside trying to product picker her dog's feces. Pt states now has her medical lab technician do that for her. Activities of Daily Living and IADL's Independent, sits on seat to take shower Prior Functional Level (Other details) she reports having life alert button at home Social History Household Members none Living Arrangements House Number of Floors (Floors) Two Floors Number of Stairs To Enter/Railing? stay on main level, only has washing machine on lower level , no steps to enter as has a ramp. Home Environment Standard Height Toilet,Walk in Shower Home Equipment Front Wheel Walker,Straight Cane,Raised Toilet Seat w/ Armrests,Shower Seat without Backrest,Hand Held Shower Employment Status Retired Additional Social History Comment she reports she is selling her house and moving to [place] to live next door to her Son. She has a dog. Pt states scheduled to have a left shoulder surgery with Dr. Chowdhury February 13. M2 OT-IP Current Condition Start: 01/23/23 10:58 Freq: Status: Active Protocol: Document 01/23/23 10:17 [facility] (Rec: 01/23/23 11:23 [facility] [id number]) Occupational Therapy Current Condition Current Condition Evaluation Date 01/23/23 Treatment Diagnosis Acute metabolic encephalopathy Diagnosis Onset Date 01/21/23 M3 OT- IP Subjective and Pain Start: 01/23/23 10:58 Freq: Status: Active Protocol: Document 01/23/23 10:17 [facility] (Rec: 01/23/23 11:23 [facility] [id number]) OT- Subjective Occupational Therapy Visit Type Type Initial Evaluation Visit Start Time 10:17 Visit Stop Time 10:53 Total Visit Minutes 36 Occupational Therapy Visit Comments Patient Comments Pt agreed to get up and work with OT, nursing aid in the room. Patient/Caregiver Goals TO get better. OT Pain Assessment Pain When Pain Assessed During Mobility Pain Present Pain Present Pain Reported M4 OT- IP ADL's Start: 01/23/23 10:58 Freq: Status: Active Protocol: Document 01/23/23 10:17 [facility] (Rec: 01/23/23 11:23 [facility] [id number]) OT [id number] Comments OT Self-Feeding Comments Not at meal time. OT ADL-Grooming Comments OT Grooming Comments Pt states did prior. OT ADL-Oral Care Comments Oral Care Comments Pt states did prior. OT ADL-Dressing General Eval Lower Body Dressing Ability Maximum Assistance Comments OT Dressing Comments Pt not able to pull up her leg to cross even though trying to use her hands to assist as she does at home. MAX A for socks and brief at this time. OT ADL-Toileting General Evaluation Toileting Ability Maximum Assistance Areas Needing Assistance Manage Clothing,Perform Perineal Hygiene OT ADL-Bathing Comments OT Bathing Comments Not performed. M5 OT- IP IADL's Start: 01/23/23 10:58 Freq: Status: Active Protocol: Document 01/23/23 10:17 [facility] (Rec: 01/23/23 11:23 [facility] [id number]) OT-Instrumental Activities of Daily Living Home Safety Awareness Home Safety Comments Pt a little confused at this time and will need assist for all needs. Pt states prior throws her laundry done the steps and afterwards slowly rolls her laundry back up the steps. M6 OT- IP Functional Cognition Start: 01/23/23 10:58 Freq: Status: Active Protocol: Document 01/23/23 10:17 [facility] (Rec: 01/23/23 11:23 [facility] [id number]) Cognitive Factors Limiting Selfcare Function Cognitive Ability Level of Alertness Alert,Confusional State Patient Orientation Name Ability to Follow Commands Able to Follow One Step Commands with Increased Time, Able to Follow One Step Commands with Repetition Memory Description Short Term Impaired Cognitive Comments Cognitive Assessment Comments Pt able to follow commands for toileting, transfer and bed mobility needs. Pt a little confused as to the surgery that she is suppose to have upcoming and states she is having left shoulder surgery by Dr. Chowdhury. Pt also states does not have any help at home after surgery and educating pt to think about how she will be taking care of herself after back surgery coming up. Pt needing vc for hand placement and FWW safety. OT- Vision and Hearing OT- Hearing Assessment OT- Hearing Assessment WFL OT- Vision Assessment Visual Acuity Glasses For Reading M7 OT- IP Mobility and Balance Start: 01/23/23 10:58 Freq: Status: Active Protocol: Document 01/23/23 10:17 [facility] (Rec: 01/23/23 11:23 [facility] [id number]) OT- Bed Mobility Assessment Sit to Supine Sit to Supine Assist Maximum Assistance OT-Transfer Assessment Sit to and From Stand Sit to and from Stand Minimal Assistance,Moderate Assistance Transfers Transfer Ability Minimal Assistance,Moderate Assistance Technique Transfer Destination Bed,Chair Transfer Technique Stand Step Pivot Devices Transfer Assistive Devices Gait Belt,Front Wheeled Walker Comments Mobility Comments EARL to stand from lower surfaces and MODA to stand from lower surfaces. Initially EARL and then as pt tires needing MODA for FWW management and balance. OT- Balance Assessment Sitting Balance and Reactions Static Sitting Balance Ability Good Dynamic Sitting Balance Ability Fair Standing Balance and Reactions Static Standing Balance Ability Poor Dynamic Standing Balance Ability Poor Comments Other Balance Tests/Deviations/Treatment Pt tends to balance on her : heels. M8 OT- IP Objective Assessments Start: 01/23/23 10:58 Freq: Status: Active Protocol: Document 01/23/23 10:17 [facility] (Rec: 01/23/23 11:23 [facility] [id number]) OT Gross Range of Motion Upper Extremity Range of Motion Assessment Bilaterally Impaired OT Strength Upper Extremity Strength Assessment Bilaterally Impaired Comments Strength Comments Pt has bilateral shoulder pain L>R at this time. M9 OT- IP Assessment and Plan Start: 01/23/23 10:58 Freq: Status: Active Protocol: Document 01/23/23 10:17 [facility] (Rec: 01/23/23 11:23 [facility] [id number]) OT Summary Assessment and Plan Potential Rehabilitation Potential Good Analytic Complexity at Evaluation Moderate Summary OT Impairments Pain,Range of Motion,Strength, Balance,Functional Cognition, Functional Mobility,Grooming, Dressing,Toileting,Bathing, Toilet Transfers,Shower Transfers,Activity Tolerance Progress Towards Goals Slow Progress due to Medical Issues,Slow Progress due to Activity Tolerance,Slow Progress due to Cognition Assessment Summary Pt MOD complexity and main barriers are now needing asisst for all ADL and mobility needs. Pt scheduled to have a surgery with Dr. Chowdhury February 13 and lives alone and states prior just getting by at home and having to have increased time for ADL , IADL , and use of momentum to help stand up. Pt will greatly benefit from skilled rehab at this time. Goals Self-Feeding Goal Independent Grooming Goal Independent Dressing Goal Independent Toileting Goal Independent Bathing Goal Independent Toilet Transfer Goal Independent Shower Transfer Goal Independent Days to Meet Goals 15 Frequency of Treatment Frequency Of Treatment Once a Day Treatment Plan OT Treatment Plan ADL Training,Functional Cognition Training,Functional Mobility,Patient/Family Education,Discharge Planning Other Treatment Recommendations and Next Stand at the sink with FWW for Treatment Focus grooming needs. Discharge Recommendations OT Discharge Recommendations SNF Rehab Other Discharge Recommendations Pending progress and more assist for pt at home as pt lives alone, possibly home with assist and home health Transportation Needs at Discharge Wheelchair/Cabulance
[2023-01-23 10:55] LABS: Add Manual Diff / Slide Review NO; Basophils Absolute Auto 100 /uL (0-100); Basophils Percent Auto 1.2 % (0-2); Eosinophils Absolute Auto 100 /uL (0-450); Eosinophils Percent Auto 1.2 % (2-4); Hematocrit 40.5 % (36-46); Hemoglobin 13.3 g/dL (12.0-16.0); Lymphocytes Absolute Auto 1400 /uL (1100-4500); Lymphocytes Percent Auto 12.9 % (25-40); Mean Corpuscular Hemoglobin 29.6 PG (26-34); Mean Corpuscular Volume 89.9 fL (80-100); Monocytes Absolute Auto 800 /uL (0-900); Neutrophils Absolute Auto 8700 /uL (1500-7000); Neutrophils Percent Auto 77.7 % (50-75); Platelet Count 276 X10^3/uL (150-400); Red Cell Distribution Width 13.4 % (11.6-14.8); White Blood Cell Count 11.1 X10^3/uL (4.5-11.0)
[2023-01-23 11:07] LABS: BUN Creatinine Ratio 44.2 (6-22); Blood Urea Nitrogen 23 mg/dL (7-17); Calcium 8.3 mg/dL (8.4-10.2); Carbon Dioxide 24 mmol/L (22-32); Chloride 100 mmol/L (98-107); Estimated Glomerular Filt Rate > 60 mL/min (>60); Glucose 226 mg/dL (80-110); HEMOLYSIS < 15 (0-50); Potassium 3.3 mmol/L (3.4-5.1); Sodium 135 mmol/L (137-145)
[2023-01-23] MEDS: POTASSIUM CHLORIDE 20 MEQ TAB 40 MEQ PO ×2 (13:00→17:43)
--- NOTE | 2023-01-23 14:41 | CM.DPC ---
Addendum entered by Jessica Herzog R.N. 01/23/23 15:38: Liv at [facility] called back, stated that as long as patient's mentation continues to improve, they should be able to accept patient. They would not be able to accept until , and would hope that patient could be tapered off of her Seroquel, as well. She also mentioned that they have had patient before, for a prior ortho surgery. Original Note: DCP Cont: Spoke to Helen at [facility], she is reviewing. Will send her updated P.T. and O.T. notes. Patient is now inpatient status. [facility] asking if she has reviewed, and that her updated therapy notes are in. Will ask DARYL Laughlin under water assistant, if she can fax over updated therapy notes. P: DCP working on securing a skilled facility for patient. As noted, [facility] is not accepting patient now, but have sent referrals to [facility], [facility], and [facility]. Jessica Herzog RN/Orthopedic Technician
[2023-01-23] MEDS: QUETIAPINE 25 MG TABLET PO (20:14)
[2023-01-23] MEDS: HYDROCODONE/ACET 10/325 TABLET 1 TAB PO (20:15)
[2023-01-23] MEDS: MELATONIN 3 MG TABLET 6 MG PO (20:15)
[2023-01-24] VITALS (10 sets, daily range): BP systolic 112–146; BP diastolic 45–67; PULSE 74–88; RESP 15–18; TEMP 36.2–36.7; O2SAT 93–95
[2023-01-24] MEDS: LEVOTHYROXINE 75 MCG TABLET PO (06:11)
[2023-01-24 06:31] LABS: Add Manual Diff / Slide Review NO; Basophils Absolute Auto 100 /uL (0-100); Basophils Percent Auto 0.9 % (0-2); Eosinophils Absolute Auto 200 /uL (0-450); Eosinophils Percent Auto 2.8 % (2-4); Lymphocytes Absolute Auto 2100 /uL (1100-4500); Mean Corpuscular HGB Conc 34.1 % (30-36); Mean Corpuscular Hemoglobin 30.6 PG (26-34); Mean Corpuscular Volume 89.8 fL (80-100); Monocytes Absolute Auto 800 /uL (0-900); Monocytes Percent Auto 9.8 % (3-14); Neutrophils Absolute Auto 5200 /uL (1500-7000); Neutrophils Percent Auto 61.5 % (50-75); Platelet Count 261 X10^3/uL (150-400); Red Blood Cell Count 4.24 X10^6/uL (4.0-5.2); Red Cell Distribution Width 13.6 % (11.6-14.8); White Blood Cell Count 8.4 X10^3/uL (4.5-11.0)
[2023-01-24 06:43] LABS: Blood Urea Nitrogen 28 mg/dL (7-17); Calcium 8.5 mg/dL (8.4-10.2); Carbon Dioxide 24 mmol/L (22-32); Chloride 104 mmol/L (98-107); Estimated Glomerular Filt Rate > 60 mL/min (>60); Glucose 160 mg/dL (80-110); HEMOLYSIS < 15 (0-50); Potassium 4.7 mmol/L (3.4-5.1); Sodium 136 mmol/L (137-145)
--- NOTE | 2023-01-24 08:58 | PT.IPTN ---
Current Diagnoses Encephalopathy, unspecified (01/23/23) Physical Therapy Treatment Note M2 PT-IP Current Condition Start: 01/21/23 15:07 Freq: NEEDED Status: Active Protocol: Document 01/21/23 15:05 DLM (Rec: 01/21/23 15:31 DLM [id number]) Physical Therapy Current Condition Current Condition Evaluation Date 01/21/23 Treatment Diagnosis fall, chronic back pain, confusion, impaired gait Onset Date 01/21/23 M3 PT-IP Subjective Start: 01/21/23 15:07 Freq: NEEDED Status: Active Protocol: Document 01/24/23 09:27 TS (Rec: 01/24/23 10:02 TS [id number]) Subjective Physical Therapy Visit Type Type Treatment Note Visit Start Time 08:58 Visit Stop Time 09:24 Total Visit Minutes 26 Notes BP: 142/88 Number of COMMAND CENTER OFFICER Visits 2 Physical Therapy Visit Comments Patient Comments Pt continues to report low back and LLE pain. She feels her mobility is improving but her arms feel weak, agreeable to PT session. Patient Goals Discharge home so she can get moved to [place] Therapy Pain Assessment Pain When Pain Assessed At Rest Pain Present Pain Present Allowed to Sleep Location Lower Back Intensity 8 Scale Used Numeric (0 - 10) Description Aching,Radiating,With Movement Pain Management Techniques Apply Cold M4 PT-IP Mobility and Gait Start: 01/21/23 15:07 Freq: NEEDED Status: Active Protocol: Document 01/24/23 09:27 TS (Rec: 01/24/23 10:02 TS [id number]) PT-Bed Mobility Assessment Scooting Scooting to Edge of Bed Standby Assistance PT-Transfer Assessment Sit to and From Stand Sit to and from Stand Standby Assistance,Minimal Assistance,2 Person Assistance Equipment Transfer Assistive Device Gait Belt,Front Wheeled Walker Comments Mobility Comments Pt found resting in chair, got up with nursing staff to use commode prior to PT session. She performed knee flex/ext x8 and marches sitting edge of chair with c/o of some pain radiating in LLE and low back. She scooted to edge of chair SBA with BUE support on arms of chair. She performed sit to stand x1 requiring cues for BUE support on arms of chair and weight forward Marino x1. In standing she has flexed posture, provided cues for head up and she reports it hurts her back to have upright posture. She performed marches x5 in standing with full clearance of feet from floor. She requested to sit back donw due to pain. Sit to stand x1 SBA, requiring cues for BUE arms of chair and weight forward. Once in standing again she c/o pain and requested to sit down. Pt wanted to attempt to get into bathroom with nursing for shower. She performed sit to stand x1 this time displaying carryover of sequencing from previous attempts. She ambulated Marino requiring some management of FWW for pivoting onto commode. Pt was left with INFECTION CONTROL PRACTITIONER for shower. Gait Assessment Gait Gait Assistance Required: Minimum Assistance Distance (Feet) 10 Assistive Devices Assistive Device Gait Belt,Front Wheeled Walker Gait Deviations General Gait Pattern Flexed Trunk Comments Gait Comments Pt ambulated to bathroom w/FWW Marino with flexed posture, decreased step length and height, shuffle gait. PT-Balance Assessment Sitting Balance and Reactions Static Sitting Balance Ability Good Dynamic Sitting Balance Ability Fair Standing Balance and Reactions Static Standing Balance Ability Fair Dynamic Standing Balance Ability Poor Device Used FWW Comments Other Balance Tests/Deviations/Treatment Pt progressed her sitting : balance to day to SBA with no retrolean and BUE support on arms of chair. She required Marino for static standing balance and fatigues quickly in standing requesting to sit down due to pain in low back and leg. M5 PT-IP Objective Assessments Start: 01/21/23 15:07 Freq: NEEDED Status: Active Protocol: Document 01/21/23 15:05 DL (Rec: 01/21/23 15:31 DL [id number]) Orientation Orientation/Cognition Level of Alertness Alert Orientation Name,Birthday,Month,Year,Place ,Situation Language Function Ability No Deficits Noted Safety Awareness Understands Safety Issues Memory Description Short Term Impaired Comments tangential in conversation, mild stuttering intermittenly in her speech Gross Range of Motion Upper Extremity ROM Assessment Within Functional Limits Impairments hx of pain in left shoulder with reaching back too far Lower Extremity ROM Assessment Within Functional Limits Impairments reports increased back pain with hip flexion Strength Upper Extremity Strength Assessment Within Functional Limits Lower Extremity Strength Assessment Bilaterally Impaired Hip flex 3-/5 with increased back pain Knee 4/5 Ankle DF 5/5 Comments Strength Comments back pain interferes with functional strength of LE's Coordination Assessment Gross Coordination Gross Coordination Impaired Assessment Coordination Comments mild functional impairment in UE's with functional tasks Sensation Assessment Sensation Gross Sensation WNL Muscle Tone Muscle Tone WNL Yes M6 PT-IP Treatment Start: 01/21/23 15:07 Freq: NEEDED Status: Active Protocol: Document 01/24/23 09:27 TS (Rec: 01/24/23 10:02 [id number]) Physical Therapy Treatment Education Education Provided Safety Other Treatments Other Treatment Performed no family/friends present, has hospital sitter in room currently. M7 PT-IP Assessment and Plan Start: 01/21/23 15:07 Freq: NEEDED Status: Active Protocol: Document 01/24/23 09:27 TS (Rec: 01/24/23 10:02 TS [id number]) PT Summary Assessment and Plan Potential Rehabilitation Potential Fair Status of Condition at Evaluation Evolving Summary Impairments Pain,ROM,Strength,Balance, Coordination,Cognition,Bed Mobility,Transfers,Gait, Activity Tolerance Assessment Summary Pt progressed her sitting balance in bed side chair with no retrolean and BUE support on arms of chair. She continues to c/o weakness in her arms especially her LUE making mobility challenging. She peformed sit to stands x2 requring Marino and x1 SBA, she demonstrated carryover of sequencing on third attempt. Her standing tolerance is poor due to her pain in low back and LLE requring rest breaks in bedside chair. She progressed her ambulation to x8' to bathroom for shower, demonstrating a flexed posture and shuffle gait requirng Marino for FWW management. PT is recommending SNF to improve her strength, transfers, functional mobility and activity tolerance. Goals Bed Mobility Goal Independent Transfer Goal Independent,Front Wheeled Walker Gait Goal Independent,Front Wheel Walker Gait Distance 150 feet Days to Meet Goals 5 Frequency of Treatment Frequency Of Treatment Once a Day Treatment Plan Physical Therapy Treatment Plan Bed Mobility Training,Transfer Training,Gait Training, Therapeutic Exercise,Balance Retraining,Discharge Planning, Neuromuscular Re-ed Precautions Other Precautions chronic back and neck pain hx of falls at home Recommendations To Nursing Amount of Assist Needed 1 Person Assist,2 Person Assist Discharge Recommendations PT Discharge Recommendations SNF Rehab Other Discharge Recommendations needs to be independent to go home Transportation Needs at Discharge Private Vehicle
[2023-01-24] MEDS: lisinopriL 20 MG TABLET PO (09:36)
[2023-01-24] MEDS: ACETAMINOPHEN 325 MG TABLET 650 MG PO ×2 (09:36→22:21)
[2023-01-24] MEDS: VENLAFAXINE ER 75 MG CAP 150 MG PO (09:36)
[2023-01-24] MEDS: ENOXAPARIN 40 MG/0.4 ML SYRINGE SUBCUT (09:37)
[2023-01-24] MEDS: carvediloL 12.5 MG TABLET PO ×2 (09:40→20:34)
--- NOTE | 2023-01-24 10:27 | OT.IP.TRT ---
Current Diagnoses Encephalopathy, unspecified (01/23/23) Occupational Therapy Treatment Note M2 OT-IP Current Condition Start: 01/23/23 10:58 Freq: Status: Active Protocol: Document 01/23/23 10:17 [facility] (Rec: 01/23/23 11:23 [facility] [id number]) Occupational Therapy Current Condition Current Condition Evaluation Date 01/23/23 Treatment Diagnosis Acute metabolic encephalopathy Diagnosis Onset Date 01/21/23 M3 OT- IP Subjective and Pain Start: 01/23/23 10:58 Freq: Status: Active Protocol: Document 01/24/23 10:27 [facility] (Rec: 01/24/23 12:38 [facility] [id number]) OT- Subjective Occupational Therapy Visit Type Type Treatment Note Visit Start Time 10:27 Visit Stop Time 10:57 Total Visit Minutes 30 Occupational Therapy Visit Comments Patient Comments Pt agreed to work with OT and get up to use the bathroom. Patient/Caregiver Goals TO get better. OT Pain Assessment Pain When Pain Assessed During Mobility Pain Present Pain Present Pain Reported M4 OT- IP ADL's Start: 01/23/23 10:58 Freq: Status: Active Protocol: Document 01/24/23 10:27 [facility] (Rec: 01/24/23 12:38 [facility] [id number]) OT [id number] Comments OT Self-Feeding Comments Not at meal time. OT ADL-Oral Care Comments Oral Care Comments Pt states did prior. OT ADL-Dressing Comments OT Dressing Comments Pt able to educated pt on LB dressing due to upcoming back surgery. Able to practice use of cardiac specialist and sock aid. Pt needing cues and reminders to follow use of cardiac specialist and sock aid. Pt will benefit from continued practice. OT ADL-Toileting General Evaluation Toileting Ability Moderate Assistance Areas Needing Assistance Manage Clothing Comments OT Toileting Comments Pt needing assist for brief management needs and cues to have at least one hand hold to the FWW for balance while the other hand is doing brief management needs. Pt not able to reach back appropriately to wipe without having to twist. Educated pt on use of wet ones and possibly getting a toilet paper aid. OT ADL-Bathing Comments OT Bathing Comments Pt able to shower with nursing aid assist this morning. M5 OT- IP IADL's Start: 01/23/23 10:58 Freq: Status: Active Protocol: Document 01/23/23 10:17 [facility] (Rec: 01/23/23 11:23 [facility] [id number]) OT-Instrumental Activities of Daily Living Home Safety Awareness Home Safety Comments Pt a little confused at this time and will need assist for all needs. Pt states prior throws her laundry done the steps and afterwards slowly rolls her laundry back up the steps. M6 OT- IP Functional Cognition Start: 01/23/23 10:58 Freq: Status: Active Protocol: Document 01/24/23 10:27 [facility] (Rec: 01/24/23 12:38 [facility] [id number]) Cognitive Factors Limiting Selfcare Function Cognitive Ability Level of Alertness Alert,Confusional State Patient Orientation Name Attention Span Ability Capable of Focused Attention, Unable to Sustain Attention Ability to Follow Commands Able to Follow One Step Commands with Increased Time, Able to Follow One Step Commands with Repetition Memory Description Short Term Impaired Cognitive Comments Cognitive Assessment Comments Pt needing simple concrete cues to follow for mobility needs to scoot forwards in the recliner, hand placement for the FWW and for reaching back to the recliner before sitting down. M7 OT- IP Mobility and Balance Start: 01/23/23 10:58 Freq: Status: Active Protocol: Document 01/24/23 10:27 [facility] (Rec: 01/24/23 12:38 [facility] [id number]) OT-Transfer Assessment Sit to and From Stand Sit to and from Stand Moderate Assistance Transfers Transfer Ability Minimal Assistance,Moderate Assistance Technique Transfer Destination Chair,Toilet Transfer Technique Stand Step Pivot Devices Transfer Assistive Devices Gait Belt,Front Wheeled Walker Comments Mobility Comments MODA to stand assist for pt to get her balance as she tends to lean on her heels. Assist to guide the FWW especially during turns. Pt needing from EARL to MOD A x1 when up on her feet with the FWW. OT- Balance Assessment Sitting Balance and Reactions Static Sitting Balance Ability Fair Dynamic Sitting Balance Ability Fair Standing Balance and Reactions Static Standing Balance Ability Poor Dynamic Standing Balance Ability Poor Comments Other Balance Tests/Deviations/Treatment While seated on the toilet, pt : had an episode of loss of balance posteriorly and states that it was the first time that that has happened before. M8 OT- IP Objective Assessments Start: 01/23/23 10:58 Freq: Status: Active Protocol: Document 01/23/23 10:17 [facility] (Rec: 01/23/23 11:23 [facility] [id number]) OT Gross Range of Motion Upper Extremity Range of Motion Assessment Bilaterally Impaired OT Strength Upper Extremity Strength Assessment Bilaterally Impaired Comments Strength Comments Pt has bilateral shoulder pain L>R at this time. M9 OT- IP Assessment and Plan Start: 01/23/23 10:58 Freq: Status: Active Protocol: Document 01/24/23 10:27 [facility] (Rec: 01/24/23 12:38 [facility] [id number]) OT Summary Assessment and Plan Potential Rehabilitation Potential Good Analytic Complexity at Evaluation Moderate Summary OT Impairments Pain,Range of Motion,Strength, Balance,Functional Cognition, Functional Mobility,Grooming, Dressing,Toileting,Bathing, Toilet Transfers,Shower Transfers,Activity Tolerance Progress Towards Goals Progressing Toward Goals,Slow Progress due to Medical Issues ,Slow Progress due to Activity Tolerance,Slow Progress due to Cognition Assessment Summary Pt able to tolerate a shower today and practice use of toilet, LB dressing with techniques of follow precautions for back surgery as pt is planning to have surgery February 13. Pt will benefit from skilled rehab to continue to go over back precautions and incorporate them for ADl and transfer needs. Goals Self-Feeding Goal Independent Grooming Goal Independent Dressing Goal Independent Toileting Goal Independent Bathing Goal Independent Toilet Transfer Goal Independent Shower Transfer Goal Independent Days to Meet Goals 14 Frequency of Treatment Frequency Of Treatment Once a Day Treatment Plan OT Treatment Plan ADL Training,Functional Cognition Training,Functional Mobility,Patient/Family Education,Discharge Planning Discharge Recommendations OT Discharge Recommendations SNF Rehab Transportation Needs at Discharge Wheelchair/Cabulance
--- NOTE | 2023-01-24 12:07 | PT-IP ANOTE ---
Will change Wilson's frequency to 2x/day. She is motivated to work with therapy and her activity tolerance is improving. Spoke with patient and CRYSTALLIZER OPERATOR to make this decision.
--- NOTE | 2023-01-24 12:09 | PM.PN.1 ---
Subjective Subjective Interval history: Improved confusion this morning no longer with hallucinations. She does not recall the past few days but feels herself this morning. She reports her pain is controlled today. Exam Vital Signs (past 8 hours): - 01/24/23 07:25 01/24/23 11:00 Temperature 98.0 F 98.1 F Pulse Rate 77 85 Respiratory Rate 16 16 Blood Pressure 146/60 H 139/67 Pulse Oximetry 93 95 Oxygen Flow Rate 0 0 Oxygen Delivery Method Room Air Oxygen Flow Rate 0 Narrative Exam Narrative: GEN: elderly female, alert but slight lethargy, sitting upright in chair HEENT: moist mucous membranes, PERRL NECK: trachea midline, no jvd PULM: clear bilaterally, no wheezes, rhonchi, rales CV: regular rate and rhythm, no murmurs ABD: soft, nontender, nondistneded, no organomegaly EXT: warm and well perfused with no edema NEURO: awake, alert. Strength +5/5 in all extremities, sensation intact to light touch. Objective Labs 01/24/23 06:20 01/24/23 06:20 Labs: Laboratory Results - last 24 hr 01/24/23 01/24/23 06:20 06:20 WBC 8.4 RBC 4.24 Hgb 13.0 Hct 38.0 MCV 89.8 MCH 30.6 MCHC 34.1 RDW 13.6 Plt Count 261 Neut % (Auto) 61.5 Lymph % (Auto) 25.0 [place] % (Auto) 9.8 Eos % (Auto) 2.8 Baso % (Auto) 0.9 Neut # (Auto) 5200 Lymph # (Auto) 2100 [place] # (Auto) 800 Eos # (Auto) 200 Baso # (Auto) 100 Sodium 136 L Potassium 4.7 D Chloride 104 Carbon Dioxide 24 BUN 28 H Creatinine 0.50 L Estimated GFR > 60 BUN/Creatinine Ratio 56.0 H Glucose 160 H Calcium 8.5 PFSH Medical History Asthma Cervical somatic dysfunction Chronic thoracic back pain Congenital duplication of renal collecting system Cough in adult patient CTS (carpal tunnel syndrome) Diabetes mellitus Diverticular disease Essential hypertension Fall from ground level Fibromyalgia Finger infection Greater trochanteric bursitis of both hips Greater trochanteric bursitis of left hip Hematuria Hernia, diaphragmatic Herniated nucleus pulposus, L4-5 Hyperlipidemia Hypothyroidism Iliotibial band syndrome of both sides Iliotibial band syndrome, left leg Iliotibial band syndrome, right leg Joint pain in both hands Left shoulder pain Leg pain, bilateral Lumbar back pain with radiculopathy affecting lower extremity Lumbar region somatic dysfunction Nocturia more than twice per night Nondisplaced fracture of right scaphoid bone Pelvic somatic dysfunction Postmenopausal atrophic vaginitis Postoperative pain after spinal surgery PSVT (paroxysmal supraventricular tachycardia) Pyuria Sacral region somatic dysfunction Segmental and somatic dysfunction of abdomen and other regions Somatic dysfunction of lower extremity Stressful life events affecting family and household Thoracic region somatic dysfunction Tinea corporis Urge incontinence Surgical History History of carpal tunnel repair History of cystoscopy Status post appendectomy Status post breast reduction Status post cholecystectomy Status post hysterectomy with oophorectomy Family History Father Dementia MVA (motor vehicle accident) Mother Dementia Colon cancer Social History marital status: household members: none Smoking Status: Never smoker alcohol intake: never substance use type: does not use Assessment & Plan Assessment & Plan narrative: 1. Acute toxic and metabolic encephalopathy, with opiate withdrawal, improving -suspect this is secondary to med effect, she is on multiple interacting meds including nortriptyline, venlafaxine, and has been prescribed gabapentin, carisoprodol, cyclobenzaprine, and hydrocodone -possibly has some anti-cholinergic effects from nortriptyline interacting with other meds, most of these have been held. Doubt serotonin syndrome. -improved markedly now with placement of fentanyl patch, definite opiate withdrawal on HD#1. Resolved hallucinations now. Will wean off of seroquel starting tonight given improvement today, as it can be a barrier to SNF admission. -very likely the etiology of her encephalopathy is multifactorial including polypharmacy and subsequent withdrawal. -UA shows only leuk esterase 1+, but no bacteria, WBCs -CT head and CTA head/neck showed no acute process, think stroke/tia is unlikely given improvement today. -tsh normal, blood sugar normal, electrolytes are unremarkable as of yesterday, now refusing labs -doubt infection, with normal white count, normal temperature, 2. Hypothyroid -tsh normal -synthroid continued 3. Type 2 Diabetes on insulin -once patient less confused, confirm home insulin dose -for now continue sliding scale as patient allows. 4. Hypertension -continue lisinopril 5. Flank Hematoma - noted on CT, mild. h/h stable around 13 will stop trending. 6. Chronic low back pain - scheduled for surgery on 02/13. Improvement with fentanyl patch and continue hydrocodone / acetaminophen as needed along with venlafaxine. CODE: Full Proxy: Yo Bubba, sister Dispo: Probable SNF but continue PT / OT, probably in a couple of days. Time Spent With Patient Critical Care time: I spent a total of [] minutes of critical care time on this patient's care today; this time is exclusive of procedural time. Quality VTE Deep Vein Thrombosis/Pulmonary Embolism Present on Admission: Yes
--- NOTE | 2023-01-24 12:57 | CM.DPC ---
DCP SNF Planning: Per MD, pt continues to make progress and no longer hallucinating and no overnight behaviors and per RN pt slept well last night and no behavioral issues noted. PT/OT worked more with pt today and she is continuing to improve and increasing PT to 2x day as pt motivated. PT and MD still feel pt would benefit from SNF at d/c for increased strengthening. SW confirmed with [facility] that if pt continues to be stable with behaviors and able to participate with PT/OT then they can accept on Th when pt qualifies through Medicare although they will need pt to be weaned or weaning off Seroquel as due to Federal regulations for SNF it is viewed as a chemical restraint for behaviors since pt does not have a MH dx for Seroquel. plans to reduce pt's Seroquel dose by half today and then plans to stop Seroquel. also spoke with pt's son yesterday and provided update. Plan: SW to follow closely for pt's ongoing progress with PT/OT towards plan of [facility] on Thurs if pt medically stable and to confirm pt's behaviors stabilized and tolerating tapering Seroquel. SW to follow for return home with supportive neighbors if pt makes enough progress and SNF not needed, but pt likely will benefit from SNF stay due to chronic pain. LORNA Ahuja
--- NOTE | 2023-01-24 15:17 | PT.IPTN ---
Current Diagnoses Encephalopathy, unspecified (01/23/23) Physical Therapy Treatment Note M2 PT-IP Current Condition Start: 01/21/23 15:07 Freq: NEEDED Status: Active Protocol: Document 01/21/23 15:05 DLM (Rec: 01/21/23 15:31 DLM [id number]) Physical Therapy Current Condition Current Condition Evaluation Date 01/21/23 Treatment Diagnosis fall, chronic back pain, confusion, impaired gait Onset Date 01/21/23 M3 PT-IP Subjective Start: 01/21/23 15:07 Freq: NEEDED Status: Active Protocol: Document 01/24/23 15:49 TS (Rec: 01/24/23 16:15 TS [id number]) Subjective Physical Therapy Visit Type Type Treatment Note Visit Start Time 15:17 Visit Stop Time 15:45 Total Visit Minutes 28 Number of NATURAL RESOURCES SPECIALIST Visits 3 Physical Therapy Visit Comments Patient Comments Pt conitnues to report pain in low back and LLE at rest, increases with mobility. She reports she's feeling better and agreeabel to PT session. Patient Goals Discharge home so she can get moved to [place] Therapy Pain Assessment Pain When Pain Assessed At Rest Pain Present Pain Present Pain Reported M4 PT-IP Mobility and Gait Start: 01/21/23 15:07 Freq: NEEDED Status: Active Protocol: Document 01/24/23 15:49 TS (Rec: 01/24/23 16:15 TS [id number]) PT-Bed Mobility Assessment Supine to Sit Supine to Sit Moderate Assistance Sit to Supine Sit to Supine Moderate Assistance PT-Transfer Assessment Sit to and From Stand Sit to and from Stand Standby Assistance Equipment Transfer Assistive Device Gait Belt,Front Wheeled Walker Transfers Transfer Destination Bed Transfer Technique Stand Pivot Transfer Ability Level of Assist Standby Assistance Comments Mobility Comments Pt found resting in bed, agreeable to PT session. Supine to sit ModA for trunk and LE's off EOB, reports increased pain in LE's with mobility, required hand over hand assist for use of handrails and cues for pushing through elbow. She scooted EOB SBA with BUE support on bed, no posterior leaning, denied dizziness. She performed sit to stand x2 SBA required cues for weight forward and BUE support pushing from bed. She ambulated 2x15' to door and back requiring a rest break due to her pain in back/LE's. She performed third sit to stand SBA and ambulated into hallway 45' before requiring rest break in W/C. She ambulated ~30' more back to room, requiring another rest break due to pain. She performed stand pivot transfer to bed SBA with cues for eccentric control onto bed and BUE support. Sit to supine ModA for LE's and repositioning trunk in bed. She required ModA x2 scooting up to HOB with cues for bridging and pushing heels into bed. Pt was left in bed with call light nearby, bed alarm on and in higher spirits . Gait Assessment Gait Gait Assistance Required: Standby Assistance Distance (Feet) 105 Assistive Devices Assistive Device Gait Belt,Front Wheeled Walker Gait Deviations General Gait Pattern Decreased Stride Length, Decreased Feet Clearance, Flexed Trunk,Step-to Gait Factors Limiting Gait Function Factors Limiting Gait Function Decreased Activity Tolerance, Decreased Strength,Pain Comments Gait Comments See mobility comments PT-Balance Assessment Sitting Balance and Reactions Static Sitting Balance Ability Good Dynamic Sitting Balance Ability Good Standing Balance and Reactions Static Standing Balance Ability Good Dynamic Standing Balance Ability Fair Device Used FWW Comments Other Balance Tests/Deviations/Treatment Pt maintained midline with BUE : support on bed. She stood with FWW, flexed posture, no signs of buckling but fatigues quickly in standing. M5 PT-IP Objective Assessments Start: 01/21/23 15:07 Freq: NEEDED Status: Active Protocol: Document 01/21/23 15:05 DL (Rec: 01/21/23 15:31 [facility] [id number]) Orientation Orientation/Cognition Level of Alertness Alert Orientation Name,Birthday,Month,Year,Place ,Situation Language Function Ability No Deficits Noted Safety Awareness Understands Safety Issues Memory Description Short Term Impaired Comments tangential in conversation, mild stuttering intermittenly in her speech Gross Range of Motion Upper Extremity ROM Assessment Within Functional Limits Impairments hx of pain in left shoulder with reaching back too far Lower Extremity ROM Assessment Within Functional Limits Impairments reports increased back pain with hip flexion Strength Upper Extremity Strength Assessment Within Functional Limits Lower Extremity Strength Assessment Bilaterally Impaired Hip flex 3-/5 with increased back pain Knee 4/5 Ankle DF 5/5 Comments Strength Comments back pain interferes with functional strength of LE's Coordination Assessment Gross Coordination Gross Coordination Impaired Assessment Coordination Comments mild functional impairment in UE's with functional tasks Sensation Assessment Sensation Gross Sensation WNL Muscle Tone Muscle Tone WNL Yes M6 PT-IP Treatment Start: 01/21/23 15:07 Freq: NEEDED Status: Active Protocol: Document 01/24/23 15:49 TS (Rec: 01/24/23 16:15 TS [id number]) Physical Therapy Treatment Education Education Provided Safety M7 PT-IP Assessment and Plan Start: 01/21/23 15:07 Freq: NEEDED Status: Active Protocol: Document 01/24/23 15:49 TS (Rec: 01/24/23 16:15 TS [id number]) PT Summary Assessment and Plan Potential Rehabilitation Potential Good Status of Condition at Evaluation Evolving Summary Impairments Pain,ROM,Strength,Balance, Coordination,Cognition,Bed Mobility,Transfers,Gait, Activity Tolerance Progress Towards Goals Progressing Toward Goals Assessment Summary Pt made significant improvement in her gait this session requiring SBA and increasing her ambulation distance to ~45' before needing a rest break due to fatigue/pain in her LE's, in total she went ~105' this session. Cognitively she appears to be improving, is much more conversational and is joking around. She's still requiring ModA for bed mobility due to her pain and weakness in arms and legs. PT continues to recommend SNF to improve strength, bed mobility and activity tolerance. She has been very motivated with PT last two sessions and wants to improve so she can be with her son in [place]. Goals Bed Mobility Goal Independent Transfer Goal Independent,Front Wheeled Walker Gait Goal Independent,Front Wheel Walker Gait Distance 150 feet Days to Meet Goals 5 Frequency of Treatment Frequency Of Treatment Twice a Day Treatment Plan Physical Therapy Treatment Plan Bed Mobility Training,Transfer Training,Gait Training, Therapeutic Exercise,Balance Retraining,Discharge Planning, Neuromuscular Re-ed Precautions Other Precautions chronic back and neck pain hx of falls at home Recommendations To Nursing Amount of Assist Needed 1 Person Assist Discharge Recommendations PT Discharge Recommendations SNF Rehab Other Discharge Recommendations needs to be independent to go home Transportation Needs at Discharge Private Vehicle
[2023-01-24] MEDS: DICLOFENAC 1% GEL 100 GM 1 APPLIC TOP ×3 (17:38→20:35)
[2023-01-24] MEDS: INSULIN LISPRO 100 UNIT/ML 3ML VIAL SUBCUT (17:42)
[2023-01-24] MEDS: HYDROCODONE/ACET 10/325 TABLET 1 TAB PO ×2 (19:48→23:44)
[2023-01-24] MEDS: INSULIN GLARGINE 100 UNIT/ML 3ML PEN 45 UNIT SUBCUT (20:30)
[2023-01-24] MEDS: MELATONIN 3 MG TABLET 6 MG PO (20:33)
[2023-01-24] MEDS: QUETIAPINE 25 MG TABLET 12.5 MG PO (20:33)
[2023-01-25] MEDS: SIMETHICONE 80 MG TABLET PO (00:01)
[2023-01-25 04:00] VITALS: BP 142/41; PULSE 67; RESP 18; TEMP 35.9; O2SAT 96
[2023-01-25 05:47] LABS: BUN Creatinine Ratio 53.2 (6-22); Blood Urea Nitrogen 25 mg/dL (7-17); Calcium 8.5 mg/dL (8.4-10.2); Carbon Dioxide 25 mmol/L (22-32); Chloride 104 mmol/L (98-107); Estimated Glomerular Filt Rate > 60 mL/min (>60); Glucose 142 mg/dL (80-110); HEMOLYSIS < 15 (0-50); Potassium 4.3 mmol/L (3.4-5.1); Sodium 137 mmol/L (137-145)
[2023-01-25] MEDS: LEVOTHYROXINE 75 MCG TABLET PO (06:22)
[2023-01-25 08:00] VITALS: BP 131/59; PULSE 78; RESP 17; TEMP 36.2; O2SAT 95
[2023-01-25] MEDS: polyethylene glycoL 3350 17 GM POWD.PACK PO (08:14)
[2023-01-25 08:15] VITALS: BP 136/67; PULSE 73
[2023-01-25] MEDS: DOCUSATE 100 MG CAPSULE PO (08:15)
[2023-01-25] MEDS: HYDROCODONE/ACET 10/325 TABLET 1 TAB PO ×3 (08:15→21:13)
[2023-01-25] MEDS: carvediloL 12.5 MG TABLET PO (08:15)
[2023-01-25] MEDS: VENLAFAXINE ER 75 MG CAP 150 MG PO (08:16)
[2023-01-25] MEDS: INSULIN LISPRO 100 UNIT/ML 3ML VIAL SUBCUT ×2 (08:17→12:35)
[2023-01-25] MEDS: DICLOFENAC 1% GEL 100 GM 1 APPLIC TOP ×3 (08:17→17:26)
--- NOTE | 2023-01-25 09:00 | OT.IP.TRT ---
Current Diagnoses Encephalopathy, unspecified (01/23/23) Occupational Therapy Treatment Note M2 OT-IP Current Condition Start: 01/23/23 10:58 Freq: Status: Active Protocol: Document 01/23/23 10:17 [facility] (Rec: 01/23/23 11:23 [facility] [id number]) Occupational Therapy Current Condition Current Condition Evaluation Date 01/23/23 Treatment Diagnosis Acute metabolic encephalopathy Diagnosis Onset Date 01/21/23 M3 OT- IP Subjective and Pain Start: 01/23/23 10:58 Freq: Status: Active Protocol: Document 01/25/23 08:35 [facility] (Rec: 01/25/23 09:43 [facility] [id number]) OT- Subjective Occupational Therapy Visit Type Type Treatment Note Visit Start Time 08:35 Visit Stop Time 09:00 Total Visit Minutes 25 Occupational Therapy Visit Comments Patient Comments Pt not wanting to get up at this time due to pain level at 8. Patient/Caregiver Goals To get better. OT Pain Assessment Pain When Pain Assessed At Rest Pain Present Pain Present Pain Reported Location Lower Back Intensity 8 Scale Used Numeric (0 - 10) M4 OT- IP ADL's Start: 01/23/23 10:58 Freq: Status: Active Protocol: Document 01/25/23 08:35 [facility] (Rec: 01/25/23 09:43 [facility] [id number]) OT [id number] Comments OT Self-Feeding Comments Not at meal time. OT ADL-Grooming Comments OT Grooming Comments Pt states did prior. OT ADL-Oral Care Comments Oral Care Comments Pt states did prior. Educated pt best to spit into a cup or hinge at her hips to best follow her back precautions after back sx. OT ADL-Dressing Comments OT Dressing Comments Pt able to state all back precautions and aware that she will need LB dressing equipment to assist with her needs. M5 OT- IP IADL's Start: 01/23/23 10:58 Freq: Status: Active Protocol: Document 01/23/23 10:17 [facility] (Rec: 01/23/23 11:23 [facility] [id number]) OT-Instrumental Activities of Daily Living Home Safety Awareness Home Safety Comments Pt a little confused at this time and will need assist for all needs. Pt states prior throws her laundry done the steps and afterwards slowly rolls her laundry back up the steps. M6 OT- IP Functional Cognition Start: 01/23/23 10:58 Freq: Status: Active Protocol: Document 01/24/23 10:27 [facility] (Rec: 01/24/23 12:38 [facility] [id number]) Cognitive Factors Limiting Selfcare Function Cognitive Ability Level of Alertness Alert,Confusional State Patient Orientation Name Attention Span Ability Capable of Focused Attention, Unable to Sustain Attention Ability to Follow Commands Able to Follow One Step Commands with Increased Time, Able to Follow One Step Commands with Repetition Memory Description Short Term Impaired Cognitive Comments Cognitive Assessment Comments Pt needing simple concrete cues to follow for mobility needs to scoot forwards in the recliner, hand placement for the FWW and for reaching back to the recliner before sitting down. M7 OT- IP Mobility and Balance Start: 01/23/23 10:58 Freq: Status: Active Protocol: Document 01/25/23 08:35 [facility] (Rec: 01/25/23 09:43 [facility] [id number]) OT- Balance Assessment Sitting Balance and Reactions Static Sitting Balance Ability Good Dynamic Sitting Balance Ability Fair M8 OT- IP Objective Assessments Start: 01/23/23 10:58 Freq: Status: Active Protocol: Document 01/23/23 10:17 [facility] (Rec: 01/23/23 11:23 [facility] [id number]) OT Gross Range of Motion Upper Extremity Range of Motion Assessment Bilaterally Impaired OT Strength Upper Extremity Strength Assessment Bilaterally Impaired Comments Strength Comments Pt has bilateral shoulder pain L>R at this time. M9 OT- IP Assessment and Plan Start: 01/23/23 10:58 Freq: Status: Active Protocol: Document 01/25/23 08:35 [facility] (Rec: 01/25/23 09:43 [facility] [id number]) OT Summary Assessment and Plan Potential Rehabilitation Potential Good Analytic Complexity at Evaluation Moderate Summary OT Impairments Pain,Range of Motion,Strength, Balance,Functional Cognition, Functional Mobility,Grooming, Dressing,Toileting,Bathing, Toilet Transfers,Shower Transfers,Activity Tolerance Progress Towards Goals Progressing Toward Goals Assessment Summary pt Goals Self-Feeding Goal Independent Grooming Goal Independent Dressing Goal Independent Toileting Goal Independent Bathing Goal Independent Toilet Transfer Goal Independent Shower Transfer Goal Independent Days to Meet Goals 13 Frequency of Treatment Frequency Of Treatment Once a Day Treatment Plan OT Treatment Plan ADL Training,Functional Cognition Training,Functional Mobility,Patient/Family Education,Discharge Planning Discharge Recommendations OT Discharge Recommendations SNF Rehab Transportation Needs at Discharge Wheelchair/Cabulance
--- NOTE | 2023-01-25 09:32 | PM.PN.1 ---
Subjective Subjective Interval history: Patient's encephalopathy much better today, although she occasionally repeats herself. Awaiting SNF placement tomorrow. Exam Vital Signs (past 8 hours): - 01/25/23 04:00 01/25/23 08:00 01/25/23 08:15 Temperature 96.6 F L 97.1 F L Pulse Rate 67 78 73 Respiratory Rate 18 17 Blood Pressure 142/41 H 131/59 L 136/67 Pulse Oximetry 96 95 Oxygen Flow Rate 0 Oxygen Delivery Method Room Air Oxygen Flow Rate 0 Narrative Exam Narrative: GEN: elderly female, alert and oriented, sitting upright in chair HEENT: moist mucous membranes, PERRL NECK: trachea midline, no jvd PULM: clear bilaterally, no wheezes, rhonchi, rales CV: regular rate and rhythm, no murmurs ABD: soft, nontender, nondistneded, no organomegaly EXT: warm and well perfused with no edema NEURO: awake, alert. Strength +5/5 in all extremities, sensation intact to light touch. Objective Labs 01/24/23 06:20 01/25/23 03:42 Labs: Laboratory Results - last 24 hr 01/25/23 03:42 Sodium 137 Potassium 4.3 Chloride 104 Carbon Dioxide 25 BUN 25 H Creatinine 0.47 L Estimated GFR > 60 BUN/Creatinine Ratio 53.2 H Glucose 142 H Calcium 8.5 PFSH Medical History Asthma Cervical somatic dysfunction Chronic thoracic back pain Congenital duplication of renal collecting system Cough in adult patient CTS (carpal tunnel syndrome) Diabetes mellitus Diverticular disease Essential hypertension Fall from ground level Fibromyalgia Finger infection Greater trochanteric bursitis of both hips Greater trochanteric bursitis of left hip Hematuria Hernia, diaphragmatic Herniated nucleus pulposus, L4-5 Hyperlipidemia Hypothyroidism Iliotibial band syndrome of both sides Iliotibial band syndrome, left leg Iliotibial band syndrome, right leg Joint pain in both hands Left shoulder pain Leg pain, bilateral Lumbar back pain with radiculopathy affecting lower extremity Lumbar region somatic dysfunction Nocturia more than twice per night Nondisplaced fracture of right scaphoid bone Pelvic somatic dysfunction Postmenopausal atrophic vaginitis Postoperative pain after spinal surgery PSVT (paroxysmal supraventricular tachycardia) Pyuria Sacral region somatic dysfunction Segmental and somatic dysfunction of abdomen and other regions Somatic dysfunction of lower extremity Stressful life events affecting family and household Thoracic region somatic dysfunction Tinea corporis Urge incontinence Surgical History History of carpal tunnel repair History of cystoscopy Status post appendectomy Status post breast reduction Status post cholecystectomy Status post hysterectomy with oophorectomy Family History Father Dementia MVA (motor vehicle accident) Mother Dementia Colon cancer Social History marital status: household members: none Smoking Status: Never smoker alcohol intake: never substance use type: does not use Assessment & Plan Assessment & Plan narrative: 1. Acute toxic and metabolic encephalopathy, with opiate withdrawal, improving -suspect this is secondary to med effect, she is on multiple interacting meds including nortriptyline, venlafaxine, and has been prescribed gabapentin, carisoprodol, cyclobenzaprine, and hydrocodone -possibly has some anti-cholinergic effects from nortriptyline interacting with other meds, most of these have been held. Doubt serotonin syndrome. -improved markedly now with placement of fentanyl patch, definite opiate withdrawal on HD#1. Resolved hallucinations now. Was on seroqeul but now weaned off. -very likely the etiology of her encephalopathy is multifactorial including polypharmacy and subsequent withdrawal. -UA shows only leuk esterase 1+, but no bacteria, WBCs -CT head and CTA head/neck showed no acute process, think stroke/tia is unlikely given improvement today. -tsh normal, blood sugar normal, electrolytes are unremarkable as of yesterday, now refusing labs -doubt infection, with normal white count, normal temperature, 2. Hypothyroid -tsh normal -synthroid continued 3. Type 2 Diabetes on insulin -once patient less confused, confirm home insulin dose -for now continue sliding scale as patient allows. 4. Hypertension -continue lisinopril 5. Flank Hematoma - noted on CT, mild. h/h stable around 13 will stop trending. 6. Chronic low back pain - scheduled for surgery on 02/13. Improvement with fentanyl patch and continue hydrocodone / acetaminophen as needed along with venlafaxine. CODE: Full Proxy: Yo Mac, sister Dispo: SNF on 01/26. Time Spent With Patient Critical Care time: I spent a total of [] minutes of critical care time on this patient's care today; this time is exclusive of procedural time. Quality VTE Deep Vein Thrombosis/Pulmonary Embolism Present on Admission: Yes
[2023-01-25] MEDS: fentaNYL 25 MCG/PATCH TOP (10:35)
--- NOTE | 2023-01-25 11:29 | PT.IPTN ---
Current Diagnoses Encephalopathy, unspecified (01/23/23) Physical Therapy Treatment Note M2 PT-IP Current Condition Start: 01/21/23 15:07 Freq: NEEDED Status: Active Protocol: Document 01/21/23 15:05 DLM (Rec: 01/21/23 15:31 DLM [id number]) Physical Therapy Current Condition Current Condition Evaluation Date 01/21/23 Treatment Diagnosis fall, chronic back pain, confusion, impaired gait Onset Date 01/21/23 M3 PT-IP Subjective Start: 01/21/23 15:07 Freq: NEEDED Status: Active Protocol: Document 01/25/23 11:23 [facility] (Rec: 01/25/23 11:29 SAK [id number]) Subjective Physical Therapy Visit Type Type Treatment Note Visit Start Time 11:00 Visit Stop Time 11:24 Total Visit Minutes 23 Number of REFRACTORY GRINDER OPERATOR Visits 0 Physical Therapy Visit Comments Patient Comments Reports pain better now than was earlier this am. Having back surgery 02/13/23. Hoping to go home after hospitalization Patient Goals Discharge home so she can get moved to [place] Therapy Pain Assessment Pain When Pain Assessed At Rest Location Lower Back Intensity 6 Scale Used Numeric (0 - 10) Pain Management Techniques Apply Cold M4 PT-IP Mobility and Gait Start: 01/21/23 15:07 Freq: NEEDED Status: Active Protocol: Document 01/25/23 11:23 SAK (Rec: 01/25/23 11:29 [facility] [id number]) PT-Transfer Assessment Sit to and From Stand Sit to and from Stand Standby Assistance,Contact Guard Assistance Equipment Transfer Assistive Device Gait Belt,Front Wheeled Walker Transfer Ability Level of Assist Standby Assistance Comments Mobility Comments Patient sitting up in chair and wants to return to chair, states was in bed too long, uncomfortable. Gait Assessment Gait Gait Assistance Required: Standby Assistance Distance (Feet) 75 Assistive Devices Assistive Device Gait Belt,Front Wheeled Walker Gait Deviations General Gait Pattern Decreased Stride Length, Decreased Feet Clearance, Flexed Trunk,Step-to Gait Factors Limiting Gait Function Factors Limiting Gait Function Decreased Activity Tolerance, Decreased Strength,Pain Comments Gait Comments 75 ft x 2 cues for gait closer to FWW, may need to lower height of walker. PT-Balance Assessment Sitting Balance and Reactions Static Sitting Balance Ability Good Dynamic Sitting Balance Ability Fair Standing Balance and Reactions Static Standing Balance Ability Good Dynamic Standing Balance Ability Fair Device Used FWW Comments Other Balance Tests/Deviations/Treatment Patient c/o pain with 2nd walk : today, stopped 2x to flex forward for back stretch. M5 PT-IP Objective Assessments Start: 01/21/23 15:07 Freq: NEEDED Status: Active Protocol: Document 01/21/23 15:05 DLM (Rec: 01/21/23 15:31 DLM [id number]) Orientation Orientation/Cognition Level of Alertness Alert Orientation Name,Birthday,Month,Year,Place ,Situation Language Function Ability No Deficits Noted Safety Awareness Understands Safety Issues Memory Description Short Term Impaired Comments tangential in conversation, mild stuttering intermittenly in her speech Gross Range of Motion Upper Extremity ROM Assessment Within Functional Limits Impairments hx of pain in left shoulder with reaching back too far Lower Extremity ROM Assessment Within Functional Limits Impairments reports increased back pain with hip flexion Strength Upper Extremity Strength Assessment Within Functional Limits Lower Extremity Strength Assessment Bilaterally Impaired Hip flex 3-/5 with increased back pain Knee 4/5 Ankle DF 5/5 Comments Strength Comments back pain interferes with functional strength of LE's Coordination Assessment Gross Coordination Gross Coordination Impaired Assessment Coordination Comments mild functional impairment in UE's with functional tasks Sensation Assessment Sensation Gross Sensation WNL Muscle Tone Muscle Tone WNL Yes M6 PT-IP Treatment Start: 01/21/23 15:07 Freq: NEEDED Status: Active Protocol: Document 01/24/23 15:49 TS (Rec: 01/24/23 16:15 TS [id number]) Physical Therapy Treatment Education Education Provided Safety M7 PT-IP Assessment and Plan Start: 01/21/23 15:07 Freq: NEEDED Status: Active Protocol: Document 01/25/23 11:23 [facility] (Rec: 01/25/23 11:29 SAK [id number]) PT Summary Assessment and Plan Potential Rehabilitation Potential Good Status of Condition at Evaluation Evolving Summary Impairments Pain,ROM,Strength,Balance, Coordination,Cognition,Bed Mobility,Transfers,Gait, Activity Tolerance Progress Towards Goals Progressing Toward Goals Assessment Summary Pt made significant improvement in her gait this session requiring SBA and increasing her ambulation distance to ~45' before needing a rest break due to fatigue/pain in her LE's, in total she went ~105' this session. Cognitively she appears to be improving, is much more conversational and is joking around. She's still requiring ModA for bed mobility due to her pain and weakness in arms and legs. PT continues to recommend SNF to improve strength, bed mobility and activity tolerance. She has been very motivated with PT last two sessions and wants to improve so she can be with her son in [place]. Goals Bed Mobility Goal Independent Transfer Goal Independent,Front Wheeled Walker Gait Goal Independent,Front Wheel Walker Gait Distance 150 feet Days to Meet Goals 5 Frequency of Treatment Frequency Of Treatment Twice a Day Treatment Plan Physical Therapy Treatment Plan Bed Mobility Training,Transfer Training,Gait Training, Therapeutic Exercise,Balance Retraining,Discharge Planning, Neuromuscular Re-ed Precautions Other Precautions chronic back and neck pain hx of falls at home Recommendations To Nursing Amount of Assist Needed Standby Assistance Discharge Recommendations PT Discharge Recommendations SNF Rehab Other Discharge Recommendations needs to be independent to go home Transportation Needs at Discharge Private Vehicle
--- NOTE | 2023-01-25 15:15 | PT.IPTN ---
Current Diagnoses Encephalopathy, unspecified (01/23/23) Physical Therapy Treatment Note M2 PT-IP Current Condition Start: 01/21/23 15:07 Freq: NEEDED Status: Active Protocol: Document 01/21/23 15:05 DLM (Rec: 01/21/23 15:31 DLM [id number]) Physical Therapy Current Condition Current Condition Evaluation Date 01/21/23 Treatment Diagnosis fall, chronic back pain, confusion, impaired gait Onset Date 01/21/23 M3 PT-IP Subjective Start: 01/21/23 15:07 Freq: NEEDED Status: Active Protocol: Document 01/25/23 15:57 TS (Rec: 01/25/23 16:34 TS [id number]) Subjective Physical Therapy Visit Type Type Treatment Note Visit Start Time 15:15 Visit Stop Time 15:50 Total Visit Minutes 35 Number of MOLD DESIGNER Visits 1 Physical Therapy Visit Comments Patient Comments Berenice reports pain is 6/10 at rest in her low back and LLE, arms still feeling weaker than PLOF. She is hoping to get better enough to return home to take care of her dog. Back surgery 02/13/23. Patient Goals Discharge home so she can get moved to [place] Therapy Pain Assessment Pain When Pain Assessed At Rest Pain Present Pain Present Pain Reported Location Lower Back Intensity 6 Scale Used Numeric (0 - 10) Description Aching Pain Management Techniques Apply Cold M4 PT-IP Mobility and Gait Start: 01/21/23 15:07 Freq: NEEDED Status: Active Protocol: Document 01/25/23 15:57 TS (Rec: 01/25/23 16:34 TS [id number]) PT-Transfer Assessment Sit to and From Stand Sit to and from Stand Standby Assistance,Contact Guard Assistance Equipment Transfer Assistive Device Gait Belt,Front Wheeled Walker Comments Mobility Comments Pt found resting in bedside chair, agreeable to PT session . She performed sit to stand x2, requiring cues for BUE on arm rests and hand over hand assist CGA, second attempt SBA with slow lift from chair, does not demonstrate good carryover of sequencing. She ambulated with FWW ~80' with step to and shuffle gait with very flexed posture before requiring a rest break in chair. After 1 min rest break she ambulated 50' back to chair in room, no signs of buckling or LOB but reports LE fatigue. She performed stand to sit with cues for reaching back for arms of chair and keeping FWW close when sitting in chair. She was left in bedside chair, with chair alarm and call light nearby. Gait Assessment Gait Distance (Feet) 130 Assistive Devices Assistive Device Gait Belt,Front Wheeled Walker Gait Deviations General Gait Pattern Decreased Stride Length, Decreased Feet Clearance, Flexed Trunk,Step-to Gait Factors Limiting Gait Function Factors Limiting Gait Function Decreased Activity Tolerance, Decreased Strength,Pain Comments Gait Comments 1x80', 1x50' She demonstrates very flexed posture, with a slow step to and shuffle gait. PT-Balance Assessment Sitting Balance and Reactions Static Sitting Balance Ability Good Dynamic Sitting Balance Ability Fair Standing Balance and Reactions Static Standing Balance Ability Good Dynamic Standing Balance Ability Fair Device Used FWW Comments Other Balance Tests/Deviations/Treatment Pt has good sitting balance : but difficulty reaching out EMILIA. Her standing balance is good but has very flexed posture, she reports it helps with her back pain. M5 PT-IP Objective Assessments Start: 01/21/23 15:07 Freq: NEEDED Status: Active Protocol: Document 01/21/23 15:05 DLM (Rec: 01/21/23 15:31 DLM [id number]) Orientation Orientation/Cognition Level of Alertness Alert Orientation Name,Birthday,Month,Year,Place ,Situation Language Function Ability No Deficits Noted Safety Awareness Understands Safety Issues Memory Description Short Term Impaired Comments tangential in conversation, mild stuttering intermittenly in her speech Gross Range of Motion Upper Extremity ROM Assessment Within Functional Limits Impairments hx of pain in left shoulder with reaching back too far Lower Extremity ROM Assessment Within Functional Limits Impairments reports increased back pain with hip flexion Strength Upper Extremity Strength Assessment Within Functional Limits Lower Extremity Strength Assessment Bilaterally Impaired Hip flex 3-/5 with increased back pain Knee 4/5 Ankle DF 5/5 Comments Strength Comments back pain interferes with functional strength of LE's Coordination Assessment Gross Coordination Gross Coordination Impaired Assessment Coordination Comments mild functional impairment in UE's with functional tasks Sensation Assessment Sensation Gross Sensation WNL Muscle Tone Muscle Tone WNL Yes M6 PT-IP Treatment Start: 01/21/23 15:07 Freq: NEEDED Status: Active Protocol: Document 01/25/23 15:57 TS (Rec: 01/25/23 16:34 TS [id number]) Physical Therapy Treatment Education Education Provided Safety M7 PT-IP Assessment and Plan Start: 01/21/23 15:07 Freq: NEEDED Status: Active Protocol: Document 01/25/23 15:57 TS (Rec: 01/25/23 16:34 TS [id number]) PT Summary Assessment and Plan Potential Rehabilitation Potential Good Status of Condition at Evaluation Evolving Summary Impairments Pain,ROM,Strength,Balance, Coordination,Cognition,Bed Mobility,Transfers,Gait, Activity Tolerance Progress Towards Goals Progressing Toward Goals Assessment Summary Pt continues to make improvement in her ambulation this session. Her LE's do fatigue after short distances but tolerance is slightly improving with going longer distances before needing rest breaks. She continues to report pain 6/10 and increasing at times with mobility limiting her progress . She continues to report her arms feeling weaker before hospital stay. PT continues to recommend SNF to increase her strength, bed mobility, activity tolerance in standing and during ambulation. She has been very motivated to work with PT and wants to improve to PLOF to return home independently and perform all ADL's. Goals Bed Mobility Goal Independent Transfer Goal Independent,Front Wheeled Walker Gait Goal Independent,Front Wheel Walker Gait Distance 150 feet Days to Meet Goals 5 Frequency of Treatment Frequency Of Treatment Twice a Day Treatment Plan Physical Therapy Treatment Plan Bed Mobility Training,Transfer Training,Gait Training, Therapeutic Exercise,Balance Retraining,Discharge Planning, Neuromuscular Re-ed Other Recommendations and Next Treatment Assess bed mobility. Focus Precautions Other Precautions chronic back and neck pain hx of falls at home Recommendations To Nursing Amount of Assist Needed Standby Assistance Discharge Recommendations PT Discharge Recommendations SNF Rehab Other Discharge Recommendations needs to be independent to go home Transportation Needs at Discharge Private Vehicle
[2023-01-25 16:00] VITALS: BP 130/82; PULSE 78; RESP 17; TEMP 36.5; O2SAT 97
[2023-01-25] MEDS: ACETAMINOPHEN 325 MG TABLET 650 MG PO (17:26)
[2023-01-25 20:00] VITALS: BP 125/56; PULSE 80; RESP 18; TEMP 36.1; O2SAT 96
[2023-01-25] MEDS: MELATONIN 3 MG TABLET 6 MG PO (21:14)
[2023-01-25 21:15] VITALS: BP 125/56; PULSE 80
[2023-01-25] MEDS: INSULIN GLARGINE 100 UNIT/ML 3ML PEN 45 UNIT SUBCUT (21:22)
[2023-01-26] MEDS: HYDROCODONE/ACET 10/325 TABLET 1 TAB PO ×2 (02:02→07:21)
[2023-01-26 04:00] VITALS: BP 161/63; PULSE 74; RESP 17; TEMP 35.9; O2SAT 97
[2023-01-26 05:03] LABS: BUN Creatinine Ratio 45.7 (6-22); Blood Urea Nitrogen 21 mg/dL (7-17); Calcium 8.7 mg/dL (8.4-10.2); Carbon Dioxide 28 mmol/L (22-32); Chloride 104 mmol/L (98-107); Estimated Glomerular Filt Rate > 60 mL/min (>60); Glucose 97 mg/dL (80-110); HEMOLYSIS < 15 (0-50); Sodium 139 mmol/L (137-145)
[2023-01-26] MEDS: LEVOTHYROXINE 75 MCG TABLET PO (06:41)
[2023-01-26] MEDS: ACETAMINOPHEN 325 MG TABLET 650 MG PO (07:21)
--- NOTE | 2023-01-26 08:05 | PT.IPTN ---
Current Diagnoses Encephalopathy, unspecified (01/23/23) Physical Therapy Treatment Note M2 PT-IP Current Condition Start: 01/21/23 15:07 Freq: NEEDED Status: Discharge Protocol: Document 01/26/23 07:44 SP (Rec: 01/26/23 14:25 SP [id number]) Physical Therapy Current Condition Current Condition Evaluation Date 01/21/23 Treatment Diagnosis fall, chronic back pain, confusion, impaired gait Onset Date 01/21/23 M3 PT-IP Subjective Start: 01/21/23 15:07 Freq: NEEDED Status: Discharge Protocol: Document 01/26/23 07:44 SP (Rec: 01/26/23 14:25 SP [id number]) Subjective Physical Therapy Visit Type Type Treatment Note Visit Start Time 07:44 Visit Stop Time 08:05 Total Visit Minutes 21 Number of PLUMBING ENGINEER Visits 2 Physical Therapy Visit Comments Patient Comments Pt reports just got pain med 15 minutes ago but willing to work with therapy. Patient Goals Go to rehab to get stronger with stair mgt to allow ability to get around her home . Therapy Pain Assessment Pain When Pain Assessed During Mobility Pain Present Pain Present Pain Reported Location Lower Back Intensity 7 Scale Used Numeric (0 - 10) Pain Management Techniques Apply Cold,Modification of Treatment,Re-positioning, Timing of Activity with Medications M4 PT-IP Mobility and Gait Start: 01/21/23 15:07 Freq: NEEDED Status: Discharge Protocol: Document 01/26/23 07:44 SP (Rec: 01/26/23 14:25 SP [id number]) PT-Transfer Assessment Sit to and From Stand Sit to and from Stand Standby Assistance,Contact Guard Assistance Equipment Transfer Assistive Device Gait Belt,Front Wheeled Walker Transfers Transfer Destination Chair Transfer Technique pt ambulated with FWW Transfer Ability Level of Assist Standby Assistance Comments Mobility Comments Pt slow to mobility with pain, safety cues for full stand and proper hand placement due to positions walker off to side and needing that support. Attempted to complete sit> supine with Mod A for BLE into bed then asked stop, to much pain, wanted to return to chair. Attempted stair mgt but when trialed L HR and R UE onwall (set up home upstairs to bedroom/kitchen) unsteady requiring Marino and states pain and fear of falling. Gait CGA w/ FWW, 1 lap in room 30 ft very flexed posture, low endurance, extra time to complete distance. Pt returned to chair, cues step back, tactile/verbal cues FWW fully back and proper hand placement , pt tends to leave hands on FWW and loses balance backward requiring MIn A. Pt had call light and all needs inreach with chair alarm donned. Recommending SNF for progress functional mobiltiy independence. Gait Assessment Gait Gait Assistance Required: Standby Assistance Distance (Feet) 30 Assistive Devices Assistive Device Gait Belt,Front Wheeled Walker Gait Deviations General Gait Pattern Antalgic,Decreased Stride Length,Decreased Feet Clearance,Flexed Trunk Factors Limiting Gait Function Factors Limiting Gait Function Decreased Activity Tolerance, Decreased Strength,Difficulty Following Directions,Pain,Poor Safety Awareness Comments Gait Comments 30 ft before tired w/ FWW, cued upright posture, proper positioning of FWW. Stair Climbing Assessment Comments Stair Climbing Comments attempted L HR, RUE on R wall (home set up) but unsteady lifting RLE to ascend 1st step CG/ Min A, stopped. I can't right now, afraid of falling. PT-Balance Assessment Sitting Balance and Reactions Static Sitting Balance Ability Good Dynamic Sitting Balance Ability Fair Standing Balance and Reactions Static Standing Balance Ability Good Dynamic Standing Balance Ability Fair Device Used FWW Comments Other Balance Tests/Deviations/Treatment Pt has good sitting balance : but difficulty reaching out EMILIA. Her standing balance is good but has very flexed posture, she reports it helps with her back pain. Functional Assessments Functional Tests 5 Times Sit to Stand 36 sec, safety cues support trunk asc/descend control M5 PT-IP Objective Assessments Start: 01/21/23 15:07 Freq: NEEDED Status: Discharge Protocol: Document 01/21/23 15:[facility] (Rec: 01/21/23 15:31 [facility] [id number]) Orientation Orientation/Cognition Level of Alertness Alert Orientation Name,Birthday,Month,Year,Place ,Situation Language Function Ability No Deficits Noted Safety Awareness Understands Safety Issues Memory Description Short Term Impaired Comments tangential in conversation, mild stuttering intermittenly in her speech Gross Range of Motion Upper Extremity ROM Assessment Within Functional Limits Impairments hx of pain in left shoulder with reaching back too far Lower Extremity ROM Assessment Within Functional Limits Impairments reports increased back pain with hip flexion Strength Upper Extremity Strength Assessment Within Functional Limits Lower Extremity Strength Assessment Bilaterally Impaired Hip flex 3-/5 with increased back pain Knee 4/5 Ankle DF 5/5 Comments Strength Comments back pain interferes with functional strength of LE's Coordination Assessment Gross Coordination Gross Coordination Impaired Assessment Coordination Comments mild functional impairment in UE's with functional tasks Sensation Assessment Sensation Gross Sensation WNL Muscle Tone Muscle Tone WNL Yes M6 PT-IP Treatment Start: 01/21/23 15:07 Freq: NEEDED Status: Discharge Protocol: Document 01/26/23 07:44 SP (Rec: 01/26/23 14:25 SP [id number]) Physical Therapy Treatment Exercises Exercises Ankle Pumps,Seated Knee Flexion/Extension Education Education Provided Safety Other Treatments Other Treatment Performed CUed warm up LE ex: heel/toe raises, LAQ, marching. M7 PT-IP Assessment and Plan Start: 01/21/23 15:07 Freq: NEEDED Status: Discharge Protocol: Document 01/26/23 07:44 SP (Rec: 01/26/23 14:25 SP [id number]) PT Summary Assessment and Plan Potential Rehabilitation Potential Good Status of Condition at Evaluation Evolving Summary Impairments Pain,ROM,Strength,Balance, Coordination,Cognition,Bed Mobility,Transfers,Gait, Activity Tolerance Progress Towards Goals Progressing Toward Goals,Slow Progress due to Pain,Slow Progress due to Activity Tolerance Assessment Summary Pt low endurance/ activity tolerance, pain and required increase safety cues for proper hand and FWW positioning for sit/stand today, Mod A BLE bed mob, requires seated rest between activities for tiring recovery and unable to assess stairs back pain and fear falling. Gait 30 ft w/ FWW, decreased tolerance. Pt will require SNF for increase strength, activity tolerance to allow stair mgt allowance to get to bedroom. Goals Bed Mobility Goal Independent Transfer Goal Independent,Front Wheeled Walker Gait Goal Independent,Front Wheel Walker Gait Distance 150 feet Days to Meet Goals 5 Frequency of Treatment Frequency Of Treatment Twice a Day Treatment Plan Physical Therapy Treatment Plan Bed Mobility Training,Transfer Training,Gait Training, Therapeutic Exercise,Balance Retraining,Discharge Planning, Neuromuscular Re-ed Other Recommendations and Next Treatment check premedicated if wish, Focus bed mob progression, safety techniques transfers, gait further distance, stair mgt ( states ramp enter home to livingroom, 14 stairs to kitchen/ bedroom). Precautions Other Precautions chronic back and neck pain hx of falls at home Recommendations To Nursing Amount of Assist Needed Standby Assistance,1 Person Assist Discharge Recommendations PT Discharge Recommendations SNF Rehab Other Discharge Recommendations needs to be independent to go home Transportation Needs at Discharge Private Vehicle,Wheelchair/ Cabulance
[2023-01-26 08:38] VITALS: BP 168/76; PULSE 84; RESP 17; TEMP 36.2; O2SAT 94
[2023-01-26] MEDS: polyethylene glycoL 3350 17 GM POWD.PACK PO (08:51)
[2023-01-26] MEDS: ENOXAPARIN 40 MG/0.4 ML SYRINGE SUBCUT (08:51)
[2023-01-26] MEDS: VENLAFAXINE ER 75 MG CAP 150 MG PO (08:51)
[2023-01-26 08:52] VITALS: BP 168/76; PULSE 83
[2023-01-26] MEDS: DOCUSATE 100 MG CAPSULE PO (08:52)
[2023-01-26] MEDS: carvediloL 12.5 MG TABLET PO (08:52)
[2023-01-26 08:53] VITALS: BP 168/76; PULSE 83
[2023-01-26] MEDS: lisinopriL 20 MG TABLET PO (08:53)
[2023-01-26] MEDS: DICLOFENAC 1% GEL 100 GM 1 APPLIC TOP (08:54)
--- NOTE | 2023-01-26 08:54 | P.DS_ITS ---
History of Present Illness History of Present Illness Date Patient Seen: 01/26/23 Time Patient Seen: 08:56 Chief complaint: Stroke Narrative: Ms. Goodwin is a 82W with PMH chronic back pain, hypothyroidism who presents after a fall. History is difficult to obtain as the patient is confuse. She states that she feels she can't think right. She states she came in because she had a fall, because her legs gave out on me. She is not sure if she tripped, or was lightheaded. She is not sure if she fell a day ago or a few hours ago. She said after the fall she had difficulty getting up due to pain. She says she is planned at some point to have back surgery. She at baseline appears to take nortriptyline, and venlafaxine, over the past few weeks she has prescriptions noted for carisoprodol, cyclobenzaprine, and hydrocodone. She states due to her pain she has taken more of some medications, but she is not sure which, she thinks it's her vicodin but is not sure In the ED workup was done, vitals notable for elevated blood pressure, normal oxygen sat. Labs notable for WBC 7.0, hgb 13.1, plts 253. Creatinine 0.53. Urinalysis showed 1+ leuk esterase, urine wbc 0-1, occasional bacteria 0-1. Salicylates negative. etoh negative. Tylenol negative. Code stroke was called. NIH 0. CT head negative for any acute process. CTA head/neck shows no acute process. CT chest, abdomen, pelvis shows no acute process. She was admitted for further treatment. Discharge Providers Provider Date of admission: 01/23/23 09:45 Discharge Date: 01/26/23 Primary care physician: Jeremy Aly DO Consults: 01/21/23 06:34 Consult to Occupational Therapy Evaluate & Treat Comment: Physician Instructions: Evaluate and treat Consult to Physical Therapy Evaluate & Treat Comment: Physician Instructions: Evaluate and Treat Discharge provider: Suman Salazar DO Summary Hospital Course Discharge Diagnosis: 1. Acute toxic and metabolic encephalopathy, with opiate withdrawal, improving -suspect this is secondary to med effect, she is on multiple interacting meds including nortriptyline, venlafaxine, and has been prescribed gabapentin, carisoprodol, cyclobenzaprine, and hydrocodone -possibly has some anti-cholinergic effects from nortriptyline interacting with other meds, most of these have been held. Doubt serotonin syndrome. -improved markedly now with placement of fentanyl patch, definite opiate withdrawal on HD#1. Resolved hallucinations now. Was on seroqeul but now weaned off. -very likely the etiology of her encephalopathy is multifactorial including polypharmacy and subsequent withdrawal. -continue fentanyl patch and norco PRN on discharge to SNF 2. Hypothyroid -tsh normal -synthroid continued 3. Type 2 Diabetes on insulin -once patient less confused, confirm home insulin dose -for now continue sliding scale as patient allows. 4. Hypertension -continue lisinopril 5. Flank Hematoma ?- noted on CT, mild. h/h stable around 13 will stop trending. 6. Chronic low back pain - scheduled for surgery on 02/13. Improvement with fentanyl patch and continue hydrocodone / acetaminophen as needed along with venlafaxine. -PT eval recommended SNF Hospital Course: See problem list above. Time Spent with Patient Time spent: Greater than 30 minutes Exam Vital Signs (past 8 hours): - 01/26/23 04:00 01/26/23 08:38 01/26/23 08:52 Temperature 96.7 F L 97.1 F L Pulse Rate 74 84 83 Respiratory Rate 17 17 Blood Pressure 161/63 H 168/76 H 168/76 H Pulse Oximetry 97 94 Oxygen Flow Rate 0 01/26/23 08:53 Temperature Pulse Rate 83 Respiratory Rate Blood Pressure 168/76 H Pulse Oximetry Oxygen Flow Rate Oxygen Delivery Method Room Air Oxygen Flow Rate 0 Narrative Exam Narrative: GEN: elderly female, alert and oriented, sitting upright in chair HEENT: moist mucous membranes, PERRL NECK: trachea midline, no jvd PULM: clear bilaterally, no wheezes, rhonchi, rales CV: regular rate and rhythm, no murmurs ABD: soft, nontender, nondistneded, no organomegaly EXT: warm and well perfused with no edema NEURO: awake, alert. Strength +5/5 in all extremities, sensation intact to light touch. Objective Labs 01/24/23 06:20 01/26/23 04:22 Labs: Laboratory Results - last 24 hr 01/26/23 04:22 Sodium 139 Potassium 4.0 Chloride 104 Carbon Dioxide 28 BUN 21 H Creatinine 0.46 L Estimated GFR > 60 BUN/Creatinine Ratio 45.7 H Glucose 97 Calcium 8.7 PFSH Medical History Asthma Cervical somatic dysfunction Chronic thoracic back pain Congenital duplication of renal collecting system Cough in adult patient CTS (carpal tunnel syndrome) Diabetes mellitus Diverticular disease Essential hypertension Fall from ground level Fibromyalgia Finger infection Greater trochanteric bursitis of both hips Greater trochanteric bursitis of left hip Hematuria Hernia, diaphragmatic Herniated nucleus pulposus, L4-5 Hyperlipidemia Hypothyroidism Iliotibial band syndrome of both sides Iliotibial band syndrome, left leg Iliotibial band syndrome, right leg Joint pain in both hands Left shoulder pain Leg pain, bilateral Lumbar back pain with radiculopathy affecting lower extremity Lumbar region somatic dysfunction Nocturia more than twice per night Nondisplaced fracture of right scaphoid bone Pelvic somatic dysfunction Postmenopausal atrophic vaginitis Postoperative pain after spinal surgery PSVT (paroxysmal supraventricular tachycardia) Pyuria Sacral region somatic dysfunction Segmental and somatic dysfunction of abdomen and other regions Somatic dysfunction of lower extremity Stressful life events affecting family and household Thoracic region somatic dysfunction Tinea corporis Urge incontinence Surgical History History of carpal tunnel repair History of cystoscopy Status post appendectomy Status post breast reduction Status post cholecystectomy Status post hysterectomy with oophorectomy Family History Father Dementia MVA (motor vehicle accident) Mother Dementia Colon cancer Social History marital status: household members: none Smoking Status: Never smoker alcohol intake: never substance use type: does not use Discharge Plan Discharge Plan Patient Disposition: SNF Transfer to: [facility] Discharge orders & Medications Prescriptions: New fentanyl 25 mcg/hr Patch 72 Hour 25 mcg topical Q72H Qty: 30 0RF Continued (DME) Disabled parking permit See Rx Instructions .Route .MEDSUPPLY Qty: 1 0RF Rx Instructions: As directed venlafaxine 150 mg capsule,extended release 24hr See Rx Instructions .ROUTE .COMPLEX Qty: 90 2RF Dose Instruction: TAKE 1 CAPSULE BY MOUTH DAILY Rx Instructions: TAKE 1 CAPSULE BY MOUTH DAILY lisinopril 20 mg tablet 20 mg PO DAILY Qty: 90 3RF levothyroxine 75 mcg tablet See Rx Instructions .ROUTE .COMPLEX Qty: 90 0RF Dose Instruction: TAKE 1 TABLET BY MOUTH EVERY MORNING Rx Instructions: TAKE 1 TABLET BY MOUTH EVERY MORNING CMP KETOPROFEN 20% cream See Rx Instructions TOP BID PRN (Reason: fibromyalgia) Qty: 120 3RF Rx Instructions: APPLY TO SWELLING JOINTS TWO TIMES A DAY NEEDED FOR PAIN (WASH HANDS AFTER APPLYING) solifenacin 10 mg tablet 10 mg PO DAILY Qty: 90 3RF insulin glargine [Lantus Solostar U-100 Insulin] 100 unit/mL (3 mL) insulin pen See Rx Instructions .ROUTE .COMPLEX Qty: 15 11RF Dose Instruction: INJECT 45 UNITS SUBCUTANEOUSLY EVERY EVENING Rx Instructions: INJECT 45 UNITS SUBCUTANEOUSLY EVERY EVENING albuterol sulfate 90 mcg/actuation HFA aerosol inhaler 2 puff Inhalation Q8H PRN (Reason: shortness of breath) Qty: 6.7 5RF hydrocodone-acetaminophen 10-325 mg tablet See Rx Instructions PO Q4-6H PRN (Reason: pain) Qty: 270 0RF Rx Instructions: 1-2 tabs, orally every 4-6 hours PRN; carvedilol 12.5 mg tablet 12.5 mg PO BID Patient Comments: TAKE 1 TABLET BY MOUTH TWICE DAILY WITH MEALS FOR HEART diclofenac sodium 1 % gel 2 g topical QID Follow up/Referrals: Jeremy Aly DO [Primary Care Provider] - 2 Weeks Discharge Health Status Multidrug resistant organism: No MDRO Diet/Activity/Treatments Diet: Carb-consistent/Diabetic [facility] Rehab type: Physical therapy and Occupational therapy Visit Report/Discharge Packet Stand Alone Forms: Patient Portal/API Discharge Data Primary Care Provider: Jeremy Aly Quality VTE Deep Vein Thrombosis/Pulmonary Embolism Present on Admission: Yes
[2023-01-26 09:01] LABS: COVID19 -Nasal RAPID Negative (Negative)
--- NOTE | 2023-01-26 11:10 | CM.DPNOTE ---
DC Note Discharge to [facility] today. Coordination completed by VENECIA Laughlin- all DC ppk and completed PASRR faxed to [facility] RN Jeremy aware and agreeable to plan this morning Patient agreeable to plan after discussing w/her son Benson. Patient's family will be arriving February 08 to assist with patient's dog and the eventual selling of her home and move to [place] Plan: Discharge to [facility] via w/c. COVID PCR updated, transport arranged for [address]
--- NOTE | 2023-03-23 13:00 | PC.NURSE ---
late entry note for 01/26/23 day shift: patient reported back pain, and accepted ice pack and reposition. after this was not very effective, patient requested norco 1 tab. this was given w/ good effect. tolerated OOB to chair for meal.
== END 2023-01-26 11:38 | DRG 896 ==
LOC: ED 01-21 00:07 → AC 01-21 04:14
PROVIDERS: Internal Medicine; Student in an Organized Health Care Education/Training Program; Admitting Provider Internal Medicine; Emergency Provider Emergency Medicine; Family Provider Family Medicine; PCP Family Medicine; Referring Provider Emergency Medicine; Visit Provider Internal Medicine
DX: F11.13 Opioid abuse with withdrawal (principal); G92.8 Other toxic encephalopathy; E03.9 Hypothyroidism, unspecified; E11.9 Type 2 diabetes mellitus without complications; I10 Essential (primary) hypertension; G89.29 Other chronic pain; M54.50 Low back pain, unspecified; S30.1XXA Contusion of abdominal wall, initial encounter; T50.995A Adverse effect of other drugs, medicaments and biological substances, initial encounter; W19.XXXA Unspecified fall, initial encounter; Z79.4 Long term (current) use of insulin; Z20.822 Contact with and (suspected) exposure to COVID-19
CPT/HCPCS: 36415; 70450; 70496; 70498; 71260; 74177; 80048; 80053; 80305; 80320; 80329; 81001; 81003; 82550; 82553; 82962; 83036; 84443; 84484; 85025; 85610; 85730; 87086; 87635; 93005; 93010; 97110; 97116; 97162; 97166; 97530; 97535; 99284; 99285; C9803; G0378; G0480; J1170; J1630; J1650; J1815; J2060; Q9967